=== PATIENT | male | born 1945 | race Caucasian/White ===

== ENCOUNTER 2024-03-12 04:16 | Inpatient (IN) | payer MEDICARE, OTHER ==
--- NOTE | 2024-03-12 04:33 | ED ---
General Adult HPI - General Chief complaint: Recheck/Abnormal Lab/Rx Stated complaint: abnormal labs Time Seen by Provider: 03/12/24 04:20 Source: family Mode of arrival: wheelchair - History of Present Illness Initial comments: 78-year-old male with past medical history of coronary artery disease who presents emergency department as a transfer from [facility] in [place]. Patient was taken in there by EMS for weakness and confusion. Patient reported upper respiratory infection 2 to 3 weeks ago for which he saw his doctor. Over the last week he started having gait disturbances. 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 He had mild expressive aphasia. Torr ey studies were conducted. Lactic was 2.4. Calcium was 15.3. Imaging was done to include a chest, abdomen pelvis CT. Demonstrated mediastinal and right hilar adenopathy concerning for neoplasm or lymphoma. Small right pleural effusion. Reticular opacity in the right lower lobe and left upper lobe. CT brain demonstrated no acute findings. There is concern for myeloma, metastatic cancer. Creatinine was 2.7. He was given fluids and 4 mg of zoledronic acid. Patient required oncology nephrology. I spoke with the patient's [place]. They did draw vitamin D, calcium and parathyroid levels. - Related Data Home Medications Medication Instructions Recorded Confirmed ARIPiprazole [Abilify] 5 mg PO HS 03/12/24 03/12/24 Atorvastatin [Lipitor] 40 mg PO DAILY 03/12/24 03/12/24 Benzonatate [Tessalon Perle] 200 mg PO HS PRN 03/12/24 03/12/24 Omeprazole [PriLOSEC] 20 mg PO DAILY 03/12/24 03/12/24 Venlafaxine HCl [Effexor XR] 150 mg PO HS 03/12/24 03/12/24 amLODIPine [Norvasc] 5 mg PO DAILY 03/12/24 03/12/24 guaiFENesin 200 mg PO Q6H PRN 03/12/24 03/12/24 Allergies Allergy/AdvReac Type Severity Reaction Status Date / Time No Known Allergies Allergy Verified 03/12/24 07:56 Review of Systems ROS Statement: Those systems with pertinent positive or pertinent negative responses have been documented in the HPI. ROS Other: All systems not noted in ROS Statement are negative. Past Medical History Past Medical History: GERD/Reflux, Myocardial Infarction ([place]) Additional Past Medical History / Comment(s): DJD History of Any Multi-Drug Resistant Organisms: None Reported Past Surgical History: Heart Catheterization With Stent Past Psychological History: No Psychological Hx Reported Smoking Status: Former smoker Past Alcohol Use History: None Reported Past Drug Use History: None Reported General Exam General appearance: alert, in no apparent distress Head exam: Present: atraumatic, normocephalic, normal inspection Eye exam: Present: normal appearance, PERRL, EOMI. Absent: scleral icterus, conjunctival injection, periorbital swelling ENT exam: Present: normal exam, mucous membranes moist Neck exam: Present: normal inspection. Absent: tenderness, meningismus, lymphadenopathy Respiratory exam: Present: normal lung sounds bilaterally. Absent: respiratory distress, wheezes, rales, rhonchi, stridor Cardiovascular Exam: Present: regular rate, normal rhythm, normal heart sounds. Absent: systolic murmur, diastolic murmur, rubs, gallop, clicks GI/Abdominal exam: Present: soft, normal bowel sounds. Absent: distended, tenderness, guarding, rebound, rigid Extremities exam: Present: normal inspection, full ROM, normal capillary refill. Absent: tenderness, pedal edema, joint swelling, calf tenderness Back exam: Present: normal inspection Neurological exam: Present: alert, oriented X3, CN II-XII intact Psychiatric exam: Present: normal affect, normal mood Skin exam: Present: warm, dry, intact, normal color. Absent: rash Course Vital Signs 03/12/24 03/12/24 03/12/24 04:18 05:21 06:44 Temperature 98.1 F Pulse Rate 99 88 90 Respiratory 18 18 18 Rate Blood Pressure 133/76 137/75 145/86 O2 Sat by Pulse 94 L 93 L 95 Oximetry 03/12/24 03/12/24 03/12/24 10:19 14:00 18:04 Temperature Pulse Rate 102 H 78 80 Respiratory 18 18 16 Rate Blood Pressure 135/83 144/98 143/81 O2 Sat by Pulse 97 96 95 Oximetry 03/12/24 19:04 Temperature 99.1 F Pulse Rate 87 Respiratory 18 Rate Blood Pressure 141/82 O2 Sat by Pulse 95 Oximetry Medical Decision Making - Medical Decision Making Was pt. sent in by a medical professional or institution (NIKOLAY Jefferson, ACTUARIAL INTERN, urgent care, hospital, or shelter...) When possible be specific @ -Allienyla Rizo Did you speak to anyone other than the patient for history (EMS, parent, family, police, friend...)? What history was obtained from this source @ -Spoke with transferring physician from [facility] Did you review nursing and triage notes (agree or disagree)? Why? @ -I reviewed and agree with nursing and triage notes Were old charts reviewed (outside hosp., previous admission, EMS record, old EKG, old radiological studies, urgent care reports/EKG's, shelter records)? Report findings @ -I reviewed the transfer packet from outside hospital Differential Diagnosis (chest pain, altered mental status, abdominal pain women, abdominal pain men, vaginal bleeding, weakness, fever, dyspnea, syncope, headache, dizziness, GI bleed, back pain, seizure, CVA, palpatations, mental hea lth, musculoskeletal)? @ -Differential Weakness: Hypoglycemia, shock, sepsis, hyponatremia, anemia, infection, PA, ETOH, adverse medicine reaction, overdose, stroke, this is not meant to be an all-inclusive list. EKG interpreted by me (3pts min.). @ -Yes and demonstrates sinus rhythm with a rate of 97. MA interval 164. QRS 100. QTc of 360. No acute ST segment elevations or depressions X-rays interpreted by me (1pt min.). @ -None done CT interpreted by me (1pt min.). @ -None done U/S interpreted by me (1pt. min.). @ -None done What testing was considered but not performed or refused? (CT, X-rays, U/S, labs)? Why? @ -None What meds were considered but not given or refused? Why? @ -None Did you discuss the management of the patient with other professionals (professionals i.e. NIKOLAY Jefferson, ACTUARIAL INTERN, lab, RT, psych nurse, social work coordinator, field service technician, teacher, corporation officer, therapeutic case manager)? Give summary @ -Spoke with Dr. Parra for admission Was smoking cessation discussed for >3mins.? @ -No Was critical care preformed (if so, how long)? @ -No Were there social determinants of health that impacted care today? How? (Homelessness, low income, unemployed, alcoholism, drug addiction, transpo rtation, low edu. Level, literacy, decrease access to med. care, senior living, rehab)? @ -Patient lives up in [place] Was there de-escalation of care discussed even if they declined (Discuss DNR or withdrawal of care, Hospice)? DNR status @ -No What co-morbidities impacted this encounter? (DM, HTN, Smoking, COPD, CAD, Cancer, CVA, ARF, Chemo, Hep., AIDS, mental health diagnosis, sleep apnea, morbid obesity)? @ -None Was patient admitted / discharged? Hospital course, mention meds given and route, prescriptions, significant lab abnormalities, going to OR and other pertinent info. @ -Upon arrival patient seen and evaluated in bed 1. Thorough history and physical exam was performed. IV access was established. Laboratory studies are conducted. I did review the transfer packet. Patient has MATT with hypercalcemia and concern for neoplastic process. Patient will be admitted. Spoke with Dr. Cheema and then Dr. Parra for admission. Undiagnosed new problem with uncertain prognosis? @ -Yes Drug Therapy requiring intensive monitoring for toxicity (Heparin, Nitro, Insulin, Cardizem)? @ -No Were any procedures done? @ -No Diagnosis/symptom? @ -Acute encephalopathy, acute kidney injury, acute hypercalcemia, diffusely lymphadenopathy Acute, or Chronic, or Acute on Chronic? @ -Acute Uncomplicated (without systemic symptoms) or Complicated (systemic symptoms)? @ -Complicated Side effects of treatment? @ -No Exacerbation, Progression, or Severe Exacerbation? @ -No Poses a threat to life or bodily function? How? (Chest pain, USA, PA, pneumonia, PE, COPD, DKA, ARF, appy, cholecystitis, CVA, Diverticulitis, Homicidal, Suicidal, threat to staff... and all critical care pts) @ -Yes as patient has kidney failure with possible neoplastic process - Lab Data Result diagrams: 03/12/24 04:35 03/13/24 04:46 Lab Results 03/12/24 03/12/24 Range/Units 04:35 04:35 WBC 4.7 (3.8-10.6) k/uL RBC 4.14 L (4.30-5.90) m/uL Hgb 12.5 L (13.0-17.5) gm/dL Hct 35.9 L (39.0-53.0) % MCV 86.8 (80.0-100.0) fL MCH 30.1 (25.0-35.0) pg MCHC 34.7 (31.0-37.0) g/dL RDW 14.8 (11.5-15.5) % Plt Count 113 L (150-450) k/uL MPV 11.2 Neutrophils % 58 % Lymphocytes % 10 % Monocytes % 9 % Eosinophils % 19 % Basophils % 1 % Neutrophils # 2.7 (1.3-7.7) k/uL Lymphocytes # 0.5 L (1.0-4.8) k/uL Monocytes # 0.4 (0-1.0) k/uL Eosinophils # 0.9 H (0-0.7) k/uL Basophils # 0.0 (0-0.2) k/uL Sodium 134 L (137-145) mmol/L Potassium 3.9 (3.5-5.1) mmol/L Chloride 102 (98-107) mmol/L Carbon Dioxide 30 (22-30) mmol/L Anion Gap 2 mmol/L BUN 39 H (9-20) mg/dL Creatinine 2.45 H (0.66-1.25) mg/dL Est GFR (CKD-EPI)AfAm 28 (>60 ml/min/1.73 sqM) Est GFR (CKD-EPI)NonAf 24 (>60 ml/min/1.73 sqM) Glucose 84 (74-99) mg/dL Calcium 14.7 H* (8.4-10.2) mg/dL Magnesium 1.5 L (1.6-2.3) mg/dL Total Bilirubin 1.2 (0.2-1.3) mg/dL AST 144 H (17-59) U/L ALT 76 H (4-49) U/L Alkaline Phosphatase 335 H (38-126) U/L Total Protein 6.7 (6.3-8.2) g/dL Albumin 3.2 L (3.5-5.0) g/dL Disposition Clinical Impression: Hypercalcemia, MATT (acute kidney injury), Encephalopathy acute, Lymphadenopathy Disposition: ADMITTED IP TO THIS HOSP Condition: Stable Is patient prescribed a controlled substance at d/c from ED?: No Time of Disposition: 05:59 Decision to Admit Reason: Admit from EC Decision Date: 03/12/24 Decision Time: 05:59
[2024-03-12] MEDS ORDERED: NALOXONE 0.4 MG/ML 1 ML VIAL IV PRN (06:14)
[2024-03-12] MEDS: SODIUM CHLORIDE 0.9% 1,000 ML IV SCH (06:43)
[2024-03-12 06:59] LABS: ALT 76 U/L (4-49); AST 144 U/L (17-59); African American GFR (CKD) 28 (>60 ml/min/1.73 sqM); Albumin 3.2 g/dL (3.5-5.0); Alkaline Phosphatase 335 U/L (38-126); Anion Gap 2 mmol/L; Blood Urea Nitrogen 39 mg/dL (9-20); Carbon Dioxide 30 mmol/L (22-30); Chloride 102 mmol/L (98-107); Glucose 84 mg/dL (74-99); Magnesium 1.5 mg/dL (1.6-2.3); Non-African American GFR(CKD) 24 (>60 ml/min/1.73 sqM); Potassium 3.9 mmol/L (3.5-5.1); Sodium 134 mmol/L (137-145); Total Bilirubin 1.2 mg/dL (0.2-1.3); Total Protein 6.7 g/dL (6.3-8.2)
[2024-03-12 07:16] LABS: Calcium 14.7 mg/dL (8.4-10.2)
[2024-03-12 07:20] LABS: Basophils % (A) 1 %; Eosinophils # (A) 0.9 k/uL (0-0.7); Eosinophils % (A) 19 %; HCT 35.9 % (39.0-53.0); HGB 12.5 gm/dL (13.0-17.5); Lymphocytes # (A) 0.5 k/uL (1.0-4.8); Lymphocytes % (A) 10 %; MCH 30.1 pg (25.0-35.0); MCHC 34.7 g/dL (31.0-37.0); MCV 86.8 fL (80.0-100.0); Mean Platelet Volume 11.2; Monocytes # (A) 0.4 k/uL (0-1.0); Monocytes % (A) 9 %; Neutrophils # (A) 2.7 k/uL (1.3-7.7); Neutrophils % (A) 58 %; Platelet Count 113 k/uL (150-450); RBC 4.14 m/uL (4.30-5.90); RDW 14.8 % (11.5-15.5); WBC 4.7 k/uL (3.8-10.6)
[2024-03-12] MEDS: CALCITONIN INJ 200 UNIT/ML (MDV) VIAL SQ ONE (08:04)
[2024-03-12] MEDS ORDERED: ZOLEDRONIC ACID 4 MG in SODIUM CHLORIDE 0.9% 100 ML IV NR (08:45)
--- NOTE | 2024-03-12 09:02 | US ---
EXAMINATION TYPE: US kidneys/renal and bladder DATE OF EXAM: 03/12/2024 COMPARISON: outside CT on 03/11/24 CLINICAL INDICATION: Male, 78 years old with history of juan jose; juan jose TECHNIQUE: Grayscale imaging of the bilateral kidneys and urinary bladder: FINDINGS: EXAM MEASUREMENTS: Right Kidney: 12.2 x 4.5 x 5.7 cm Left Kidney: 11.9 x 5.8 x 5.4 cm Right Kidney: cystic area seen mid pole measuring 3.2 x 2.4 x 2.0cm Left Kidney: cystic area seen inf pole measuring 2.5 x 3.0 x 2.4cm. Cystic area seen lateral border m easuring 8.4 x 6.2 x 2.0cm Bladder: echogenic area seen on right side of wall, of uncertain etiology Bilateral Jets seen: yes No hydronephrosis or nephrolithiasis. Renal cortical thickness and echogenicity maintained. IMPRESSION: 1. Renal calculi seen by outside CT scan not as well appreciated by ultrasound. No overt hydronephros is. 2. Bilateral renal lesions most likely in the basis of simple cysts. 3. Echogenic area reported by the technologist along the right lateral bladder wall limited due to in complete distention bladder. CT scan demonstrated no discrete abnormality. Short-term follow-up jaynea oleksandr ultrasound recommended with greater bladder distention within one month. [facility], , 03/12/2024 9:00 AM
--- NOTE | 2024-03-12 11:23 | P.NPCON ---
History of Present Illness - Reason for Consult acute renal failure - History of Present Illness Reason for consultation: Acute kidney injury and hypercalcemia History of present is: Patient is a 78-year-old male seen in renal consultation for acute kidney injury. Patient was seen and examined in the emergency room. Patient presented to the hospital due to confusion and weakness. Patient states he has been feeling progressively weak for about 1 week now and was having a hard time ambulating. He denies any personal history of kidney disease and does not follow with a small engine trainer outpatient. At the initial facility his creatinine was 2.7 and calcium level was 15.3. He received IV fluids and dose of zoledronic acid and was subsequently transferred here. Imaging was concerning for lymphoma due to significant lymphadenopathy. Patient does admit to taking a calcium and vitamin D supplement at home. He denies any personal history of cancer in the past. Denies regular use of nonsteroidals. Currently receiving IV fluids. Has been voiding. Denies gross hematuria or dysuria. No fever or chills. Hemodynamically stable. Creatinine 2.45 today. Vital signs are stable. General: No acute distress. HEENT: Head exam is unremarkable. LUNGS: No audible rhonchi or wheezes. HEART: Rate and Rhythm are regular. ABDOMEN: Nontender. EXTREMITITES: No edema. Past Medical History Past Medical History: GERD/Reflux, Myocardial Infarction ([place]) Additional Past Medical History / Comment(s): DJD History of Any Multi-Drug Resistant Organisms: None Reported Past Surgical History: Heart Catheterization With Stent Past Psychological History: No Psychological Hx Reported Smoking Status: Former smoker Past Alcohol Use History: None Reported Past Drug Use History: None Reported Medications and Allergies Home Medications Medication Instructions Recorded Confirmed Type ARIPiprazole [Abilify] 5 mg PO HS 03/12/24 03/12/24 History Atorvastatin [Lipitor] 40 mg PO DAILY 03/12/24 03/12/24 History Benzonatate [Tessalon Perle] 200 mg PO HS PRN 03/12/24 03/12/24 History Omeprazole [PriLOSEC] 20 mg PO DAILY 03/12/24 03/12/24 History Venlafaxine HCl [Effexor XR] 150 mg PO HS 03/12/24 03/12/24 History amLODIPine [Norvasc] 5 mg PO DAILY 03/12/24 03/12/24 History guaiFENesin 200 mg PO Q6H PRN 03/12/24 03/12/24 History Allergies Allergy/AdvReac Type Severity Reaction Status Date / Time No Known Allergies Allergy Verified 03/12/24 07:56 Physical Exam Vitals: Vital Signs Temp Pulse Resp BP Pulse Ox 03/12/24 10:19 102 H 18 135/83 97 03/12/24 06:44 90 18 145/86 95 03/12/24 05:21 88 18 137/75 93 L 03/12/24 04:18 98.1 F 99 18 133/76 94 L Intake and Output 03/11/24 03/12/24 03/12/24 22:59 06:59 14:59 Other: Weight 99.79 kg Results - Lab Results Most recent lab results Calcium 14.7 mg/dL (8.4-10.2) H* 03/12/24 04:35 Magnesium 1.5 mg/dL (1.6-2.3) L 03/12/24 04:35 03/12/24 04:35 03/12/24 04:35 Assessment and Plan Plan: Assessment: 1. Acute kidney injury secondary to hypercalcemia induced ATN. Initial creatinine 2.7 and is 2.45 today. Unknown baseline renal function. 2. Hypercalcemia. Concerning for underlying malignancy. Was taking calcium and vitamin D supplementation at home which is currently held. 3. Hypomagnesemia from poor intake. Plan: Increase rate of normal saline to 200 cc an hour. Status post zoledronic acid given March 11, 2024. Subcu calcitonin given this morning. Repeat labs at 1 PM. Check secondary workup for hypercalcemia. Oncology consulted. Check renal ultrasound. Thank you for the consultation. I will continue to follow the patient with you during his hospital stay.
[2024-03-12] MEDS: MAGNESIUM SULFATE-D5W PMX 1 GM in DEXTROSE/WATER 1 100ML.BAG IVPB SCH (11:27)
--- NOTE | 2024-03-12 12:12 | P.HPIM ---
History of Present Illness H&P Date: 03/12/24 Patient is a 78-year-old male with history of hypertension, dyslipidemia, anxiety/depression, GERD, CAD status post stent presenting with acute encephalopathy. Patient is a poor historian due to altered mentation. Per report, patient initially presented to [facility] with concerns for muscle cramps and acute encephalopathy. Initial blood work at that facility showed calcium of 15.3, creatinine of 2.73. Patient was given IV fluids as well as zoledronic acid. He also had CT chest abdomen pelvis which showed mediastinal, right hilar, paratracheal, subcarinal, right axillary and retroperitoneal left periaortic lymphadenopathy. He was later transferred to our facility for further workup with nephrology and oncology. In the ED, temperature was 98.1, pulse 99, respiratory rate 18, blood pressure 133/76, saturating at 94% on room air. WBC 4.7, hemoglobin 12.5, sodium 134, creatinine 2.45, potassium 3.9, calcium 14.7, magnesium 1.5, AST 144, ALT 76, ALP 335. Patient started on IV fluids, admitted for further hypercalcemia management. Oncology and nephrology consulted. Pertinent positives and negatives as discussed in HPI, a complete review of systems was performed and all other systems are negative. Patient seen and examined at bedside. Vital signs reviewed General: nontoxic, no distress, appears at stated age Derm: warm, dry Head: atraumatic, normocephalic, symmetric Eyes: EOMI, no lid lag, anicteric sclera, pupils equal round reactive to light ENT: Nose and ears atraumatic Neck: No thyromegaly, supple Mouth: no lip lesion, mucus membranes moist Cardiovascular: S1S2 reg, no murmur, no edema Lungs: clear to auscultation bilateral, no rhonchi, no rales, no wheeze, no accessory muscle use Abdominal: soft, nontender to palpation, no guarding, no appreciable organomegaly Ext: no gross muscle atrophy, muscle strength muscle strength 5 out of 5 in all 4 extremities, no contractures Neuro: CN II-XII grossly intact Psych: Alert, oriented x 2, appropriate affect Assessment/Plan: Active: Symptomatic hypercalcemia Acute metabolic encephalopathy Hypomagnesemia Lymphadenopathy -400 units subcu once calcitonin given this morning -Discussed management with nephrology, increase IV fluids to 200 cc an hour normal saline -Repeat CMP this afternoon -Hypercalcemia workup pending -Oncology consulted, pending recommendations -Patient receiving 2 g of IV magnesium sulfate, repeat magnesium tomorrow -TSH, B12, folic acid also ordered Chronic: GERD Hypertension Dyslipidemia Anxiety/depression The patient is admitted with an anticipated greater than 2 midnight stay as inpatient status for evaluation of hypercalcemia. Surrogate decision-maker: Son CODE STATUS: Full code DVT prophylaxis: Subcu Lovenox Anticipated discharge date: Pending clinical course Anticipated discharge place: Pending clinical course A total of 65 minutes was spent on the care of this complex patient more than 50% of the time was spent in counseling and care coordination. Past Medical History Past Medical History: GERD/Reflux, Myocardial Infarction ([place]) Additional Past Medical History / Comment(s): DJD History of Any Multi-Drug Resistant Organisms: None Reported Past Surgical History: Heart Catheterization With Stent Past Psychological History: No Psychological Hx Reported Smoking Status: Former smoker Past Alcohol Use History: None Reported Past Drug Use History: None Reported Medications and Allergies Home Medications Medication Instructions Recorded Confirmed Type ARIPiprazole [Abilify] 5 mg PO HS 03/12/24 03/12/24 History Atorvastatin [Lipitor] 40 mg PO DAILY 03/12/24 03/12/24 History Benzonatate [Tessalon Perle] 200 mg PO HS PRN 03/12/24 03/12/24 History Omeprazole [PriLOSEC] 20 mg PO DAILY 03/12/24 03/12/24 History Venlafaxine HCl [Effexor XR] 150 mg PO HS 03/12/24 03/12/24 History amLODIPine [Norvasc] 5 mg PO DAILY 03/12/24 03/12/24 History guaiFENesin 200 mg PO Q6H PRN 03/12/24 03/12/24 History Allergies Allergy/AdvReac Type Severity Reaction Status Date / Time No Known Allergies Allergy Verified 03/12/24 07:56 Physical Exam Vitals: Vital Signs Temp Pulse Resp BP Pulse Ox 03/12/24 10:19 102 H 18 135/83 97 03/12/24 06:44 90 18 145/86 95 03/12/24 05:21 88 18 137/75 93 L 03/12/24 04:18 98.1 F 99 18 133/76 94 L Intake and Output 11/09/2703/12/24 03/12/24 22:59 06:59 14:59 Other: Weight 99.79 kg Results CBC & Chem 7: 03/12/24 04:35 03/12/24 04:35 Labs: Abnormal Lab Results - Last 24 Hours (Table) 03/12/24 03/12/24 Range/Units 04:35 04:35 RBC 4.14 L (4.30-5.90) m/uL Hgb 12.5 L (13.0-17.5) gm/dL Hct 35.9 L (39.0-53.0) % Plt Count 113 L (150-450) k/uL Lymphocytes # 0.5 L (1.0-4.8) k/uL Eosinophils # 0.9 H (0-0.7) k/uL Sodium 134 L (137-145) mmol/L BUN 39 H (9-20) mg/dL Creatinine 2.45 H (0.66-1.25) mg/dL Calcium 14.7 H* (8.4-10.2) mg/dL Magnesium 1.5 L (1.6-2.3) mg/dL AST 144 H (17-59) U/L ALT 76 H (4-49) U/L Alkaline Phosphatase 335 H (38-126) U/L Albumin 3.2 L (3.5-5.0) g/dL
[2024-03-12 13:37] LABS: ALT 75 U/L (4-49); AST 140 U/L (17-59); African American GFR (CKD) 34 (>60 ml/min/1.73 sqM); Albumin 3.3 g/dL (3.5-5.0); Albumin/Globulin Ratio 0.9; Alkaline Phosphatase 308 U/L (38-126); Anion Gap 8 mmol/L; Blood Urea Nitrogen 38 mg/dL (9-20); Carbon Dioxide 26 mmol/L (22-30); Chloride 101 mmol/L (98-107); Globulin 3.5 g/dL; Glucose 116 mg/dL (74-99); Non-African American GFR(CKD) 30 (>60 ml/min/1.73 sqM); Potassium 4.1 mmol/L (3.5-5.1); Sodium 135 mmol/L (137-145); Total Bilirubin 1.1 mg/dL (0.2-1.3); Total Protein 6.8 g/dL (6.3-8.2)
[2024-03-12 13:46] LABS: Calcium 13.1 mg/dL (8.4-10.2)
[2024-03-12 14:56] LABS: Protein, Total 6.7 g/dL (6.2-8.2)
--- NOTE | 2024-03-12 15:16 | US ---
EXAMINATION TYPE: US axilla BILAT DATE OF EXAM: 03/12/2024 COMPARISON: 03/11/[address] CLINICAL INDICATION: Male, 78 years old with history of cervical,supraclavicular,axillary lymphadenop athy; TECHNIQUE: Grayscale and color Doppler imaging of the bilateral axilla. FINDINGS: Multiple lymph nodes seen in bilateral axilla. Largest right; deep and inferior = 1.9 x 2.0 x 4.1 cm Largest left; axillary tail = 3.3 x 1.4 x 2.1 cm; cortex = 0.7 cm IMPRESSION: Bilateral prominent/enlarged lymph nodes which are suspicious findings similar to CT ches t 03/11/2024 from outside institution.. Correlate with history of malignancy consider tissue sampling. [facility], , 03/12/2024 3:14 PM
--- NOTE | 2024-03-12 15:43 | US ---
EXAMINATION TYPE: US thyroid st tissue head/neck DATE OF EXAM: 03/12/2024 COMPARISON: 03/11/2024 CT CLINICAL INDICATION: Male, 78 years old with history of cervical,supraclavicular,axillary lymphadenop athy; Recently diagnosed with lymphopathy TECHNIQUE: Grayscale and color Doppler imaging of the left neck. FINDINGS: Multiple lymph nodes seen bilateral neck Largest right = 1.5 x 0.7 x 0.9 cm Largest left = 3.4 x 2.1 x 2.5 cm IMPRESSION: Grayscale imaging of the left neck demonstrates enlarged lymph nodes concerning for neopl astic process. Findings similar to 03/11/2024 CT. [facility], Workstation: [id number], 03/12/2024 3:41 PM
[2024-03-12] MEDS: ARIPiprazole 5 MG TAB PO SCH (21:09)
[2024-03-12] MEDS: VENLAFAXINE HCL ER 150 MG CAP PO SCH (21:09)
--- NOTE | 2024-03-12 21:17 | P.CONS ---
History of Present Illness - Reason for Consult Consult date: 03/12/24 abnormal lymphadenopathy Requesting physician: Isabela Cardoza - Chief Complaint hypercalcemia, confusion - History of Present Illness Patient is a 78-year-old male who was transferred from [facility] in [place] due to hypercalcemia and abnormal lymphadenopathy noted on CT scan. Patient reports has been having increasing confusion over the last 3 weeks as well as weight loss and decreased appetite that has progressed over the last 1 year. Denies night sweat. CT chest abdomen pelvis without contrast showed mediastinal and right hilar lymphadenopathy with markedly enlarged subcarinal lymph node. Single mildly enlarged lymph node in the right axilla and 1 in the left periaortic region in the abdomen. Small right pleural effusion with adjacent atelectasis. Minimal reticular nodular opacity most notable in the right lower lobe and less so in the left upper lobe, favoring inflammatory infectious process. Patient was also noted to be in acute renal failure with elevated calcium. Labs upon presentation to the ER showed creatinine 2.45, GFR 24. Calcium 14.7. Patient was given Zometa prior to arrival and calcitonin this morning. CBC showing WBC 4.7, hemoglobin 12.5, platelets 113,000. Transaminitis noted, bilirubin normal at 1.2. Review of Systems 10 point ROS is negative except as stated in the HPI Past Medical History Past Medical History: GERD/Reflux, Myocardial Infarction ([place]) Additional Past Medical History / Comment(s): DJD History of Any Multi-Drug Resistant Organisms: None Reported Past Surgical History: Heart Catheterization With Stent Past Psychological History: No Psychological Hx Reported Smoking Status: Former smoker Past Alcohol Use History: None Reported Past Drug Use History: None Reported Medications and Allergies Home Medications Medication Instructions Recorded Confirmed Type ARIPiprazole [Abilify] 5 mg PO HS 03/12/24 03/12/24 History Atorvastatin [Lipitor] 40 mg PO DAILY 03/12/24 03/12/24 History Benzonatate [Tessalon Perle] 200 mg PO HS PRN 03/12/24 03/12/24 History Omeprazole [PriLOSEC] 20 mg PO DAILY 03/12/24 03/12/24 History Venlafaxine HCl [Effexor XR] 150 mg PO HS 03/12/24 03/12/24 History amLODIPine [Norvasc] 5 mg PO DAILY 03/12/24 03/12/24 History guaiFENesin 200 mg PO Q6H PRN 03/12/24 03/12/24 History Allergies Allergy/AdvReac Type Severity Reaction Status Date / Time No Known Allergies Allergy Verified 03/12/24 07:56 Physical Exam Vitals: Vital Signs Temp Pulse Resp BP Pulse Ox 03/12/24 10:19 102 H 18 135/83 97 03/12/24 06:44 90 18 145/86 95 03/12/24 05:21 88 18 137/75 93 L 03/12/24 04:18 98.1 F 99 18 133/76 94 L Intake and Output 03/11/24 03/12/24 03/12/24 22:59 06:59 14:59 Other: Weight 99.79 kg - Constitutional General appearance: average body habitus, no acute distress - EENT Eyes: anicteric sclerae, EOMI ENT: hearing grossly normal - Neck cervical and bilateral axilla LAD noted Neck: lymphadenopathy - Respiratory Respiratory: bilateral: CTA - Cardiovascular Rhythm: regular - Gastrointestinal General gastrointestinal: soft, no tenderness - Integumentary Integumentary: no cyanotic, no jaundiced - Psychiatric Psychiatric: A&O x's 3 Results CBC & Chem 7: 03/12/24 04:35 03/12/24 13:02 Labs: Abnormal Lab Results - Last 24 Hours (Table) 03/12/24 03/12/24 Range/Units 04:35 04:35 RBC 4.14 L (4.30-5.90) m/uL Hgb 12.5 L (13.0-17.5) gm/dL Hct 35.9 L (39.0-53.0) % Plt Count 113 L (150-450) k/uL Lymphocytes # 0.5 L (1.0-4.8) k/uL Eosinophils # 0.9 H (0-0.7) k/uL Sodium 134 L (137-145) mmol/L BUN 39 H (9-20) mg/dL Creatinine 2.45 H (0.66-1.25) mg/dL Calcium 14.7 H* (8.4-10.2) mg/dL Magnesium 1.5 L (1.6-2.3) mg/dL AST 144 H (17-59) U/L ALT 76 H (4-49) U/L Alkaline Phosphatase 335 H (38-126) U/L Albumin 3.2 L (3.5-5.0) g/dL CT scan - abdomen: report reviewed CT scan - chest: report reviewed CT scan - pelvis: report reviewed Assessment and Plan (1) MATT (acute kidney injury) Current Visit: Yes Status: Acute Priority: High Code(s): N17.9 - ACUTE KIDNEY FAILURE, UNSPECIFIED SNOMED Code(s): 74133543 (2) Encephalopathy acute Current Visit: Yes Status: Acute Priority: High Code(s): G93.40 - ENCEPHALOPATHY, UNSPECIFIED SNOMED Code(s): 88642589 (3) Hypercalcemia Current Visit: Yes Status: Acute Priority: High Code(s): E83.52 - HYPERCALCEMIA SNOMED Code(s): 69908395 (4) Lymphadenopathy Current Visit: Yes Status: Acute Priority: High Code(s): R59.1 - GENERALIZED ENLARGED LYMPH NODES SNOMED Code(s): 62458086 Plan: Hypercalcemia, MATT, diffuse lymphadenopathy: Patient was transferred from [facility] in [place] due to hypercalcemia and abnormal lymphadenopathy noted on CT scan. Patient reports has been having increasing confusion over the last 3 weeks as well as weight loss and decreased appetite that has progressed over the last 1 year. -CT chest abdomen pelvis without contrast showed mediastinal and right hilar lymphadenopathy with markedly enlarged subcarinal lymph node. Single mildly enlarged lymph node in the right axilla and 1 in the left. Aortic region in the abdomen. Small right pleural effusion with adjacent atelectasis. Minimal reti cular nodular opacity most notable in the right lower lobe and less so in the left upper lobe, favoring inflammatory infectious process. -Patient was also noted to be in acute renal failure with elevated calcium. Creatinine 2.45, GFR 24. Calcium 14.7 -Patient was given Zometa prior to arrival and calcitonin this morning. Continue IV hydration. Repeat calcium in the morning -Nephrology following. Vitamin D and PTH ordered -Will obtain US of neck and bilateral axilla to evaluate site for biopsy. IR consult placed Discussed findings and concerns for malignancy with patient and family. They were agreeable with plan and to proceed with further workup Doctor attests: I performed a history and physical examination of this patient, developed impression and plan of care. Discussed with dictator. I agree with dictators note, documented as a scribe.
[2024-03-13] MEDS: PANTOPRAZOLE 40 MG TABLET PO SCH (09:00)
[2024-03-13] MEDS: amLODIPine 5 MG TAB PO SCH (09:00)
[2024-03-13] MEDS: ATORVASTATIN 40 MG TAB PO SCH (09:00)
[2024-03-13 09:26] LABS: Angiotensin-1 Converting Enz. 311 U/L (8-52)
[2024-03-13 09:39] LABS: BUN/Creat Ratio 17.11 Ratio (12.00-20.00); Blood Urea Nitrogen 32.5 mg/dL (9.0-27.0); Carbon Dioxide 21.5 mmol/L (21.6-31.8); Chloride 105 mmol/L (96-109); Glucose 84 mg/dL (70-110); Magnesium 1.6 mg/dL (1.5-2.4); Potassium 3.7 mmol/L (3.5-5.5); Sodium 139 mmol/L (135-145)
[2024-03-13 09:40] LABS: ALT 68 U/L (10-49); AST 113 U/L (14-35); Albumin 3.1 g/dL (3.8-4.9); Albumin/Globulin Ratio 1.03 Ratio (1.60-3.17); Alkaline Phosphatase 330 U/L (41-126); Calcium 11.1 mg/dL (8.7-10.3); Total Bilirubin 0.7 mg/dL (0.3-1.2); Total Protein 6.1 g/dL (6.2-8.2)
--- NOTE | 2024-03-13 10:13 | P.PN ---
Subjective Patient is seen in follow-up for acute kidney injury and hypercalcemia. Renal function improving. Calcium level trending down. Receiving IV fluids. Oral intake fair. Has been voiding. Vital signs are stable. General: No acute distress. HEENT: Head exam is unremarkable. LUNGS: No audible rhonchi or wheezes. HEART: Rate and Rhythm are regular. ABDOMEN: Nontender. EXTREMITITES: No edema. Objective - Vital Signs Vital signs: Vital Signs Temp 97.9 F 03/13/24 07:50 Pulse 92 03/13/24 07:50 Resp 16 03/13/24 07:50 BP 124/70 03/13/24 07:50 Pulse Ox 96 03/13/24 07:50 FiO2 Intake & Output 03/12/24 03/13/24 03/13/24 18:59 06:59 18:59 Intake Total 480 Balance 480 Weight 99.79 kg Intake: Oral 480 Other: Voiding Method Toilet Bedside Commode Incontinent # Voids 4 - Labs CBC & Chem 7: 03/12/24 04:35 03/13/24 04:46 Labs: Abnormal Lab Results - Last 24 Hours (Table) 03/12/24 03/12/24 03/12/24 Range/Units 11:31 11:31 13:02 Sodium 135 L (137-145) mmol/L Carbon Dioxide (21.6-31.8) mmol/L Anion Gap (4.00-12.00) mmol/L BUN 38 H (9-20) mg/dL Creatinine 2.08 H (0.66-1.25) mg/dL Est GFR (CKD-EPI) (>=60) Glucose 116 H (74-99) mg/dL Calcium 13.1 H* (8.4-10.2) mg/dL AST 140 H (17-59) U/L ALT 75 H (4-49) U/L Alkaline Phosphatase 308 H (38-126) U/L Total Protein (6.2-8.2) g/dL Albumin 3.3 L (3.5-5.0) g/dL Albumin/Globulin Ratio (1.60-3.17) Ratio Angiotensin Convert Enz 311 H (8-52) U/L Vitamin D 25-Hydroxy 21.2 L (30.0-100.0) ng/mL PTH Intact 11.3 L (14.0-72.0) pg/mL 03/13/24 Range/Units 04:46 Sodium (137-145) mmol/L Carbon Dioxide 21.5 L (21.6-31.8) mmol/L Anion Gap 12.50 H (4.00-12.00) mmol/L BUN 32.5 H (9-20) mg/dL Creatinine 1.9 H (0.66-1.25) mg/dL Est GFR (CKD-EPI) 36 L (>=60) Glucose (74-99) mg/dL Calcium 11.1 H (8.4-10.2) mg/dL AST 113 H (17-59) U/L ALT 68 H (4-49) U/L Alkaline Phosphatase 330 H (38-126) U/L Total Protein 6.1 L (6.2-8.2) g/dL Albumin 3.1 L (3.5-5.0) g/dL Albumin/Globulin Ratio 1.03 L (1.60-3.17) Ratio Angiotensin Convert Enz (8-52) U/L Vitamin D 25-Hydroxy (30.0-100.0) ng/mL PTH Intact (14.0-72.0) pg/mL Assessment and Plan Plan: Assessment: 1. Acute kidney injury secondary to hypercalcemia induced ATN. Initial creatinine 2.7 and is 1.9 today. Unknown baseline renal function. No hydronephrosis noted on kidney ultrasound. 2. Hypercalcemia. Concerning for underlying malignancy. Was taking calcium and vitamin D supplementation at home which is currently held. Calcium level trending down. PTH appropriately suppressed at 11.3. TSH normal. Vitamin D level 21.2. SARAHI level elevated at 311. Oncology following. Biopsy pending. Elevated SARAHI level also concerning for sarcoidosis. Consider pulmonology eval. Discussed with primary team. 3. Hypomagnesemia from poor intake. Replaced. Better. Plan: Decrease rate of normal saline to 100 cc an hour. Status post zoledronic acid given March 11, 2024. Subcu calcitonin given March 12, 2024. Follow-up secondary workup for hypercalcemia. Calcitriol level pending. Electrophoresis and immunofixation pending. Add oral magnesium oxide. Replace potassium.
--- NOTE | 2024-03-13 11:06 | P.PN ---
Subjective Progress Note Date: 03/13/24 Hospital Course: 78-year-old male with history of hypertension, dyslipidemia, anxiety/depression, GERD, CAD status post stent presenting with acute encephalopathy. In the ED, temperature was 98.1, pulse 99, respiratory rate 18, blood pressure 133/76, saturating at 94% on room air. WBC 4.7, hemoglobin 12.5, sodium 134, creatinine 2.45, potassium 3.9, calcium 14.7, magnesium 1.5, AST 144, ALT 76, ALP 335. Patient started on IV fluids, admitted for further hypercalcemia management. Oncology and nephrology consulted. He is status post zoledronic acid and calcitonin. Calcium is improving. Renal function improving with IV fluids. He also had CT chest abdomen pelvis which showed mediastinal, right hilar, paratracheal, subcarinal, right axillary and retroperitoneal left periaortic lymphadenopathy. Patient has significantly elevated SARAHI levels. Pulmonology also consulted for possible sarcoidosis. Patient pending biopsy by interventional radiology. Subjective: Patient seen and examined at bedside. No acute events overnight. Pertinent positives and negatives as discussed above, a complete review of systems was performed and all other systems are negative. Vitals Signs Reviewed. General: Nontoxic, no distress, appears at stated age Derm: Warm, dry Head: Atraumatic, normocephalic, symmetric Eyes: EOMI, no lid lag, anicteric sclera Mouth: No lip lesion, mucus membranes moist Cardiovascular: S1S2 reg, no murmur Lungs: CTA bilateral, no rhonchi, no rales, no accessory muscle use Abdominal: Soft, nontender to palpation, no guarding, no appreciable organomegaly Ext: No gross muscle atrophy, no edema, no contractures Neuro: CN II-XI grossly intact, no focal neuro deficits Psych: Alert, oriented, appropriate affect Data Reviewed Today: Pertinent Labs: Creatinine 1.9, potassium 3.7, magnesium 1.6, calcium 11.1, 25- hydroxy vitamin D 21.2, ESR 311, PTH intact 11.3, TSH 2.31 Imaging: No new imaging Assessment and Plan: Patient is severely ill, needs close monitoring. Prognosis guarded. Active: Symptomatic hypercalcemia Prerenal acute kidney injury Acute metabolic encephalopathy Hypomagnesemia Lymphadenopathy - status post calcitonin and zoledronic acid -Discussed management with nephrology, pulmonology consulted for possible sarcoidosis, normal saline decreased to 100 cc an hour -Oncology following, pending axillary biopsy -Patient also started on oral magnesium 400 mg daily by nephrology -Repeat CMP and magnesium tomorrow Chronic: GERD Hypertension Dyslipidemia Anxiety/depression DVT ppx: Hold anticoagulation for biopsy Code status: Full code Anticipated discharge place: Pending clinical course Anticipated discharge time: Pending clinical course Objective - Vital Signs Vital signs: Vital Signs Temp 97.9 F 03/13/24 07:50 Pulse 92 03/13/24 07:50 Resp 16 03/13/24 07:50 BP 124/70 03/13/24 07:50 Pulse Ox 96 03/13/24 07:50 FiO2 Intake & Output 03/12/24 03/13/24 03/13/24 18:59 06:59 18:59 Intake Total 480 Balance 480 Weight 99.79 kg Intake: Oral 480 Other: Voiding Method Toilet Bedside Commode Incontinent # Voids 4 - Labs CBC & Chem 7: 03/12/24 04:35 03/13/24 04:46 Labs: Abnormal Lab Results - Last 24 Hours (Table) 03/12/24 03/12/24 03/12/24 Range/Units 11:31 11:31 13:02 Sodium 135 L (137-145) mmol/L Carbon Dioxide (21.6-31.8) mmol/L Anion Gap (4.00-12.00) mmol/L BUN 38 H (9-20) mg/dL Creatinine 2.08 H (0.66-1.25) mg/dL Est GFR (CKD-EPI) (>=60) Glucose 116 H (74-99) mg/dL Calcium 13.1 H* (8.4-10.2) mg/dL AST 140 H (17-59) U/L ALT 75 H (4-49) U/L Alkaline Phosphatase 308 H (38-126) U/L Total Protein (6.2-8.2) g/dL Albumin 3.3 L (3.5-5.0) g/dL Albumin/Globulin Ratio (1.60-3.17) Ratio Angiotensin Convert Enz 311 H (8-52) U/L Vitamin D 25-Hydroxy 21.2 L (30.0-100.0) ng/mL PTH Intact 11.3 L (14.0-72.0) pg/mL 03/13/24 Range/Units 04:46 Sodium (137-145) mmol/L Carbon Dioxide 21.5 L (21.6-31.8) mmol/L Anion Gap 12.50 H (4.00-12.00) mmol/L BUN 32.5 H (9-20) mg/dL Creatinine 1.9 H (0.66-1.25) mg/dL Est GFR (CKD-EPI) 36 L (>=60) Glucose (74-99) mg/dL Calcium 11.1 H (8.4-10.2) mg/dL AST 113 H (17-59) U/L ALT 68 H (4-49) U/L Alkaline Phosphatase 330 H (38-126) U/L Total Protein 6.1 L (6.2-8.2) g/dL Albumin 3.1 L (3.5-5.0) g/dL Albumin/Globulin Ratio 1.03 L (1.60-3.17) Ratio Angiotensin Convert Enz (8-52) U/L Vitamin D 25-Hydroxy (30.0-100.0) ng/mL PTH Intact (14.0-72.0) pg/mL
[2024-03-13] MEDS: POTASSIUM CHLORIDE ER 20 MEQ TAB.ER PO STA (11:49)
[2024-03-13] MEDS: MAGNESIUM OXIDE 400 MG TAB PO SCH (11:49)
--- NOTE | 2024-03-13 14:36 | US ---
EXAMINATION TYPE: US biopsy lymph node DATE OF EXAM: 03/13/2024 2:17 PM COMPARISON: None. CLINICAL INDICATION: Male, 78 years old with history of right axillary lymphadenopathy; , TECHNIQUE/FINDINGS: The procedure was explained to the patient. The risks, complications, benefits and alternatives were discussed and any questions were answered. Informed consent was obtained. Patient was placed supin e on the ultrasound table and prepped and draped in the usual sterile fashion. Utilizing a 18-gauge core biopsy needle, 4 passes were made into the requested right axillary lymph node. Patient was stable throughout the procedure. Pathology is pending. All elements of maximal barrier technique were utilized. IMPRESSION: 1. Successful ultrasound guided core biopsy right axillary lymph node. [facility], , 03/13/2024 2:33 PM
--- NOTE | 2024-03-13 14:48 | P.PN ---
Subjective Progress Note Date: 03/13/24 No acute events, mentation improving. Calcium 11.1 today. Kidney function improving. Scheduled for biopsy today with IR Objective - Vital Signs Vital signs: Vital Signs Temp 97.9 F 03/13/24 07:50 Pulse 92 03/13/24 07:50 Resp 16 03/13/24 07:50 BP 124/70 03/13/24 07:50 Pulse Ox 96 03/13/24 07:50 FiO2 Intake & Output 03/12/24 03/13/24 03/13/24 18:59 06:59 18:59 Intake Total 480 Balance 480 Weight 99.79 kg Intake: Oral 480 Other: Voiding Method Toilet Bedside Commode Incontinent # Voids 4 - Constitutional General appearance: Present: average body habitus, no acute distress - EENT Eyes: Present: anicteric sclerae, EOMI ENT: Present: hearing grossly normal - Respiratory Details: breathing is even and unlabored - Cardiovascular Details: skin warm and dry - Integumentary Integumentary: Absent: cyanotic - Musculoskeletal Musculoskeletal: Present: generalized weakness - Labs CBC & Chem 7: 03/12/24 04:35 03/13/24 04:46 Labs: Abnormal Lab Results - Last 24 Hours (Table) 03/12/24 03/12/24 03/12/24 Range/Units 11:31 11:31 13:02 Sodium 135 L (137-145) mmol/L Carbon Dioxide (21.6-31.8) mmol/L Anion Gap (4.00-12.00) mmol/L BUN 38 H (9-20) mg/dL Creatinine 2.08 H (0.66-1.25) mg/dL Est GFR (CKD-EPI) (>=60) Glucose 116 H (74-99) mg/dL Calcium 13.1 H* (8.4-10.2) mg/dL AST 140 H (17-59) U/L ALT 75 H (4-49) U/L Alkaline Phosphatase 308 H (38-126) U/L Total Protein (6.2-8.2) g/dL Albumin 3.3 L (3.5-5.0) g/dL Albumin/Globulin Ratio (1.60-3.17) Ratio Angiotensin Convert Enz 311 H (8-52) U/L Vitamin D 25-Hydroxy 21.2 L (30.0-100.0) ng/mL PTH Intact 11.3 L (14.0-72.0) pg/mL 03/13/24 Range/Units 04:46 Sodium (137-145) mmol/L Carbon Dioxide 21.5 L (21.6-31.8) mmol/L Anion Gap 12.50 H (4.00-12.00) mmol/L BUN 32.5 H (9-20) mg/dL Creatinine 1.9 H (0.66-1.25) mg/dL Est GFR (CKD-EPI) 36 L (>=60) Glucose (74-99) mg/dL Calcium 11.1 H (8.4-10.2) mg/dL AST 113 H (17-59) U/L ALT 68 H (4-49) U/L Alkaline Phosphatase 330 H (38-126) U/L Total Protein 6.1 L (6.2-8.2) g/dL Albumin 3.1 L (3.5-5.0) g/dL Albumin/Globulin Ratio 1.03 L (1.60-3.17) Ratio Angiotensin Convert Enz (8-52) U/L Vitamin D 25-Hydroxy (30.0-100.0) ng/mL PTH Intact (14.0-72.0) pg/mL - Imaging and Cardiology axilla and neck US reviewed Assessment and Plan (1) MATT (acute kidney injury) Current Visit: Yes Status: Acute Priority: High Code(s): N17.9 - ACUTE KIDNEY FAILURE, UNSPECIFIED SNOMED Code(s): 59184742 (2) Encephalopathy acute Current Visit: Yes Status: Acute Priority: High Code(s): G93.40 - ENC EPHALOPATHY, UNSPECIFIED SNOMED Code(s): 82550348 (3) Hypercalcemia Current Visit: Yes Status: Acute Priority: High Code(s): E83.52 - HYPERCALCEMIA SNOMED Code(s): 14589816 (4) Lymphadenopathy Current Visit: Yes Status: Acute Priority: High Code(s): R59.1 - GENERALIZED ENLARGED LYMPH NODES SNOMED Code(s): 50815026 Plan: Hypercalcemia, MATT, diffuse lymphadenopathy: Patient was transferred from [facility] in [place] due to hypercalcemia and abnormal lymphadenopathy noted on CT scan. Patient reports has been having increasing confusion over the last 3 weeks as well as weight loss and decreased appetite that has progressed over the last 1 year. -CT chest abdomen pelvis without contrast showed mediastinal and right hilar lymphadenopathy with markedly enlarged subcarinal lymph node. Single mildly enlarged lymph node in the right axilla and 1 in the left. Aortic region in the abdomen. Small right pleural effusion with adjacent atelectasis. Minimal reticular nodular opacity most notable in the right lower lobe and less so in the left upper lobe, favoring inflammatory infectious process. -Patient was also noted to be in acute renal failure with elevated calcium. Creatinine 2.45, GFR 24. Calcium 14.7 -Patient was given Zometa prior to arrival and calcitonin this morning. Repeat calcium today, 11.1. Mentation improving. Continue to monitor calcium -Nephrology following. Vitamin D 21.2 and PTH suppressed at 11.3 -Will obtain US of neck and bilateral axilla to evaluate site for biopsy. Ultrasound neck showing multiple lymph nodes of the bilateral neck, Axilla ultrasound showing multiple lymph nodes seen in bilateral axilla. -IR consult placed, plan for biopsy today of right axilla lymph node -Will plan for outpt f/u to discuss pathology findings, goals of care and treatment options Doctor attests: I performed a history and physical examination of this patient, developed impression and plan of care. Discussed with dictator. I agree with dictators note, documented as a scribe.
--- NOTE | 2024-03-13 19:00 | P.CNPUL ---
History of Present Illness Consult date: 03/13/24 Reason for consult: abnormal CXR/CT History of present illness: This is a 78-year-old male patient, transferred to us from [facility] because of abnormal lymphadenopathy and hypercalcemia. The patient was having altered mentation, confusion, weight loss, and this has been going on for the past 1 year. CAT scan of the chest abdomen and pelvis was done and it showed a bulky mediastinal and right hilar lymphadenopathy largest in the subcarinal area. There was also lymphadenopathy involving the right axilla, para-aortic region of the abdomen and a small right-sided pleural effusion. The initial calcium level was 14.7. The patient received hydration. The patient was given Zometa. Calcium level is on the decline with hydration and treatment. Most recent calcium level is 11.1. The patient was referred to interventional radiol ogy and the patient underwent a successful ultrasound, core guided biopsy of the right axillary lymph node. Intact PTH is suppressed at 11. Vitamin D level is at 21. SARAHI level is 311. Initial creatinine was at 2.45 dropped down to 1.9. The white cell count of 4.7, hemoglobin 12.5 and a platelet count is 813. No history of chronic infection. No history of TB exposure. No history of sarcoidosis. Patient is currently on room air oxygen. No respiratory difficulties. Ultrasound of the kidneys showed simple cysts without any evidence of nephrolithiasis. The patient is a remote ex-smoker. No history of any malignancy. Is known to have coronary disease and previous coronary stenting. Also known to have hyperlipidemia. Review of Systems Constitutional: Reports fatigue, Reports weakness Eyes: denies as per HPI, denies blurred vision, denies bulging eye, denies decreased vision, denies diplopia, denies discharge, denies dry eye, denies irritation, denies itching, denies pain, denies photophobia, denies loss of peripheral vision, denies loss of vision, denies tunnel vision/blind spots Ears: deny: decreased hearing, ear discharge, earache, tinnitus Ears, nose, mouth and throat: Reports as per HPI Breasts: absent: as per HPI, gynecomastia Cardiovascular: Reports as per HPI Respiratory: Reports as per HPI Gastrointestinal: Reports as per HPI Genitourinary: Reports as per HPI Musculoskeletal: Reports as per HPI Musculoskeletal: absent: ankle pain, ankle stiffness, ankle swelling, as per HPI, elbow pain, elbow stiffness, elbow swelling, foot pain, foot stiffness, foot swelling, hand pain, hand stiffness, hand swelling, hip pain, hip stiffness, hip swelling, knee pain, knee stiffness, knee swelling, shoulder pain, shoulder stiffness, shoulder swelling, wrist pain, wrist stiffness, wrist swelling Integumentary: Reports as per HPI Neurological: Reports as per HPI Psychiatric: Reports as per HPI Endocrine: Reports as per HPI, Reports fatigue Hematologic/Lymphatic: Reports as per HPI Allergic/Immunologic: Reports as per HPI Past Medical History Past Medical History: Coronary Artery Disease (CAD), GERD/Reflux, Hyperlipidemia, Myocardial Infarction (AL) Additional Past Medical History / Comment(s): DJD Last Myocardial Infarction Date:: 2016 History of Any Multi-Drug Resistant Organisms: None Reported Past Surgical History: Heart Catheterization With Stent Date of Last Stent Placement:: 2022 Past Psychological History: No Psychological Hx Reported Smoking Status: Former smoker Past Alcohol Use History: None Reported Past Drug Use History: None Reported Medications and Allergies Home Medications Medication Instructions Recorded Confirmed Type ARIPiprazole [Abilify] 5 mg PO HS 03/12/24 03/12/24 History Atorvastatin [Lipitor] 40 mg PO DAILY 03/12/24 03/12/24 History Benzonatate [Tessalon Perle] 200 mg PO HS PRN 03/12/24 03/12/24 History Omeprazole [PriLOSEC] 20 mg PO DAILY 03/12/24 03/12/24 History Venlafaxine HCl [Effexor XR] 150 mg PO HS 03/12/24 03/12/24 History amLODIPine [Norvasc] 5 mg PO DAILY 03/12/24 03/12/24 History guaiFENesin 200 mg PO Q6H PRN 03/12/24 03/12/24 History Allergies Allergy/AdvReac Type Severity Reaction Status Date / Time No Known Allergies Allergy Verified 03/12/24 07:56 Physical Exam Vitals: Vital Signs Temp Pulse Pulse Resp BP BP BP 03/13/24 14:20 87 16 123/65 03/13/24 13:56 86 16 122/66 03/13/24 13:45 89 16 121/67 03/13/24 12:15 98.4 F 82 16 118/71 03/13/24 07:50 97.9 F 92 16 124/70 03/13/24 01:39 98.4 F 81 16 127/72 03/12/24 20:00 98.3 F 88 16 168/79 03/12/24 19:50 88 16 03/12/24 19:04 99.1 F 87 18 141/82 03/12/24 18:04 80 16 143/81 Pulse Ox 03/13/24 14:20 96 03/13/24 13:56 96 03/13/24 13:45 96 03/13/24 12:15 92 L 03/13/24 07:50 96 03/13/24 01:39 95 03/12/24 20:00 98 03/12/24 19:50 03/12/24 19:04 95 03/12/24 18:04 95 Intake and Output 03/13/24 03/13/24 03/13/24 06:59 14:59 22:59 Intake Total 480 Balance 480 Intake: Oral 480 Other: Voiding Method Toilet Bedside Commode Incontinent # Voids 4 General: nontoxic, no distress, appears at stated age Derm: warm, dry Head: atraumatic, normocephalic, symmetric Eyes: EOMI, no lid lag, anicteric sclera, pupils equal round reactive to light ENT: Nose and ears atraumatic Neck: No thyromegaly, supple Mouth: no lip lesion, mucus membranes moist Cardiovascular: S1S2 reg, no murmur, no edema Lungs: clear to auscultation bilateral, no rhonchi, no rales, no wheeze, no accessory muscle use Abdominal: soft, nontender to palpation, no guarding, no appreciable organomegaly Ext: no gross muscle atrophy, muscle strength muscle strength 5 out of 5 in all 4 extremities, no contractures. Right axillary lymphadenopathy was noted that was firm over the axillary/anterior chest area. Neurologically, the patient is awake and alert and the patient does not have any focal neurological deficit. Cranial nerves are essentially intact. Results - Laboratory Findings CBC and BMP: 03/12/24 04:35 03/13/24 04:46 Abnormal lab findings: Abnormal Labs 03/12/24 03/12/24 03/12/24 04:35 04:35 11:31 RBC 4.14 L Hgb 12.5 L Hct 35.9 L Plt Count 113 L Lymphocytes # 0.5 L Eosinophils # 0.9 H Sodium 134 L Carbon Dioxide Anion Gap BUN 39 H Creatinine 2.45 H Est GFR (CKD-EPI) Glucose Calcium 14.7 H* Magnesium 1.5 L AST 144 H ALT 76 H Alkaline Phosphatase 335 H Total Protein Albumin 3.2 L Albumin/Globulin Ratio Angiotensin Convert Enz 311 H Vitamin D 25-Hydroxy PTH Intact 03/12/24 03/12/24 03/13/24 11:31 13:02 04:46 RBC Hgb Hct Plt Count Lymphocytes # Eosinophils # Sodium 135 L Carbon Dioxide 21.5 L Anion Gap 12.50 H BUN 38 H 32.5 H Creatinine 2.08 H 1.9 H Est GFR (CKD-EPI) 36 L Glucose 116 H Calcium 13.1 H* 11.1 H Magnesium AST 140 H 113 H ALT 75 H 68 H Alkaline Phosphatase 308 H 330 H Total Protein 6.1 L Albumin 3.3 L 3.1 L Albumin/Globulin Ratio 1.03 L Angiotensin Convert Enz Vitamin D 25-Hydroxy 21.2 L PTH Intact 11.3 L - Diagnostic Findings Chest x-ray: image reviewed Assessment and Plan Plan: Acute hypercalcemia with secondary intravascular volume depletion, dehydration, acute kidney injury, encephalopathy Bulky mediastinal lymphadenopathy in addition to right axillary lymphadenopathy and abdominal lymphadenopathy, the patient is status post core biopsy of the right axial lymph node that was done on 03/13/2024. SARAHI level is elevated at 311. Rule out sarcoidosis. Rule out metastatic carcinoma. Intact PTH is suppressed.Possibilities include sarcoidosis, carcinoma including primary lung cancer, other malignancies including esophageal/breast/thyroid are felt to be less likely. Consider B-cell lymphoma, consider Castleman's disease. Infection such as tuberculosis and fungal infections are felt to be less likely. Acute kidney injury secondary to above, improving with fluid resuscitation Coronary artery disease with previous coronary stenting Hyperlipidemia Thrombocytopenia, under investigation Transaminitis Plan Patient is currently on IV fluids and normal saline will be continued at 100 cc an hour Patient was given Zometa Renal function continues to improve Core biopsy of the axillary lymph node was done Awaiting final pathology, if needed will go and a endobronchial ultrasound with biopsy of the mediastinal lymph nodes Will require steroids if no carcinoma and the pathology is consistent with sarcoidosis. Will hold off on treatment for now pending further workup Will continue to follow
[2024-03-13 19:48] LABS: Vitamin D, 1, 25-Dihydroxy >200 pg/mL (20 - 79)
[2024-03-14 09:41] LABS: ALT 70 U/L (10-49); AST 119 U/L (14-35); Albumin 2.9 g/dL (3.8-4.9); Alkaline Phosphatase 356 U/L (41-126); BUN/Creat Ratio 17.31 Ratio (12.00-20.00); Blood Urea Nitrogen 27.7 mg/dL (9.0-27.0); Calcium 9.9 mg/dL (8.7-10.3); Carbon Dioxide 22.2 mmol/L (21.6-31.8); Chloride 108 mmol/L (96-109); Globulin 2.9 g/dL (1.6-3.3); Glucose 79 mg/dL (70-110); Magnesium 1.3 mg/dL (1.5-2.4); Potassium 3.9 mmol/L (3.5-5.5); Sodium 139 mmol/L (135-145); Total Bilirubin 0.7 mg/dL (0.3-1.2); Total Protein 5.8 g/dL (6.2-8.2)
--- NOTE | 2024-03-14 10:32 | P.PN ---
Subjective Patient is seen in follow-up for acute kidney injury and hypercalcemia. Renal function improving. Calcium level trending down. Receiving IV fluids. Oral intake fair. Has been voiding. Vital signs are stable. General: No acute distress. HEENT: Head exam is unremarkable. LUNGS: No audible rhonchi or wheezes. HEART: Rate and Rhythm are regular. ABDOMEN: Nontender. EXTREMITITES: No edema. Objective - Vital Signs Vital signs: Vital Signs Temp 98.7 F 03/14/24 07:34 Pulse 92 03/14/24 07:34 Resp 18 03/14/24 07:34 BP 122/67 03/14/24 07:34 Pulse Ox 93 L 03/14/24 07:34 FiO2 Intake & Output 03/13/24 03/14/24 03/14/24 18:59 06:59 18:59 Intake Total 2220 1480 Balance 2220 1480 Intake: Intake, IV Titration 1200 1000 Amount Sodium Chloride 0.9% 1, 1200 1000 000 ml @ 100 mls/hr IV . Q10H [facility] Rx#:[id number] Oral 1020 480 Other: Voiding Method Toilet Toilet Toilet Bedside Commode Bedside Commode Bedside Commode Incontinent Incontinent Incontinent # Voids 1 4 - Labs CBC & Chem 7: 03/12/24 04:35 03/14/24 05:40 Labs: Abnormal Lab Results - Last 24 Hours (Table) 03/12/24 03/14/24 Range/Units 11:31 05:40 BUN 27.7 H (9.0-27.0) mg/dL Creatinine 1.6 H (0.6-1.5) mg/dL Est GFR (CKD-EPI) 44 L (>=60) Magnesium 1.3 L (1.5-2.4) mg/dL AST 119 H (14-35) U/L ALT 70 H (10-49) U/L Alkaline Phosphatase 356 H (41-126) U/L Total Protein 5.8 L (6.2-8.2) g/dL Albumin 2.9 L (3.8-4.9) g/dL Albumin/Globulin Ratio 1.00 L (1.60-3.17) Ratio Vit D 1,25-Dihydroxy >200 H (20 - 79) pg/mL Assessment and Plan Plan: Assessment: 1. Acute kidney injury secondary to hypercalcemia induced ATN. Initial creatinine 2.7 and is 1.6 today. Unknown baseline renal function. No hydronephrosis noted on kidney ultrasound. 2. Hypercalcemia. Concerning for underlying malignancy. Was taking calcium and vitamin D supplementation at home which is currently held. Calcium level trending down. PTH appropriately suppressed at 11.3. TSH normal. Vitamin D level 21.2. SARAHI level elevated at 311. Oncology following. Axillary node biopsy results pending. Elevated SARAHI and calcitriol level also concerning for sarcoidosis. Consider pulmonology eval. Discussed with primary team. 3. Hypomagnesemia from poor intake and diuresis. Being replaced. Plan: Maintain IV fluids. Status post zoledronic acid given March 11, 2024. Subcu calcitonin given March 12, 2024. Follow-up secondary workup for hypercalcemia - Electrophoresis and immunofixation pending.
[2024-03-14] MEDS: MAGNESIUM SULFATE-D5W PMX 1 GM in DEXTROSE/WATER 1 100ML.BAG IVPB SCH (10:48)
--- NOTE | 2024-03-14 12:55 | P.PN ---
Subjective Progress Note Date: 03/14/24 Hospital Course: 78-year-old male with history of hypertension, dyslipidemia, anxiety/depression, GERD, CAD status post stent presenting with acute encephalopathy. In the ED, temperature was 98.1, pulse 99, respiratory rate 18, blood pressure 133/76, saturating at 94% on room air. WBC 4.7, hemoglobin 12.5, sodium 134, creatinine 2.45, potassium 3.9, calcium 14.7, magnesium 1.5, AST 144, ALT 76, ALP 335. Patient started on IV fluids, admitted for further hypercalcemia management. Oncology and nephrology consulted. He is status post zoledronic acid and calcitonin. Calcium is improving. Renal function improving with IV fluids. He also had CT chest abdomen pelvis which showed mediastinal, right hilar, paratracheal, subcarinal, right axillary and retroperitoneal left periaortic lymphadenopathy. Patient has significantly elevated SARAHI levels. Pulmonology also consulted for possible sarcoidosis. Patient underwent right axillary lymph node biopsy. Calcium downtrending, renal function improved. Subjective: Patient seen and examined at bedside. No acute events overnight. Pertinent positives and negatives as discussed above, a complete review of systems was performed and all other systems are negative. Vitals Signs Reviewed. General: Nontoxic, no distress, appears at stated age Derm: Warm, dry Head: Atraumatic, normocephalic, symmetric Eyes: EOMI, no lid lag, anicteric sclera Mouth: No lip lesion, mucus membranes moist Cardiovascular: S1S2 reg, no murmur Lungs: CTA bilateral, no rhonchi, no rales, no accessory muscle use Abdominal: Soft, nontender to palpation, no guarding, no appreciable organomegaly Ext: No gross muscle atrophy, no edema, no contractures Neuro: CN II-XI grossly intact, no focal neuro deficits Psych: Alert, oriented, appropriate affect Data Reviewed Today: Pertinent Labs: Sodium 139, creatinine 1.6, magnesium 1.3, calcium 9.9, AST 119, ALT 70, ALP 356 Imaging: No new imaging Assessment and Plan: Active: Symptomatic hypercalcemia, resolving Prerenal acute kidney injury, resolving Acute metabolic encephalopathy, resolved Hypomagnesemia Lymphadenopathy - status post calcitonin and zoledronic acid -Nephrology note reviewed, continued on normal saline at 100 cc an hour, patient tolerating oral intake -Oncology and pulmonology following, patient is status post axillary lymph node biopsy, pending result -Patient also started on oral magnesium 400 mg daily by nephrology -2 g of IV magnesium sulfate also given today -Repeat CMP and magnesium tomorrow Chronic: GERD Hypertension Dyslipidemia Anxiety/depression DVT ppx: Subcu heparin Code status: Full code Anticipated discharge place: Pending clinical course Anticipated discharge time: Pending clinical course Objective - Vital Signs Vital signs: Vital Signs Temp 98.7 F 03/14/24 07:34 Pulse 92 03/14/24 07:34 Resp 18 03/14/24 07:34 BP 122/67 03/14/24 07:34 Pulse Ox 93 L 03/14/24 07:34 FiO2 Intake & Output 03/13/24 03/14/24 03/14/24 18:59 06:59 18:59 Intake Total 2220 1480 Balance 2220 1480 Intake: Intake, IV Titration 1200 1000 Amount Sodium Chloride 0.9% 1, 1200 1000 000 ml @ 100 mls/hr IV . Q10H [facility] Rx#:[id number] Oral 1020 480 Other: Voiding Method Toilet Toilet Toilet Bedside Commode Bedside Commode Bedside Commode Incontinent Incontinent Incontinent # Voids 1 4 1 - Labs CBC & Chem 7: 03/12/24 04:35 03/14/24 05:40 Labs: Abnormal Lab Results - Last 24 Hours (Table) 03/12/24 03/14/24 Range/Units 11:31 05:40 BUN 27.7 H (9.0-27.0) mg/dL Creatinine 1.6 H (0.6-1.5) mg/dL Est GFR (CKD-EPI) 44 L (>=60) Magnesium 1.3 L (1.5-2.4) mg/dL AST 119 H (14-35) U/L ALT 70 H (10-49) U/L Alkaline Phosphatase 356 H (41-126) U/L Total Protein 5.8 L (6.2-8.2) g/dL Albumin 2.9 L (3.8-4.9) g/dL Albumin/Globulin Ratio 1.00 L (1.60-3.17) Ratio Vit D 1,25-Dihydroxy >200 H (20 - 79) pg/mL
--- NOTE | 2024-03-14 16:02 | P.PN ---
Subjective Progress Note Date: 03/14/24 This is a 78-year-old male patient, transferred to us from [facility] use of abnormal lymphadenopathy and hypercalcemia. The patient was having altered mentation, confusion, weight loss, and this has been going on for the past 1 year. CAT scan of the chest abdomen and pelvis was done and it showed a bulky mediastinal and right hilar lymphadenopathy largest in the subcarinal area. There was also lymphadenopathy involving the right axilla, para-aortic region of the abdomen and a small right-sided pleural effusion. The initial calcium level was 14.7. The patient received hydration. The patient was given Zometa. Calcium level is on the decline with hydration and treatment. Most recent calcium level is 11.1. The patient was referred to interventional radi ology and the patient underwent a successful ultrasound, core guided biopsy of the right axillary lymph node. Intact PTH is suppressed at 11. Vitamin D level is at 21. SARAHI level is 311. Initial creatinine was at 2.45 dropped down to 1.9. The white cell count of 4.7, hemoglobin 12.5 and a platelet count is 813. No history of chronic infection. No history of TB exposure. No history of sarcoidosis. Patient is currently on room air oxygen. No respiratory difficulties. Ultrasound of the kidneys showed simple cysts without any evidence of nephrolithiasis. The patient is a remote ex-smoker. No history of any malignancy. Is known to have coronary disease and previous coronary stenting. Also known to have hyperlipidemia. On 03/14/2024, no new complaints. The patient's renal function continues to improve and the creatinine is down to 1.6. The calcium level has normalized. The patient remains on IV fluid normal saline at rate of 100 cc an hour. The patient is also on room air oxygen with a pulse ox of 93%. Awaiting final pathology from axillary lymph node biopsy. Objective - Vital Signs Vital signs: Vital Signs Temp 98.7 F 03/14/24 07:34 Pulse 92 03/14/24 07:34 Resp 18 03/14/24 07:34 BP 122/67 03/14/24 07:34 Pulse Ox 93 L 03/14/24 07:34 FiO2 Intake & Output 03/13/24 03/14/24 03/14/24 18:59 06:59 18:59 Intake Total 2220 1480 Balance 2220 1480 Intake: Intake, IV Titration 1200 1000 Amount Sodium Chloride 0.9% 1, 1200 1000 000 ml @ 100 mls/hr IV . Q10H [facility] Rx#:[id number] Oral 1020 480 Other: Voiding Method Toilet Toilet Toilet Bedside Commode Bedside Commode Bedside Commode Incontinent Incontinent Incontinent # Voids 1 4 1 - Exam General: nontoxic, no distress, appears at stated age Derm: warm, dry Head: atraumatic, normocephalic, symmetric Eyes: EOMI, no lid lag, anicteric sclera, pupils equal round reactive to light ENT: Nose and ears atraumatic Neck: No thyromegaly, supple Mouth: no lip lesion, mucus membranes moist Cardiovascular: S1S2 reg, no murmur, no edema Lungs: clear to auscultation bilateral, no rhonchi, no rales, no wheeze, no accessory muscle use Abdominal: soft, nontender to palpation, no guarding, no appreciable organomegaly Ext: no gross muscle atrophy, muscle strength muscle strength 5 out of 5 in all 4 extremities, no contractures. Right axillary lymphadenopathy was noted that was firm over the axillary/anterior chest area. Neurologically, the patient is awake and alert and the patient does not have any focal neurological deficit. Cranial nerves are essentially intact. - Labs CBC & Chem 7: 03/12/24 04:35 03/14/24 05:40 Labs: Abnormal Lab Results - Last 24 Hours (Table) 03/12/24 03/14/24 Range/Units 11:31 05:40 BUN 27.7 H (9.0-27.0) mg/dL Creatinine 1.6 H (0.6-1.5) mg/dL Est GFR (CKD-EPI) 44 L (>=60) Magnesium 1.3 L (1.5-2.4) mg/dL AST 119 H (14-35) U/L ALT 70 H (10-49) U/L Alkaline Phosphatase 356 H (41-126) U/L Total Protein 5.8 L (6.2-8.2) g/dL Albumin 2.9 L (3.8-4.9) g/dL Albumin/Globulin Ratio 1.00 L (1.60-3.17) Ratio Vit D 1,25-Dihydroxy >200 H (20 - 79) pg/mL Assessment and Plan Plan: Acute hypercalcemia with secondary intravascular volume depletion, dehydration, acute kidney injury, encephalopathy, improved and the calcium level is normalized Bulky mediastinal lymphadenopathy in addition to right axillary lymphadenopathy and abdominal lymphadenopathy, the patient is status post core biopsy of the rig ht axial lymph node that was done on 03/13/2024. SARAHI level is elevated at 311. Rule out sarcoidosis. Rule out metastatic carcinoma. Intact PTH is suppressed.Possibilities include sarcoidosis, carcinoma including primary lung cancer, other malignancies including esophageal/breast/thyroid are felt to be less likely. Consider B-cell lymphoma, consider Castleman's disease. Infection such as tuberculosis and fungal infections are felt to be less likely. Acute kidney injury secondary to above, improving with fluid resuscitation, improving Coronary artery disease with previous coronary stenting Hyperlipidemia Thrombocytopenia, under investigation Transaminitis Plan Patient is currently on IV fluids and normal saline will be continued at 100 cc an hour Patient was given Zometa Renal function continues to improve Calcium level has normalized Core biopsy of the axillary lymph node was done Awaiting final pathology, if needed will go and a endobronchial ultrasound with biopsy of the mediastinal lymph nodes Will require steroids if no carcinoma and the pathology is consistent with sa rcoidosis. Will hold off on treatment for now pending further workup Will continue to follow
[2024-03-14] MEDS: HEPARIN SODIUM,PORCINE 5,000 UNIT/ML 1 ML VIAL SQ SCH (17:57)
[2024-03-14] MEDS: BENZONATATE 100 MG CAP PO PRN (21:49)
[2024-03-15 08:30] LABS: ALT 75 U/L (4-49); AST 127 U/L (17-59); African American GFR (CKD) 50 (>60 ml/min/1.73 sqM); Albumin 2.7 g/dL (3.5-5.0); Albumin/Globulin Ratio 0.8; Alkaline Phosphatase 389 U/L (38-126); Anion Gap 5 mmol/L; Blood Urea Nitrogen 25 mg/dL (9-20); Calcium 9.4 mg/dL (8.4-10.2); Carbon Dioxide 21 mmol/L (22-30); Chloride 110 mmol/L (98-107); Globulin 3.3 g/dL; Glucose 77 mg/dL (74-99); Magnesium 1.4 mg/dL (1.6-2.3); Non-African American GFR(CKD) 43 (>60 ml/min/1.73 sqM); Potassium 3.8 mmol/L (3.5-5.1); Sodium 136 mmol/L (137-145); Total Bilirubin 1.1 mg/dL (0.2-1.3)
--- NOTE | 2024-03-15 09:17 | P.PN ---
Subjective Patient is seen in follow-up for acute kidney injury and hypercalcemia. Renal function improving. Calcium level trending down. Receiving IV fluids. Oral intake fair. Has been voiding. Vital signs are stable. General: No acute distress. HEENT: Head exam is unremarkable. LUNGS: No audible rhonchi or wheezes. HEART: Rate and Rhythm are regular. ABDOMEN: Nontender. EXTREMITITES: No edema. Objective - Vital Signs Vital signs: Vital Signs Temp 98.2 F 03/15/24 07:15 Pulse 95 03/15/24 07:15 Resp 18 03/15/24 07:15 BP 125/58 03/15/24 07:15 Pulse Ox 95 03/15/24 07:15 FiO2 Intake & Output 03/14/24 03/15/24 03/15/24 18:59 06:59 18:59 Intake Total 2198 Balance 2198 Intake: Intake, IV Titration 1200 Amount Magnesium Sulfate-D5w Pmx 200 1 gm In Dextrose/Water 1 100ml.bag @ 100 mls/hr IVPB Q1H [facility] Rx#: [id number] Sodium Chloride 0.9% 1, 1000 000 ml @ 100 mls/hr IV . Q10H [facility] Rx#:[id number] Oral 998 Other: Voiding Method Toilet Toilet Bedside Commode Bedside Commode Incontinent Incontinent # Voids 1 1 - Labs CBC & Chem 7: 03/12/24 04:35 03/15/24 07:10 Labs: Abnormal Lab Results - Last 24 Hours (Table) 03/14/24 03/15/24 Range/Units 05:40 07:10 Sodium 136 L (137-145) mmol/L Chloride 110 H (98-107) mmol/L Carbon Dioxide 21 L (22-30) mmol/L BUN 27.7 H 25 H (9.0-27.0) mg/dL Creatinine 1.6 H 1.53 H (0.6-1.5) mg/dL Est GFR (CKD-EPI) 44 L (>=60) Magnesium 1.3 L 1.4 L (1.5-2.4) mg/dL AST 119 H 127 H (14-35) U/L ALT 70 H 75 H (10-49) U/L Alkaline Phosphatase 356 H 389 H (41-126) U/L Total Protein 5.8 L 6.0 L (6.2-8.2) g/dL Albumin 2.9 L 2.7 L (3.8-4.9) g/dL Albumin/Globulin Ratio 1.00 L (1.60-3.17) Ratio Assessment and Plan Plan: Assessment: 1. Acute kidney injury secondary to hypercalcemia induced ATN. Initial creatinine 2.7 and is 1.53 today. Unknown baseline renal function. No hydronephrosis noted on kidney ultrasound. 2. Hypercalcemia. Concerning for underlying malignancy. Was taking calcium a nd vitamin D supplementation at home which is currently held. Calcium level trending down. PTH appropriately suppressed at 11.3. TSH normal. Vitamin D level 21.2. SARAHI level elevated at 311. Oncology following. Axillary node biopsy results pending. Elevated SARAHI and calcitriol level also concerning for sarcoidosis. Pulmonology following. 3. Hypomagnesemia from poor intake and diuresis. Being replaced. Plan: Maintain IV fluids. Status post zoledronic acid given March 11, 2024. Subcu calcitonin given March 12, 2024. Follow-up secondary workup for hypercalcemia - Electrophoresis and immunofixation pending. Replace magnesium.
[2024-03-15] MEDS: MAGNESIUM SULFATE-D5W PMX 1 GM in DEXTROSE/WATER 1 100ML.BAG IVPB SCH (10:33)
--- NOTE | 2024-03-15 11:35 | P.PN ---
Subjective Progress Note Date: 03/15/24 Hospital Course: 78-year-old male with history of hypertension, dyslipidemia, anxiety/depression, GERD, CAD status post stent presenting with acute encephalopathy. In the ED, temperature was 98.1, pulse 99, respiratory rate 18, blood pressure 133/76, saturating at 94% on room air. WBC 4.7, hemoglobin 12.5, sodium 134, creatinine 2.45, potassium 3.9, calcium 14.7, magnesium 1.5, AST 144, ALT 76, ALP 335. Patient started on IV fluids, admitted for further hypercalcemia management. Oncology and nephrology consulted. He is status post zoledronic acid and calcitonin. Calcium is improving. Renal function improving with IV fluids. He also had CT chest abdomen pelvis which showed mediastinal, right hilar, paratracheal, subcarinal, right axillary and retroperitoneal left periaortic lymphadenopathy. Patient has significantly elevated SARAHI levels. Pulmonology also consulted for possible sarcoidosis. Patient underwent right axillary lymph node biopsy. Calcium downtrending, renal function improved. Subjective: Patient seen and examined at bedside. No acute events overnight. Pertinent positives and negatives as discussed above, a complete review of systems was performed and all other systems are negative. Vitals Signs Reviewed. General: Nontoxic, no distress, appears at stated age Derm: Warm, dry Head: Atraumatic, normocephalic, symmetric Eyes: EOMI, no lid lag, anicteric sclera Mouth: No lip lesion, mucus membranes moist Cardiovascular: S1 through 2 Gap metabolic acidosis, no murmur Lungs: CTA bilateral, no rhonchi, no rales, no accessory muscle use Abdominal: Soft, nontender to palpation, no guarding, no appreciable organomegaly Ext: No gross muscle atrophy, no edema, no contractures Neuro: CN II-XI grossly intact, no focal neuro deficits Psych: Alert, oriented, appropriate affect Data Reviewed Today: Pertinent Labs: Sodium 136, bicarb 21, anion gap 5, creatinine 1.53, magnesium 1.4, AST 127, ALT 75, ALP 389 Imaging: No new imaging Assessment and Plan: Active: Symptomatic hypercalcemia, resolving Prerenal acute kidney injury, resolving Acute metabolic encephalopathy, resolved Non-anion gap metabolic acidosis Hypomagnesemia Lymphadenopathy - status post calcitonin and zoledronic acid -Nephrology note reviewed, continued on normal saline at 100 cc an hour, patient tolerating oral intake -Oncology and pulmonology following, patient is status post axillary lymph node biopsy, pending result -Patient also started on oral magnesium 400 mg daily by nephrology - another 1 g of IV magnesium sulfate given today by nephrology -Consider switching from normal saline to lactated ringer due to non-anion gap metabolic acidosis -Repeat CMP and magnesium tomorrow Chronic: GERD Hypertension Dyslipidemia Anxiety/depression DVT ppx: Subcu heparin Code status: Full code Anticipated discharge place: Pending clinical course Anticipated discharge time: Pending clinical course Objective - Vital Signs Vital signs: Vital Signs Temp 98.2 F 03/15/24 07:15 Pulse 95 03/15/24 07:15 Resp 18 03/15/24 07:15 BP 125/58 03/15/24 07:15 Pulse Ox 95 03/15/24 07:15 FiO2 Intake & Output 03/14/24 03/15/24 03/15/24 18:59 06:59 18:59 Intake Total 2198 Balance 2198 Intake: Intake, IV Titration 1200 Amount Magnesium Sulfate-D5w Pmx 200 1 gm In Dextrose/Water 1 100ml.bag @ 100 mls/hr IVPB Q1H NOE Rx#: [id number] Sodium Chloride 0.9% 1, 1000 000 ml @ 100 mls/hr IV . Q10H NOE Rx#:[id number] Oral 998 Other: Voiding Method Toilet Toilet Bedside Commode Bedside Commode Incontinent Incontinent # Voids 1 1 - Labs CBC & Chem 7: 03/12/24 04:35 03/15/24 07:10 Labs: Abnormal Lab Results - Last 24 Hours (Table) 03/15/24 Range/Units 07:10 Sodium 136 L (137-145) mmol/L Chloride 110 H (98-107) mmol/L Carbon Dioxide 21 L (22-30) mmol/L BUN 25 H (9-20) mg/dL Creatinine 1.53 H (0.66-1.25) mg/dL Magnesium 1.4 L (1.6-2.3) mg/dL AST 127 H (17-59) U/L ALT 75 H (4-49) U/L Alkaline Phosphatase 389 H (38-126) U/L Total Protein 6.0 L (6.3-8.2) g/dL Albumin 2.7 L (3.5-5.0) g/dL
--- NOTE | 2024-03-15 15:29 | P.PN ---
Subjective Progress Note Date: 03/15/24 This is a 78-year-old male patient, transferred to us from [facility] use of abnormal lymphadenopathy and hypercalcemia. The patient was having altered mentation, confusion, weight loss, and this has been going on for the past 1 year. CAT scan of the chest abdomen and pelvis was done and it showed a bulky mediastinal and right hilar lymphadenopathy largest in the subcarinal area. There was also lymphadenopathy involving the right axilla, para-aortic region of the abdomen and a small right-sided pleural effusion. The initial calcium level was 14.7. The patient received hydration. The patient was given Zometa. Calcium level is on the decline with hydration and treatment. Most recent calcium level is 11.1. The patient was referred to interventional radi ology and the patient underwent a successful ultrasound, core guided biopsy of the right axillary lymph node. Intact PTH is suppressed at 11. Vitamin D level is at 21. SARAHI level is 311. Initial creatinine was at 2.45 dropped down to 1.9. The white cell count of 4.7, hemoglobin 12.5 and a platelet count is 813. No history of chronic infection. No history of TB exposure. No history of sarcoidosis. Patient is currently on room air oxygen. No respiratory difficulties. Ultrasound of the kidneys showed simple cysts without any evidence of nephrolithiasis. The patient is a remote ex-smoker. No history of any malignancy. Is known to have coronary disease and previous coronary stenting. Also known to have hyperlipidemia. On 03/14/2024, no new complaints. The patient's renal function continues to improve and the creatinine is down to 1.6. The calcium level has normalized. The patient remains on IV fluid normal saline at rate of 100 cc an hour. The patient is also on room air oxygen with a pulse ox of 93%. Awaiting final pathology from axillary lymph node biopsy. 03/15/2024, the patient is being seen for a follow-up. Awaiting final pathology from the lymph node biopsy. Calcium level has normalized. Magnesium level is low at 1.4 it was replaced with 2 g. Renal function continues to improve and the creatinine is currently down to 1.5. Rest of the electrolytes are all within normal limits. Patient is currently on room air oxygen. No altered mentation. Feeling better. Objective - Vital Signs Vital signs: Vital Signs Temp 98.2 F 03/15/24 12:38 Pulse 102 H 03/15/24 12:38 Resp 18 03/15/24 12:38 BP 125/72 03/15/24 12:38 Pulse Ox 96 03/15/24 12:38 FiO2 Intake & Output 03/14/24 03/15/24 03/15/24 18:59 06:59 18:59 Intake Total 2198 Balance 2198 Intake: Intake, IV Titration 1200 Amount Magnesium Sulfate-D5w Pmx 200 1 gm In Dextrose/Water 1 100ml.bag @ 100 mls/hr IVPB Q1H NOE Rx#: [id number] Sodium Chloride 0.9% 1, 1000 000 ml @ 100 mls/hr IV . Q10H NOE Rx#:[id number] Oral 998 Other: Voiding Method Toilet Toilet Toilet Bedside Commode Bedside Commode Bedside Commode Incontinent Incontinent Incontinent # Voids 1 1 - Exam General: nontoxic, no distress, appears at stated age Derm: warm, dry Head: atraumatic, normocephalic, symmetric Eyes: EOMI, no lid lag, anicteric sclera, pupils equal round reactive to light ENT: Nose and ears atraumatic Neck: No thyromegaly, supple Mouth: no lip lesion, mucus membranes moist Cardiovascular: S1S2 reg, no murmur, no edema Lungs: clear to auscultation bilateral, no rhonchi, no rales, no wheeze, no accessory muscle use Abdominal: soft, nontender to palpation, no guarding, no appreciable organomegaly Ext: no gross muscle atrophy, muscle strength muscle strength 5 out of 5 in all 4 extremities, no contractures. Right axillary lymphadenopathy was noted that was firm over the axillary/anterior chest area. Neurologically, the patient is awake and alert and the patient does not have any focal neurological deficit. Cranial nerves are essentially intact. - Labs CBC & Chem 7: 03/12/24 04:35 03/15/24 07:10 Labs: Abnormal Lab Results - Last 24 Hours (Table) 03/15/24 Range/Units 07:10 Sodium 136 L (137-145) mmol/L Chloride 110 H (98-107) mmol/L Carbon Dioxide 21 L (22-30) mmol/L BUN 25 H (9-20) mg/dL Creatinine 1.53 H (0.66-1.25) mg/dL Magnesium 1.4 L (1.6-2.3) mg/dL AST 127 H (17-59) U/L ALT 75 H (4-49) U/L Alkaline Phosphatase 389 H (38-126) U/L Total Protein 6.0 L (6.3-8.2) g/dL Albumin 2.7 L (3.5-5.0) g/dL Assessment and Plan Plan: Acute hypercalcemia with secondary intravascular volume depletion, dehydration, acute kidney injury, encephalopathy, improved and the calcium level is normalized Bulky mediastinal lymphadenopathy in addition to right axillary lymphadenopathy and abdominal lymphadenopathy, the patient is status post core biopsy of the right axial lymph node that was done on 03/13/2024. SARAHI level is elevated at 311. Rule out sarcoidosis. Rule out metastatic carcinoma. Intact PTH is suppressed.Possibilities include sarcoidosis, carcinoma including primary lung cancer, other malignancies including esophageal/breast/thyroid are felt to be less likely. Consider B-cell lymphoma, consider Castleman's disease. Infection such as tuberculosis and fungal infections are felt to be less likely. Acute kidney injury secondary to above, improving with fluid resuscitation, improving Coronary artery disease with previous coronary stenting Hyperlipidemia Thrombocytopenia, under investigation Transaminitis Plan Patient is currently on IV fluids, creatinine is improving. Calcium level has normalized. Magnesium level was replaced. Patient was given Zometa Renal function continues to improve Calcium level has normalized Core biopsy of the axillary lymph node was done Awaiting final pathology, if needed will go and a endobronchial ultrasound with biopsy of the mediastinal lymph nodes Will require steroids if no carcinoma and the pathology is consistent with sarcoidosis. Will hold off on treatment for now pending further workup Will continue to follow, possible discharge within next 24 hours to be followed up on outpatient basis as the patient's condition has improved significantly.
[2024-03-15] MEDS: MAGNESIUM OXIDE 400 MG TAB PO SCH (22:48)
--- NOTE | 2024-03-16 09:41 | P.PN ---
Subjective Patient is seen in follow-up for acute kidney injury and hypercalcemia. Renal function improving. Calcium level trending down. Receiving IV fluids. Oral intake fair. Has been voiding. No active complaints. Vital signs are stable. General: No acute distress. HEENT: Head exam is unremarkable. LUNGS: No audible rhonchi or wheezes. HEART: Rate and Rhythm are regular. ABDOMEN: Nontender. EXTREMITITES: No edema. Objective - Vital Signs Vital signs: Vital Signs Temp 97.6 F 03/16/24 08:00 Pulse 96 03/16/24 08:00 Resp 17 03/16/24 08:00 BP 127/78 03/16/24 08:00 Pulse Ox 94 L 03/16/24 08:00 FiO2 Intake & Output 03/15/24 03/16/24 03/16/24 18:59 06:59 18:59 Other: Voiding Method Toilet Toilet Bedside Commode Bedside Commode Incontinent Incontinent # Voids 1 1 - Labs CBC & Chem 7: 03/12/24 04:35 03/15/24 07:10 Assessment and Plan Plan: Assessment: 1. Acute kidney injury secondary to hypercalcemia induced ATN. Initial cr eatinine 2.7 and improved to 1.53 yesterday. Unknown baseline renal function. No hydronephrosis noted on kidney ultrasound. 2. Hypercalcemia. Concerning for underlying malignancy. Was taking calcium and vitamin D supplementation at home which is currently held. Calcium level trending down. PTH appropriately suppressed at 11.3. TSH normal. Vitamin D level 21.2. SARAHI level elevated at 311. Oncology following. Axillary node biopsy results pending. Elevated SARAHI and calcitriol level also concerning for sarcoidosis. Pulmonology following. 3. Hypomagnesemia from poor intake and diuresis. Replaced. Plan: Maintain IV fluids. Decrease rate to 75 cc an hour. Status post zoledronic acid given March 11, 2024. Subcu calcitonin given March 12, 2024. Follow-up secondary workup for hypercalcemia - Electrophoresis and immunofixation pending. Morning labs pending.
[2024-03-16 10:20] LABS: BUN/Creat Ratio 14.33 Ratio (12.00-20.00); Blood Urea Nitrogen 21.5 mg/dL (9.0-27.0); Chloride 107 mmol/L (96-109); Glucose 81 mg/dL (70-110); Magnesium 1.3 mg/dL (1.5-2.4); Potassium 3.7 mmol/L (3.5-5.5); Sodium 136 mmol/L (135-145)
[2024-03-16 10:21] LABS: Calcium 8.8 mg/dL (8.7-10.3)
--- NOTE | 2024-03-16 11:04 | P.PN ---
Subjective Progress Note Date: 03/16/24 This is a 78-year-old male patient, transferred to us from [facility][1] use of abnormal lymphadenopathy and hypercalcemia. The patient was having altered mentation, confusion, weight loss, and this has been going on for the past 1 year. CAT scan of the chest abdomen and pelvis was done and it showed a bulky mediastinal and right hilar lymphadenopathy largest in the subcarinal area. There was also lymphadenopathy involving the right axilla, para-aortic region of the abdomen and a small right-sided pleural effusion. The initial calcium level was 14.7. The patient received hydration. The patient was given Zometa. Calcium level is on the decline with hydration and treatment. Most recent calcium level is 11.1. The patient was referred to interventional radi ology and the patient underwent a successful ultrasound, core guided biopsy of the right axillary lymph node. Intact PTH is suppressed at 11. Vitamin D level is at 21. SARAHI level is 311. Initial creatinine was at 2.45 dropped down to 1.9. The white cell count of 4.7, hemoglobin 12.5 and a platelet count is 813. No history of chronic infection. No history of TB exposure. No history of sarcoidosis. Patient is currently on room air oxygen. No respiratory difficulties. Ultrasound of the kidneys showed simple cysts without any evidence of nephrolithiasis. The patient is a remote ex-smoker. No history of any malignancy. Is known to have coronary disease and previous coronary stenting. Also known to have hyperlipidemia. On 03/14/2024, no new complaints. The patient's renal function continues to improve and the creatinine is down to 1.6. The calcium level has normalized. The patient remains on IV fluid normal saline at rate of 100 cc an hour. The patient is also on room air oxygen with a pulse ox of 93%. Awaiting final pathology from axillary lymph node biopsy. 03/15/2024, the patient is being seen for a follow-up. Awaiting final pathology from the lymph node biopsy. Calcium level has normalized. Magnesium level is low at 1.4 it was replaced with 2 g. Renal function continues to improve and the creatinine is currently down to 1.5. Rest of the electrolytes are all within normal limits. Patient is currently on room air oxygen. No altered mentation. Feeling better. 03/16/2024, the patient has no specific complaints. Remains on IV fluids normal saline at rate of 75 cc an hour. Creatinine is down to 1.3. Rest of the electrolytes are all stable and the serum bicarb is at 19. LFTs are elevated. Awaiting final results from the axilla lymph node biopsy. Calcium level is downtrending is normal for now. The patient is taking oral intake fairly well. No nausea vomiting. No altered mentation. Objective - Vital Signs Vital signs: Vital Signs Temp 97.6 F 03/16/24 08:00 Pulse 96 03/16/24 08:00 Resp 17 03/16/24 08:00 BP 127/78 03/16/24 08:00 Pulse Ox 94 L 03/16/24 08:00 FiO2 Intake & Output 03/15/24 03/16/24 03/16/24 18:59 06:59 18:59 Intake Total 120 Balance 120 Intake: Oral 120 Other: Voiding Method Toilet Toilet Toilet Bedside Commode Bedside Commode Incontinent Incontinent # Voids 1 1 - Exam General: nontoxic, no distress, appears at stated age Derm: warm, dry Head: atraumatic, normocephalic, symmetric Eyes: EOMI, no lid lag, anicteric sclera, pupils equal round reactive to light ENT: Nose and ears atraumatic Neck: No thyromegaly, supple Mouth: no lip lesion, mucus membranes moist Cardiovascular: S1S2 reg, no murmur, no edema Lungs: clear to auscultation bilateral, no rhonchi, no rales, no wheeze, no accessory muscle use Abdominal: soft, nontender to palpation, no guarding, no appreciable organomegaly Ext: no gross muscle atrophy, muscle strength muscle strength 5 out of 5 in all 4 extremities, no contractures. Right axillary lymphadenopathy was noted that was firm over the axillary/anterior chest area. Neurologically, the patient is awake and alert and the patient does not have any focal neurological deficit. Cranial nerves are essentially intact. - Labs CBC & Chem 7: 03/12/24 04:35 03/16/24 06:07 Labs: Abnormal Lab Results - Last 24 Hours (Table) 03/16/24 Range/Units 06:07 Carbon Dioxide 19.0 L (21.6-31.8) mmol/L Est GFR (CKD-EPI) 48 L (>=60) Magnesium 1.3 L (1.5-2.4) mg/dL Assessment and Plan Plan: Acute hypercalcemia with secondary intravascular volume depletion, dehydration, acute kidney injury, encephalopathy, improved and the calcium level is normalized Bulky mediastinal lymphadenopathy in addition to right axillary lymphadenopathy and abdominal lymphadenopathy, the patient is status post core biopsy of the right axial lymph node that was done on 03/13/2024. SARAHI level is elevated at 311. Rule out sarcoidosis. Rule out metastatic carcinoma. Intact PTH is suppressed.Possibilities include sarcoidosis, carcinoma including primary lung cancer, other malignancies including esophageal/breast/thyroid are felt to be less likely. Consider B-cell lymphoma, consider Castleman's disease. Infection such as tuberculosis and fungal infections are felt to be less likely. Acute kidney injury secondary to above, improving with fluid resuscitation, improving Coronary artery disease with previous coronary stenting Hyperlipidemia Thrombocytopenia, under investigation Transaminitis Plan Patient is currently on IV fluids, creatinine is improving. Calcium level has normalized. Magnesium level was replaced. Patient was given Zometa Renal function continues to improve, creatinine is down to 1.3 Calcium level has normalized Core biopsy of the axillary lymph node was done Awaiting final pathology, if needed will go and a endobronchial ultrasound with biopsy of the mediastinal lymph nodes Will require steroids if no carcinoma and the pathology is consistent with sarcoidosis. Will hold off on treatment for now pending further workup Will continue to follow, possible discharge within next 24 hours to be followed up on outpatient basis as the patient's condition has improved significantly.
[2024-03-16] MEDS: MAGNESIUM SULFATE-D5W PMX 1 GM in DEXTROSE/WATER 1 100ML.BAG IVPB SCH (11:24)
--- NOTE | 2024-03-16 15:12 | P.PN ---
Subjective Progress Note Date: 03/16/24 Hospital Course: 78-year-old male with history of hypertension, dyslipidemia, anxiety/depression, GERD, CAD status post stent presenting with acute encephalopathy. In the ED, temperature was 98.1, pulse 99, respiratory rate 18, blood pressure 133/76, saturating at 94% on room air. WBC 4.7, hemoglobin 12.5, sodium 134, creatinine 2.45, potassium 3.9, calcium 14.7, magnesium 1.5, AST 144, ALT 76, ALP 335. Patient started on IV fluids, admitted for further hypercalcemia management. Oncology and nephrology consulted. He is status post zoledronic acid and calcitonin. Calcium is improving. Renal function improving with IV fluids. He also had CT chest abdomen pelvis which showed mediastinal, right hilar, paratracheal, subcarinal, right axillary and retroperitoneal left periaortic lymphadenopathy. Patient has significantly elevated SARAHI levels. Pulmonology also consulted for possible sarcoidosis. Patient underwent right axillary lymph node biopsy. Calcium downtrending, renal function improved. Subjective: Patient seen and examined at bedside. No acute events overnight. Pertinent positives and negatives as discussed above, a complete review of systems was performed and all other systems are negative. Vitals Signs Reviewed. General: Nontoxic, no distress, appears at stated age Derm: Warm, dry Head: Atraumatic, normocephalic, symmetric Eyes: EOMI, no lid lag, anicteric sclera Mouth: No lip lesion, mucus membranes moist Cardiovascular: S1 through 2 Gap metabolic acidosis, no murmur Lungs: CTA bilateral, no rhonchi, no rales, no accessory muscle use Abdominal: Soft, nontender to palpation, no guarding, no appreciable organomegaly Ext: No gross muscle atrophy, no edema, no contractures Neuro: CN II-XI grossly intact, no focal neuro deficits Psych: Alert, oriented, appropriate affect Data Reviewed Today: Pertinent Labs: Sodium 136, bicarb 19, creatinine 1.5, magnesium 1.3 Imaging: No new imaging Assessment and Plan: Active: Symptomatic hypercalcemia, resolving Prerenal acute kidney injury, resolving Acute metabolic encephalopathy, resolved Non-anion gap metabolic acidosis Hypomagnesemia Lymphadenopathy - status post calcitonin and zoledronic acid -Discussed with nephrology, normal saline decreased 75 cc an hour -Oncology and pulmonology following, patient is status post axillary lymph node biopsy, pending result -Patient also started on oral magnesium 400 mg daily by nephrology - another 2 g of IV magnesium sulfate given today per nephrology -Consider switching from normal saline to lactated ringer due to non-anion gap metabolic acidosis -Repeat CMP and magnesium tomorrow Chronic: GERD Hypertension Dyslipidemia Anxiety/depression DVT ppx: Subcu heparin Code status: Full code Anticipated discharge place: Pending clinical course Anticipated discharge time: Pending clinical course Objective - Vital Signs Vital signs: Vital Signs Temp 98.3 F 03/16/24 13:29 Pulse 91 03/16/24 13:29 Resp 17 03/16/24 13:29 BP 124/69 03/16/24 13:29 Pulse Ox 94 L 03/16/24 13:29 FiO2 Intake & Output 03/15/24 03/16/24 03/16/24 18:59 06:59 18:59 Intake Total 120 Balance 120 Intake: Oral 120 Other: Voiding Method Toilet Toilet Toilet Bedside Commode Bedside Commode Incontinent Incontinent # Voids 1 1 - Labs CBC & Chem 7: 03/12/24 04:35 03/16/24 06:07 Labs: Abnormal Lab Results - Last 24 Hours (Table) 03/16/24 Range/Units 06:07 Carbon Dioxide 19.0 L (21.6-31.8) mmol/L Est GFR (CKD-EPI) 48 L (>=60) Magnesium 1.3 L (1.5-2.4) mg/dL
[2024-03-17 08:04] VITALS: RESP 19
[2024-03-17 08:31] LABS: Magnesium 1.7 mg/dL (1.5-2.4)
[2024-03-17 08:41] LABS: ALT 95 U/L (10-49); AST 158 U/L (14-35); Albumin 3.1 g/dL (3.8-4.9); Alkaline Phosphatase 570 U/L (41-126); BUN/Creat Ratio 13.38 Ratio (12.00-20.00); Blood Urea Nitrogen 21.4 mg/dL (9.0-27.0); Calcium 8.8 mg/dL (8.7-10.3); Carbon Dioxide 18.9 mmol/L (21.6-31.8); Chloride 106 mmol/L (96-109); Globulin 3.1 g/dL (1.6-3.3); Glucose 81 mg/dL (70-110); Potassium 3.7 mmol/L (3.5-5.5); Sodium 136 mmol/L (135-145); Total Protein 6.2 g/dL (6.2-8.2)
--- NOTE | 2024-03-17 11:50 | P.DS ---
Providers Date of admission: 03/12/24 06:14 Expected date of discharge: 03/17/24 Attending physician: Sotero Cheema MD Consults: 03/12/24 06:14 Consult Physician Urgent Consulting Provider: Felipe Lundberg Consult Reason/Comments: juan jose, acute hypercalcemia Do you want consulting provider notified?: Yes Consult Physician Urgent Consulting Provider: Ganesh Knight Consult Reason/Comments: diffuse lymphadenopathy Do you want consulting provider notified?: Yes 03/13/24 10:24 Consult Physician Routine Consulting Provider: Kurt Chiang Consult Reason/Comments: possible sarcoidosis Do you want consulting provider notified?: Yes Primary care physician: Stated None Hospital Course: Discharge Diagnosis: Symptomatic hypercalcemia Prerenal acute kidney injury Acute metabolic encephalopathy Non-anion gap metabolic acidosis Hypomagnesemia Lymphadenopathy GERD Hypertension Dyslipidemia Anxiety/depression Hospital Course: 78-year-old male with history of hypertension, dyslipidemia, anxiety/depression, GERD, CAD status post stent presenting with acute encephalopathy. In the ED, temperature was 98.1, pulse 99, respiratory rate 18, blood pressure 133/76, saturating at 94% on room air. WBC 4.7, hemoglobin 12.5, sodium 134, creatinine 2.45, potassium 3.9, calcium 14.7, magnesium 1.5, AST 144, ALT 76, ALP 335. Patient started on IV fluids, admitted for further hypercalcemia management. Oncology and nephrology consulted. He is status post zoledronic acid and calcitonin. Calcium is improving. Renal function improving with IV fluids. He also had CT chest abdomen pelvis which showed mediastinal, right hilar, paratracheal, subcarinal, right axillary and retroperitoneal left periaortic lymphadenopathy. Patient has significantly elevated SARAHI levels. Pulmonology also consulted for possible sarcoidosis. Patient underwent right axillary lymph node biopsy. Calcium downtrending, renal function improved. Biopsy results still pending. Patient to be discharged and close follow-up with oncology and nephrology. Patient seen and examined at bedside. Vital signs reviewed and stable. General: Nontoxic, no distress, appears at stated age Derm: Warm, dry Head: Atraumatic, normocephalic, symmetric Eyes: EOMI, no lid lag, anicteric sclera Mouth: No lip lesion, mucus membranes moist Cardiovascular: S1S2 reg, no murmur Lungs: CTA bilateral, no rhonchi, no rales, no accessory muscle use Abdominal: Soft, nontender to palpation, no guarding, no appreciable organomegaly Ext: No gross muscle atrophy, no edema, no contractures Neuro: CN II-XI grossly intact, no focal neuro deficits Psych: Alert, oriented, appropriate affect A total of 37 minutes of time were spent preparing this complex discharge summary. Patient was discharged on 03/17/2024 at 1113. Patient Condition at Discharge: Stable Plan - Discharge Summary Discharge Rx Participant: Yes New Discharge Prescriptions: New Magnesium Oxide [Mag-Ox] 400 mg PO BID #60 tab Continue Omeprazole [PriLOSEC] 20 mg PO DAILY ARIPiprazole [Abilify] 5 mg PO HS amLODIPine [Norvasc] 5 mg PO DAILY Venlafaxine HCl [Effexor XR] 150 mg PO HS Atorvastatin [Lipitor] 40 mg PO DAILY Discontinued guaiFENesin 200 mg PO Q6H PRN PRN Reason: Cough Benzonatate [Tessalon Perle] 200 mg PO HS PRN PRN Reason: Cough Discharge Medication List ARIPiprazole [Abilify] 5 mg PO HS 03/12/24 [History] Atorvastatin [Lipitor] 40 mg PO DAILY 03/12/24 [History] Omeprazole [PriLOSEC] 20 mg PO DAILY 03/12/24 [History] Venlafaxine HCl [Effexor XR] 150 mg PO HS 03/12/24 [History] amLODIPine [Norvasc] 5 mg PO DAILY 03/12/24 [History] Magnesium Oxide [Mag-Ox] 400 mg PO BID #60 tab 03/17/24 [Rx] Follow up Appointment(s)/Referral(s): Ganesh Knight [STAFF PHYSICIAN] - 1 Week None,Stated [Primary Care Provider] - 1-2 days [facility] [NON-STAFF] - 1 Week Felipe Lundberg DO [STAFF PHYSICIAN] - 03/19/24 11:00 am (please arrive at 10, to complete new patient paperwork. bring insurance card and picture ID to appointment.) Patient Instructions/Handouts: Acute Kidney Injury (DC), Lymphadenopathy (GEN), Hypercalcemia (DC) Activity/Diet/Wound Care/Special Instructions: PT son to set up a follow up appt with dr Jauregui when he knows that he will be going back to his home. according to the office they are currently booking appts about 2 months out. Please see oncology and nephrology and follow up on biopsy results. Discharge Disposition: HOME WITH HOME HEALTH SERVICES
[2024-03-17 13:31] VITALS: BP 143/67; PULSE 83; TEMP 99.2
[2024-03-18 07:31] LABS: Albumin 2.98 g/dL (3.80-4.90); Gamma Globulin 1.76 g/dL (0.70-1.50)
[2024-03-18 10:58] LABS: Immunofixation, Serum Interp IgG Kappa
--- NOTE | 2024-03-19 12:48 | P.PN ---
Progress Note - Text Progress Note Date: 03/19/24 Prelim path report showed hodgkin's lymphoma. Communicated with patient, and will be seeing oncology on 03/28. Communicated with oncology as well.
--- NOTE | 2024-03-20 13:04 | P.PN ---
Subjective Patient is seen for follow-up for acute kidney injury. Renal function is stable with creatinine at 1.6 with grams per deciliter. Maintained on IV fluids at 75 mL an hour. No significant complaints today. Objective - Vital Signs Vital signs: Vital Signs Temp 99.2 F 03/17/24 13:31 Pulse 83 03/17/24 13:31 Resp 19 03/17/24 13:31 BP 143/67 03/17/24 13:31 Pulse Ox 93 L 03/17/24 13:31 FiO2 - Exam Patient is awake, comfortable, no acute distress Examination of the heart S1 and S2 Examination the lungs bilateral breath sounds are heard Abdomen is soft nontender Examination of lower extremity shows no significant edema - Labs CBC & Chem 7: 03/12/24 04:35 03/17/24 04:20 Assessment and Plan Assessment: 1. Acute kidney injury secondary to hypercalcemia induced ATN. Initial creatinine 2.7 and improved to 1.6 today. Unknown baseline renal function. No hydronephrosis noted on kidney ultrasound. 2. Hypercalcemia. Concerning for underlying malignancy. Was taking calcium and vitamin D supplementation at home which is currently held. Calcium level trending down. PTH appropriately suppressed at 11.3. TSH normal. Vitamin D le marcelino 21.2. SARAHI level elevated at 311. Oncology following. Axillary node biopsy results pending. Elevated SARAHI and calcitriol level also concerning for sarcoidosis. Pulmonology following. 3. Hypomagnesemia from poor intake and diuresis. Replaced. Plan: Patient can be discharged from nephrology standpoint. Follow-up as outpatient.
== END 2024-03-17 17:18 | disposition home health service (06) | DRG 628 ==
LOC: EC 04:16 → 5NMEDONC 06:14
PROVIDERS: ADMIT Internal Medicine; ATTEND Internal Medicine
PROC: 07B53ZX Excision of Right Axillary Lymphatic, Percutaneous Approach, Diagnostic (ICD-10-PCS; principal; 2024-03-13)
DX: E83.52 Hypercalcemia (principal); G93.41 Metabolic encephalopathy; N17.0 Acute kidney failure with tubular necrosis; E87.20 Acidosis, unspecified; J98.11 Atelectasis; R47.01 Aphasia; J90 Pleural effusion, not elsewhere classified; E86.9 Volume depletion, unspecified; E83.42 Hypomagnesemia; K21.9 Gastro-esophageal reflux disease without esophagitis; E78.5 Hyperlipidemia, unspecified; F32.A Depression, unspecified; F41.9 Anxiety disorder, unspecified; R59.0 Localized enlarged lymph nodes; I10 Essential (primary) hypertension; I25.10 Atherosclerotic heart disease of native coronary artery without angina pectoris; R74.01 Elevation of levels of liver transaminase levels; D69.6 Thrombocytopenia, unspecified; I25.2 Old myocardial infarction; Z79.899 Other long term (current) drug therapy; Z87.891 Personal history of nicotine dependence; Z95.5 Presence of coronary angioplasty implant and graft
CPT/HCPCS: 38505; 76536; 76770; 76882; 76942; 80048; 80053; 82164; 82306; 82607; 82652; 82746; 83735; 83970; 84165; 84443; 85025; 86334; 86335; 88305; 88341; 88342; 96365; 96366; 96372; 99285

== ENCOUNTER 2024-03-25 13:42 | Inpatient (IN) | payer MEDICARE, OTHER ==
--- NOTE | 2024-03-25 14:03 | ED ---
Dizziness HPI - General Chief Complaint: Dizziness Stated Complaint: low b/p, confusion Time Seen by Provider: 03/25/24 13:59 Source: patient, family, RN notes reviewed, old records reviewed Mode of arrival: wheelchair Limitations: altered mental status - History of Present Illness Initial Comments: This is a 78-year-old male for increasing weakness debility and decreased activities of daily living coming in by EMS, patient recently new to town living with family secondary to inability to take care of himself at his own home, patient is having worsening symptoms here in the ER worsening symptoms at home noted by the family MD Complaint: dizziness, lightheadedness, difficulty walking -: week(s) Timing: sudden onset Description: lightheadedness, difficulty walking Severity: severe Improves With: nothing Associated Symptoms: confusion, loss of appetite, malaise, weakness - Related Data Home Medications Medication Instructions Recorded Confirmed ARIPiprazole [Abilify] 5 mg PO HS 03/12/24 03/31/24 Venlafaxine HCl [Effexor XR] 150 mg PO HS 03/12/24 03/31/24 Albuterol Inhaler [Ventolin Hfa 1 - 2 puff INHALATION RT-Q4H PRN 03/25/24 03/31/24 Inhaler] Tamsulosin [Flomax] 0.8 mg PO DAILY 03/25/24 03/31/24 guaiFENesin SYRUP 100MG/5ML 200 mg PO BID 03/31/24 03/31/24 [Robitussin] Previous Rx's Medication Instructions Recorded Magnesium Oxide [Mag-Ox] 400 mg PO BID #60 tab 03/17/24 Pantoprazole [Protonix] 40 mg PO BID #100 tab 03/29/24 Allergies Allergy/AdvReac Type Severity Reaction Status Date / Time No Known Allergies Allergy Verified 03/31/24 18:47 Review of Systems ROS Statement: Those systems with pertinent positive or pertinent negative responses have been documented in the HPI. ROS Other: All systems not noted in ROS Statement are negative. Past Medical History Past Medical History: Coronary Artery Disease (CAD), Cancer, GERD/Reflux, Hyperlipidemia, Myocardial Infarction (NV) Additional Past Medical History / Comment(s): DJD, Hodgkins Lymphoma 2023 Last Myocardial Infarction Date:: 2016 History of Any Multi-Drug Resistant Organisms: None Reported Past Surgical History: Heart Catheterization With Stent Date of Last Stent Placement:: 2022 Past Psychological History: No Psychological Hx Reported Smoking Status: Former smoker Past Alcohol Use History: None Reported Past Drug Use History: None Reported General Exam Limitations: altered mental status General appearance: alert, in no apparent distress, lethargic Head exam: Present: atraumatic, normocephalic, normal inspection Eye exam: Present: normal appearance, PERRL, EOMI. Absent: scleral icterus, conjunctival injection, periorbital swelling ENT exam: Present: normal exam, mucous membranes moist Neck exam: Present: normal inspection. Absent: tenderness, meningismus, lymphadenopathy Respiratory exam: Present: normal lung sounds bilaterally. Absent: respiratory distress, wheezes, rales, rhonchi, stridor Cardiovascular Exam: Present: regular rate, normal rhythm, normal heart sounds. Absent: systolic murmur, diastolic murmur, rubs, gallop, clicks GI/Abdominal exam: Present: soft, normal bowel sounds. Absent: distended, tenderness, guarding, rebound, rigid Extremities exam: Present: normal inspection, full ROM, normal capillary refill. Absent: tenderness, pedal edema, joint swelling, calf tenderness Back exam: Present: normal inspection Neurological exam: Present: alert, oriented X3, CN II-XII intact Psychiatric exam: Present: normal affect, normal mood Skin exam: Present: warm, dry, intact, normal color. Absent: rash Course Vital Signs 03/25/24 03/25/24 03/25/24 13:49 14:29 15:00 Temperature 98.5 F Pulse Rate 101 H 96 100 Respiratory 18 20 18 Rate Blood Pressure 93/61 91/56 97/63 O2 Sat by Pulse 97 93 L 93 L Oximetry 03/25/24 03/25/24 03/25/24 15:30 16:00 16:30 Temperature Pulse Rate 99 101 H 98 Respiratory 16 16 17 Rate Blood Pressure 98/58 105/64 104/60 O2 Sat by Pulse 95 95 94 L Oximetry 03/25/24 03/25/24 03/25/24 17:00 17:30 18:00 Temperature Pulse Rate 98 94 98 Respiratory 19 15 17 Rate Blood Pressure 120/69 113/69 119/73 O2 Sat by Pulse 96 95 94 L Oximetry 03/25/24 03/26/24 03/26/24 21:19 00:38 01:54 Temperature Pulse Rate 101 H 97 97 Respiratory 20 20 16 Rate Blood Pressure 116/65 109/56 116/62 O2 Sat by Pulse 96 93 L 94 L Oximetry 03/26/24 03/26/24 03/26/24 03:14 04:22 06:52 Temperature Pulse Rate 108 H 98 91 Respiratory 15 17 18 Rate Blood Pressure 120/67 113/64 108/61 O2 Sat by Pulse 95 94 L 95 Oximetry 03/26/24 03/26/24 03/26/24 08:03 11:38 13:46 Temperature 98 F 97.9 F Pulse Rate 96 97 100 Respiratory 20 20 18 Rate Blood Pressure 104/57 112/63 114/54 O2 Sat by Pulse 97 95 98 Oximetry - Reevaluation(s) Reevaluation #1: 03/25/24 14:02 Medical records reviewed Reevaluation #2: 03/25/24 16:15 Patient symptoms unchanged here in the ER Reevaluation #3: 03/25/24 16:15 Patient informed of results questions answered Reevaluation #4: Was pt. sent in by a medical professional or institution (, PA, LINE HAUL DRIVER, urgent care, hospital, or senior care...) When possible be specific @ -no Did you speak to anyone other than the patient for history (EMS, parent, family, police, friend...)? What history was obtained from this source @ -no Did you review nursing and triage notes (agree or disagree)? Why? @ -agree Are old charts reviewed (outside hosp., previous admission, EMS record, old EKG, old radiological studies, urgent care reports/EKG's, senior care records)? Report findings @ -yes Differential Diagnosis (chest pain, altered mental status, abdominal pain women, abdominal pain men, vaginal bleeding, weakness, fever, dyspnea, syncope, headache, dizziness, GI bleed, back pain, seizure, CVA, palpatations, mental health, musculoskeletal)? @ -prior EKG interpreted by me (3pts min.). @ -yes X-rays interpreted by me (1pt min.). @ -yes negative for acute disease CT interpreted by me (1pt min.). @ -no U/S interpreted by me (1pt. min.). @ -no What testing was considered but not performed or refused? (CT, X-rays, U/S, labs)? Why? @ -none What meds were considered but not given or refused? Why? @ -none Did you discuss the management of the patient with other professionals (professionals i.e. , PA, [employer] DRIVER, lab, RT, psych nurse, geriatric social worker, fruit rancher, teacher, chief revenue officer, case filler)? Give summary @ -no Was smoking cessation discussed for >3mins.? @ -no Was critical care preformed (if so, how long)? @ -no Were there social determinants of health that impacted care today? How? (Homelessness, low income, unemployed, alcoholism, drug addiction, tr ansportation, low edu. Level, literacy, decrease access to med. care, senior living, rehab)? @ -none Was there de-escalation of care discussed even if they declined (Discuss DNR or withdrawal of care, Hospice)? DNR status @ -no What co-morbidities impacted this encounter? (DM, HTN, Smoking, COPD, CAD, Canc er, CVA, ARF, Chemo, Hep., AIDS, mental health diagnosis, sleep apnea, morbid obesity)? @ -none Was patient admitted / discharged? Hospital course, mention meds given and route, prescriptions, significant lab abnormalities, going to OR and other pertinent info. @ - 78 male with admit to sound physicians regarding increasing weakness needing for PT OT possible placement Admitted Undiagnosed new problem with uncertain prognosis? @ -no Drug Therapy requiring intensive monitoring for toxicity (Heparin, Nitro, Insulin, Cardizem)? @ -no Were any procedures done? @ -no Diagnosis/symptom? @ -Debility weakness Acute, or Chronic, or Acute on Chronic? @ -Acute Uncomplicated (without systemic symptoms) or Complicated (systemic symptoms)? @ -Complicated Side effects of treatment? @ -no Exacerbation, Progression, or Severe Exacerbation? @ -exacerbation Poses a threat to life or bodily function? How? (Chest pain, USA, NV, pneumonia, PE, COPD, DKA, ARF, appy, cholecystitis, CVA, Diverticulitis, Homicidal, Suicidal, threat to staff... and all critical care pts) @ -yes extremes of age Reevaluation #5: Differential Weakness: Hypoglycemia, shock, sepsis, hyponatremia, anemia, infection, NV, ETOH, adverse medicine reaction, overdose, stroke, this is not meant to be an all-inclusive list. - Consultations Consultation #1: Spoke with [facility] who agrees to admit this patient EKG Findings - EKG Comments: EKG Findings:: EKG is A-fib with RVR 103 QRS 73 QTc 404 - EKG Results: EKG: interpreted by [facility] Medical Decision Making - Medical Decision Making 78 male with admit to [facility] regarding increasing weakness needing for PT OT possible placement - Lab Data Result diagrams: 03/29/24 08:37 03/29/24 08:37 Lab Results 03/25/24 03/25/24 03/25/24 Range/Units 14:01 14:01 14:01 WBC 2.7 L (3.8-10.6) k/uL RBC 3.15 L (4.30-5.90) m/uL Hgb 9.0 L D (13.0-17.5) gm/dL Hct 26.6 L (39.0-53.0) % MCV 84.5 (80.0-100.0) fL MCH 28.8 (25.0-35.0) pg MCHC 34.0 (31.0-37.0) g/dL RDW 15.9 H (11.5-15.5) % Plt Count 117 L (150-450) k/uL MPV 11.1 Neutrophils % (Manual) 82 % Lymphocytes % (Manual) 5 % Monocytes % (Manual) 7 % Eosinophils % (Manual) 5 % Basophils % (Manual) 1 % Neutrophils # (Manual) 2.21 (1.3-7.7) k/uL Lymphocytes # (Manual) 0.14 L (1.0-4.8) k/uL Monocytes # (Manual) 0.19 (0-1.0) k/uL Eosinophils # (Manual) 0.14 (0-0.7) k/uL Basophils # (Manual) 0.03 (0-0.2) k/uL Nucleated RBCs 0 (0-0) /100 WBC Manual Slide Review Performed Anisocytosis (manual) Present PT 13.5 H (10.0-12.5) sec INR 1.3 H (<1.2) APTT 28.2 (22.0-30.0) sec Sodium 129 L (137-145) mmol/L Potassium 4.3 (3.5-5.1) mmol/L Chloride 100 (98-107) mmol/L Carbon Dioxide 22 (22-30) mmol/L Anion Gap 7 mmol/L BUN 46 H (9-20) mg/dL Creatinine 1.41 H (0.66-1.25) mg/dL Est GFR (CKD-EPI)AfAm 55 (>60 ml/min/1.73 sqM) Est GFR (CKD-EPI)NonAf 48 (>60 ml/min/1.73 sqM) Glucose 104 H (74-99) mg/dL Lactic Ac Sepsis Rflx Plasma Lactic Acid Flo (0.7-2.0) mmol/L Calcium 8.9 (8.4-10.2) mg/dL Phosphorus 2.7 (2.5-4.5) mg/dL Magnesium 2.1 (1.6-2.3) mg/dL Total Bilirubin 1.4 H (0.2-1.3) mg/dL AST 270 H (17-59) U/L ALT 123 H (4-49) U/L Alkaline Phosphatase 857 H (38-126) U/L Troponin I (0.000-0.034) ng/mL NT-Pro-B Natriuret Pep 1860 pg/mL Total Protein 5.9 L (6.3-8.2) g/dL Albumin 2.6 L (3.5-5.0) g/dL Serum Alcohol <10 mg/dL 03/25/24 03/25/24 03/25/24 Range/Units 14:01 14:01 15:29 WBC (3.8-10.6) k/uL RBC (4.30-5.90) m/uL Hgb (13.0-17.5) gm/dL Hct (39.0-53.0) % MCV (80.0-100.0) fL MCH (25.0-35.0) pg MCHC (31.0-37.0) g/dL RDW (11.5-15.5) % Plt Count (150-450) k/uL MPV Neutrophils % (Manual) % Lymphocytes % (Manual) % Monocytes % (Manual) % Eosinophils % (Manual) % Basophils % (Manual) % Neutrophils # (Manual) (1.3-7.7) k/uL Lymphocytes # (Manual) (1.0-4.8) k/uL Monocytes # (Manual) (0-1.0) k/uL Eosinophils # (Manual) (0-0.7) k/uL Basophils # (Manual) (0-0.2) k/uL Nucleated RBCs (0-0) /100 WBC Manual Slide Review Anisocytosis (manual) PT (10.0-12.5) sec INR (<1.2) APTT (22.0-30.0) sec Sodium (137-145) mmol/L Potassium (3.5-5.1) mmol/L Chloride (98-107) mmol/L Carbon Dioxide (22-30) mmol/L Anion Gap mmol/L BUN (9-20) mg/dL Creatinine (0.66-1.25) mg/dL Est GFR (CKD-EPI)AfAm (>60 ml/min/1.73 sqM) Est GFR (CKD-EPI)NonAf (>60 ml/min/1.73 sqM) Glucose (74-99) mg/dL Lactic Ac Sepsis Rflx Y Plasma Lactic Acid Flo 3.4 H* (0.7-2.0) mmol/L Calcium (8.4-10.2) mg/dL Phosphorus (2.5-4.5) mg/dL Magnesium (1.6-2.3) mg/dL Total Bilirubin (0.2-1.3) mg/dL AST (17-59) U/L ALT (4-49) U/L Alkaline Phosphatase (38-126) U/L Troponin I <0.012 (0.000-0.034) ng/mL NT-Pro-B Natriuret Pep pg/mL Total Protein (6.3-8.2) g/dL Albumin (3.5-5.0) g/dL Serum Alcohol mg/dL - EKG Data -: EKG Interpreted by Me - Radiology Data Radiology results: report reviewed (Chest x-ray is negative for acute disease), image reviewed Disposition Clinical Impression: MATT (acute kidney injury), Encephalopathy acute, Dehydration, Orthostatic hypotension, Weakness, Debility Disposition: ADMITTED IP TO THIS [facility] Condition: Fair Is patient prescribed a controlled substance at d/c from ED?: No Time of Disposition: 16:00
[2024-03-25] MEDS: SODIUM CHLORIDE 0.9% 1,000 ML IV STA (14:22)
[2024-03-25] MEDS: SODIUM CHLORIDE 0.9% 500 ML 500 ML IV STA (14:23)
[2024-03-25 14:39] LABS: HCT 26.6 % (39.0-53.0); MCH 28.8 pg (25.0-35.0); MCV 84.5 fL (80.0-100.0); Mean Platelet Volume 11.1; Platelet Count 117 k/uL (150-450); RBC 3.15 m/uL (4.30-5.90); RDW 15.9 % (11.5-15.5); WBC 2.7 k/uL (3.8-10.6)
[2024-03-25 14:42] LABS: ALT 123 U/L (4-49); AST 270 U/L (17-59); African American GFR (CKD) 55 (>60 ml/min/1.73 sqM); Albumin 2.6 g/dL (3.5-5.0); Alcohol <10 mg/dL; Alkaline Phosphatase 857 U/L (38-126); Anion Gap 7 mmol/L; Blood Urea Nitrogen 46 mg/dL (9-20); Calcium 8.9 mg/dL (8.4-10.2); Carbon Dioxide 22 mmol/L (22-30); Chloride 100 mmol/L (98-107); Glucose 104 mg/dL (74-99); Magnesium 2.1 mg/dL (1.6-2.3); Non-African American GFR(CKD) 48 (>60 ml/min/1.73 sqM); Phosphorus 2.7 mg/dL (2.5-4.5); Potassium 4.3 mmol/L (3.5-5.1); Sodium 129 mmol/L (137-145); Total Bilirubin 1.4 mg/dL (0.2-1.3); Total Protein 5.9 g/dL (6.3-8.2)
[2024-03-25 14:44] LABS: INR 1.3 (<1.2); Partial Thromboplastin Time 28.2 sec (22.0-30.0); Prothrombin Time 13.5 sec (10.0-12.5)
[2024-03-25 14:49] LABS: NT-Pro-B-Type Natriuretic Pept 1860 pg/mL
--- NOTE | 2024-03-25 15:21 | XR ---
EXAMINATION TYPE: XR chest 2V DATE OF EXAM: 03/25/2024 3:15 PM COMPARISON: CT chest abdomen and pelvis 03/11/2024, chest radiograph 03/11/2024 TECHNIQUE: XR chest 2V Frontal and lateral views of the chest. CLINICAL INDICATION:Male, 78 years old with history of weak; FINDINGS: Lungs/Pleura: No evidence of focal consolidation or pneumothorax. Blunting of the costophrenic angles is present. Pulmonary vascularity: Pulmonary vascular congestion. Heart/mediastinum: Cardiomediastinal silhouette is enlarged. Prominence of the bilateral carroll. Musculoskeletal: No acute osseous pathology. IMPRESSION: 1. Cardiomegaly, pulmonary vascular congestion and bilateral small pleural effusions. Correlate with BNP for congestive heart failure. 2. Known mediastinal and hilar adenopathy is better appreciated on prior CT. [facility], , 03/25/2024 3:18 PM
[2024-03-25 15:29] LABS: Basophils # (M) 0.03 k/uL (0-0.2); Eosinophils # (M) 0.14 k/uL (0-0.7); Lymphocytes # (M) 0.14 k/uL (1.0-4.8); Monocytes # (M) 0.19 k/uL (0-1.0); Neutrophils # (M) 2.21 k/uL (1.3-7.7); Neutrophils % (M) 82 %; Nucleated Red Blood Cells 0 /100 WBC (0-0); Total Cells Counted 100
[2024-03-25 15:30] LABS: Anisocytosis (M) Present
[2024-03-25] MEDS ORDERED: MORPHINE SULFATE 4 MG/ML SYRINGE IV PRN (16:12)
[2024-03-25] MEDS ORDERED: NALOXONE 0.4 MG/ML 1 ML VIAL IV PRN (16:12)
[2024-03-25] MEDS: ONDANSETRON 4 MG/2 ML VIAL IVP PRN (17:29)
[2024-03-25] MEDS: SODIUM CHLORIDE 0.9% 1,000 ML IV SCH (17:29)
--- NOTE | 2024-03-25 21:49 | P.HPIM ---
History of Present Illness H&P Date: 03/25/24 Chief Complaint: Dizziness and weakness History of present illness; 78-year-old male with history of hypertension, dyslipidemia, anxiety/depression, GERD, CAD status post stent, and recently diagnosed Hodgkin's lymphoma, presenting for dizziness and weakness. States he has been having increased weakness and decreased activities of daily living sin ce being discharged from the hospital 03/18/2024 so decided to call 911 in order to be seen in the emergency department. Of note during his last hospital stay he received a biopsy which preliminary results showed Hodgkin's lymphoma. States he had an appointment with Dr. De Guzman this Sunday as well as a scheduled PET scan. Reports since his discharge on 03/18 he has been feeling weak, and reports this is in the setting of him having poor oral intake since being discharged. He reports the dizziness started earlier today which concerned him and his son so they decided to come to the emergency department. Reports the dizziness occurred as he was getting up from the couch, but denies the dizziness happening at any other time. Also states the dizziness resolved upon arrival to the ED once he laid down. Reports he is new to town and living with family now as he is unable to take care of himself at home. Does report a minimal non- productie cough over the past 2-3 days but denied urinary complaints, fever, chills, chest pain, SOB, nausea, vomiting, abdominal pain, or diarrhea. Reports at time of interview his symptoms of dizziness have resolved and his weakness has improved significantly. Labs: WBCs 2.7, hemoglobin 9.0, MCV 84.5, platelet count 117, PT 13.5, INR 1.3, sodium 129, BUN 46, creatinine 1.41, glucose 104, plasma lactic 2.6, T. bili 1.4, AST 270, ALT 123, alkaline phosphatase 87, troponin less than 0.012, BNP 160, albumin 2.6, serum alcohol less than 10. Imaging: -EKG done in the ER showed heart rate of 100, no ST segment elevation or depression seen, no T-wave inversions seen. Atrial fibrillation with RVR, QTc 404 ms. -ER CXR: Cardiomegaly, pulmonary vascular congestion and bilateral small pleural effusions. No mediastinal and hilar adenopathy. REVIEW OF SYSTEMS: As stated above in HPI. The rest of the 14-point review of systems is negative. PHYSICAL EXAMINATION: GENERAL: The patient is alert and oriented x3, not in any acute distress. Well developed, well nourished. HEENT: Pupils are round and equally reacting to light. EOMI. No scleral icterus. No conjunctival pallor. Normocephalic, atraumatic. CARDIOVASCULAR: S1 and S2 present. No murmurs, rubs, or gallops. PULMONARY: Chest is clear to auscultation b/l, no wheezing or crackles. ABDOMEN: Soft, nontender, nondistended, normoactive bowel sounds. No palpable organomegaly. MUSCULOSKELETAL: No joint swelling or deformity. EXTREMITIES: No cyanosis, clubbing, or pedal edema. NEUROLOGICAL: Gross neurological examination did not reveal any focal deficits. SKIN: No rashes. Assessment and Plan 78-year-old male with history of hypertension, dyslipidemia, anxiety/depression, GERD, CAD status post stent, and Hodgkin's lymphoma presenting dizziness and weakness. Internal medicine will accept the patient with an expected stay of greater than 2 midnights. #Generalized weakness #Dizziness #Hodgkin's lymphoma #Pancytopenia likely secondary to malignancy #Hyponatremia #SIRS criteria heart rate 101, WBC 2.7, -Ordered repeat EKG -Ordered orthostatics -Oncology consulted -Patient was scheduled for PET scan this Sunday -Blood cultures ordered -Fall precautions -Cardiac monitoring #Atrial fibrillation with RVR, newly diagnosed -Cardiology consulted -Echo ordered -Check TSH #Transaminitis: Potentially secondary to new diagnosis of Hodgkin's lymphoma -GI consulted #MATT, pre-renal: Potentially secondary to decreased oral intake -C/w IVFs NS 75 mL/hr -Continue to monitor Chronic Conditions: #CAD status post stents -Continue home medication reconciled #Hyperlipidemia: -Hold home atorvastatin in the setting of transaminitis #GERD/reflux: -Protonix 40 mg IV daily F: NS 75 ml/hr E: None N: Regular diet DVT ppx: Heparin 5000 units SQ every 8 HR GI ppx: Protonix 40 mg IV daily CODE STATUS: Full code Dispo: Pending clinical course Carla Gay MD PGY-1 FM Dictation was produced using [employer] dictation software. please excuse any g rammatical, word or spelling errors. Past Medical History Past Medical History: Coronary Artery Disease (CAD), Cancer, GERD/Reflux, Hyperlipidemia, Myocardial Infarction ([place]) Additional Past Medical History / Comment(s): DJD, Hodgkins Lymphoma 2023 Last Myocardial Infarction Date:: 2016 History of Any Multi-Drug Resistant Organisms: None Reported Past Surgical History: Heart Catheterization With Stent Date of Last Stent Placement:: 2022 Past Psychological History: No Psychological Hx Reported Smoking Status: Former smoker Past Alcohol Use History: None Reported Past Drug Use History: None Reported Medications and Allergies Home Medications Medication Instructions Recorded Confirmed Type ARIPiprazole [Abilify] 5 mg PO HS 03/12/24 03/25/24 History Atorvastatin [Lipitor] 40 mg PO DAILY 03/12/24 03/25/24 History Omeprazole [PriLOSEC] 20 mg PO DAILY PRN 03/12/24 03/25/24 History Venlafaxine HCl [Effexor XR] 150 mg PO HS 03/12/24 03/25/24 History Magnesium Oxide [Mag-Ox] 400 mg PO BID #60 tab 03/17/24 03/25/24 Rx Albuterol Inhaler [Ventolin Hfa 1 - 2 puff INHALATION RT-Q4H PRN 03/25/24 03/25/24 History Inhaler] Tamsulosin [Flomax] 0.8 mg PO DAILY 03/25/24 03/25/24 History Allergies Allergy/AdvReac Type Severity Reaction Status Date / Time No Known Allergies Allergy Verified 03/25/24 15:36 Physical Exam Vitals: Vital Signs Temp Pulse Resp BP Pulse Ox 03/25/24 18:00 98 17 119/73 94 L 03/25/24 17:30 94 15 113/69 95 03/25/24 17:00 98 19 120/69 96 03/25/24 16:30 98 17 104/60 94 L 03/25/24 16:00 101 H 16 105/64 95 03/25/24 15:30 99 16 98/58 95 03/25/24 15:00 100 18 97/63 93 L 03/25/24 14:29 96 20 91/56 93 L 03/25/24 13:49 98.5 F 101 H 18 93/61 97 Intake and Output 03/25/24 03/25/24 03/25/24 06:59 14:59 22:59 Other: Weight 93.44 kg Results CBC & Chem 7: 03/25/24 14:01 03/25/24 14:01 Labs: Abnormal Lab Results - Last 24 Hours (Table) 03/25/24 03/25/24 03/25/24 Range/Units 14:01 14:01 14:01 WBC 2.7 L (3.8-10.6) k/uL RBC 3.15 L (4.30-5.90) m/uL Hgb 9.0 L D (13.0-17.5) gm/dL Hct 26.6 L (39.0-53.0) % RDW 15.9 H (11.5-15.5) % Plt Count 117 L (150-450) k/uL Lymphocytes # (Manual) 0.14 L (1.0-4.8) k/uL PT 13.5 H (10.0-12.5) sec INR 1.3 H (<1.2) Sodium 129 L (137-145) mmol/L BUN 46 H (9-20) mg/dL Creatinine 1.41 H (0.66-1.25) mg/dL Glucose 104 H (74-99) mg/dL Plasma Lactic Acid Flo (0.7-2.0) mmol/L Total Bilirubin 1.4 H (0.2-1.3) mg/dL AST 270 H (17-59) U/L ALT 123 H (4-49) U/L Alkaline Phosphatase 857 H (38-126) U/L Total Protein 5.9 L (6.3-8.2) g/dL Albumin 2.6 L (3.5-5.0) g/dL 03/25/24 03/25/24 Range/Units 14:01 17:47 WBC (3.8-10.6) k/uL RBC (4.30-5.90) m/uL Hgb (13.0-17.5) gm/dL Hct (39.0-53.0) % RDW (11.5-15.5) % Plt Count (150-450) k/uL Lymphocytes # (Manual) (1.0-4.8) k/uL PT (10.0-12.5) sec INR (<1.2) Sodium (137-145) mmol/L BUN (9-20) mg/dL Creatinine (0.66-1.25) mg/dL Glucose (74-99) mg/dL Plasma Lactic Acid Flo 3.4 H* 2.6 H* (0.7-2.0) mmol/L Total Bilirubin (0.2-1.3) mg/dL AST (17-59) U/L ALT (4-49) U/L Alkaline Phosphatase (38-126) U/L Total Protein (6.3-8.2) g/dL Albumin (3.5-5.0) g/dL
[2024-03-25 22:45] LABS: Appearance,Urine Clear (Clear); Bacteria,Urine Rare /hpf; Bilirubin,Urine Negative (Negative); Blood,Urine Small (Negative); Color,Urine Yellow; Glucose,Urine (UA) Trace (Negative); Granular Casts,Urine 4 /lpf (0); Ketones,Urine Negative (Negative); Leukocyte Esterase,Urine Negative (Negative); Mucus,Urine Rare /hpf; Nitrite,Urine Negative (Negative); PH, Urine 5.5 (5.0-8.0); Protein,Urine 1+ (Negative); RBC,Urine 5 /hpf (0-5); Specific Gravity,Urine 1.019 (1.001-1.035); Squamous Epithelial Cell,Urine <1 /hpf (0-4); WBC,Urine 3 /hpf (0-5)
[2024-03-26 06:34] LABS: ALT 121 U/L (4-49); AST 274 U/L (17-59); African American GFR (CKD) 56 (>60 ml/min/1.73 sqM); Albumin 2.3 g/dL (3.5-5.0); Anion Gap 6 mmol/L; Blood Urea Nitrogen 40 mg/dL (9-20); Calcium 8.4 mg/dL (8.4-10.2); Carbon Dioxide 20 mmol/L (22-30); Chloride 103 mmol/L (98-107); Glucose 90 mg/dL (74-99); Non-African American GFR(CKD) 48 (>60 ml/min/1.73 sqM); Phosphorus 2.8 mg/dL (2.5-4.5); Potassium 4.2 mmol/L (3.5-5.1); Sodium 129 mmol/L (137-145); Total Bilirubin 1.3 mg/dL (0.2-1.3); Total Protein 5.3 g/dL (6.3-8.2)
[2024-03-26 06:38] LABS: HCT 22.6 % (39.0-53.0); HGB 7.6 gm/dL (13.0-17.5); MCH 28.8 pg (25.0-35.0); MCHC 33.8 g/dL (31.0-37.0); MCV 85.4 fL (80.0-100.0); Mean Platelet Volume 10.9; Platelet Count 104 k/uL (150-450); RBC 2.64 m/uL (4.30-5.90); WBC 2.8 k/uL (3.8-10.6)
[2024-03-26 06:58] LABS: Band Neutrophils % 12 %; Eosinophils # (M) 0.22 k/uL (0-0.7); Lymphocytes # (M) 0.34 k/uL (1.0-4.8); Monocytes # (M) 0.22 k/uL (0-1.0); Neutrophils % (M) 60 %; Nucleated Red Blood Cells 0 /100 WBC (0-0); Total Cells Counted 100
[2024-03-26 06:59] LABS: Anisocytosis (M) Present
[2024-03-26 07:11] LABS: Alkaline Phosphatase 848 U/L (38-126)
[2024-03-26] MEDS: PANTOPRAZOLE 40 MG/10 ML VIAL IV SCH (08:05)
[2024-03-26] MEDS: MAGNESIUM OXIDE 400 MG TAB PO SCH (08:08)
[2024-03-26] MEDS: HEPARIN SODIUM,PORCINE 5,000 UNIT/ML 1 ML VIAL SQ SCH (08:08)
[2024-03-26] MEDS: TAMSULOSIN 0.4 MG CAP.ER.24H PO SCH (08:08)
--- NOTE | 2024-03-26 09:47 | P.CRDCN ---
History of Present Illness Consult date: 03/26/24 Reason for Consult (text): A-fib with RVR History of present illness: This is a 78-year-old male, follows with hotel maintenance worker yearly in [place] with past medical history of coronary artery disease with 1 stent in 2013, hyperlipidemia, GERD, depression. We have been asked to evaluate the patient for A-fib with RVR. Patient states that he noticed his blood pressure has been on the low side and he has not been stable on his feet for the past week. He was recently hospitalized 03/12 - 03/17 for what he calls the same symptoms and lymph node biopsy was done at that time that was positive for Hodgkin's lymphoma. Patient states that he has a PET scan scheduled for Sunday. Patient denies having any chest pain or pressure. No fever or chills. He has had some recent weight loss. He thinks he is eating and drinking okay. He did have black stools for the first time this morning. He has never had scopes done in the past. He is not on any blood thinners. No history of TIA or CVA. He states he is a little better now but feels a little bit dizzy and a little disoriented. Blood pressure 108/61, heart rate 91, pulse ox 95% on room air. Patient is seen today in the emergency center waiting for a bed on the cardiac stepdown unit. Patient has been started on Protonix and consult in place with oncology as well as GI. Telemetry and EKG reviewed, no evidence of atrial fibrillation. -EKG: Sinus rhythm with occasional PVCs 94 bpm, no acute ST changes -Chest x-ray: Cardiomegaly, pulmonary vascular congestion and bilateral small pleural effusions. Correlate for heart failure. Known mediastinal and hilar adenopathy. -Laboratory studies: WBC 2.8, hemoglobin 7.6, platelet count 104. Lactic acid 3.4 now 2.1. BUN 40 and creatinine 1.4. AST 274, ALT 121, alkaline phosphatase 848. Troponin negative x 1. proBNP 1860. TSH 2.2. Stool for occult blood positive. Serum alcohol less than 10 -Home cardiac medications: Atorvastatin 40 mg daily, magnesium oxide 400 mg twice daily. Review Of Systems: At the time of my exam: CONSTITUTIONAL: Denies fever or chills. Reports generalized weakness HEENT: Denies blurred vision, vision changes, or eye pain. Denies hemoptysis CARDIOVASCULAR: Denies chest pain. Denies orthopnea. Denies PND. Denies palpitations RESPIRATORY: Denies shortness of breath. GASTROINTESTINAL: Denies abdominal pain. Denies nausea or vomiting. HEMATOLOGIC: Reports black stools. GENITOURINARY: Denies any blood in urine. SKIN: Denies puritis. Denies rash. Physical examination: Gen: This is a 78-year-old male in no acute distress. VS: reviewed HEENT: Head is atraumatic, normocephalic. Pupils equal, round. Sclerae is anicteric. NECK: Supple. No JVD. LUNGS: Clear to auscultation. No wheezes or rhonchi. No intercostal retractions. HEART: Regular rate and rhythm. ABDOMEN: Soft No tenderness. EXTREMITIES: No pedal edema. No calf tenderness. NEUROLOGICAL: Patient is awake, alert and oriented x3. Assessment: Atrial fibrillation ruled out Tachycardia most likely due to anemia Anemia Thrombocytopenia Lactic acidosis Hodgkin's lymphoma on recent biopsy Transaminitis Chronic kidney disease History of coronary artery disease with 1 stent in 2013 according to patient Hyperlipidemia Plan: Resume patient's home cardiac medications Obtain 2-D echocardiogram and Doppler study to assess cardiac structure and function Further recommendations to follow based upon clinical course Thank you kindly for this consultation. Nurse practitioner note has been reviewed, I agree with documented findings and plan of care. Patient was seen and examined. Past Medical History Past Medical History: Coronary Artery Disease (CAD), Cancer, GERD/Reflux, Hyperlipidemia, Myocardial Infarction ([place]) Additional Past Medical History / Comment(s): DJD, Hodgkins Lymphoma 2023 Last Myocardial Infarction Date:: 2016 History of Any Multi-Drug Resistant Organisms: None Reported Past Surgical History: Heart Catheterization With Stent Date of Last Stent Placement:: 2022 Past Psychological History: No Psychological Hx Reported Smoking Status: Former smoker Past Alcohol Use History: None Reported Past Drug Use History: None Reported Medications and Allergies Home Medications Medication Instructions Recorded Confirmed Type ARIPiprazole [Abilify] 5 mg PO HS 03/12/24 03/25/24 History Atorvastatin [Lipitor] 40 mg PO DAILY 03/12/24 03/25/24 History Omeprazole [PriLOSEC] 20 mg PO DAILY PRN 03/12/24 03/25/24 History Venlafaxine HCl [Effexor XR] 150 mg PO HS 03/12/24 03/25/24 History Magnesium Oxide [Mag-Ox] 400 mg PO BID #60 tab 03/17/24 03/25/24 Rx Albuterol Inhaler [Ventolin Hfa 1 - 2 puff INHALATION RT-Q4H PRN 03/25/24 03/25/24 History Inhaler] Tamsulosin [Flomax] 0.8 mg PO DAILY 03/25/24 03/25/24 History Allergies Allergy/AdvReac Type Severity Reaction Status Date / Time No Known Allergies Allergy Verified 03/25/24 15:36 Physical Exam Vitals: Vital Signs Temp Pulse Resp BP Pulse Ox 03/26/24 06:52 91 18 108/61 95 03/26/24 04:22 98 17 113/64 94 L 03/26/24 03:14 108 H 15 120/67 95 03/26/24 01:54 97 16 116/62 94 L 03/26/24 00:38 97 20 109/56 93 L 03/25/24 21:19 101 H 20 116/65 96 03/25/24 18:00 98 17 119/73 94 L 03/25/24 17:30 94 15 113/69 95 03/25/24 17:00 98 19 120/69 96 03/25/24 16:30 98 17 104/60 94 L 03/25/24 16:00 101 H 16 105/64 95 03/25/24 15:30 99 16 98/58 95 03/25/24 15:00 100 18 97/63 93 L 03/25/24 14:29 96 20 91/56 93 L 03/25/24 13:49 98.5 F 101 H 18 93/61 97 Results 03/26/24 06:19 03/26/24 06:19 Cardiac Enzymes 03/25/24 03/25/24 03/26/24 Range/Units 14:01 14:01 06:19 AST 270 H 274 H (17-59) U/L Troponin I <0.012 (0.000-0.034) ng/mL Coagulation 03/25/24 Range/Units 14:01 PT 13.5 H (10.0-12.5) sec APTT 28.2 (22.0-30.0) sec CBC 03/25/24 03/26/24 Range/Units 14:01 06:19 WBC 2.7 L 2.8 L (3.8-10.6) k/uL RBC 3.15 L 2.64 L (4.30-5.90) m/uL Hgb 9.0 L D 7.6 L (13.0-17.5) gm/dL Hct 26.6 L 22.6 L (39.0-53.0) % Plt Count 117 L 104 L (150-450) k/uL Comprehensive Metabolic Panel 03/25/24 03/26/24 Range/Units 14: 06:19 Sodium 129 L 129 L (137-145) mmol/L Potassium 4.3 4.2 (3.5-5.1) mmol/L Chloride 100 103 (98-107) mmol/L Carbon Dioxide 22 20 L (22-30) mmol/L BUN 46 H 40 H (9-20) mg/dL Creatinine 1.41 H 1.40 H (0.66-1.25) mg/dL Glucose 104 H 90 (74-99) mg/dL Calcium 8.9 8.4 (8.4-10.2) mg/dL AST 270 H 274 H (17-59) U/L ALT 123 H 121 H (4-49) U/L Alkaline Phosphatase 857 H 848 H (38-126) U/L Total Protein 5.9 L 5.3 L (6.3-8.2) g/dL Albumin 2.6 L 2.3 L (3.5-5.0) g/dL Current Medications Generic Name Dose Route Start Last Admin Trade Name Freq PRN Reason Stop Dose Admin Aripiprazole 5 mg 03/26/24 21:00 Aripiprazole 5 Mg Tab PO HS NOE Heparin Sodium (Porcine) 5,000 unit 03/26/24 08:00 Heparin Sodium,Porcine 5,000 Unit/Ml 1 Ml Vial SQ Q8HR NOE Sodium Chloride 1,000 mls @ 75 mls/hr 03/25/24 16:15 03/25/24 17:29 Saline 0.9% IV 75 mls/hr .[id number] NOE Administration Magnesium Oxide 400 mg 03/26/24 09:00 Magnesium Oxide 400 Mg Tab PO BID NOE Morphine Sulfate 4 mg 03/25/24 16:12 Morphine Sulfate 4 Mg/Ml Syringe IV Q4HR PRN Severe Pain (Scale 7 to 10) Naloxone HCl 0.2 mg 03/25/24 16:12 Naloxone 0.4 Mg/Ml 1 Ml Vial IV Q2M PRN Opioid Reversal Ondansetron HCl 4 mg 03/25/24 16:12 03/25/24 17:29 Ondansetron 4 Mg/2 Ml Vial IVP 4 mg Q8HR PRN Administration Nausea And Vomiting Pantoprazole Sodium 40 mg 03/26/24 09:00 Pantoprazole 40 Mg/10 Ml Vial IV DAILY NOE Tamsulosin HCl 0.8 mg 03/26/24 09:00 Tamsulosin 0.4 Mg Cap.Er.24h PO DAILY [facility] Venlafaxine HCl 150 mg 03/26/24 21:00 Venlafaxine Hcl Er 150 Mg Cap PO HS NOE 03/26/24 06:19 03/26/24 06:19
--- NOTE | 2024-03-26 13:42 | P.CONS ---
History of Present Illness - Reason for Consult Consult date: 03/26/24 Hepatitis Requesting physician: Nicolás Castro - Chief Complaint Weakness - History of Present Illness This a pleasant 78-year-old male with recent diagnosis of Hodgkin's lymphoma, coronary artery disease with stent, hyperlipidemia, GERD, and depression who had presented to the emergency department with weakness, and inability to care for himself at home. He was recently diagnosed with Hodgkin's lymphoma in 03/14/2024 and is supposed to see Dr. Tai Galvan. He states he has a PET scan this coming Sunday. On admission he was noted to have elevated liver enzymes and gastroenterology was consulted for hepatitis. He denies any history of liver disease, no history of alcoholism. He was noted to have elevated LFTs during his last admission at the beginning of this month. No other labs are available for trending. Unclear if he was started on any new medications. Awaiting to be seen by oncology. He also noted to have new onset atrial fibrillation, anemia and lactic acidosis. He denies any blood in his stool or black stool. He denies any abdominal pain, nausea or vomiting. Review of Systems REVIEW OF SYSTEMS: CARDIOPULMONARY: No chest pain or shortness of breath. Gastrointestinal: No abdominal pain. No nausea or vomiting. No hematemesis, coffee-ground emesis. No rectal bleeding, or melena. GENITOURINARY: No dysuria or hematuria. MUSCULOSKELETAL: Reports normal range of motion., Joint pain. SKIN: No rashes. No jaundice. ENDOCRINE: No chills, fevers. No excessive weight gain or loss. No polydipsia or polyuria. PSYCHIATRIC: Unremarkable. NEUROLOGY: No change in mental status. Denies dizziness, headache. ENT: Vision unremarkable. CONSTITUTIONAL: No recent weight loss. No fever, chills, night sweats. Increased weakness, inability to perform ADLs. Past Medical History Past Medical History: Coronary Artery Disease (CAD), Cancer, GERD/Reflux, Hyperlipidemia, Myocardial Infarction ([place]) Additional Past Medical History / Comment(s): DJD, Hodgkins Lymphoma 2023 Last Myocardial Infarction Date:: 2016 History of Any Multi-Drug Resistant Organisms: None Reported Past Surgical History: Heart Catheterization With Stent Date of Last Stent Placement:: 2022 Past Psychological History: No Psychological Hx Reported Smoking Status: Former smoker Past Alcohol Use History: None Reported Past Drug Use History: None Reported Medications and Allergies Home Medications Medication Instructions Recorded Confirmed Type ARIPiprazole [Abilify] 5 mg PO HS 03/12/24 03/25/24 History Atorvastatin [Lipitor] 40 mg PO DAILY 03/12/24 03/25/24 History Omeprazole [PriLOSEC] 20 mg PO DAILY PRN 03/12/24 03/25/24 History Venlafaxine HCl [Effexor XR] 150 mg PO HS 03/12/24 03/25/24 History Magnesium Oxide [Mag-Ox] 400 mg PO BID #60 tab 03/17/24 03/25/24 Rx Albuterol Inhaler [Ventolin Hfa 1 - 2 puff INHALATION RT-Q4H PRN 03/25/24 03/25/24 History Inhaler] Tamsulosin [Flomax] 0.8 mg PO DAILY 03/25/24 03/25/24 History Allergies Allergy/AdvReac Type Severity Reaction Status Date / Time No Known Allergies Allergy Verified 03/25/24 15:36 Physical Exam Vitals: Vital Signs Temp Pulse Resp BP Pulse Ox 03/26/24 08:03 98 F 96 20 104/57 97 03/26/24 06:52 91 18 108/61 95 03/26/24 04:22 98 17 113/64 94 L 03/26/24 03:14 108 H 15 120/67 95 03/26/24 01:54 97 16 116/62 94 L 03/26/24 00:38 97 20 109/56 93 L 03/25/24 21:19 101 H 20 116/65 96 03/25/24 18:00 98 17 119/73 94 L 03/25/24 17:30 94 15 113/69 95 03/25/24 17:00 98 19 120/69 96 03/25/24 16:30 98 17 104/60 94 L 03/25/24 16:00 101 H 16 105/64 95 03/25/24 15:30 99 16 98/58 95 03/25/24 15:00 100 18 97/63 93 L 03/25/24 14:29 96 20 91/56 93 L 03/25/24 13:49 98.5 F 101 H 18 93/61 97 General appearance: The patient is alert, oriented, appears in no acute distress. HET: Head is normocephalic and atraumatic. Conjunctiva pink. Sclera anicteric. Neck: Supple without lymphadenopathy. Trachea midline. Heart: Regular. Lungs: Equal expansion, normal respiratory effort. Abdomen: Soft, nontender, nondistended. Skin: No rashes. No jaundice. Extremities: Normal skin color and turgor. No pedal edema. Neurological: No focal deficits. Alert and oriented x3. Results CBC & Chem 7: 03/26/24 06:19 03/26/24 06:19 Labs: Abnormal Lab Results - Last 24 Hours (Table) 03/25/24 03/25/24 03/25/24 Range/Units 14:01 14:01 14:01 WBC 2.7 L (3.8-10.6) k/uL RBC 3.15 L (4.30-5.90) m/uL Hgb 9.0 L D (13.0-17.5) gm/dL Hct 26.6 L (39.0-53.0) % RDW 15.9 H (11.5-15.5) % Plt Count 117 L (150-450) k/uL Lymphocytes # (Manual) 0.14 L (1.0-4.8) k/uL PT 13.5 H (10.0-12.5) sec INR 1.3 H (<1.2) Sodium 129 L (137-145) mmol/L Carbon Dioxide (22-30) mmol/L BUN 46 H (9-20) mg/dL Creatinine 1.41 H (0.66-1.25) mg/dL Glucose 104 H (74-99) mg/dL Plasma Lactic Acid Flo (0.7-2.0) mmol/L Total Bilirubin 1.4 H (0.2-1.3) mg/dL AST 270 H (17-59) U/L ALT 123 H (4-49) U/L Alkaline Phosphatase 857 H (38-126) U/L Total Protein 5.9 L (6.3-8.2) g/dL Albumin 2.6 L (3.5-5.0) g/dL Urine Protein (Negative) Urine Glucose (UA) (Negative) Urine Blood (Negative) Urine Bacteria (None) /hpf Urine Mucus (None) /hpf 03/25/24 03/25/24 03/25/24 Range/Units 14:01 17:47 20:40 WBC (3.8-10.6) k/uL RBC (4.30-5.90) m/uL Hgb (13.0-17.5) gm/dL Hct (39.0-53.0) % RDW (11.5-15.5) % Plt Count (150-450) k/uL Lymphocytes # (Manual) (1.0-4.8) k/uL PT (10.0-12.5) sec INR (<1.2) Sodium (137-145) mmol/L Carbon Dioxide (22-30) mmol/L BUN (9-20) mg/dL Creatinine (0.66-1.25) mg/dL Glucose (74-99) mg/dL Plasma Lactic Acid Flo 3.4 H* 2.6 H* 2.5 H* (0.7-2.0) mmol/L Total Bilirubin (0.2-1.3) mg/dL AST (17-59) U/L ALT (4-49) U/L Alkaline Phosphatase (38-126) U/L Total Protein (6.3-8.2) g/dL Albumin (3.5-5.0) g/dL Urine Protein (Negative) Urine Glucose (UA) (Negative) Urine Blood (Negative) Urine Bacteria (None) /hpf Urine Mucus (None) /hpf 03/25/24 03/25/24 03/26/24 Range/Units 22:33 23:19 02:01 WBC (3.8-10.6) k/uL RBC (4.30-5.90) m/uL Hgb (13.0-17.5) gm/dL Hct (39.0-53.0) % RDW (11.5-15.5) % Plt Count (150-450) k/uL Lymphocytes # (Manual) (1.0-4.8) k/uL PT (10.0-12.5) sec INR (<1.2) Sodium (137-145) mmol/L Carbon Dioxide (22-30) mmol/L BUN (9-20) mg/dL Creatinine (0.66-1.25) mg/dL Glucose (74-99) mg/dL Plasma Lactic Acid Flo 2.5 H* 2.3 H* (0.7-2.0) mmol/L Total Bilirubin (0.2-1.3) mg/dL AST (17-59) U/L ALT (4-49) U/L Alkaline Phosphatase (38-126) U/L Total Protein (6.3-8.2) g/dL Albumin (3.5-5.0) g/dL Urine Protein 1+ H (Negative) Urine Glucose (UA) Trace H (Negative) Urine Blood Small H (Negative) Urine Bacteria Rare H (None) /hpf Urine Mucus Rare H (None) /hpf 03/26/24 03/26/24 03/26/24 Range/Units 06:19 06:19 06:19 WBC 2.8 L (3.8-10.6) k/uL RBC 2.64 L (4.30-5.90) m/uL Hgb 7.6 L (13.0-17.5) gm/dL Hct 22.6 L (39.0-53.0) % RDW 16.0 H (11.5-15.5) % Plt Count 104 L (150-450) k/uL Lymphocytes # (Manual) 0.34 L (1.0-4.8) k/uL PT (10.0-12.5) sec INR (<1.2) Sodium 129 L (137-145) mmol/L Carbon Dioxide 20 L (22-30) mmol/L BUN 40 H (9-20) mg/dL Creatinine 1.40 H (0.66-1.25) mg/dL Glucose (74-99) mg/dL Plasma Lactic Acid Flo 2.1 H* (0.7-2.0) mmol/L Total Bilirubin (0.2-1.3) mg/dL AST 274 H (17-59) U/L ALT 121 H (4-49) U/L Alkaline Phosphatase 848 H (38-126) U/L Total Protein 5.3 L (6.3-8.2) g/dL Albumin 2.3 L (3.5-5.0) g/dL Urine Protein (Negative) Urine Glucose (UA) (Negative) Urine Blood (Negative) Urine Bacteria (None) /hpf Urine Mucus (None) /hpf Assessment and Plan (1) Acute hepatitis Narrative/Plan: 78-year-old male presenting for weakness and debility was found to have elevated LFTs without known history of underlying liver disease. No previous alcoholism and was noted to have elevated LFTs had a recent admission earlier this month. Unclear etiology of acute hepatitis possibly secondary to medication or secondary to recent diagnosis of Hodgkin's lymphoma. Patient was hypotensive on admission which can also cause acute ischemic hepatitis however again patient did have prior elevation of LFTs during his last admission. Will get liver ultrasound and hepatitis panel. Await further recommendations from oncology. Current Visit: Yes Status: Acute Code(s): B17.9 - ACUTE VIRAL HEPATITIS, UNSPECIFIED SNOMED Code(s): 64565105 (2) Anemia Current Visit: Yes Status: Acute Code(s): D64.9 - ANEMIA, UNSPECIFIED SNOMED Code(s): 605728288 (3) Hodgkins lymphoma Current Visit: Yes Status: Acute Code(s): C81.90 - HODGKIN LYMPHOMA, UNSPECIFIED, UNSPECIFIED SITE SNOMED Code(s): 129622695 (4) Hypotension Narrative/Plan: Improved Current Visit: Yes Status: Acute Code(s): I95.9 - HYPOTENSION, UNSPECIFIED SNOMED Code(s): 44393907 (5) Hyponatremia Current Visit: Yes Status: Acute Code(s): E87.1 - HYPO-OSMOLALITY AND HYPONATREMIA SNOMED Code(s): 62604442 (6) Weakness Current Visit: Yes Status: Acute Code(s): R53.1 - WEAKNESS SNOMED Code(s): 27816142 Plan: 1. Continue symptomatic and supportive care 2. Acute hepatitis panel ordered 3. Liver ultrasound ordered 4. Avoid hepatotoxic medications 5. Await evaluation by oncology 6. Further recommendations forthcoming based on clinical course Thank you for this consultation, we will continue to follow. Dr. Michelle Beckett I agree with the dictator's note, documented as a scribe by Susan Charles.
--- NOTE | 2024-03-26 15:06 | P.PN ---
Subjective Progress Note Date: 03/26/24 78-year-old male with history of hypertension, dyslipidemia, anxiety/depression, GERD, CAD status post stent, and Hodgkin's lymphoma presenting dizziness and weakness. 03/26 reports he feels weak and labwork still consistent with neutropenia Objective - Vital Signs Vital signs: Vital Signs Temp 97.9 F 03/26/24 13:46 Pulse 100 03/26/24 13:46 Resp 18 03/26/24 13:46 BP 114/54 03/26/24 13:46 Pulse Ox 98 03/26/24 13:46 FiO2 Intake & Output 03/25/24 03/26/24 03/26/24 18:59 06:59 18:59 Intake Total 150 Balance 150 Weight 93.44 kg Intake: Oral 150 - Exam GENERAL: The patient is alert and oriented x3, not in any acute distress. Well developed, well nourished. male, pleasant HEENT: Pupils are round and equally reacting to light. EOMI. No scleral icterus. No conjunctival pallor. Normocephalic, atraumatic. CARDIOVASCULAR: S1 and S2 present. No murmurs, rubs, or gallops. PULMONARY: Chest is clear to auscultation b/l, no wheezing or crackles. ABDOMEN: Soft, nontender, nondistended, normoactive bowel sounds. No palpable organomegaly. MUSCULOSKELETAL: No joint swelling or deformity. EXTREMITIES: No cyanosis, clubbing, or pedal edema. NEUROLOGICAL: moving all extremeties spontanously SKIN: No rashes. - Labs CBC & Chem 7: 03/26/24 06:19 03/26/24 06:19 Labs: Abnormal Lab Results - Last 24 Hours (Table) 03/25/24 03/25/24 03/25/24 Range/Units 14:01 14:01 17:47 WBC (3.8-10.6) k/uL RBC (4.30-5.90) m/uL Hgb (13.0-17.5) gm/dL Hct (39.0-53.0) % RDW (11.5-15.5) % Plt Count (150-450) k/uL Lymphocytes # (Manual) 0.14 L (1.0-4.8) k/uL Sodium (137-145) mmol/L Carbon Dioxide (22-30) mmol/L BUN (9-20) mg/dL Creatinine (0.66-1.25) mg/dL Plasma Lactic Acid Flo 3.4 H* 2.6 H* (0.7-2.0) mmol/L AST (17-59) U/L ALT (4-49) U/L Alkaline Phosphatase (38-126) U/L Total Protein (6.3-8.2) g/dL Albumin (3.5-5.0) g/dL Urine Protein (Negative) Urine Glucose (UA) (Negative) Urine Blood (Negative) Urine Bacteria (None) /hpf Urine Mucus (None) /hpf 03/25/24 03/25/24 03/25/24 Range/Units 20:40 22:33 23:19 WBC (3.8-10.6) k/uL RBC (4.30-5.90) m/uL Hgb (13.0-17.5) gm/dL Hct (39.0-53.0) % RDW (11.5-15.5) % Plt Count (150-450) k/uL Lymphocytes # (Manual) (1.0-4.8) k/uL Sodium (137-145) mmol/L Carbon Dioxide (22-30) mmol/L BUN (9-20) mg/dL Creatinine (0.66-1.25) mg/dL Plasma Lactic Acid Flo 2.5 H* 2.5 H* (0.7-2.0) mmol/L AST (17-59) U/L ALT (4-49) U/L Alkaline Phosphatase (38-126) U/L Total Protein (6.3-8.2) g/dL Albumin (3.5-5.0) g/dL Urine Protein 1+ H (Negative) Urine Glucose (UA) Trace H (Negative) Urine Blood Small H (Negative) Urine Bacteria Rare H (None) /hpf Urine Mucus Rare H (None) /hpf 03/26/24 03/26/24 03/26/24 Range/Units 02:01 06:19 06:19 WBC 2.8 L (3.8-10.6) k/uL RBC 2.64 L (4.30-5.90) m/uL Hgb 7.6 L (13.0-17.5) gm/dL Hct 22.6 L (39.0-53.0) % RDW 16.0 H (11.5-15.5) % Plt Count 104 L (150-450) k/uL Lymphocytes # (Manual) 0.34 L (1.0-4.8) k/uL Sodium 129 L (137-145) mmol/L Carbon Dioxide 20 L (22-30) mmol/L BUN 40 H (9-20) mg/dL Creatinine 1.40 H (0.66-1.25) mg/dL Plasma Lactic Acid Flo 2.3 H* (0.7-2.0) mmol/L AST 274 H (17-59) U/L ALT 121 H (4-49) U/L Alkaline Phosphatase 848 H (38-126) U/L Total Protein 5.3 L (6.3-8.2) g/dL Albumin 2.3 L (3.5-5.0) g/dL Urine Protein (Negative) Urine Glucose (UA) (Negative) Urine Blood (Negative) Urine Bacteria (None) /hpf Urine Mucus (None) /hpf 03/26/24 03/26/24 03/26/24 Range/Units 06:19 08:57 12:24 WBC (3.8-10.6) k/uL RBC (4.30-5.90) m/uL Hgb (13.0-17.5) gm/dL Hct (39.0-53.0) % RDW (11.5-15.5) % Plt Count (150-450) k/uL Lymphocytes # (Manual) (1.0-4.8) k/uL Sodium (137-145) mmol/L Carbon Dioxide (22-30) mmol/L BUN (9-20) mg/dL Creatinine (0.66-1.25) mg/dL Plasma Lactic Acid Flo 2.1 H* 2.5 H* 2.6 H* (0.7-2.0) mmol/L AST (17-59) U/L ALT (4-49) U/L Alkaline Phosphatase (38-126) U/L Total Protein (6.3-8.2) g/dL Albumin (3.5-5.0) g/dL Urine Protein (Negative) Urine Glucose (UA) (Negative) Urine Blood (Negative) Urine Bacteria (None) /hpf Urine Mucus (None) /hpf Assessment and Plan (1) Anemia Narrative/Plan: #) Generalized weakness, possibly from hodkin's lymphoma. - recently diagnosed. scheduled for outpatient CT scan this Sunday #) Pancytopenia, likely from above, monitor cell lines #) Transaminitis possibly in relation to hodkin's lymphoma, check ct abd pelvis for further evaluation of his liver #)Probable CKD with baseline cr near 1.4 -ct scan pending #) Lactic acidosis, probably type B from hodkin's. check bcx DVT ppx: subq heparin Current Visit: Yes Status: Acute Code(s): D64.9 - ANEMIA, UNSPECIFIED SNOMED Code(s): 741695194 Time with Patient: Greater than 30
[2024-03-26 15:39] LABS: Hepatitis A Antibody IgM Nonreactive (Nonreactive); Hepatitis B Core IgM Nonreactive (Nonreactive); Hepatitis B Surface Antigen Nonreactive (Nonreactive); Hepatitis C IgG Antibody Nonreactive (Nonreactive)
[2024-03-26 16:31] LABS: Uric Acid 3.9 mg/dL (3.5-8.5)
[2024-03-26 16:33] LABS: Reticulocyte % 1.6 % (0.5-2.0)
--- NOTE | 2024-03-26 16:41 | CA ---
Transthoracic Echo Report Name: Julius Spicer Age: 78 Gender: M : 1945 Exam Date: 03/26/2024 10:22 Exam Location: [facility] Ht (in): 71 Wt (lb): 206 Ordering Physician: Erin Gomez Attending/Referring Phys: [id number], Jason Corrugated Fastener Driver Ragini Lopez RDCS Procedure CPT: Indications: LVF Cardiac Hx: stent in 2013 Technical Quality: Technically difficult study Contrast 1: Total Dose (mL): Contrast 2: Total Dose (mL): MEASUREMENTS (Male / Female) Normal Values 2D ECHO LV Diastolic Diameter PLAX 4.7 cm 4.2 - 5.9 / 3.9 - 5.3 cm LV Systolic Diameter PLAX 3.2 cm IVS Diastolic Thickness 1.2 cm 0.6 - 1.0 / 0.6 - 0.9 cm LVPW Diastolic Thickness 1.4 cm 0.6 - 1.0 / 0.6 - 0.9 cm LV Relative Wall Thickness 0.5 RV Internal Dim ED PLAX 3.4 cm LA Systolic Diameter LX 3.8 cm 3.0 - 4.0 / 2.7 - 3.8 cm LV Diastolic Volume MOD 4C 76.1 cm??? LV Systolic Volume MOD 4C 45.1 cm??? LV Ejection Fraction MOD 4C 40.7 % LV Cardiac Index MOD 4C 1235.6 cm???/min???m??? LV Diastolic Length 4C 8.7 cm LV Systolic Length 4C 7.6 cm LV Diastolic Volume MOD 2C 137.1 cm??? LV Systolic Volume MOD 2C 69.6 cm??? LV Ejection Fraction MOD 2C 49.2 % LV Cardiac Index MOD 2C 2689.8 cm???/min???m??? LV Diastolic Length 2C 8.1 cm LV Systolic Length 2C 6.7 cm M-MODE Aortic Root Diameter MM 3.4 cm LA Systolic Diameter MM 2.4 cm LA Ao Ratio MM 0.7 DOPPLER AV Peak Velocity 161.4 cm/s AV Peak Gradient 10.4 mmHg MV Area PHT 4.2 cm??? TR Peak Velocity 292.4 cm/s TR Peak Gradient 34.2 mmHg Right Ventricular Systolic Press 44.2 mmHg FINDINGS Left Ventricle Left ventricular ejection fraction is estimated at 50 %. Left ventricle not well visualized. Mildly increased septal wall thickness. Right Ventricle Mild right ventricular dilatation. Mild pulmonary hypertension. Right Atrium Normal right atrial size. No right atrial thrombus or mass seen. Left Atrium Normal left atrial size. No left atrial thrombus or mass present. Mitral Valve Structurally normal mitral valve. No mitral stenosis, regurgitation or prolapse. Aortic Valve Thickened aortic valve without stenosis. Trileaflet aortic valve. Tricuspid Valve Structurally normal tricuspid valve. Mild tricuspid regurgitation. Pulmonic Valve Structurally normal pulmonic valve. No pulmonic regurgitation. Pericardium No pericardial or pleural effusion. Aorta Normal size aortic root and proximal ascending aorta. CONCLUSIONS Technically difficult study. Poor acoustic windows. LVEF 50%. Mild LVH No obvious regional wall motion abnormality Mild RV dilatation with normal systolic function with RVSP estimated at 44 mmHg, mild pulmonary hypertension No significant valvular dysfunction Previewed by: Dr Caesar Madison (Electronically Signed) Final Date: 26 March 2024 12:00
--- NOTE | 2024-03-26 17:43 | CT ---
EXAMINATION TYPE: CT abdomen pelvis w con DATE OF EXAM: 03/26/2024 5:36 PM COMPARISON: CT abdomen pelvis most recent from 03/11/2024 CLINICAL INDICATION: Male, 78 years old with history of abdominal pain; Abdominal pain TECHNIQUE: Axial CT abdomen pelvis w con;Sagittal and coronal reformats were created on a separate w orkstation. Contrast used:80 mL of Isovue 370 with IV Contrast, (none if empty) Oral contrast used: without Oral Contrast (none if empty) CT DLP: 1054.7 mGycm, Automated exposure control for dose reduction was used. FINDINGS: LOWER CHEST: Trace bilateral pleural effusions. Similar lower mediastinal mass. ABDOMEN LIVER: Unremarkable GALLBLADDER AND BILE DUCTS: The gallbladder surgically absent. PANCREAS: Unremarkable. SPLEEN: Unremarkable. ADRENAL GLANDS: Unremarkable. KIDNEYS AND URETERS: No evidence of hydronephrosis. Nonobstructing left 4 mm calculus. Exophytic left renal cyst The ureters are unremarkable. Bilateral renal cysts. PELVIS BLADDER: No evidence for wall thickening or mass given limitations of exam. REPRODUCTIVE: Prostate is enlarged in size measuring 4.6 cm in transverse dimension. ABDOMEN & PELVIS STOMACH AND BOWEL: No evidence of bowel obstruction. The appendix is normal. The duodenum demonstrate s mild circumferential wall thickening series 201 image 35.e PERITONEUM/RETROPERITONEUM: No evidence of pneumoperitoneum or free fluid. VASCULATURE: No evidence of aortic aneurysm. Atherosclerosis of the arterial vasculature. MUSCULOSKELETAL: No acute osseous abnormalities LYMPH NODES: Prominent right common iliac lymph node measuring up to 10 mm in short axis. Prominent l eft common iliac and retroperitoneal lymph node measuring up to 13 mm in short axis. SOFT TISSUE/ABDOMINAL WALL: Fatty changes in the inguinal canals left greater than right. IMPRESSION: 1. Mild inflammation along the right colon possibly related to circumferential wall thickening of th e duodenum correlate for duodenitis. Otherwise no evidence for acute process. 2. Retroperitoneal and pelvic lymph nodes. Additionally there is a lower mediastinal mass also prese nt. Correlate for history of malignancy. 3. Simple appearing renal cysts. 4. Nonobstructing left renal calculus. 5. Prostatomegaly correlate with serum PSA. [facility], , 03/26/2024 5:41 PM
[2024-03-26] MEDS: ARIPiprazole 5 MG TAB PO SCH (20:17)
[2024-03-26] MEDS: VENLAFAXINE HCL ER 150 MG CAP PO SCH (20:17)
--- NOTE | 2024-03-26 20:21 | P.CONS ---
History of Present Illness - Reason for Consult Consult date: 03/26/24 Newly diagnosed HD Requesting physician: Nicolás Castro - Chief Complaint dizziness, poor oral intake - History of Present Illness From consult dated 03/10 Mr. Spicer is a 78-year-old male who was transferred from [facility] in [place] due to hypercalcemia and abnormal lymphadenopathy noted on CT scan. Patient reports has been having increasing confusion over the last 3 weeks as well as weight loss and decreased appetite that has progressed over the last 1 year. Denies night sweat. CT chest abdomen pelvis without contrast showed mediastinal and right hilar lymphadenopathy with markedly enlarged subcarinal lymph node. Single mildly enlarged lymph node in the right axilla and 1 in the left periaortic region in the abdomen. Small right pleural effusion with adjacent atelectasis. Minimal reticular nodular opacity most notable in the right lower lobe and less so in the left upper lobe, favoring inflammatory infectious process. Patient was also noted to be in acute renal failure with elevated calcium. Labs upon presentation to the ER showed creatinine 2.45, GFR 24. Calcium 14.7. Patient was given Zometa prior to arrival and calcitonin this morning. CBC showing WBC 4.7, hemoglobin 12.5, platelets 113,000. Transaminitis noted, bilirubin normal at 1.2. CT chest abdomen pelvis without contrast showed mediastinal and right hilar lymphadenopathy with markedly enlarged subcarinal lymph node. Single mildly enlarged lymph node in the right axilla and 1 in the left. Aortic region in the abdomen. Small right pleural effusion with adjacent atelectasis. Minimal reticular nodular opacity most notable in the right lower lobe and less so in the left upper lobe, favoring inflammatory infectious process. Pt was given zometa and calcitonin. IR did a rt axilla core biopsy. The results were back a few days ago: Classic Hodgkins with mixed cellularity type. Pt has appt in 2 days in ofc to discuss diagnosis, prognosis, treatment options. Currently admitted for increased weakness and was dizzy when trying to get up from chair. He was discharged from the hospital 03/18/2024. He reports that no one fed him recently. He reported not longer feeling dizzy and he ate when seen in the ER. He denied fever, chills, chest pain, cough, SOB, nausea, vomiting, abdominal pain, diarrhea or dysuria. He has pancytopenia, progressive but not needing transfusion at this time. Calcium level is normal, cr only slightly elevated. LFTs are significantly elevated. He did report a black bowel movement this morning. Occult was positive Review of Systems 10 point review of systems is negative except as stated in HPI Past Medical History Past Medical History: Coronary Artery Disease (CAD), Cancer, GERD/Reflux, Hyperlipidemia, Myocardial Infarction ([place]) Additional Past Medical History / Comment(s): DJD, Hodgkins Lymphoma 2023 Last Myocardial Infarction Date:: 2016 History of Any Multi-Drug Resistant Organisms: None Reported Past Surgical History: Heart Catheterization With Stent Date of Last Stent Placement:: 2022 Past Psychological History: No Psychological Hx Reported Smoking Status: Former smoker Past Alcohol Use History: None Reported Past Drug Use History: None Reported Medications and Allergies Home Medications Medication Instructions Recorded Confirmed Type ARIPiprazole [Abilify] 5 mg PO HS 03/12/24 03/25/24 History Atorvastatin [Lipitor] 40 mg PO DAILY 03/12/24 03/25/24 History Omeprazole [PriLOSEC] 20 mg PO DAILY PRN 03/12/24 03/25/24 History Venlafaxine HCl [Effexor XR] 150 mg PO HS 03/12/24 03/25/24 History Magnesium Oxide [Mag-Ox] 400 mg PO BID #60 tab 03/17/24 03/25/24 Rx Albuterol Inhaler [Ventolin Hfa 1 - 2 puff INHALATION RT-Q4H PRN 03/25/24 03/25/24 History Inhaler] Tamsulosin [Flomax] 0.8 mg PO DAILY 03/25/24 03/25/24 History Allergies Allergy/AdvReac Type Severity Reaction Status Date / Time No Known Allergies Allergy Verified 03/25/24 15:36 Physical Exam Vitals: Vital Signs Temp Pulse Resp BP Pulse Ox 03/26/24 08:03 98 F 96 20 104/57 97 03/26/24 06:52 91 18 108/61 95 03/26/24 04:22 98 17 113/64 94 L 03/26/24 03:14 108 H 15 120/67 95 03/26/24 01:54 97 16 116/62 94 L 03/26/24 00:38 97 20 109/56 93 L 03/25/24 21:19 101 H 20 116/65 96 03/25/24 18:00 98 17 119/73 94 L 03/25/24 17:30 94 15 113/69 95 03/25/24 17:00 98 19 120/69 96 03/25/24 16:30 98 17 104/60 94 L 03/25/24 16:00 101 H 16 105/64 95 03/25/24 15:30 99 16 98/58 95 03/25/24 15:00 100 18 97/63 93 L 03/25/24 14:29 96 20 91/56 93 L 03/25/24 13:49 98.5 F 101 H 18 93/61 97 - Constitutional General appearance: average body habitus, cooperative, no acute distress - EENT Eyes: anicteric sclerae, EOMI ENT: hearing grossly normal, thrush - Neck Neck: lymphadenopathy - Respiratory Respiratory: bilateral: CTA - Cardiovascular Rhythm: irregularly irregular Heart sounds: normal: S1, S2 Abnormal Heart Sounds: no systolic murmur, no diastolic murmur, no rub, no S3 Gallop, no S4 Gallop, no click, no other leg Peripheral Edema: bilateral: None - Gastrointestinal General gastrointestinal: no absent bowel sounds, no decreased bowel sounds, no distended, no hepatomegaly, no hyperactive bowel sounds, normal bowel sounds, no organomegaly, no rigid, no scaphoid, soft, no splenomegaly, no tenderness, no umbilical hernia, no ventral hernia - Integumentary Integumentary: pale - Neurologic Neurologic: CNII-XII intact - Musculoskeletal Musculoskeletal: generalized weakness, strength equal bilaterally - Psychiatric Psychiatric: A&O x's 3, appropriate affect Results CBC & Chem 7: 03/26/24 06:19 03/26/24 06:19 Labs: Abnormal Lab Results - Last 24 Hours (Table) 03/25/24 03/25/24 03/25/24 Range/Units 14:01 14:01 14:01 WBC 2.7 L (3.8-10.6) k/uL RBC 3.15 L (4.30-5.90) m/uL Hgb 9.0 L D (13.0-17.5) gm/dL Hct 26.6 L (39.0-53.0) % RDW 15.9 H (11.5-15.5) % Plt Count 117 L (150-450) k/uL Lymphocytes # (Manual) 0.14 L (1.0-4.8) k/uL PT 13.5 H (10.0-12.5) sec INR 1.3 H (<1.2) Sodium 129 L (137-145) mmol/L Carbon Dioxide (22-30) mmol/L BUN 46 H (9-20) mg/dL Creatinine 1.41 H (0.66-1.25) mg/dL Glucose 104 H (74-99) mg/dL Plasma Lactic Acid Flo (0.7-2.0) mmol/L Total Bilirubin 1.4 H (0.2-1.3) mg/dL AST 270 H (17-59) U/L ALT 123 H (4-49) U/L Alkaline Phosphatase 857 H (38-126) U/L Total Protein 5.9 L (6.3-8.2) g/dL Albumin 2.6 L (3.5-5.0) g/dL Urine Protein (Negative) Urine Glucose (UA) (Negative) Urine Blood (Negative) Urine Bacteria (None) /hpf Urine Mucus (None) /hpf 03/25/24 03/25/24 03/25/24 Range/Units 14:01 17:47 20:40 WBC (3.8-10.6) k/uL RBC (4.30-5.90) m/uL Hgb (13.0-17.5) gm/dL Hct (39.0-53.0) % RDW (11.5-15.5) % Plt Count (150-450) k/uL Lymphocytes # (Manual) (1.0-4.8) k/uL PT (10.0-12.5) sec INR (<1.2) Sodium (137-145) mmol/L Carbon Dioxide (22-30) mmol/L BUN (9-20) mg/dL Creatinine (0.66-1.25) mg/dL Glucose (74-99) mg/dL Plasma Lactic Acid Flo 3.4 H* 2.6 H* 2.5 H* (0.7-2.0) mmol/L Total Bilirubin (0.2-1.3) mg/dL AST (17-59) U/L ALT (4-49) U/L Alkaline Phosphatase (38-126) U/L Total Protein (6.3-8.2) g/dL Albumin (3.5-5.0) g/dL Urine Protein (Negative) Urine Glucose (UA) (Negative) Urine Blood (Negative) Urine Bacteria (None) /hpf Urine Mucus (None) /hpf 03/25/24 03/25/24 03/26/24 Range/Units 22:33 23:19 02:01 WBC (3.8-10.6) k/uL RBC (4.30-5.90) m/uL Hgb (13.0-17.5) gm/dL Hct (39.0-53.0) % RDW (11.5-15.5) % Plt Count (150-450) k/uL Lymphocytes # (Manual) (1.0-4.8) k/uL PT (10.0-12.5) sec INR (<1.2) Sodium (137-145) mmol/L Carbon Dioxide (22-30) mmol/L BUN (9-20) mg/dL Creatinine (0.66-1.25) mg/dL Glucose (74-99) mg/dL Plasma Lactic Acid Flo 2.5 H* 2.3 H* (0.7-2.0) mmol/L Total Bilirubin (0.2-1.3) mg/dL AST (17-59) U/L ALT (4-49) U/L Alkaline Phosphatase (38-126) U/L Total Protein (6.3-8.2) g/dL Albumin (3.5-5.0) g/dL Urine Protein 1+ H (Negative) Urine Glucose (UA) Trace H (Negative) Urine Blood Small H (Negative) Urine Bacteria Rare H (None) /hpf Urine Mucus Rare H (None) /hpf 03/26/24 03/26/24 03/26/24 Range/Units 06:19 06:19 06:19 WBC 2.8 L (3.8-10.6) k/uL RBC 2.64 L (4.30-5.90) m/uL Hgb 7.6 L (13.0-17.5) gm/dL Hct 22.6 L (39.0-53.0) % RDW 16.0 H (11.5-15.5) % Plt Count 104 L (150-450) k/uL Lymphocytes # (Manual) 0.34 L (1.0-4.8) k/uL PT (10.0-12.5) sec INR (<1.2) Sodium 129 L (137-145) mmol/L Carbon Dioxide 20 L (22-30) mmol/L BUN 40 H (9-20) mg/dL Creatinine 1.40 H (0.66-1.25) mg/dL Glucose (74-99) mg/dL Plasma Lactic Acid Flo 2.1 H* (0.7-2.0) mmol/L Total Bilirubin (0.2-1.3) mg/dL AST 274 H (17-59) U/L ALT 121 H (4-49) U/L Alkaline Phosphatase 848 H (38-126) U/L Total Protein 5.3 L (6.3-8.2) g/dL Albumin 2.3 L (3.5-5.0) g/dL Urine Protein (Negative) Urine Glucose (UA) (Negative) Urine Blood (Negative) Urine Bacteria (None) /hpf Urine Mucus (None) /hpf Assessment and Plan (1) Hodgkins lymphoma Current Visit: Yes Status: Acute Priority: High Code(s): C81.90 - HODGKIN LYMPHOMA, UNSPECIFIED, UNSPECIFIED SITE SNOMED Code(s): 095910786 (2) Pancytopenia Current Visit: Yes Status: Acute Priority: High Code(s): D61.818 - OTHER PANCYTOPENIA SNOMED Code(s): 305006736 (3) Elevated LFTs Current Visit: Yes Status: Acute Priority: High Code(s): R79.89 - OTHER SPECIFIED ABNORMAL FINDINGS OF BLOOD CHEMISTRY SNOMED Code(s): 987269302 Plan: Hodgkin's disease -New diagnosis from biopsy done 03/14. Patient was due to me in the office with the Medical Oncologist in 2 days to discuss these results, prognosis, treatment options. -Will discuss the plan with the primary Medical Oncologist to see how he would like to proceed. Currently though, with the acute drop in hemoglobin and reported black bowel movement suspicions for GI bleeding. GI has been consulted. CT of the abdomen and pelvis has been ordered. Pancytopenia -Progressive decrease in labs since his visit just over a week ago -Significant drop in the hemoglobin 12.5 to 7.6. Reports of black bowel movements, concerns for GI bleed. -Transfuse for hemoglobin less than 7 or if patient is symptomatic. The large drop in hemoglobin from just over a week ago (12-7.9) may be a cause for some of the dizziness pt reported on admit. Significantly elevated LFTs -Question if a degree of shock liver from hypotension. Hodgkin's disease process? -Coags ordered -GI is seeing the patient. Acute hepatitis panel ordered. Ultrasound of the liver has been ordered as well. Pending results Will follow-up with patient in the morning and discussed the case with Attending and GI as to next steps.
[2024-03-27] MEDS: SODIUM CHLORIDE 0.9% 1,000 ML IV ONE (05:28)
[2024-03-27 07:46] LABS: INR 1.3 (<1.2); Prothrombin Time 13.5 sec (10.0-12.5)
[2024-03-27 07:53] LABS: ALT 139 U/L (4-49); AST 300 U/L (17-59); African American GFR (CKD) 53 (>60 ml/min/1.73 sqM); Albumin 2.5 g/dL (3.5-5.0); Alkaline Phosphatase 937 U/L (38-126); Anion Gap 5 mmol/L; Blood Urea Nitrogen 31 mg/dL (9-20); Calcium 8.3 mg/dL (8.4-10.2); Carbon Dioxide 21 mmol/L (22-30); Chloride 107 mmol/L (98-107); Glucose 82 mg/dL (74-99); Non-African American GFR(CKD) 46 (>60 ml/min/1.73 sqM); Potassium 4.3 mmol/L (3.5-5.1); Sodium 133 mmol/L (137-145); Total Bilirubin 1.2 mg/dL (0.2-1.3); Total Protein 5.7 g/dL (6.3-8.2)
[2024-03-27 07:58] LABS: HCT 23.7 % (39.0-53.0); HGB 7.8 gm/dL (13.0-17.5); MCH 29.1 pg (25.0-35.0); MCHC 32.9 g/dL (31.0-37.0); MCV 88.3 fL (80.0-100.0); Mean Platelet Volume 10.3; Platelet Count 126 k/uL (150-450); RBC 2.69 m/uL (4.30-5.90); WBC 2.7 k/uL (3.8-10.6)
--- NOTE | 2024-03-27 08:10 | US ---
EXAMINATION TYPE: US liver DATE OF EXAM: 03/27/2024 COMPARISON: CT 03/26/2024, Renal US 03/12/2024 CLINICAL INDICATION: Male, 78 years old with history of Elevated LFTs; Elevated LFTs. Hx cholecystect golden, hx kidney stone TECHNIQUE: Grayscale and color Doppler imaging of the right upper quadrant. FINDINGS: EXAM MEASUREMENTS: Liver Length: 15.9 cm Gallbladder Wall: Surgically absent CBD: Obscured color Doppler imaging was utilized to isolate the common bile duct for measurement. Right Kidney: 11.6 x 6.0 x 5.1 cm FILE MACHINE OPERATOR NOTES: Exam is limited due to gas. Pancreas: Tail was obscured. Duct measures 2.2 mm at body. Liver: Limited due to gas. *Appears coarse in echotexture/heterogeneous. *Complex area seen right lobe = 0.9 x 1.1 x 0.8 cm. *Hypoechoic area seen left lobe = 1.1 x 0.9 x 0.7 cm. Gallbladder: Surgically absent, area of gallbladder fossa was gassed out. Evidence for sonographic Lopez's sign: No CBD: Obscured Right Kidney: *Anechoic area seen medially at mid= 2.6 x 2.6 x 2.4 cm. Question possible small right pleural effusion- Hypoechoic area incidentally seen superior to liver in RUQ imaging. IMPRESSION: 1. Hepatic steatosis. 2. Probable small hepatic cystic lesions. 3. Cyst right kidney. [facility], , 03/27/2024 8:08 AM
[2024-03-27 09:23] LABS: Band Neutrophils % 1 %; Basophils # (M) 0.03 k/uL (0-0.2); Eosinophils # (M) 0.35 k/uL (0-0.7); Lymphocytes # (M) 0.19 k/uL (1.0-4.8); Metamyelocytes # (M) 0.03 k/uL (0); Metamyelocytes % 1 %; Monocytes # (M) 0.22 k/uL (0-1.0); Neutrophils % (M) 71 %; Nucleated Red Blood Cells 0 /100 WBC (0-0); Total Cells Counted 200
[2024-03-27 09:24] LABS: Anisocytosis (M) Present; Target Cells Present
--- NOTE | 2024-03-27 13:07 | P.PN ---
Subjective Progress Note Date: 03/27/24 Reason for Consult (text): A-fib with RVR History of present illness: This is a 78-year-old male, follows with sales incentive analyst yearly in [place] with past medical history of coronary artery disease with 1 stent in 2013, hyperlipidemia, GERD, depression. We have been asked to evaluate the patient for A-fib with RVR. Patient states that he noticed his blood pressure has been on the low side and he has not been stable on his feet for the past week. He was recently hospitalized 03/12 - 03/17 for what he calls the same symptoms and lymph node biopsy was done at that time that was positive for Hodgkin's lymphoma. Patient states that he has a PET scan scheduled for Sunday. Patient denies having any chest pain or pressure. No fever or chills. He has had some recent weight loss. He thinks he is eating and drinking okay. He did have black stools for the first time this morning. He has never had scopes done in the past. He is not on any blood thinners. No history of TIA or CVA. He states he is a little better now but feels a little bit dizzy and a little disoriented. Blood pressure 108/61, heart rate 91, pulse ox 95% on room air. Sarah erazo is seen today in the emergency center waiting for a bed on the cardiac stepdown unit. Patient has been started on Protonix and consult in place with oncology as well as GI. Telemetry and EKG reviewed, no evidence of atrial fibrillation. -EKG: Sinus rhythm with occasional PVCs 94 bpm, no acute ST changes -Chest x-ray: Cardiomegaly, pulmonary vascular congestion and bilateral small pleural effusions. Correlate for heart failure. Known mediastinal and hilar adenopathy. -Laboratory studies: WBC 2.8, hemoglobin 7.6, platelet count 104. Lactic acid 3.4 now 2.1. BUN 40 and creatinine 1.4. AST 274, ALT 121, alkaline phosphatase 848. Troponin negative x 1. proBNP 1860. TSH 2.2. Stool for occult blood positive. Serum alcohol less than 10 -Home cardiac medications: Atorvastatin 40 mg daily, magnesium oxide 400 mg twice daily. 03/27/2024 Patient seen and examined. He states he is feeling better today and he denies having any chest pain or chest pressure and no shortness of breath. He has not had a bowel movement today. Repeat blood work reveals hemoglobin 7.8, INR 1.3, sodium 133, potassium 4.3, BUN 31 creatinine 1.46. Liver function test remain elevated. Blood pressure 107/65, heart rate 96, pulse ox 95% on room air. Echocardiogram reveals EF 50%, mild LVH. RVSP 44 mmHg, mild pulmonary hypertension. Physical examination: Gen: This is a 78-year-old male in no acute distress. VS: reviewed HEENT: Head is atraumatic, normocephalic. Pupils equal, round. Sclerae is anicteric. NECK: Supple. No JVD. LUNGS: Clear to auscultation. No wheezes or rhonchi. No intercostal retractions. HEART: Regular rate and rhythm. ABDOMEN: Soft No tenderness. EXTREMITIES: No pedal edema. No calf tenderness. NEUROLOGICAL: Patient is awake, alert and oriented x3. Assessment: Atrial fibrillation ruled out Tachycardia most likely due to anemia Anemia Thrombocytopenia Lactic acidosis Hodgkin's lymphoma on recent biopsy Transaminitis Chronic kidney disease History of coronary artery disease with 1 stent in 2013 according to patient Hyperlipidemia Plan: Continue patient's home cardiac medications Cardiology will sign off this case and follow on an as-needed basis. Please reconsult for any new concerns. Patient may follow-up in the office in one to 2 weeks with his primary sales incentive analyst. Nurse practitioner note has been reviewed, I agree with documented findings and plan of care. Patient was seen and examined. Objective - Vital Signs Vital signs: Vital Signs Temp 98.7 F 03/27/24 07:45 Pulse 96 03/27/24 07:45 Resp 16 03/27/24 07:45 BP 107/65 03/27/24 07:45 Pulse Ox 96 03/27/24 08:22 FiO2 Intake & Output 03/26/24 03/27/24 03/27/24 18:59 06:59 18:59 Intake Total 300 Output Total 300 Balance 300 -300 Intake: Oral 300 Output: Urine 300 Other: # Voids 1 1 - Labs CBC & Chem 7: 03/27/24 06:56 03/27/24 06:56 Labs: Abnormal Lab Results - Last 24 Hours (Table) 03/26/24 03/26/24 03/26/24 Range/Units 12:24 15:48 15:48 WBC (3.8-10.6) k/uL RBC (4.30-5.90) m/uL Hgb (13.0-17.5) gm/dL Hct (39.0-53.0) % RDW (11.5-15.5) % Plt Count (150-450) k/uL Lymphocytes # (Manual) (1.0-4.8) k/uL Metamyelocytes # (Man) (0) k/uL PT (10.0-12.5) sec INR (<1.2) APTT (22.0-30.0) sec Sodium (137-145) mmol/L Carbon Dioxide (22-30) mmol/L BUN (9-20) mg/dL Creatinine (0.66-1.25) mg/dL Plasma Lactic Acid Flo 2.6 H* 2.2 H* (0.7-2.0) mmol/L Calcium (8.4-10.2) mg/dL Ferritin 5349.0 H (22.0-322.0) ng/mL AST (17-59) U/L ALT (4-49) U/L Alkaline Phosphatase (38-126) U/L Lactate Dehydrogenase (120-246) U/L Total Protein (6.3-8.2) g/dL Albumin (3.5-5.0) g/dL 03/26/24 03/27/24 03/27/24 Range/Units 19:43 06:56 06:56 WBC (3.8-10.6) k/uL RBC (4.30-5.90) m/uL Hgb (13.0-17.5) gm/dL Hct (39.0-53.0) % RDW (11.5-15.5) % Plt Count (150-450) k/uL Lymphocytes # (Manual) (1.0-4.8) k/uL Metamyelocytes # (Man) (0) k/uL PT 13.5 H (10.0-12.5) sec INR 1.3 H (<1.2) APTT 33.0 H (22.0-30.0) sec Sodium (137-145) mmol/L Carbon Dioxide (22-30) mmol/L BUN (9-20) mg/dL Creatinine (0.66-1.25) mg/dL Plasma Lactic Acid Flo 4.6 H* (0.7-2.0) mmol/L Calcium (8.4-10.2) mg/dL Ferritin (22.0-322.0) ng/mL AST (17-59) U/L ALT (4-49) U/L Alkaline Phosphatase (38-126) U/L Lactate Dehydrogenase 874 H (120-246) U/L Total Protein (6.3-8.2) g/dL Albumin (3.5-5.0) g/dL 03/27/24 03/27/24 03/27/24 Range/Units 06:56 06:56 06:56 WBC 2.7 L (3.8-10.6) k/uL RBC 2.69 L (4.30-5.90) m/uL Hgb 7.8 L (13.0-17.5) gm/dL Hct 23.7 L (39.0-53.0) % RDW 16.0 H (11.5-15.5) % Plt Count 126 L (150-450) k/uL Lymphocytes # (Manual) 0.19 L (1.0-4.8) k/uL Metamyelocytes # (Man) 0.03 H (0) k/uL PT (10.0-12.5) sec INR (<1.2) APTT (22.0-30.0) sec Sodium 133 L (137-145) mmol/L Carbon Dioxide 21 L (22-30) mmol/L BUN 31 H (9-20) mg/dL Creatinine 1.46 H (0.66-1.25) mg/dL Plasma Lactic Acid Flo 2.2 H* (0.7-2.0) mmol/L Calcium 8.3 L (8.4-10.2) mg/dL Ferritin (22.0-322.0) ng/mL AST 300 H (17-59) U/L ALT 139 H (4-49) U/L Alkaline Phosphatase 937 H (38-126) U/L Lactate Dehydrogenase (120-246) U/L Total Protein 5.7 L (6.3-8.2) g/dL Albumin 2.5 L (3.5-5.0) g/dL 03/27/24 Range/Units 10:22 WBC (3.8-10.6) k/uL RBC (4.30-5.90) m/uL Hgb (13.0-17.5) gm/dL Hct (39.0-53.0) % RDW (11.5-15.5) % Plt Count (150-450) k/uL Lymphocytes # (Manual) (1.0-4.8) k/uL Metamyelocytes # (Man) (0) k/uL PT (10.0-12.5) sec INR (<1.2) APTT (22.0-30.0) sec Sodium (137-145) mmol/L Carbon Dioxide (22-30) mmol/L BUN (9-20) mg/dL Creatinine (0.66-1.25) mg/dL Plasma Lactic Acid Flo 2.1 H* (0.7-2.0) mmol/L Calcium (8.4-10.2) mg/dL Ferritin (22.0-322.0) ng/mL AST (17-59) U/L ALT (4-49) U/L Alkaline Phosphatase (38-126) U/L Lactate Dehydrogenase (120-246) U/L Total Protein (6.3-8.2) g/dL Albumin (3.5-5.0) g/dL
--- NOTE | 2024-03-27 14:23 | P.PN ---
Subjective Progress Note Date: 03/27/24 Principal diagnosis: Elevated LFTs This a pleasant 78-year-old male with recent diagnosis of Hodgkin's lymphoma, coronary artery disease with stent, hyperlipidemia, GERD, and depression who had presented to the emergency department with weakness, and inability to care for himself at home. He was recently diagnosed with Hodgkin's lymphoma in 03/14/2024 and is supposed to see Dr. Tai Galvan. He states he has a PET scan this coming Sunday. On admission he was noted to have elevated liver enzymes and gastroenterology was consulted for hepatitis. He denies any history of liver disease, no history of alcoholism. He was noted to have elevated LFTs during his last admission at the beginning of this month. No other labs are available for trending. Unclear if he was started on any new medications. Awaiting to be seen by oncology. He also noted to have new onset atrial fibrillation, anemia and lactic acidosis. He denies any blood in his stool or black stool. He denies any abdominal pain, nausea or vomiting. 03/27/2024 Patient seen and examined today as a follow-up. He denies any abdominal pain no right upper quadrant tenderness. Continues to deny any history of liver disease or prior elevated LFTs to his knowledge. He lives in [place]. States only new medication is Prilosec. He has been on his Lipitor for years. Objective - Vital Signs Vital signs: Vital Signs Temp 98.9 F 03/27/24 12:00 Pulse 99 03/27/24 12:00 Resp 16 03/27/24 12:00 BP 107/56 03/27/24 12:00 Pulse Ox 96 03/27/24 12:00 FiO2 Intake & Output 03/26/24 03/27/24 03/27/24 18:59 06:59 18:59 Intake Total 300 Output Total 300 Balance 300 -300 Intake: Oral 300 Output: Urine 300 Other: # Voids 1 1 - Exam General appearance: The patient is alert, oriented, appears in no acute distress. HET: Head is normocephalic and atraumatic. Conjunctiva pink. Sclera anicteric. Neck: Supple without lymphadenopathy. Abdomen: Soft, nontender, no hepatomegaly, nondistended. Extremities: Normal skin color and turgor. No pedal edema Skin: No rashes, no jaundice Neurological: No focal deficits. Alert and oriented. - Labs CBC & Chem 7: 03/27/24 06:56 03/27/24 06:56 Labs: Abnormal Lab Results - Last 24 Hours (Table) 03/26/24 03/26/24 03/26/24 Range/Units 15:48 15:48 19:43 WBC (3.8-10.6) k/uL RBC (4.30-5.90) m/uL Hgb (13.0-17.5) gm/dL Hct (39.0-53.0) % RDW (11.5-15.5) % Plt Count (150-450) k/uL Lymphocytes # (Manual) (1.0-4.8) k/uL Metamyelocytes # (Man) (0) k/uL PT (10.0-12.5) sec INR (<1.2) APTT (22.0-30.0) sec Sodium (137-145) mmol/L Carbon Dioxide (22-30) mmol/L BUN (9-20) mg/dL Creatinine (0.66-1.25) mg/dL Plasma Lactic Acid Flo 2.2 H* 4.6 H* (0.7-2.0) mmol/L Calcium (8.4-10.2) mg/dL Ferritin 5349.0 H (22.0-322.0) ng/mL AST (17-59) U/L ALT (4-49) U/L Alkaline Phosphatase (38-126) U/L Lactate Dehydrogenase (120-246) U/L Total Protein (6.3-8.2) g/dL Albumin (3.5-5.0) g/dL 03/27/24 03/27/24 03/27/24 Range/Units 06:56 06:56 06:56 WBC 2.7 L (3.8-10.6) k/uL RBC 2.69 L (4.30-5.90) m/uL Hgb 7.8 L (13.0-17.5) gm/dL Hct 23.7 L (39.0-53.0) % RDW 16.0 H (11.5-15.5) % Plt Count 126 L (150-450) k/uL Lymphocytes # (Manual) 0.19 L (1.0-4.8) k/uL Metamyelocytes # (Man) 0.03 H (0) k/uL PT 13.5 H (10.0-12.5) sec INR 1.3 H (<1.2) APTT 33.0 H (22.0-30.0) sec Sodium (137-145) mmol/L Carbon Dioxide (22-30) mmol/L BUN (9-20) mg/dL Creatinine (0.66-1.25) mg/dL Plasma Lactic Acid Flo (0.7-2.0) mmol/L Calcium (8.4-10.2) mg/dL Ferritin (22.0-322.0) ng/mL AST (17-59) U/L ALT (4-49) U/L Alkaline Phosphatase (38-126) U/L Lactate Dehydrogenase 874 H (120-246) U/L Total Protein (6.3-8.2) g/dL Albumin (3.5-5.0) g/dL 03/27/24 03/27/24 03/27/24 Range/Units 06:56 06:56 10:22 WBC (3.8-10.6) k/uL RBC (4.30-5.90) m/uL Hgb (13.0-17.5) gm/dL Hct (39.0-53.0) % RDW (11.5-15.5) % Plt Count (150-450) k/uL Lymphocytes # (Manual) (1.0-4.8) k/uL Metamyelocytes # (Man) (0) k/uL PT (10.0-12.5) sec INR (<1.2) APTT (22.0-30.0) sec Sodium 133 L (137-145) mmol/L Carbon Dioxide 21 L (22-30) mmol/L BUN 31 H (9-20) mg/dL Creatinine 1.46 H (0.66-1.25) mg/dL Plasma Lactic Acid Flo 2.2 H* 2.1 H* (0.7-2.0) mmol/L Calcium 8.3 L (8.4-10.2) mg/dL Ferritin (22.0-322.0) ng/mL AST 300 H (17-59) U/L ALT 139 H (4-49) U/L Alkaline Phosphatase 937 H (38-126) U/L Lactate Dehydrogenase (120-246) U/L Total Protein 5.7 L (6.3-8.2) g/dL Albumin 2.5 L (3.5-5.0) g/dL Microbiology - Last 24 Hours (Table) 03/26/24 01:31 Blood Culture - Preliminary Blood Assessment and Plan (1) Acute hepatitis Narrative/Plan: 78-year-old male presenting for weakness and debility was found to have elevated LFTs without known history of underlying liver disease. No previous alcoholism and was noted to have elevated LFTs had a recent admission earlier this month. Unclear etiology of acute hepatitis possibly secondary to medication or secondary to recent diagnosis of Hodgkin's lymphoma. Patient was hypotensive on admission which can also cause acute ischemic hepatitis however again patient did have prior elevation of LFTs during his last admission. Liver ultrasound that showed hepatic steatosis however again we generally will not see elevation is that high for underlying fatty liver as well as is significantly elevated alkaline phosphatase. Generally would see with either obstructive pathology or infiltrative to liver secondary from lymphoma. Await further recommendations from oncology. Current Visit: Yes Status: Acute Code(s): B17.9 - ACUTE VIRAL HEPATITIS, UNSPECIFIED SNOMED Code(s): 38883432 (2) Anemia Current Visit: Yes Status: Acute Code(s): D64.9 - ANEMIA, UNSPECIFIED SNOMED Code(s): 630317412 (3) Pancytopenia Narrative/Plan: Likely secondary to Hodgkin's lymphoma Current Visit: Yes Status: Acute Priority: High Code(s): D61.818 - OTHER PANCYTOPENIA SNOMED Code(s): 333186622 (4) Hodgkins lymphoma Current Visit: Yes Status: Acute Priority: High Code(s): C81.90 - HODGKIN LYMPHOMA, UNSPECIFIED, UNSPECIFIED SITE SNOMED Code(s): 220991970 (5) Hypotension Narrative/Plan: Improved Current Visit: Yes Status: Acute Code(s): I95.9 - HYPOTENSION, UNSPECIFIED SNOMED Code(s): 74697673 (6) Hyponatremia Current Visit: Yes Status: Acute Code(s): E87.1 - HYPO-OSMOLALITY AND HYPONATREMIA SNOMED Code(s): 67052035 (7) Weakness Current Visit: Yes Status: Acute Code(s): R53.1 - WEAKNESS SNOMED Code(s): 95133854 Plan: 1. Continue symptomatic and supportive care 2. Daily CBC, transfuse for hemoglobin less than 7 3. Will order liver serologies 4. CT abdomen pelvis and liver ultrasound reviewed. No obstructive pathology. 5. Diet as tolerated 6. Will await further recommendations from oncology 7. Avoid hepatotoxic medications Thank you for this consultation, we will continue to follow. Dr. Michelle Beckett I agree with the dictator's note, documented as a scribe by Susan Charles.
--- NOTE | 2024-03-27 15:19 | P.PN ---
Subjective Progress Note Date: 03/27/24 Hospital Course: 78-year-old male with history of hypertension, dyslipidemia, anxiety/depression, GERD, CAD status post stent, and recently diagnosed Hodgkin's lymphoma, presenting for dizziness and weakness. WBCs 2.7, hemoglobin 9.0, MCV 84.5, platelet count 117, PT 13.5, INR 1.3, sodium 129, BUN 46, creatinine 1.41, glucose 104, plasma lactic 2.6, T. bili 1.4, AST 270, ALT 123, alkaline ph osphatase 87, troponin less than 0.012, BNP 160, albumin 2.6, serum alcohol less than 10. EKG showed sinus tachycardia. Questionable atrial fibrillation. ER CXR: Cardiomegaly, pulmonary vascular congestion and bilateral small pleural effusions. No mediastinal and hilar adenopathy. Cardiology consulted. Echocardiogram showed LVEF 50%, mild pulmonary hypertension with RVSP 44. No concern for atrial fibrillation. Oncology consulted, pancytopenia likely in the setting of Hodgkin's lymphoma. GI also consulted for anemia and transaminitis. Liver ultrasound showed hepatic steatosis. Abdomen pelvis CT showed possible duodenitis, retroperitoneal and pelvic lymph nodes, prostatic megaly. Subjective: Patient seen and examined at bedside. No acute events overnight. Denies any new complaints. Pertinent positives and negatives as discussed above, a complete review of systems was performed and all other systems are negative. Vitals Signs Reviewed. General: Nontoxic, no distress, appears at stated age, chronically ill-appearing Derm: Warm, dry Head: Atraumatic, normocephalic, symmetric Eyes: EOMI, no lid lag, anicteric sclera Mouth: No lip lesion, mucus membranes moist Cardiovascular: S1S2 reg, no murmur Lungs: CTA bilateral, no rhonchi, no rales, no accessory muscle use Abdominal: Soft, nontender to palpation, no guarding, no appreciable organomegaly Ext: No gross muscle atrophy, no edema, no contractures Neuro: CN II-XI grossly intact, no focal neuro deficits Psych: Alert, oriented, appropriate affect Data Reviewed Today: Pertinent Labs: WBC 2.7, hemoglobin 7.8, platelet 126, INR 1.3, sodium 133, bicarb 21, creatinine 1.46, lactate 2.1, total bili 1.2, AST 300, ALT 139, ALP 937, LDH 874 Imaging: Liver ultrasound showed hepatic steatosis Assessment and Plan: Active: Pancytopenia Recently diagnosed Hodgkin's lymphoma Generalized weakness Transaminitis Type B lactic acidosis Coagulopathy secondary to above -Heme-onc following, pending recommendations -GI note reviewed, no interventions planned -Patient still complaining of melena, IV pantoprazole increased to 40 twice daily -Hemoglobin currently stable -Iron studies pending -Cardiology note reviewed, unlikely to be atrial fibrillation, likely sinus tachycardia in the setting of anemia, signed off -Continue to monitor CBC Chronic: Anxiety/depression BPH DVT ppx: Subcu heparin Code status: Full code Anticipated discharge place: Pending clinical course Anticipated discharge time: Pending clinical course Objective - Vital Signs Vital signs: Vital Signs Temp 98.9 F 03/27/24 12:00 Pulse 99 03/27/24 12:00 Resp 16 03/27/24 12:00 BP 107/56 03/27/24 12:00 Pulse Ox 96 03/27/24 12:00 FiO2 Intake & Output 03/26/24 03/27/24 03/27/24 18:59 06:59 18:59 Intake Total 300 Output Total 300 Balance 300 -300 Intake: Oral 300 Output: Urine 300 Other: # Voids 1 1 - Labs CBC & Chem 7: 03/27/24 06:56 03/27/24 06:56 Labs: Abnormal Lab Results - Last 24 Hours (Table) 03/26/24 03/26/24 03/26/24 Range/Units 15:48 15:48 19:43 WBC (3.8-10.6) k/uL RBC (4.30-5.90) m/uL Hgb (13.0-17.5) gm/dL Hct (39.0-53.0) % RDW (11.5-15.5) % Plt Count (150-450) k/uL Lymphocytes # (Manual) (1.0-4.8) k/uL Metamyelocytes # (Man) (0) k/uL PT (10.0-12.5) sec INR (<1.2) APTT (22.0-30.0) sec Sodium (137-145) mmol/L Carbon Dioxide (22-30) mmol/L BUN (9-20) mg/dL Creatinine (0.66-1.25) mg/dL Plasma Lactic Acid Flo 2.2 H* 4.6 H* (0.7-2.0) mmol/L Calcium (8.4-10.2) mg/dL Ferritin 5349.0 H (22.0-322.0) ng/mL AST (17-59) U/L ALT (4-49) U/L Alkaline Phosphatase (38-126) U/L Lactate Dehydrogenase (120-246) U/L Total Protein (6.3-8.2) g/dL Albumin (3.5-5.0) g/dL 03/27/24 03/27/24 03/27/24 Range/Units 06:56 06:56 06:56 WBC 2.7 L (3.8-10.6) k/uL RBC 2.69 L (4.30-5.90) m/uL Hgb 7.8 L (13.0-17.5) gm/dL Hct 23.7 L (39.0-53.0) % RDW 16.0 H (11.5-15.5) % Plt Count 126 L (150-450) k/uL Lymphocytes # (Manual) 0.19 L (1.0-4.8) k/uL Metamyelocytes # (Man) 0.03 H (0) k/uL PT 13.5 H (10.0-12.5) sec INR 1.3 H (<1.2) APTT 33.0 H (22.0-30.0) sec Sodium (137-145) mmol/L Carbon Dioxide (22-30) mmol/L BUN (9-20) mg/dL Creatinine (0.66-1.25) mg/dL Plasma Lactic Acid Flo (0.7-2.0) mmol/L Calcium (8.4-10.2) mg/dL Ferritin (22.0-322.0) ng/mL AST (17-59) U/L ALT (4-49) U/L Alkaline Phosphatase (38-126) U/L Lactate Dehydrogenase 874 H (120-246) U/L Total Protein (6.3-8.2) g/dL Albumin (3.5-5.0) g/dL 03/27/24 03/27/24 03/27/24 Range/Units 06:56 06:56 10:22 WBC (3.8-10.6) k/uL RBC (4.30-5.90) m/uL Hgb (13.0-17.5) gm/dL Hct (39.0-53.0) % RDW (11.5-15.5) % Plt Count (150-450) k/uL Lymphocytes # (Manual) (1.0-4.8) k/uL Metamyelocytes # (Man) (0) k/uL PT (10.0-12.5) sec INR (<1.2) APTT (22.0-30.0) sec Sodium 133 L (137-145) mmol/L Carbon Dioxide 21 L (22-30) mmol/L BUN 31 H (9-20) mg/dL Creatinine 1.46 H (0.66-1.25) mg/dL Plasma Lactic Acid Flo 2.2 H* 2.1 H* (0.7-2.0) mmol/L Calcium 8.3 L (8.4-10.2) mg/dL Ferritin (22.0-322.0) ng/mL AST 300 H (17-59) U/L ALT 139 H (4-49) U/L Alkaline Phosphatase 937 H (38-126) U/L Lactate Dehydrogenase (120-246) U/L Total Protein 5.7 L (6.3-8.2) g/dL Albumin 2.5 L (3.5-5.0) g/dL Microbiology - Last 24 Hours (Table) 03/26/24 01:31 Blood Culture - Preliminary Blood
[2024-03-27 16:01] LABS: % Iron Saturation 44.08 (15.00-50.00); Iron 93 UG/DL (65-175); Total Iron Binding Capacity 211 UG/DL (228-460)
[2024-03-27] MEDS: PANTOPRAZOLE 40 MG/10 ML VIAL IV SCH (19:58)
[2024-03-28 08:31] LABS: ALT 128 U/L (4-49); AST 283 U/L (17-59); African American GFR (CKD) 56 (>60 ml/min/1.73 sqM); Albumin 2.3 g/dL (3.5-5.0); Alkaline Phosphatase 821 U/L (38-126); Anion Gap 5 mmol/L; Blood Urea Nitrogen 24 mg/dL (9-20); Calcium 8.2 mg/dL (8.4-10.2); Carbon Dioxide 22 mmol/L (22-30); Chloride 107 mmol/L (98-107); Glucose 80 mg/dL (74-99); Magnesium 1.9 mg/dL (1.6-2.3); Non-African American GFR(CKD) 48 (>60 ml/min/1.73 sqM); Potassium 4.3 mmol/L (3.5-5.1); Sodium 134 mmol/L (137-145); Total Bilirubin 1.2 mg/dL (0.2-1.3); Total Protein 5.3 g/dL (6.3-8.2)
[2024-03-28 08:35] LABS: Anisocytosis Slight; HCT 21.1 % (39.0-53.0); HGB 7.1 gm/dL (13.0-17.5); MCH 29.4 pg (25.0-35.0); MCHC 33.5 g/dL (31.0-37.0); MCV 87.6 fL (80.0-100.0); Platelet Count 114 k/uL (150-450); RBC 2.41 m/uL (4.30-5.90)
[2024-03-28 09:52] LABS: Band Neutrophils % 4 %; Lymphocytes # (M) 0.22 k/uL (1.0-4.8); Metamyelocytes # (M) 0.06 k/uL (0); Metamyelocytes % 3 %; Myelocytes # (M) 0.02 k/uL (0); Myelocytes % 1 %; Neutrophils % (M) 63 %; Nucleated Red Blood Cells 0 /100 WBC (0-0); Total Cells Counted 200
--- NOTE | 2024-03-28 12:07 | P.PN ---
Subjective Progress Note Date: 03/28/24 Principal diagnosis: Elevated LFTs This a pleasant 78-year-old male with recent diagnosis of Hodgkin's lymphoma, coronary artery disease with stent, hyperlipidemia, GERD, and depression who had presented to the emergency department with weakness, and inability to care for himself at home. He was recently diagnosed with Hodgkin's lymphoma in 03/14/2024 and is supposed to see Dr. Tai Galvan. He states he has a PET scan this coming Sunday. On admission he was noted to have elevated liver enzymes and gastroenterology was consulted for hepatitis. He denies any history of liver disease, no history of alcoholism. He was noted to have elevated LFTs during his last admission at the beginning of this month. No other labs are available for trending. Unclear if he was started on any new medications. Awaiting to be seen by oncology. He also noted to have new onset atrial fibrillation, anemia and lactic acidosis. He denies any blood in his stool or black stool. He denies any abdominal pain, nausea or vomiting. 03/27/2024 Patient seen and examined today as a follow-up. He denies any abdominal pain no right upper quadrant tenderness. Continues to deny any history of liver disease or prior elevated LFTs to his knowledge. He lives in [place]. States only new medication is Prilosec. He has been on his Lipitor for years. 03/28/2024 Patient is seen and examined today as a follow-up. Patient was discussed with oncologist Dr. Root. Questionable whether LFTs are secondary to Hodgkin's lymphoma. Patient also has been anemic. He had admitted to 1 episode of black stool with normal stools following. He denies any abdominal pain, nausea or vomiting. He continues to be pancytopenic with a normochromic normocytic anemia. Hemoglobin 7.1, platelet count 114,000 total bilirubin 1.2 AST 283 ALT 128 alkaline phosphatase 821 Objective - Vital Signs Vital signs: Vital Signs Temp 98.3 F 03/28/24 04:00 Pulse 89 03/28/24 04:00 Resp 16 03/28/24 04:00 BP 110/64 03/28/24 04:00 Pulse Ox 97 03/28/24 04:00 FiO2 Intake & Output 03/27/24 03/27/24 03/28/24 06:59 18:59 06:59 Intake Total 118 Output Total 300 200 Balance -300 118 -200 Intake: Oral 118 Output: Urine 300 200 Other: Voiding Method Toilet # Voids 1 1 - Exam General appearance: The patient is alert, oriented, appears in no acute distress. HET: Head is normocephalic and atraumatic. Conjunctiva pink. Sclera anicteric. Neck: Supple without lymphadenopathy. Abdomen: Soft, nontender, no hepatomegaly, nondistended. Extremities: Normal skin color and turgor. No pedal edema Skin: No rashes, no jaundice Neurological: No focal deficits. Alert and oriented. - Labs CBC & Chem 7: 03/28/24 07:36 03/28/24 07:36 Labs: Abnormal Lab Results - Last 24 Hours (Table) 03/27/24 03/27/24 03/27/24 Range/Units 06:56 06:56 06:56 WBC 2.7 L (3.8-10.6) k/uL RBC 2.69 L (4.30-5.90) m/uL Hgb 7.8 L (13.0-17.5) gm/dL Hct 23.7 L (39.0-53.0) % RDW 16.0 H (11.5-15.5) % Plt Count 126 L (150-450) k/uL Lymphocytes # (Manual) 0.19 L (1.0-4.8) k/uL Metamyelocytes # (Man) 0.03 H (0) k/uL PT 13.5 H (10.0-12.5) sec INR 1.3 H (<1.2) APTT 33.0 H (22.0-30.0) sec Sodium (137-145) mmol/L Carbon Dioxide (22-30) mmol/L BUN (9-20) mg/dL Creatinine (0.66-1.25) mg/dL Plasma Lactic Acid Flo (0.7-2.0) mmol/L Calcium (8.4-10.2) mg/dL TIBC (228-460) UG/DL Transferrin (204.0-354.0) mg/dL AST (17-59) U/L ALT (4-49) U/L Alkaline Phosphatase (38-126) U/L Lactate Dehydrogenase 874 H (120-246) U/L Total Protein (6.3-8.2) g/dL Albumin (3.5-5.0) g/dL 03/27/24 03/27/24 03/27/24 Range/Units 06:56 06:56 10:22 WBC (3.8-10.6) k/uL RBC (4.30-5.90) m/uL Hgb (13.0-17.5) gm/dL Hct (39.0-53.0) % RDW (11.5-15.5) % Plt Count (150-450) k/uL Lymphocytes # (Manual) (1.0-4.8) k/uL Metamyelocytes # (Man) (0) k/uL PT (10.0-12.5) sec INR (<1.2) APTT (22.0-30.0) sec Sodium 133 L (137-145) mmol/L Carbon Dioxide 21 L (22-30) mmol/L BUN 31 H (9-20) mg/dL Creatinine 1.46 H (0.66-1.25) mg/dL Plasma Lactic Acid Flo 2.2 H* 2.1 H* (0.7-2.0) mmol/L Calcium 8.3 L (8.4-10.2) mg/dL TIBC 211 L (228-460) UG/DL Transferrin 151.0 L (204.0-354.0) mg/dL AST 300 H (17-59) U/L ALT 139 H (4-49) U/L Alkaline Phosphatase 937 H (38-126) U/L Lactate Dehydrogenase (120-246) U/L Total Protein 5.7 L (6.3-8.2) g/dL Albumin 2.5 L (3.5-5.0) g/dL 03/27/24 03/27/24 03/27/24 Range/Units 13:59 18:02 21:13 WBC (3.8-10.6) k/uL RBC (4.30-5.90) m/uL Hgb (13.0-17.5) gm/dL Hct (39.0-53.0) % RDW (11.5-15.5) % Plt Count (150-450) k/uL Lymphocytes # (Manual) (1.0-4.8) k/uL Metamyelocytes # (Man) (0) k/uL PT (10.0-12.5) sec INR (<1.2) APTT (22.0-30.0) sec Sodium (137-145) mmol/L Carbon Dioxide (22-30) mmol/L BUN (9-20) mg/dL Creatinine (0.66-1.25) mg/dL Plasma Lactic Acid Flo 3.5 H* 3.1 H* 2.5 H* (0.7-2.0) mmol/L Calcium (8.4-10.2) mg/dL TIBC (228-460) UG/DL Transferrin (204.0-354.0) mg/dL AST (17-59) U/L ALT (4-49) U/L Alkaline Phosphatase (38-126) U/L Lactate Dehydrogenase (120-246) U/L Total Protein (6.3-8.2) g/dL Albumin (3.5-5.0) g/dL Microbiology - Last 24 Hours (Table) 03/26/24 14:25 Blood Culture - Preliminary Blood 03/26/24 14:20 Blood Culture - Preliminary Blood 03/26/24 01:31 Blood Culture - Preliminary Blood Assessment and Plan (1) Acute hepatitis Narrative/Plan: 78-year-old male presenting for weakness and debility was found to have elevated LFTs without known history of underlying liver disease. No previous alcoholism and was noted to have elevated LFTs had a recent admission earlier this month. Unclear etiology of acute hepatitis possibly secondary to medication or secondary to recent diagnosis of Hodgkin's lymphoma. Patient was hypotensive on admission which can also cause acute ischemic hepatitis however again patient did have prior elevation of LFTs during his last admission. Liver ultrasound that showed hepatic steatosis however again we generally will not see elevation is that high for underlying fatty liver as well as is significantly elevated alkaline phosphatase. Generally would see with either obstructive pathology or infiltrative to liver secondary from lymphoma. Await further recommendations from oncology. Current Visit: Yes Status: Acute Code(s): B17.9 - ACUTE VIRAL HEPATITIS, UNSPECIFIED SNOMED Code(s): 49450492 (2) Anemia Narrative/Plan: Patient with pancytopenia with normocytic normochromic anemia. Reported 1 episode of black stool a week ago or more with normal bowel movements following. Patient's case was discussed with oncology who were concerned with patient's anemia and unable to start chemotherapy secondary to anemia. They are asking for patient to have EGD and colonoscopy. This is presented to the patient who initially agreed however has since stated that he does not want to have any procedures done. Current Visit: Yes Status: Acute Code(s): D64.9 - ANEMIA, UNSPECIFIED SNOMED Code(s): 847892088 (3) Pancytopenia Narrative/Plan: Likely secondary to Hodgkin's lymphoma Current Visit: Yes Status: Acute Priority: High Code(s): D61.818 - OTHER PANCYTOPENIA SNOMED Code(s): 158971352 (4) Hodgkins lymphoma Current Visit: Yes Status: Acute Priority: High Code(s): C81.90 - HODGKIN LYMPHOMA, UNSPECIFIED, UNSPECIFIED SITE SNOMED Code(s): 504636436 (5) Hypotension Narrative/Plan: Improved Current Visit: Yes Status: Acute Code(s): I95.9 - HYPOTENSION, UNSPECIFIED SNOMED Code(s): 68293911 (6) Hyponatremia Current Visit: Yes Status: Acute Code(s): E87.1 - HYPO-OSMOLALITY AND HYPONATREMIA SNOMED Code(s): 92850782 (7) Weakness Current Visit: Yes Status: Acute Code(s): R53.1 - WEAKNESS SNOMED Code(s): 40620516 Plan: 1. Continue symptomatic and supportive care 2. Daily CBC, transfuse for hemoglobin less than 7 3. Liver serologies ordered and pending 4. CT abdomen pelvis and liver ultrasound reviewed. No obstructive pathology. 5. Clear liquid diet, n.p.o. after midnight 6. Recommend EGD and colonoscopy. Patient is refusing. 7. Avoid hepatotoxic medications 8. Continue with recommendations from oncology Thank you for this consultation, we will continue to follow. Dr. Michelle Beckett I agree with the dictator's note, documented as a scribe by Susan Charles.
--- NOTE | 2024-03-28 14:16 | P.PN ---
Subjective Progress Note Date: 03/28/24 Hospital Course: 78-year-old male with history of hypertension, dyslipidemia, anxiety/depression, GERD, CAD status post stent, and recently diagnosed Hodgkin's lymphoma, presenting for dizziness and weakness. WBCs 2.7, hemoglobin 9.0, MCV 84.5, platelet count 117, PT 13.5, INR 1.3, sodium 129, BUN 46, creatinine 1.41, glucose 104, plasma lactic 2.6, T. bili 1.4, AST 270, ALT 123, alkaline ph osphatase 87, troponin less than 0.012, BNP 160, albumin 2.6, serum alcohol less than 10. EKG showed sinus tachycardia. Questionable atrial fibrillation. ER CXR: Cardiomegaly, pulmonary vascular congestion and bilateral small pleural effusions. No mediastinal and hilar adenopathy. Cardiology consulted. Echocardiogram showed LVEF 50%, mild pulmonary hypertension with RVSP 44. No concern for atrial fibrillation. Oncology consulted, pancytopenia likely in the setting of Hodgkin's lymphoma. GI also consulted for anemia and transaminitis. Liver ultrasound showed hepatic steatosis. Abdomen pelvis CT showed possible duodenitis, retroperitoneal and pelvic lymph nodes, prostatic megaly. GI recommending EGD and colonoscopy, patient refusing. Subjective: Patient seen and examined at bedside. No acute events overnight. Denies any new complaints. Pertinent positives and negatives as discussed above, a complete review of systems was performed and all other systems are negative. Vitals Signs Reviewed. General: Nontoxic, no distress, appears at stated age, chronically ill-appearing Derm: Warm, dry Head: Atraumatic, normocephalic, symmetric Eyes: EOMI, no lid lag, anicteric sclera Mouth: No lip lesion, mucus membranes moist Cardiovascular: S1S2 reg, no murmur Lungs: CTA bilateral, no rhonchi, no rales, no accessory muscle use Abdominal: Soft, nontender to palpation, no guarding, no appreciable organomegaly Ext: No gross muscle atrophy, no edema, no contractures Neuro: CN II-XI grossly intact, no focal neuro deficits Psych: Alert, oriented, appropriate affect Data Reviewed Today: Pertinent Labs: WBC 2.0, hemoglobin 7.1, platelet 114, sodium 134, creatinine 1.4, total bili 1.2, AST 283, ALT 128, ALP 21 Imaging: No new imaging Assessment and Plan: Active: Pancytopenia Acute GI bleed Recently diagnosed Hodgkin's lymphoma Generalized weakness Transaminitis Type B lactic acidosis Coagulopathy secondary to above -Heme-onc following, pending recommendations -Discussed management with GI, recommending EGD and colonoscopy which patient is refusing -Continue IV pantoprazole 40 twice daily -Hemoglobin slowly downtrending, if it stabilizes or uptrend, will discharge p atient -Cardiology following, unlikely to be atrial fibrillation, likely sinus tachycardia in the setting of anemia, signed off -Continue to monitor CBC Chronic: Anxiety/depression BPH DVT ppx: SCDs Code status: Full code Anticipated discharge place: Pending clinical course Anticipated discharge time: Pending clinical course Objective - Vital Signs Vital signs: Vital Signs Temp 98.3 F 03/28/24 10:50 Pulse 81 03/28/24 10:50 Resp 18 03/28/24 10:50 BP 117/63 03/28/24 10:50 Pulse Ox 96 03/28/24 10:50 FiO2 Intake & Output 03/27/24 03/28/24 03/28/24 18:59 06:59 18:59 Intake Total 118 538 Output Total 200 Balance 118 -200 538 Weight 86.4 kg Intake: Oral 118 538 Output: Urine 200 Other: Voiding Method Toilet Toilet # Voids 1 2 # Bowel Movements 0 - Labs CBC & Chem 7: 03/28/24 07:36 03/28/24 07:36 Labs: Abnormal Lab Results - Last 24 Hours (Table) 03/27/24 03/27/24 03/27/24 Range/Units 06:56 13:59 18:02 WBC (3.8-10.6) k/uL RBC (4.30-5.90) m/uL Hgb (13.0-17.5) gm/dL Hct (39.0-53.0) % RDW (11.5-15.5) % Plt Count (150-450) k/uL Lymphocytes # (Manual) (1.0-4.8) k/uL Metamyelocytes # (Man) (0) k/uL Myelocytes # (Manual) (0) k/uL Sodium (137-145) mmol/L BUN (9-20) mg/dL Creatinine (0.66-1.25) mg/dL Plasma Lactic Acid Flo 3.5 H* 3.1 H* (0.7-2.0) mmol/L Calcium (8.4-10.2) mg/dL TIBC 211 L (228-460) UG/DL Transferrin 151.0 L (204.0-354.0) mg/dL AST (17-59) U/L ALT (4-49) U/L Alkaline Phosphatase (38-126) U/L Total Protein (6.3-8.2) g/dL Albumin (3.5-5.0) g/dL 03/27/24 03/28/24 03/28/24 Range/Units 21:13 07:36 07:36 WBC 2.0 L (3.8-10.6) k/uL RBC 2.41 L (4.30-5.90) m/uL Hgb 7.1 L (13.0-17.5) gm/dL Hct 21.1 L (39.0-53.0) % RDW 16.0 H (11.5-15.5) % Plt Count 114 L (150-450) k/uL Lymphocytes # (Manual) 0.22 L (1.0-4.8) k/uL Metamyelocytes # (Man) 0.06 H (0) k/uL Myelocytes # (Manual) 0.02 H (0) k/uL Sodium 134 L (137-145) mmol/L BUN 24 H (9-20) mg/dL Creatinine 1.40 H (0.66-1.25) mg/dL Plasma Lactic Acid Flo 2.5 H* (0.7-2.0) mmol/L Calcium 8.2 L (8.4-10.2) mg/dL TIBC (228-460) UG/DL Transferrin (204.0-354.0) mg/dL AST 283 H (17-59) U/L ALT 128 H (4-49) U/L Alkaline Phosphatase 821 H (38-126) U/L Total Protein 5.3 L (6.3-8.2) g/dL Albumin 2.3 L (3.5-5.0) g/dL Microbiology - Last 24 Hours (Table) 03/26/24 01:31 Blood Culture - Preliminary Blood 03/26/24 14:25 Blood Culture - Preliminary Blood 03/26/24 14:20 Blood Culture - Preliminary Blood
[2024-03-28] MEDS: guaiFENesin-DM 100-10MG/5ML 10 ML CUP PO PRN (15:51)
[2024-03-28] MEDS ORDERED: PEG 3350 (236 GM/BTL) + LYTES 4,000 ML BOTTLE PO ONE (17:00)
[2024-03-28] MEDS: ACETAMINOPHEN TAB 325 MG TAB PO PRN (17:19)
--- NOTE | 2024-03-28 19:46 | P.PN ---
Subjective Progress Note Date: 03/28/24 No acute events. Reports improvement in symptoms Denies blood in stool and melena. Pt was evaluated by GI, but declined endoscopic evaluation. Hgb 7.1 Objective - Vital Signs Vital signs: Vital Signs Temp 100.0 F H 03/28/24 17:20 Pulse 99 03/28/24 15:32 Resp 18 03/28/24 15:32 BP 107/50 03/28/24 15:32 Pulse Ox 97 03/28/24 15:32 FiO2 Intake & Output 03/27/24 03/28/24 03/28/24 18:59 06:59 18:59 Intake Total 118 538 Output Total 200 Balance 118 -200 538 Weight 86.4 kg Intake: Oral 118 538 Output: Urine 200 Other: Voiding Method Toilet Toilet # Voids 1 2 # Bowel Movements 0 - Constitutional General appearance: Present: average body habitus, no acute distress - EENT Eyes: Present: anicteric sclerae, EOMI ENT: Present: hearing grossly normal - Respiratory Details: breathing is even and unlabored - Cardiovascular Details: skin warm and dry - Integumentary Integumentary: Present: pale - Psychiatric Psychiatric: Present: A&O x's 3 - Labs CBC & Chem 7: 03/28/24 07:36 03/28/24 07:36 Labs: Abnormal Lab Results - Last 24 Hours (Table) 03/27/24 03/27/24 03/28/24 Range/Units 18:02 21:13 07:36 WBC (3.8-10.6) k/uL RBC (4.30-5.90) m/uL Hgb (13.0-17.5) gm/dL Hct (39.0-53.0) % RDW (11.5-15.5) % Plt Count (150-450) k/uL Lymphocytes # (Manual) (1.0-4.8) k/uL Metamyelocytes # (Man) (0) k/uL Myelocytes # (Manual) (0) k/uL Sodium 134 L (137-145) mmol/L BUN 24 H (9-20) mg/dL Creatinine 1.40 H (0.66-1.25) mg/dL Plasma Lactic Acid Flo 3.1 H* 2.5 H* (0.7-2.0) mmol/L Calcium 8.2 L (8.4-10.2) mg/dL AST 283 H (17-59) U/L ALT 128 H (4-49) U/L Alkaline Phosphatase 821 H (38-126) U/L Total Protein 5.3 L (6.3-8.2) g/dL Albumin 2.3 L (3.5-5.0) g/dL 03/28/24 Range/Units 07:36 WBC 2.0 L (3.8-10.6) k/uL RBC 2.41 L (4.30-5.90) m/uL Hgb 7.1 L (13.0-17.5) gm/dL Hct 21.1 L (39.0-53.0) % RDW 16.0 H (11.5-15.5) % Plt Count 114 L (150-450) k/uL Lymphocytes # (Manual) 0.22 L (1.0-4.8) k/uL Metamyelocytes # (Man) 0.06 H (0) k/uL Myelocytes # (Manual) 0.02 H (0) k/uL Sodium (137-145) mmol/L BUN (9-20) mg/dL Creatinine (0.66-1.25) mg/dL Plasma Lactic Acid Flo (0.7-2.0) mmol/L Calcium (8.4-10.2) mg/dL AST (17-59) U/L ALT (4-49) U/L Alkaline Phosphatase (38-126) U/L Total Protein (6.3-8.2) g/dL Albumin (3.5-5.0) g/dL Microbiology - Last 24 Hours (Table) 03/26/24 01:31 Blood Culture - Preliminary Blood 03/26/24 14:25 Blood Culture - Preliminary Blood 03/26/24 14:20 Blood Culture - Preliminary Blood Assessment and Plan (1) MATT (acute kidney injury) Current Visit: Yes Status: Acute Priority: High Code(s): N17.9 - ACUTE KIDNEY FAILURE, UNSPECIFIED SNOMED Code(s): 42546592 (2) Acute hepatitis Current Visit: Yes Status: Acute Code(s): B17.9 - ACUTE VIRAL HEPATITIS, UNSPECIFIED SNOMED Code(s): 35596471 (3) Pancytopenia Current Visit: Yes Status: Acute Priority: High Code(s): D61.818 - OTHER PANCYTOPENIA SNOMED Code(s): 658947363 Plan: Hodgkin's disease -New diagnosis from biopsy done 03/14. Patient was due to meet in the office with the Medical Oncologist on 03/28 to discuss these results, prognosis, treatment options. -Will reschedule PET CT and office f/u Pancytopenia -Progressive decrease in labs since his visit just over a week ago -Significant drop in the hemoglobin 12.5 to 7.6. Reports of black bowel movements, concerns for GI bleed. -GI consulted, however, pt declined scopes. After further discussion today pt was amendable but would like to do outpt. Spoke with Dr. Beckett will schedule in outpt setting in the next 1-2 weeks -Continue to monitor CBC. Transfuse for hemoglobin less than 7 or if patient is symptomatic. Transaminitis -Question if a degree of shock liver from hypotension. Hodgkin's disease process? -Coags mildly increased. INR 1.3 -GI is seeing the patient. Acute hepatitis panel nonreactive -Liver US showing Hepatic steatosis. Probable small hepatic cystic lesions. CT abdomen pelvis reports unremarkable liver. -LFTs remain elevated but stable Doctor attests: I performed a history and physical examination of this patient, developed impression and plan of care. Discussed with dictator. I agree with dictators note, documented as a scribe.
[2024-03-28 21:37] LABS: Ceruloplasmin 25.5 mg/dL (20.0-60.0)
[2024-03-28 21:45] LABS: Alpha Fetoprotein, Tumor Mkr <3.00 ng/mL (0.00-7.90)
[2024-03-29 03:41] VITALS: PULSE 104
[2024-03-29 09:38] LABS: Anisocytosis Slight; HCT 22.2 % (39.0-53.0); HGB 7.3 gm/dL (13.0-17.5); MCH 28.8 pg (25.0-35.0); Mean Platelet Volume 11.1; Platelet Count 108 k/uL (150-450); RBC 2.55 m/uL (4.30-5.90); RDW 16.7 % (11.5-15.5); WBC 1.6 k/uL (3.8-10.6)
[2024-03-29 09:48] LABS: ALT 133 U/L (4-49); AST 324 U/L (17-59); African American GFR (CKD) 57 (>60 ml/min/1.73 sqM); Albumin 2.5 g/dL (3.5-5.0); Alkaline Phosphatase 821 U/L (38-126); Anion Gap 6 mmol/L; Blood Urea Nitrogen 21 mg/dL (9-20); Calcium 8.4 mg/dL (8.4-10.2); Carbon Dioxide 20 mmol/L (22-30); Chloride 104 mmol/L (98-107); Glucose 138 mg/dL (74-99); Non-African American GFR(CKD) 49 (>60 ml/min/1.73 sqM); Potassium 4.3 mmol/L (3.5-5.1); Sodium 130 mmol/L (137-145); Total Bilirubin 1.3 mg/dL (0.2-1.3); Total Protein 5.6 g/dL (6.3-8.2)
[2024-03-29 10:21] LABS: Band Neutrophils % 2 %; Eosinophils # (M) 0.14 k/uL (0-0.7); Lymphocytes # (M) 0.21 k/uL (1.0-4.8); Neutrophils % (M) 70 %; Nucleated Red Blood Cells 0 /100 WBC (0-0); Total Cells Counted 100
[2024-03-29 10:42] VITALS: BP 91/52; RESP 16; TEMP 98.1
--- NOTE | 2024-03-29 13:10 | P.DS ---
Providers Date of admission: 03/25/24 16:12 Expected date of discharge: 03/29/24 Attending physician: Rohan Dickinson MD Consults: 03/25/24 16:12 Consult Physician Routine Consulting Provider: Melodie De Guzman Consult Reason/Comments: known Do you want consulting provider notified?: Yes Consult Physician Routine Consulting Provider: Tiana Beckett Consult Reason/Comments: hepatitis Do you want consulting provider notified?: Yes 03/25/24 16:28 Consult Physician Routine Consulting Provider: Gil Rosado Consult Reason/Comments: [id number] Do you want consulting provider notified?: Yes 03/28/24 10:37 Consult Physician Routine Consulting Provider: Mark Mcmahon Consult Reason/Comments: reconsult for 10 beat run v-tach Do you want consulting provider notified?: Already Contacted Primary care physician: Corona Novoa MD Hospital Course: Discharge Diagnosis: Pancytopenia Acute GI bleed Recently diagnosed Hodgkin's lymphoma Generalized weakness Transaminitis Type B lactic acidosis Coagulopathy secondary to above BPH Anxiety/depression CKD stage III Hyponatremia Hospital Course: 78-year-old male with history of hypertension, dyslipidemia, anxiety/depression, GERD, CAD status post stent, and recently diagnosed Hodgkin's lymphoma, presenting for dizziness and weakness. WBCs 2.7, hemoglobin 9.0, MCV 84.5, platelet count 117, PT 13.5, INR 1.3, sodium 129, BUN 46, creatinine 1.41, glucose 104, plasma lactic 2.6, T. bili 1.4, AST 270, ALT 123, alkaline phosphatase 87, troponin less than 0.012, BNP 160, albumin 2.6, serum alcohol less than 10. EKG showed sinus tachycardia. Questionable atrial fibrillation. ER CXR: Cardiomegaly, pulmonary vascular congestion and bilateral small pleural effusions. No mediastinal and hilar adenopathy. Cardiology consulted. Echocardiogram showed LVEF 50%, mild pulmonary hypertension with RVSP 44. No concern for atrial fibrillation. Oncology consulted, pancytopenia likely in the setting of Hodgkin's lymphoma. GI also consulted for anemia and transaminitis. Liver ultrasound showed hepatic steatosis. Abdomen pelvis CT showed possible duodenitis, retroperitoneal and pelvic lymph nodes, prostatic megaly. GI recommending EGD and colonoscopy, patient refusing. Patient will consider endoscopy outpatient. Blood count currently stable. Will be discharged with close follow-up with oncology, PCP and GI. Patient seen and examined at bedside. Vital signs reviewed and stable. General: Nontoxic, no distress, appears at stated age Derm: Warm, dry Head: Atraumatic, normocephalic, symmetric Eyes: EOMI, no lid lag, anicteric sclera Mouth: No lip lesion, mucus membranes moist Cardiovascular: S1S2 reg, no murmur Lungs: CTA bilateral, no rhonchi, no rales, no accessory muscle use Abdominal: Soft, nontender to palpation, no guarding, no appreciable organomegaly Ext: No gross muscle atrophy, no edema, no contractures Neuro: CN II-XI grossly intact, no focal neuro deficits Psych: Alert, oriented, appropriate affect A total of 36 minutes of time were spent preparing this complex discharge summary. Patient was discharged on 03/29/2024 at 1144. Patient Condition at Discharge: Fair Plan - Discharge Summary Discharge Rx Participant: No New Discharge Prescriptions: New Pantoprazole [Protonix] 40 mg PO BID #100 tab Continue ARIPiprazole [Abilify] 5 mg PO HS Magnesium Oxide [Mag-Ox] 400 mg PO BID #60 tab Tamsulosin [Flomax] 0.8 mg PO DAILY Albuterol Inhaler [Ventolin Hfa Inhaler] 1 - 2 puff INHALATION RT-Q4H PRN PRN Reason: Shortness Of Breath Venlafaxine HCl [Effexor XR] 150 mg PO HS Discontinued Omeprazole [PriLOSEC] 20 mg PO DAILY PRN PRN Reason: Gi Upset Atorvastatin [Lipitor] 40 mg PO DAILY Discharge Medication List ARIPiprazole [Abilify] 5 mg PO HS 03/12/24 [History] Venlafaxine HCl [Effexor XR] 150 mg PO HS 03/12/24 [History] Magnesium Oxide [Mag-Ox] 400 mg PO BID #60 tab 03/17/24 [Rx] Albuterol Inhaler [Ventolin Hfa Inhaler] 1 - 2 puff INHALATION RT-Q4H PRN 03/25/24 [History] Tamsulosin [Flomax] 0.8 mg PO DAILY 03/25/24 [History] Pantoprazole [Protonix] 40 mg PO BID #100 tab 03/29/24 [Rx] Follow up Appointment(s)/Referral(s): Corona Noova MD [Primary Care Provider] - 1-2 days (Ensure office is aware this appointment is following a hospital stay.) Melodie De Guzman MD [STAFF PHYSICIAN] - 1 Week (Follow up appointment as previously scheduled.) Tiana Beckett MD [STAFF PHYSICIAN] - 1 Week (Gastroenterology to follow-up for elevated liver enzymes as well as anemia.) [facility] [NON-STAFF] - Patient Instructions/Handouts: Anemia (DC) Activity/Diet/Wound Care/Special Instructions: Please see PCP, oncology and GI. Discharge Disposition: HOME WITH HOME HEALTH SERVICES
--- NOTE | 2024-03-29 13:44 | P.PN ---
Subjective Progress Note Date: 03/29/24 Principal diagnosis: Hodgkin's Lymphoma -Noted to have Tmax of 100.4 F overnight with no acute events -Notes feeling well today without any dizziness/lightheadedness -He has been eating without any nausea or vomiting and no evidence of melena or bright red blood per rectum Objective - Vital Signs Vital signs: Vital Signs Temp 98.1 F 03/29/24 08:50 Pulse 104 H 03/29/24 08:50 Resp 16 03/29/24 08:50 BP 91/52 03/29/24 08:50 Pulse Ox 95 03/29/24 08:53 FiO2 Intake & Output 03/28/24 03/29/24 03/29/24 18:59 06:59 18:59 Intake Total 538 120 Balance 538 120 Weight 87.3 kg Intake: Oral 538 120 Other: Voiding Method Toilet Toilet Toilet # Voids 2 1 1 # Bowel Movements 0 - Constitutional General appearance: Present: cooperative, no acute distress - EENT Eyes: Present: EOMI - Respiratory Details: Nonlabored breathing - Cardiovascular Details: Warm and well-perfused - Gastrointestinal General gastrointestinal: Present: soft. Absent: distended, tenderness - Integumentary Integumentary: Present: pale - Neurologic Neurologic: Present: CNII-XII intact. Absent: focal deficits - Psychiatric Psychiatric: Present: A&O x's 3, appropriate affect - Labs CBC & Chem 7: 03/29/24 08:37 03/29/24 08:37 Labs: Abnormal Lab Results - Last 24 Hours (Table) 03/29/24 03/29/24 Range/Units 08:37 08:37 WBC 1.6 L (3.8-10.6) k/uL RBC 2.55 L (4.30-5.90) m/uL Hgb 7.3 L (13.0-17.5) gm/dL Hct 22.2 L (39.0-53.0) % RDW 16.7 H (11.5-15.5) % Plt Count 108 L (150-450) k/uL Neutrophils # (Manual) 1.10 L (1.3-7.7) k/uL Lymphocytes # (Manual) 0.21 L (1.0-4.8) k/uL Sodium 130 L (137-145) mmol/L Carbon Dioxide 20 L (22-30) mmol/L BUN 21 H (9-20) mg/dL Creatinine 1.37 H (0.66-1.25) mg/dL Glucose 138 H (74-99) mg/dL AST 324 H (17-59) U/L ALT 133 H (4-49) U/L Alkaline Phosphatase 821 H (38-126) U/L Total Protein 5.6 L (6.3-8.2) g/dL Albumin 2.5 L (3.5-5.0) g/dL Microbiology - Last 24 Hours (Table) 03/26/24 01:31 Blood Culture - Preliminary Blood 03/26/24 14:25 Blood Culture - Preliminary Blood 03/26/24 14:20 Blood Culture - Preliminary Blood Assessment and Plan (1) Elevated LFTs Current Visit: Yes Status: Acute Priority: High Code(s): R79.89 - OTHER SPECIFIED ABNORMAL FINDINGS OF BLOOD CHEMISTRY SNOMED Code(s): 075684681 (2) Hodgkins lymphoma Current Visit: Yes Status: Acute Priority: High Code(s): C81.90 - HODGKIN LYMPHOMA, UNSPECIFIED, UNSPECIFIED SITE SNOMED Code(s): 167070667 (3) Pancytopenia Current Visit: Yes Status: Acute Priority: High Code(s): D61.818 - OTHER PANCYTOPENIA SNOMED Code(s): 105207023 Plan: Hodgkin's disease -New diagnosis from biopsy done 03/14. Patient was due to meet in the office with the Medical Oncologist on 03/28 to discuss these results, prognosis, treatment options -We did discuss findings of Hodgkin's lymphoma, classical type with mixed cellularity -We will discuss treatment in further detail on clinic follow-up on 04/07/2024 -Given the imaging findings to date, he has at least stage III disease and possibly stage IV depending on findings on PET/CT, which has been rescheduled to 04/17/2024 -He would be a candidate for AVD plus nivolumab -He is stable for discharge from hematology perspective Pancytopenia -Progressive decrease in labs since his visit just over a week ago -Significant drop in the hemoglobin 12.5 to 7.6. Reports of black bowel moveme nts, concerns for GI bleed -Following discussion, he was amenable to do these outpatient and will be scheduled with GI -An alternative etiology to the pancytopenia could be bone marrow involvement secondary to Hodgkin's lymphoma Transaminitis -Question if a degree of shock liver from hypotension. Hodgkin's disease process? -Coags mildly increased. INR 1.3 -GI is seeing the patient. Acute hepatitis panel nonreactive -Liver US showing Hepatic steatosis. Probable small hepatic cystic lesions. CT abdomen pelvis reports unremarkable liver. -LFTs remain elevated but stable Melodie De Guzman MD
--- NOTE | 2024-04-01 16:16 | CDI ---
Documentation Clarification Form Date: 04/01/2024 03:37:35 PM From: Pamela Cordero RN, CCDS Email: [email or web address] Admit Date: 03/25/2024 04:12:00 PM Patient Name: Julius Spicer Visit Number: [id number] Discharge Date: 03/29/2024 02:01:00 PM ATTENTION: The Clinical Documentation Specialists (CDI) and [facility] Coding Staff appreciate your assistance in clarifying documentation. Please respond to the clarification below the line at the bottom and electronically sign. The CDI & [facility] Coding staff will review the response and follow-up if needed. Please note: Queries are made part of the Legal Health Record. If you have any questions, please contact the author of this message via ITS. Doctor Rohan Dickinson Encephalopathy is documented in the ED note. Additional clarification regarding the type of encephalopathy is requested. History/Risk Factors: CAD, HTN, BPH and Hodgkin's lymphoma. Presents with weakness, confusion, loss of appetite and malaise. Clinical Indicators: 03/25 ED: "altered mental status. MATT, encephalopathy acute, dehydration, orthostatic hypotension, weakness, debility." 03/25 H&P: "He was also found to have lactic acidosis with acute kidney injury, suspected to be dehydration, hyponatremia." 03/25 Labs: WBC 2.7, Na 129, Cr 1.41, lactic acid 3.4, AST 270, ALT 123, ALP 857 03/26 Oncology consult: "Patient reports has been having increasing confusion over the last 3 weeks as well as weight loss and decreased appetite that has progressed over the last 1 year." 03/26 Cardiology consult: "He states he is a little better now but feels a little bit dizzy and a little disoriented." 03/26 GI consult: "found to have elevated LFTs without known history of underlying liver disease." 03/27 Liver US: Hepatic steatosis 03/27 GI: "Unclear etiology of acute hepatitis possibly secondary to medication or secondary to recent diagnosis of Hodgkin's lymphoma." Treatment: 1L 0.9 NS IV bolus x1 on 03/25 and 03/27 then 75mL/hr; avoid hepatotoxic medications Please clarify the type of encephalopathy, if known: [ x ] Metabolic Encephalopathy [ ] Toxic Encephalopathy [ ] Hepatic Encephalopathy [ ] Other, please specify [ ] Unable to determine MTDD
== END 2024-03-29 14:01 | disposition home health service (06) | DRG 682 ==
LOC: SUPCPDRO 13:42 → EC 13:42 → 3SCARD 16:12
PROVIDERS: ADMIT Internal Medicine; ATTEND Internal Medicine
DX: N17.9 Acute kidney failure, unspecified (principal); G93.41 Metabolic encephalopathy; R78.81 Bacteremia; B17.9 Acute viral hepatitis, unspecified; C81.90 Hodgkin lymphoma, unspecified, unspecified site; D61.818 Other pancytopenia; E87.1 Hypo-osmolality and hyponatremia; E87.20 Acidosis, unspecified; D68.9 Coagulation defect, unspecified; I47.20 Ventricular tachycardia, unspecified; K92.2 Gastrointestinal hemorrhage, unspecified; E86.0 Dehydration; I25.10 Atherosclerotic heart disease of native coronary artery without angina pectoris; I12.9 Hypertensive chronic kidney disease with stage 1 through stage 4 chronic kidney disease, or unspecified chronic kidney disease; I95.1 Orthostatic hypotension; K21.9 Gastro-esophageal reflux disease without esophagitis; N40.0 Benign prostatic hyperplasia without lower urinary tract symptoms; E78.5 Hyperlipidemia, unspecified; F32.A Depression, unspecified; F41.9 Anxiety disorder, unspecified; I25.2 Old myocardial infarction; I27.20 Pulmonary hypertension, unspecified; K29.80 Duodenitis without bleeding; I49.3 Ventricular premature depolarization; K76.0 Fatty (change of) liver, not elsewhere classified; N18.30 Chronic kidney disease, stage 3 unspecified; Z79.899 Other long term (current) drug therapy; Z87.891 Personal history of nicotine dependence; Z95.5 Presence of coronary angioplasty implant and graft; I07.1 Rheumatic tricuspid insufficiency
CPT/HCPCS: 36415; 71046; 74177; 76705; 80053; 80074; 80320; 81001; 82103; 82105; 82272; 82390; 82728; 83010; 83516; 83540; 83550; 83605; 83615; 83735; 83880; 84100; 84443; 84484; 84550; 85025; 85045; 85610; 85730; 86038; 87040; 93005; 93306; 94760; 96361; 96372; 96374; 96375; 99285

== ENCOUNTER 2024-03-31 15:33 | Inpatient (IN) | payer MEDICARE, OTHER ==
--- NOTE | 2024-03-31 16:38 | ED ---
General Adult HPI - General Chief complaint: Weakness Stated complaint: Generalized weakness Source: patient, EMS Mode of arrival: EMS Limitations: no limitations - History of Present Illness Initial comments: Dictation was produced using [employer] dictation software. please excuse any grammatical, word or spelling errors. Chief Complaint: 78-year-old male presents to the emergency department for low blood pressure History of Present Illness: Patient is a 78-year-old male who was just discharged from the hospital recently. He was discharged from the hospital 2 days ago. He was admitted for anemia, generalized weakness. He was at home today. Prior to his previous discharge home health care nurse was set up. Home health care nurse checked his blood pressure and was found to be with systolics in the 70s. Patient states that he feels weak. He however denies any changes in any of his symptoms since being discharged. Scheduled to have outpatient GI follow-up and oncology follow-up. He has a new diagnosis of non-Hodgkin's lymphoma from 2 and half weeks ago. He denies any pain complaints. No fever chills or night sweats. The ROS documented in this emergency department record has been reviewed and confirmed by me. Those systems with pertinent positive or negative responses have been documented in the HPI. All other systems are other negative and/or noncontributory. - Related Data Home Medications Medication Instructions Recorded Confirmed ARIPiprazole [Abilify] 5 mg PO HS 03/12/24 03/31/24 Venlafaxine HCl [Effexor XR] 150 mg PO HS 03/12/24 03/31/24 Albuterol Inhaler [Ventolin Hfa 1 - 2 puff INHALATION RT-Q4H PRN 03/25/24 03/31/24 Inhaler] Tamsulosin [Flomax] 0.8 mg PO DAILY 03/25/24 03/31/24 guaiFENesin SYRUP 100MG/5ML 200 mg PO BID 03/31/24 03/31/24 [Robitussin] Previous Rx's Medication Instructions Recorded Magnesium Oxide [Mag-Ox] 400 mg PO BID #60 tab 03/17/24 Pantoprazole [Protonix] 40 mg PO BID #100 tab 03/29/24 Allergies Allergy/AdvReac Type Severity Reaction Status Date / Time No Known Allergies Allergy Verified 03/31/24 18:47 Review of Systems ROS Statement: Those systems with pertinent positive or pertinent negative responses have been documented in the HPI. ROS Other: All systems not noted in ROS Statement are negative. Past Medical History Past Medical History: Coronary Artery Disease (CAD), Cancer, GERD/Reflux, Hyperlipidemia, Myocardial Infarction ([place]) Additional Past Medical History / Comment(s): DJD, Hodgkins Lymphoma 2023 Last Myocardial Infarction Date:: 2016 History of Any Multi-Drug Resistant Organisms: None Reported Past Surgical History: Heart Catheterization With Stent Date of Last Stent Placement:: 2022 Past Psychological History: No Psychological Hx Reported Smoking Status: Former smoker Past Alcohol Use History: None Reported Past Drug Use History: None Reported General Exam - General Exam Comments Initial Comments: PHYSICAL EXAM: General Impression: Alert and oriented x3, not in acute distress HEENT: Normocephalic atraumatic, extra-ocular movements intact, pupils equal and reactive to light bilaterally, mucous membranes moist. Cardiovascular: Heart regular rate and rhythm Chest: Able to complete full sentences, no retractions, no tachypnea Abdomen: abdomen soft, non-tender, non-distended, no organomegaly Musculoskeletal: Pulses present and equal in all extremities, no peripheral edema Motor: no focal deficits noted Neurological: CN II-XII grossly intact, no focal motor or sensory deficits noted Skin: Intact with no visualized rashes Psych: Normal affect and mood Limitations: no limitations Course Vital Signs 03/31/24 03/31/24 03/31/24 15:39 16:00 17:00 Temperature 99.6 F Pulse Rate 103 H 110 H 103 H Pulse Rate [ Pathology Technologist ] Respiratory 16 30 H 22 Rate Blood Pressure 94/54 96/58 89/49 Blood Pressure [Right Arm Sitting] Blood Pressure [Right Arm Standing] Blood Pressure [Right Arm Supine] O2 Sat by Pulse 93 L 95 99 Oximetry 03/31/24 03/31/24 03/31/24 17:30 18:00 18:30 Temperature Pulse Rate 102 H 102 H 104 H Pulse Rate [ Pathology Technologist ] Respiratory 16 24 16 Rate Blood Pressure 105/51 96/50 80/58 Blood Pressure [Right Arm Sitting] Blood Pressure [Right Arm Standing] Blood Pressure [Right Arm Supine] O2 Sat by Pulse 97 97 96 Oximetry 03/31/24 18:42 Temperature 100.9 F H Pulse Rate Pulse Rate [ 105 H Pathology Technologist ] Respiratory 20 Rate Blood Pressure Blood Pressure 104/62 [Right Arm Sitting] Blood Pressure 99/48 [Right Arm Standing] Blood Pressure 108/66 [Right Arm Supine] O2 Sat by Pulse 98 Oximetry EKG Findings - EKG Comments: EKG Findings:: My EKG interpretation: Ventricular rate 89, sinus rhythm,. 149, QRS 86, QTc 323. No CA prolongation, no QTC prolongation, no ST or T-wave changes noted. EKG compared to March 26, 2024 showing no changes. Overall, this EKG is unremarkable Medical Decision Making - Medical Decision Making Was pt. sent in by a medical professional or institution (, PA, DIGITAL MARKETING LEAD, urgent care, hospital, or longterm...) When possible be specific @ -No Did you speak to anyone other than the patient for history (EMS, parent, family, police, friend...)? What history was obtained from this source @ -Son at bedside as described above Did you review nursing and triage notes (agree or disagree)? Why? @ -I reviewed and agree with nursing and triage notes Were old charts reviewed (outside hosp., previous admission, EMS record, old EKG, old radiological studies, urgent care reports/EKG's, longterm records)? Report findings @ -Previous admission documentation reviewed Differential Diagnosis (chest pain, altered mental status, abdominal pain women, abdominal pain men, vaginal bleeding, musculoskeletal, weakness, fever, dyspnea, syncope, headache, dizziness, GI bleed, back pain, seizure, CVA, palpatations, mental health)? @ -Differential Weakness: Hypoglycemia, shock, sepsis, hyponatremia, anemia, infection, DC, ETOH, adverse medicine reaction, overdose, stroke, this is not meant to be an all-inclusive list. EKG interpreted by me (3pts min.). @ -See above X-rays interpreted by me (1pt min.). @ -Chest x-ray shows cardiomegaly pulmonary edema CT interpreted by me (1pt min.). @ -None done U/S interpreted by me (1pt. min.). @ -None done What testing was considered but not performed or refused? (CT, X-rays, U/S, labs)? Why? @ -None What meds were considered but not given or refused? Why? @ -None Was smoking cessation discussed for >3mins.? @ -No Were there social determinants of health that impacted care today? How? (Homelessness, low income, unemployed, alcoholism, drug addiction, transportation, low edu. Level, literacy, decrease access to med. care, half-way, rehab)? @ -No Was there de-escalation of care discussed even if they declined (Discuss DNR or withdrawal of care, Hospice)? DNR status @ -No What co-morbidities impacted this encounter? (DM, HTN, Smoking, COPD, CAD, Cancer, CVA, ARF, Chemo, Hep., AIDS, mental health diagnosis, sleep apnea, morbid obesity)? @ -Non-Hodgkin's lymphoma Was patient admitted / discharged? Hospital course, mention meds given and route, prescriptions, significant lab abnormalities, going to OR and other pertinent info. @ -78-year-old male was told to come to the emergency department by home visiting nurse for hypertension. Patient has been having symptoms of lightheadedness. Vital signs upon arrival shows soft blood pressure with systolics measuring between 80 and 90. Tachycardic in the 100s. Patient denies any shortness of breath. States that his cough is chronic. Laboratory evaluation obtained. Leukopenia 1.5, hemoglobin 7.4 this is around his previous labs. Bicarb of 17 with no gap. Lactic acidosis 5.6 unclear etiology. BNP is 2530. Patient reevaluated bedside 7:35 PM failure is okay. Will be admitted for metabolic derangement possible dehydration. Case discussed with hospitalist who is agreeable with admission Did you discuss the management of the patient with other professionals (professionals i.e. , PA, DIGITAL MARKETING LEAD, lab, RT, psych nurse, social services technician, office manager receptionist, teacher, evp chief exploration officer, mental health case manager)? Give summary @ -Case discussed with hospitalist for admission Was critical care preformed (if so, how long)? @ -No Undiagnosed new problem with uncertain prognosis? @ -No Drug Therapy requiring intensive monitoring for toxicity (Heparin, Nitro, Insulin, Cardizem)? @ -No Were any procedures done? @ -No Diagnosis/symptom? Acute, or Chronic, or Acute on Chronic? Uncomplicated (without systemic symptoms) or Complicated (systemic symptoms)? @ -Lactic acidosis Side effects of treatment? @ -No Exacerbation, Progression, or Severe Exacerbation? @ -No Poses a threat to life or bodily function? How? (Chest pain, USA, DC, pneumonia, PE, COPD, DKA, ARF, appy, cholecystitis, CVA, Diverticulitis, Homicidal, Suicidal, threat to staff... and all critical care pts) @ -Yes - Lab Data Result diagrams: 03/31/24 16:37 03/31/24 16:37 Lab Results 03/31/24 03/31/24 03/31/24 Range/Units 16:37 16:37 16:37 WBC 1.5 L (3.8-10.6) k/uL RBC 2.52 L (4.30-5.90) m/uL Hgb 7.4 L (13.0-17.5) gm/dL Hct 22.0 L (39.0-53.0) % MCV 87.3 (80.0-100.0) fL MCH 29.3 (25.0-35.0) pg MCHC 33.5 (31.0-37.0) g/dL RDW 16.7 H (11.5-15.5) % Plt Count 117 L (150-450) k/uL MPV 10.9 Neutrophils % (Manual) 64 % Band Neuts % (Manual) 1 % Lymphocytes % (Manual) 13 % Monocytes % (Manual) 6 % Eosinophils % (Manual) 12 % Basophils % (Manual) 2 % Metamyelocytes % 2 % Neutrophils # (Manual) 0.90 L (1.3-7.7) k/uL Lymphocytes # (Manual) 0.20 L (1.0-4.8) k/uL Monocytes # (Manual) 0.09 (0-1.0) k/uL Eosinophils # (Manual) 0.18 (0-0.7) k/uL Basophils # (Manual) 0.03 (0-0.2) k/uL Metamyelocytes # (Man) 0.03 H (0) k/uL Nucleated RBCs 0 (0-0) /100 WBC Anisocytosis Slight Anisocytosis (manual) Present PT 13.4 H (10.0-12.5) sec INR 1.3 H (<1.2) APTT 28.0 (22.0-30.0) sec Sodium 131 L (137-145) mmol/L Potassium 4.4 (3.5-5.1) mmol/L Chloride 105 (98-107) mmol/L Carbon Dioxide 17 L (22-30) mmol/L Anion Gap 9 mmol/L BUN 25 H (9-20) mg/dL Creatinine 1.51 H (0.66-1.25) mg/dL Est GFR (CKD-EPI)AfAm 51 (>60 ml/min/1.73 sqM) Est GFR (CKD-EPI)NonAf 44 (>60 ml/min/1.73 sqM) Glucose 106 H (74-99) mg/dL Lactic Ac Sepsis Rflx Plasma Lactic Acid Flo (0.7-2.0) mmol/L Calcium 8.5 (8.4-10.2) mg/dL Magnesium 2.0 (1.6-2.3) mg/dL Total Bilirubin 1.4 H (0.2-1.3) mg/dL AST 329 H (17-59) U/L ALT 132 H (4-49) U/L Alkaline Phosphatase 840 H (38-126) U/L Troponin I (0.000-0.034) ng/mL NT-Pro-B Natriuret Pep pg/mL Total Protein 5.6 L (6.3-8.2) g/dL Albumin 2.4 L (3.5-5.0) g/dL 03/31/24 03/31/24 03/31/24 Range/Units 16:37 16:37 17:15 WBC (3.8-10.6) k/uL RBC (4.30-5.90) m/uL Hgb (13.0-17.5) gm/dL Hct (39.0-53.0) % MCV (80.0-100.0) fL MCH (25.0-35.0) pg MCHC (31.0-37.0) g/dL RDW (11.5-15.5) % Plt Count (150-450) k/uL MPV Neutrophils % (Manual) % Band Neuts % (Manual) % Lymphocytes % (Manual) % Monocytes % (Manual) % Eosinophils % (Manual) % Basophils % (Manual) % Metamyelocytes % % Neutrophils # (Manual) (1.3-7.7) k/uL Lymphocytes # (Manual) (1.0-4.8) k/uL Monocytes # (Manual) (0-1.0) k/uL Eosinophils # (Manual) (0-0.7) k/uL Basophils # (Manual) (0-0.2) k/uL Metamyelocytes # (Man) (0) k/uL Nucleated RBCs (0-0) /100 WBC Anisocytosis Anisocytosis (manual) PT (10.0-12.5) sec INR (<1.2) APTT (22.0-30.0) sec Sodium (137-145) mmol/L Potassium (3.5-5.1) mmol/L Chloride (98-107) mmol/L Carbon Dioxide (22-30) mmol/L Anion Gap mmol/L BUN (9-20) mg/dL Creatinine (0.66-1.25) mg/dL Est GFR (CKD-EPI)AfAm (>60 ml/min/1.73 sqM) Est GFR (CKD-EPI)NonAf (>60 ml/min/1.73 sqM) Glucose (74-99) mg/dL Lactic Ac Sepsis Rflx Y Plasma Lactic Acid Flo 5.6 H* (0.7-2.0) mmol/L Calcium (8.4-10.2) mg/dL Magnesium (1.6-2.3) mg/dL Total Bilirubin (0.2-1.3) mg/dL AST (17-59) U/L ALT (4-49) U/L Alkaline Phosphatase (38-126) U/L Troponin I <0.012 (0.000-0.034) ng/mL NT-Pro-B Natriuret Pep pg/mL Total Protein (6.3-8.2) g/dL Albumin (3.5-5.0) g/dL 03/31/24 Range/Units 18:31 WBC (3.8-10.6) k/uL RBC (4.30-5.90) m/uL Hgb (13.0-17.5) gm/dL Hct (39.0-53.0) % MCV (80.0-100.0) fL MCH (25.0-35.0) pg MCHC (31.0-37.0) g/dL RDW (11.5-15.5) % Plt Count (150-450) k/uL MPV Neutrophils % (Manual) % Band Neuts % (Manual) % Lymphocytes % (Manual) % Monocytes % (Manual) % Eosinophils % (Manual) % Basophils % (Manual) % Metamyelocytes % % Neutrophils # (Manual) (1.3-7.7) k/uL Lymphocytes # (Manual) (1.0-4.8) k/uL Monocytes # (Manual) (0-1.0) k/uL Eosinophils # (Manual) (0-0.7) k/uL Basophils # (Manual) (0-0.2) k/uL Metamyelocytes # (Man) (0) k/uL Nucleated RBCs (0-0) /100 WBC Anisocytosis Anisocytosis (manual) PT (10.0-12.5) sec INR (<1.2) APTT (22.0-30.0) sec Sodium (137-145) mmol/L Potassium (3.5-5.1) mmol/L Chloride (98-107) mmol/L Carbon Dioxide (22-30) mmol/L Anion Gap mmol/L BUN (9-20) mg/dL Creatinine (0.66-1.25) mg/dL Est GFR (CKD-EPI)AfAm (>60 ml/min/1.73 sqM) Est GFR (CKD-EPI)NonAf (>60 ml/min/1.73 sqM) Glucose (74-99) mg/dL Lactic Ac Sepsis Rflx Plasma Lactic Acid Flo (0.7-2.0) mmol/L Calcium (8.4-10.2) mg/dL Magnesium (1.6-2.3) mg/dL Total Bilirubin (0.2-1.3) mg/dL AST (17-59) U/L ALT (4-49) U/L Alkaline Phosphatase (38-126) U/L Troponin I (0.000-0.034) ng/mL NT-Pro-B Natriuret Pep 2530 pg/mL Total Protein (6.3-8.2) g/dL Albumin (3.5-5.0) g/dL Disposition Clinical Impression: Dehydration Disposition: ADMITTED IP TO THIS [facility] Condition: Fair Referrals: Corona Novoa MD [Primary Care Provider] - 1-2 days Decision Time: 19:36
[2024-03-31 16:51] LABS: Anisocytosis Slight; HGB 7.4 gm/dL (13.0-17.5); MCH 29.3 pg (25.0-35.0); MCHC 33.5 g/dL (31.0-37.0); MCV 87.3 fL (80.0-100.0); Mean Platelet Volume 10.9; Platelet Count 117 k/uL (150-450); RBC 2.52 m/uL (4.30-5.90); RDW 16.7 % (11.5-15.5); WBC 1.5 k/uL (3.8-10.6)
[2024-03-31 17:02] LABS: ALT 132 U/L (4-49); AST 329 U/L (17-59); African American GFR (CKD) 51 (>60 ml/min/1.73 sqM); Albumin 2.4 g/dL (3.5-5.0); Anion Gap 9 mmol/L; Blood Urea Nitrogen 25 mg/dL (9-20); Calcium 8.5 mg/dL (8.4-10.2); Carbon Dioxide 17 mmol/L (22-30); Chloride 105 mmol/L (98-107); Glucose 106 mg/dL (74-99); INR 1.3 (<1.2); Non-African American GFR(CKD) 44 (>60 ml/min/1.73 sqM); Potassium 4.4 mmol/L (3.5-5.1); Prothrombin Time 13.4 sec (10.0-12.5); Sodium 131 mmol/L (137-145); Total Bilirubin 1.4 mg/dL (0.2-1.3); Total Protein 5.6 g/dL (6.3-8.2)
[2024-03-31 17:12] LABS: Alkaline Phosphatase 840 U/L (38-126)
[2024-03-31 17:35] LABS: Band Neutrophils % 1 %; Basophils # (M) 0.03 k/uL (0-0.2); Eosinophils # (M) 0.18 k/uL (0-0.7); Metamyelocytes # (M) 0.03 k/uL (0); Metamyelocytes % 2 %; Monocytes # (M) 0.09 k/uL (0-1.0); Neutrophils % (M) 64 %; Nucleated Red Blood Cells 0 /100 WBC (0-0); Total Cells Counted 100
[2024-03-31 17:37] LABS: Anisocytosis (M) Present
[2024-03-31] MEDS: SODIUM CHLORIDE 0.9% 1,000 ML IV STA (17:38)
--- NOTE | 2024-03-31 18:20 | XR ---
EXAMINATION TYPE: XR chest 2V DATE OF EXAM: 03/31/2024 6:02 PM COMPARISON: Previous chest radiograph 03/25/2024. CLINICAL INDICATION: Male, 78 years old with history of cough; [facility] TECHNIQUE: XR chest 2V Frontal and lateral views of the chest. FINDINGS: Cardiomegaly and mild vascular congestive changes with small left and likely trace right pleural effu sions. Prominent/fullness of the hilar regions. No pneumothorax. No acute osseous abnormality. IMPRESSION: Cardiomegaly, pulmonary vascular congestion and bilateral pleural effusions suggesting pulmonary ha a. [facility], , 03/31/2024 6:18 PM
[2024-03-31] MEDS ORDERED: NALOXONE 0.4 MG/ML 1 ML VIAL IV PRN (19:29)
[2024-03-31] MEDS: VENLAFAXINE HCL ER 150 MG CAP PO SCH (21:47)
[2024-03-31] MEDS: ARIPiprazole 5 MG TAB PO SCH (21:47)
[2024-03-31] MEDS: SODIUM CHLORIDE 0.9% 1,000 ML IV SCH (21:48)
[2024-03-31] MEDS: guaiFENesin-DM 100-10MG/5ML 10 ML CUP PO PRN (22:00)
--- NOTE | 2024-03-31 22:28 | P.HPIM ---
History of Present Illness H&P Date: 03/31/24 Chief Complaint: Generalized weakness History of present illness; 78-year-old male with history of hypertension, dyslipidemia, anxiety/depression, GERD, CAD status post stent, and recently diagnosed Hodgkin's lymphoma (at least stage III, follows with Dr. De Guzman, diagnosed earlier this month, has not started treatment as of yet), presenting for generalized weakness. Of note patient was recently discharged on 03/29/2024 where at that time he was admitted for similar symptoms. Prior to previous discharge, home health care nurse was set up. [facility] home health care nurse checked his BP today and was found to be with systolic in the 70s. Patient admits to feeling increased weakness since being discharged 2 days ago, and also admits to a cough productive with clear sputum since being discharged. Of note patient also reports to urinary urgency requiring him to wear briefs, but states this has been going on before he was admitted during his last hospital stay. Reports he was scheduled to have outpatient GI and oncology follow-up. Denies fever, chills, shortness of breath, any pain complaints whatsoever. Labs: WBC 1.5, hemoglobin 7.4, RDW 16.7, platelet count 117, sodium 131, bicarb 17, creatinine 1.51, glucose 106, lactate 5.8, T. bili 1.4, AST 329, ALT 132, alkaline phosphatase 840, troponin less than 0.012, and BNP 2530. Imaging: - EKG done in the ER showed heart rate of 99 bpm, sinus rhythm with occasional supraventricular premature complexes, nonspecific T wave abnormality, and QTc 383. - ER CXR: Cardiomegaly, pulmonary vascular congestion and bilateral pleural eff usions suggesting pulmonary edema. REVIEW OF SYSTEMS: As stated above in HPI. The rest of the 14-point review of systems is negative. PHYSICAL EXAMINATION: GENERAL: The patient is alert and oriented x3, not in any acute distress. HEENT: Pupils are round and equally reacting to light. EOMI. No scleral icterus. No conjunctival pallor. Normocephalic, atraumatic. CARDIOVASCULAR: S1 and S2 present. No murmurs, rubs, or gallops. PULMONARY: Mild rales and rhonchi auscultated bilaterally, R >L ABDOMEN: Soft, nontender, nondistended, normoactive bowel sounds. No palpable organomegaly. MUSCULOSKELETAL: No joint swelling or deformity. EXTREMITIES: No cyanosis, clubbing, or pedal edema. NEUROLOGICAL: Gross neurological examination did not reveal any focal deficits, strength 5/5 in all extremities SKIN: No rashes Assessment and Plan 78-year-old male with history of hypertension, dyslipidemia, anxiety/depression, GERD, CAD status post stent, and recently diagnosed Hodgkin's lymphoma (at least stage III), presenting for weakness. Patient is generalized weakness possibly secondary to malignancy versus poor oral intake versus infection. #Generalized weakness #Hodgkin's lymphoma (at least stage III) #Pancytopenia likely secondary to malignancy #Hyponatremia #SIRS criteria: No clear source of infection, potentially secondary to malignancy -In the setting of being immunocompromised 2/2 to Hodgkin's lymphoma and recent hospital stay, patient will need pseudomonas coverage for suspected HAP, we will start the patient on Zosyn 4.5 g IV Q6 HR and Zithromax 500 mg p.o. daily -UA, urine culture, blood culture, sputum culture, EBV, CMV, PRIYA, ANCA, legionella antigen -CXR shows cardiomegaly, pulmonary vascular congestion and bilateral pleural effusions suggesting pulmonary edema vs atypical pneumonia -HR 104, WBC 1.5, temperature 100.9 -Fall precautions -Cardiac monitoring -Sodium 131, continue NS 75 cc/h -Was seen by oncology during last admission, state Hodgkin's lymphoma is at least stage III and could potentially be stage IV but cannot determine until receiving PET scan which is not scheduled for 04/17/2024 -Consult Oncology -Robitussin DM 10 mL p.o. every 6 hours as needed for cough -PT consult #Transaminitis: -Potentially secondary to new diagnosis of Hodgkin's lymphoma -Seen by GI and oncology for same issue during last admission, no definitive conclusion was made about the etiology between shock liver secondary to hypotension versus Hodgkin's disease process versus medication side effect -Acute hepatitis panel nonreactive from last admission -Liver ultrasound from previous admission showed hepatic steatosis, GI at that time commented that fatty liver would not cause a transaminitis of this level. CT abdomen/pelvis during the last admission also failed to show obvious etiology of transaminitis -EBV, CMV, PRIYA, ANCA testing #Elevated lactate: -Potentially secondary to Hodgkin's lymphoma versus less likely type B lactic acidosis -Continue NS 75 cc/h -Continue to monitor #MATT in the setting of CKD: -Baseline creatinine between 1.37 and 1.6, currently 1.51 -Continue NS 75 cc/h -Continue to monitor Chronic Conditions: #CAD status post stents -Continue home medication reconciled -Seen by cardio during last admission, EF 50%, mild LVH #Hyperlipidemia: -Hold home atorvastatin in the setting of transaminitis #GERD/reflux: -Protonix 40 mg p.o. twice daily F: NS 75 cc/h E: None N: Heart healthy diet DVT ppx: Heparin 5000 units SQ every 8 hours GI ppx: Protonix 40 mg p.o. daily CODE STATUS: Full code Dispo: Pending clinical course Carla Gay MD PGY-1 FM Dictation was produced using [employer] dictation software. please excuse any gram matical, word or spelling errors. Past Medical History Past Medical History: Coronary Artery Disease (CAD), Cancer, GERD/Reflux, Hyperlipidemia, Myocardial Infarction ([place]) Additional Past Medical History / Comment(s): DJD, Hodgkins Lymphoma 2023 Last Myocardial Infarction Date:: 2016 History of Any Multi-Drug Resistant Organisms: None Reported Past Surgical History: Heart Catheterization With Stent Date of Last Stent Placement:: 2022 Past Psychological History: No Psychological Hx Reported Smoking Status: Former smoker Past Alcohol Use History: None Reported Past Drug Use History: None Reported Medications and Allergies Home Medications Medication Instructions Recorded Confirmed Type ARIPiprazole [Abilify] 5 mg PO HS 03/12/24 03/31/24 History Venlafaxine HCl [Effexor XR] 150 mg PO HS 03/12/24 03/31/24 History Magnesium Oxide [Mag-Ox] 400 mg PO BID #60 tab 03/17/24 03/31/24 Rx Albuterol Inhaler [Ventolin Hfa 1 - 2 puff INHALATION RT-Q4H PRN 03/25/24 03/31/24 History Inhaler] Tamsulosin [Flomax] 0.8 mg PO DAILY 03/25/24 03/31/24 History Pantoprazole [Protonix] 40 mg PO BID #100 tab 03/29/24 03/31/24 Rx guaiFENesin SYRUP 100MG/5ML 200 mg PO BID 03/31/24 03/31/24 History [Robitussin] Allergies Allergy/AdvReac Type Severity Reaction Status Date / Time No Known Allergies Allergy Verified 03/31/24 18:47 Physical Exam Vitals: Vital Signs Temp Pulse Pulse Resp BP BP BP 03/31/24 18:42 100.9 F H 105 H 20 104/62 99/48 03/31/24 18:30 104 H 16 80/58 03/31/24 18:00 102 H 24 96/50 03/31/24 17:30 102 H 16 105/51 03/31/24 17:00 103 H 22 89/49 03/31/24 16:00 110 H 30 H 96/58 03/31/24 15:39 99.6 F 103 H 16 94/54 BP Pulse Ox 03/31/24 18:42 108/66 98 03/31/24 18:30 96 03/31/24 18:00 97 03/31/24 17:30 97 03/31/24 17:00 99 03/31/24 16:00 95 03/31/24 15:39 93 L Intake and Output 03/31/24 03/31/24 03/31/24 06:59 14:59 22:59 Other: Weight 82.1 kg Results CBC & Chem 7: 03/31/24 16:37 03/31/24 16:37 Labs: Abnormal Lab Results - Last 24 Hours (Table) 03/31/24 03/31/24 03/31/24 Range/Units 16:37 16:37 16:37 WBC 1.5 L (3.8-10.6) k/uL RBC 2.52 L (4.30-5.90) m/uL Hgb 7.4 L (13.0-17.5) gm/dL Hct 22.0 L (39.0-53.0) % RDW 16.7 H (11.5-15.5) % Plt Count 117 L (150-450) k/uL Neutrophils # (Manual) 0.90 L (1.3-7.7) k/uL Lymphocytes # (Manual) 0.20 L (1.0-4.8) k/uL Metamyelocytes # (Man) 0.03 H (0) k/uL PT 13.4 H (10.0-12.5) sec INR 1.3 H (<1.2) Sodium 131 L (137-145) mmol/L Carbon Dioxide 17 L (22-30) mmol/L BUN 25 H (9-20) mg/dL Creatinine 1.51 H (0.66-1.25) mg/dL Glucose 106 H (74-99) mg/dL Plasma Lactic Acid Flo (0.7-2.0) mmol/L Total Bilirubin 1.4 H (0.2-1.3) mg/dL AST 329 H (17-59) U/L ALT 132 H (4-49) U/L Alkaline Phosphatase 840 H (38-126) U/L Total Protein 5.6 L (6.3-8.2) g/dL Albumin 2.4 L (3.5-5.0) g/dL 03/31/24 03/31/24 Range/Units 16:37 19:48 WBC (3.8-10.6) k/uL RBC (4.30-5.90) m/uL Hgb (13.0-17.5) gm/dL Hct (39.0-53.0) % RDW (11.5-15.5) % Plt Count (150-450) k/uL Neutrophils # (Manual) (1.3-7.7) k/uL Lymphocytes # (Manual) (1.0-4.8) k/uL Metamyelocytes # (Man) (0) k/uL PT (10.0-12.5) sec INR (<1.2) Sodium (137-145) mmol/L Carbon Dioxide (22-30) mmol/L BUN (9-20) mg/dL Creatinine (0.66-1.25) mg/dL Glucose (74-99) mg/dL Plasma Lactic Acid Flo 5.6 H* 5.2 H* (0.7-2.0) mmol/L Total Bilirubin (0.2-1.3) mg/dL AST (17-59) U/L ALT (4-49) U/L Alkaline Phosphatase (38-126) U/L Total Protein (6.3-8.2) g/dL Albumin (3.5-5.0) g/dL
[2024-03-31] MEDS: ACETAMINOPHEN TAB 325 MG TAB PO STA (22:48)
[2024-04-01] MEDS: HEPARIN SODIUM,PORCINE 5,000 UNIT/ML 1 ML VIAL SQ SCH (01:32)
[2024-04-01] MEDS: PANTOPRAZOLE 40 MG TABLET PO SCH (07:48)
[2024-04-01] MEDS: TAMSULOSIN 0.4 MG CAP.ER.24H PO SCH (08:15)
[2024-04-01] MEDS: CEFEPIME 2 GM in SODIUM CHLORIDE 0.9% 100 ML IVPB SCH (08:25)
[2024-04-01 09:31] LABS: ALT 143 U/L (4-49); AST 307 U/L (17-59); African American GFR (CKD) 56 (>60 ml/min/1.73 sqM); Albumin 2.5 g/dL (3.5-5.0); Albumin/Globulin Ratio 0.8; Alkaline Phosphatase 890 U/L (38-126); Anion Gap 8 mmol/L; Blood Urea Nitrogen 23 mg/dL (9-20); Calcium 8.5 mg/dL (8.4-10.2); Carbon Dioxide 18 mmol/L (22-30); Chloride 105 mmol/L (98-107); Globulin 3.2 g/dL; Glucose 89 mg/dL (74-99); Non-African American GFR(CKD) 48 (>60 ml/min/1.73 sqM); Potassium 4.6 mmol/L (3.5-5.1); Sodium 131 mmol/L (137-145); Total Bilirubin 1.4 mg/dL (0.2-1.3); Total Protein 5.7 g/dL (6.3-8.2)
[2024-04-01] MEDS: methylPREDNISolone SOD SUCCI 125 MG/2 ML VIAL IV STA (11:09)
[2024-04-01] MEDS: AZITHROMYCIN 500 MG in SODIUM CHLORIDE 0.9% 250 ML IVPB SCH (11:17)
[2024-04-01] MEDS: ACETAMINOPHEN TAB 325 MG TAB PO PRN (11:21)
[2024-04-01 14:58] LABS: EBV-EA (IgG) 0.4 AI; EBV-EBNA(IgG) >8.0; EBV-VCA (IgG) >8.0 AI; EBV-VCA (IgM) <0.2 AI
--- NOTE | 2024-04-01 15:05 | P.PN ---
Subjective Progress Note Date: 04/01/24 Hospital Course: 78-year-old male with history of hypertension, dyslipidemia, anxiety/depression, GERD, CAD status post stent, and recently diagnosed Hodgkin's lymphoma (at least stage III, follows with Dr. De Guzman, diagnosed earlier this month, has not started treatment as of yet), presenting for generalized weakness. Labs: WBC 1.5, hemoglobin 7.4, RDW 16.7, platelet count 117, sodium 131, bicarb 17, creatinine 1.51, glucose 106, lactate 5.8, T. bili 1.4, AST 329, ALT 132, alkaline phosphatase 840, troponin less than 0.012, and BNP 2530. Imaging: - EKG done in the ER showed heart rate of 99 bpm, sinus rhythm with occasional supraventricular premature complexes, nonspecific T wave abnormality, and QTc 383. - ER CXR: Cardiomegaly, pulmonary vascular congestion and bilateral pleural ef fusions suggesting pulmonary edema. Patient started on IV antibiotics. Subjective: Patient seen and examined at bedside. No acute events overnight. Continues to have cough, fever. Pertinent positives and negatives as discussed above, a complete review of systems was performed and all other systems are negative. Vitals Signs Reviewed. General: Nontoxic, no distress, appears at stated age, ill-appearing Derm: Warm, dry Head: Atraumatic, normocephalic, symmetric Eyes: EOMI, no lid lag, anicteric sclera Mouth: No lip lesion, mucus membranes moist Cardiovascular: S1S2 reg, no murmur Lungs: Bibasilar rales, no accessory muscle use Abdominal: Soft, nontender to palpation, no guarding, no appreciable organomegaly Ext: No gross muscle atrophy, no edema, no contractures Neuro: CN II-XI grossly intact, no focal neuro deficits Psych: Alert, oriented, appropriate affect Data Reviewed Today: Pertinent Labs: Sodium 131, bicarb 18, creatinine 1.4, lactate 3.2, total bili 1.4, AST 307, ALT 143, ALP 890 Imaging: No new imaging Assessment and Plan: Active: Sepsis secondary to suspected pneumonia Febrile neutropenia Recent diagnosis of Hodgkin's lymphoma Pancytopenia Hyponatremia Lactic acidosis Non-anion gap metabolic acidosis -Cultures pending -Started on cefepime IV 2 g every 12 hours, azithromycin 500 IV daily -On Solu-Medrol 60 IV every 6 hours -Oncology consulted -Tylenol as needed for fever, Robitussin as needed for cough -Change fluids to lactated Ringer's 75 cc an hour Chronic: Psychotic disorder/Anxiety disorder GERD BPH DVT ppx: Subcu heparin Code status: Full code Anticipated discharge place: pending Clinical course Anticipated discharge time: pending Clinical course Objective - Vital Signs Vital signs: Vital Signs Temp 97.8 F 04/01/24 12:00 Pulse 104 H 04/01/24 11:24 Resp 18 04/01/24 11:24 BP 114/70 04/01/24 11:24 Pulse Ox 95 04/01/24 11:24 FiO2 Intake & Output 03/31/24 04/01/24 04/01/24 18:59 06:59 18:59 Weight 82.1 kg - Labs CBC & Chem 7: 03/31/24 16:37 04/01/24 07:09 Labs: Abnormal Lab Results - Last 24 Hours (Table) 03/31/24 03/31/24 03/31/24 Range/Units 16:37 16:37 16:37 WBC 1.5 L (3.8-10.6) k/uL RBC 2.52 L (4.30-5.90) m/uL Hgb 7.4 L (13.0-17.5) gm/dL Hct 22.0 L (39.0-53.0) % RDW 16.7 H (11.5-15.5) % Plt Count 117 L (150-450) k/uL Neutrophils # (Manual) 0.90 L (1.3-7.7) k/uL Lymphocytes # (Manual) 0.20 L (1.0-4.8) k/uL Metamyelocytes # (Man) 0.03 H (0) k/uL PT 13.4 H (10.0-12.5) sec INR 1.3 H (<1.2) Sodium 131 L (137-145) mmol/L Carbon Dioxide 17 L (22-30) mmol/L BUN 25 H (9-20) mg/dL Creatinine 1.51 H (0.66-1.25) mg/dL Glucose 106 H (74-99) mg/dL Plasma Lactic Acid Flo (0.7-2.0) mmol/L Total Bilirubin 1.4 H (0.2-1.3) mg/dL AST 329 H (17-59) U/L ALT 132 H (4-49) U/L Alkaline Phosphatase 840 H (38-126) U/L Total Protein 5.6 L (6.3-8.2) g/dL Albumin 2.4 L (3.5-5.0) g/dL CMV IgG Ab (Nonreactive) EBV Capsid Ag IgG Intrp (Negative) EBV Nuc Ag IgG Interp (Negative) 03/31/24 03/31/24 03/31/24 Range/Units 16:37 19:48 22:00 WBC (3.8-10.6) k/uL RBC (4.30-5.90) m/uL Hgb (13.0-17.5) gm/dL Hct (39.0-53.0) % RDW (11.5-15.5) % Plt Count (150-450) k/uL Neutrophils # (Manual) (1.3-7.7) k/uL Lymphocytes # (Manual) (1.0-4.8) k/uL Metamyelocytes # (Man) (0) k/uL PT (10.0-12.5) sec INR (<1.2) Sodium (137-145) mmol/L Carbon Dioxide (22-30) mmol/L BUN (9-20) mg/dL Creatinine (0.66-1.25) mg/dL Glucose (74-99) mg/dL Plasma Lactic Acid Flo 5.6 H* 5.2 H* 5.1 H* (0.7-2.0) mmol/L Total Bilirubin (0.2-1.3) mg/dL AST (17-59) U/L ALT (4-49) U/L Alkaline Phosphatase (38-126) U/L Total Protein (6.3-8.2) g/dL Albumin (3.5-5.0) g/dL CMV IgG Ab (Nonreactive) EBV Capsid Ag IgG Intrp (Negative) EBV Nuc Ag IgG Interp (Negative) 03/31/24 03/31/24 04/01/24 Range/Units 23:36 23:36 00:57 WBC (3.8-10.6) k/uL RBC (4.30-5.90) m/uL Hgb (13.0-17.5) gm/dL Hct (39.0-53.0) % RDW (11.5-15.5) % Plt Count (150-450) k/uL Neutrophils # (Manual) (1.3-7.7) k/uL Lymphocytes # (Manual) (1.0-4.8) k/uL Metamyelocytes # (Man) (0) k/uL PT (10.0-12.5) sec INR (<1.2) Sodium (137-145) mmol/L Carbon Dioxide (22-30) mmol/L BUN (9-20) mg/dL Creatinine (0.66-1.25) mg/dL Glucose (74-99) mg/dL Plasma Lactic Acid Flo 4.3 H* (0.7-2.0) mmol/L Total Bilirubin (0.2-1.3) mg/dL AST (17-59) U/L ALT (4-49) U/L Alkaline Phosphatase (38-126) U/L Total Protein (6.3-8.2) g/dL Albumin (3.5-5.0) g/dL CMV IgG Ab Reactive A (Nonreactive) EBV Capsid Ag IgG Intrp Positive A (Negative) EBV Nuc Ag IgG Interp Positive A (Negative) 04/01/24 04/01/24 04/01/24 Range/Units 04:34 07:09 07:09 WBC (3.8-10.6) k/uL RBC (4.30-5.90) m/uL Hgb (13.0-17.5) gm/dL Hct (39.0-53.0) % RDW (11.5-15.5) % Plt Count (150-450) k/uL Neutrophils # (Manual) (1.3-7.7) k/uL Lymphocytes # (Manual) (1.0-4.8) k/uL Metamyelocytes # (Man) (0) k/uL PT (10.0-12.5) sec INR (<1.2) Sodium 131 L (137-145) mmol/L Carbon Dioxide 18 L (22-30) mmol/L BUN 23 H (9-20) mg/dL Creatinine 1.40 H (0.66-1.25) mg/dL Glucose (74-99) mg/dL Plasma Lactic Acid Flo 3.2 H* 4.5 H* (0.7-2.0) mmol/L Total Bilirubin 1.4 H (0.2-1.3) mg/dL AST 307 H (17-59) U/L ALT 143 H (4-49) U/L Alkaline Phosphatase 890 H (38-126) U/L Total Protein 5.7 L (6.3-8.2) g/dL Albumin 2.5 L (3.5-5.0) g/dL CMV IgG Ab (Nonreactive) EBV Capsid Ag IgG Intrp (Negative) EBV Nuc Ag IgG Interp (Negative) 04/01/24 Range/Units 10:53 WBC (3.8-10.6) k/uL RBC (4.30-5.90) m/uL Hgb (13.0-17.5) gm/dL Hct (39.0-53.0) % RDW (11.5-15.5) % Plt Count (150-450) k/uL Neutrophils # (Manual) (1.3-7.7) k/uL Lymphocytes # (Manual) (1.0-4.8) k/uL Metamyelocytes # (Man) (0) k/uL PT (10.0-12.5) sec INR (<1.2) Sodium (137-145) mmol/L Carbon Dioxide (22-30) mmol/L BUN (9-20) mg/dL Creatinine (0.66-1.25) mg/dL Glucose (74-99) mg/dL Plasma Lactic Acid Flo 3.2 H* (0.7-2.0) mmol/L Total Bilirubin (0.2-1.3) mg/dL AST (17-59) U/L ALT (4-49) U/L Alkaline Phosphatase (38-126) U/L Total Protein (6.3-8.2) g/dL Albumin (3.5-5.0) g/dL CMV IgG Ab (Nonreactive) EBV Capsid Ag IgG Intrp (Negative) EBV Nuc Ag IgG Interp (Negative)
[2024-04-01] MEDS: LACTATED RINGERS 1,000 ML IV SCH ×2 (15:39→18:36)
[2024-04-01] MEDS: methylPREDNISolone SOD SUCCI 125 MG/2 ML VIAL IV SCH (17:26)
[2024-04-01 22:06] LABS: Anisocytosis Slight; HCT 21.1 % (39.0-53.0); HGB 7.1 gm/dL (13.0-17.5); Hypochromasia Slight; MCHC 33.7 g/dL (31.0-37.0); MCV 89.2 fL (80.0-100.0); Mean Platelet Volume 10.8; RBC 2.36 m/uL (4.30-5.90); RDW 17.2 % (11.5-15.5)
[2024-04-01 22:30] LABS: Platelet Count 96 k/uL (150-450)
[2024-04-02 08:58] LABS: ALT 121 U/L (10-49); AST 209 U/L (14-35); Albumin 2.4 g/dL (3.8-4.9); Albumin/Globulin Ratio 0.86 Ratio (1.60-3.17); Alkaline Phosphatase 718 U/L (41-126); Calcium 8.4 mg/dL (8.7-10.3); Carbon Dioxide 20.5 mmol/L (21.6-31.8); Chloride 105 mmol/L (96-109); Globulin 2.8 g/dL (1.6-3.3); Glucose 134 mg/dL (70-110); Sodium 133 mmol/L (135-145); Total Protein 5.2 g/dL (6.2-8.2)
[2024-04-02 09:09] LABS: MCH 29.2 pg (27.0-32.0); MCHC 34.1 g/dL (32.0-37.0); MCV 85.6 FL (80.0-97.0); Mean Platelet Volume 12.7 FL (9.5-12.2); NRBC Per 100 WBC 0.02 X 10*3/uL (0.00-0.01); Platelet Count 89 X 10*3/uL (140-440); RBC 2.16 X 10*6/uL (4.40-5.60); RDW 18.2 % (11.5-14.5)
[2024-04-02 10:58] LABS: Band Neutrophils % 13 %; Basophils # (M) 0 X 10*3/uL (0.00-0.10); Eosinophils # (M) 0 X 10*3/uL (0.04-0.35); HCT 18.5 % (39.6-50.0); HGB 6.3 g/dL (13.0-17.0); Lymphocytes # (M) 0.12 X 10*3/uL (0.90-5.00); Metamyelocytes % 1 % (0-0); Monocytes # (M) 0.04 X 10*3/uL (0.20-1.00); Myelocytes % 2 % (0-0); Neutrophils # (M) 0.98 X 10*3/uL (1.80-7.70); Neutrophils % (M) 71 %; WBC 1.17 X 10*3/uL (4.50-10.00)
--- NOTE | 2024-04-02 12:28 | P.PN ---
Subjective Progress Note Date: 04/02/24 Hospital Course: 78-year-old male with history of hypertension, dyslipidemia, anxiety/depression, GERD, CAD status post stent, and recently diagnosed Hodgkin's lymphoma (at least stage III, follows with Dr. De Guzman, diagnosed earlier this month, has not started treatment as of yet), presenting for generalized weakness. Labs: WBC 1.5, hemoglobin 7.4, RDW 16.7, platelet count 117, sodium 131, bicarb 17, creatinine 1.51, glucose 106, lactate 5.8, T. bili 1.4, AST 329, ALT 132, alkaline phosphatase 840, troponin less than 0.012, and BNP 2530. Imaging: - EKG done in the ER showed heart rate of 99 bpm, sinus rhythm with occasional supraventricular premature complexes, nonspecific T wave abnormality, and QTc 383. - ER CXR: Cardiomegaly, pulmonary vascular congestion and bilateral pleural ef fusions suggesting pulmonary edema. Patient started on IV antibiotics. Ecology consulted, also started on IV steroids. Subjective: Patient seen and examined at bedside. No acute events overnight. Continues to have cough, fever. Pertinent positives and negatives as discussed above, a complete review of systems was performed and all other systems are negative. Vitals Signs Reviewed. General: Nontoxic, no distress, appears at stated age, ill-appearing Derm: Warm, dry Head: Atraumatic, normocephalic, symmetric Eyes: EOMI, no lid lag, anicteric sclera Mouth: No lip lesion, mucus membranes moist Cardiovascular: S1S2 reg, no murmur Lungs: Bibasilar rales, no accessory muscle use Abdominal: Soft, nontender to palpation, no guarding, no appreciable organomegaly Ext: No gross muscle atrophy, no edema, no contractures Neuro: CN II-XI grossly intact, no focal neuro deficits Psych: Alert, oriented, appropriate affect Data Reviewed Today: Pertinent Labs: WBC 1.17, hemoglobin 6.3, platelet 89, left shift, sodium 133, creatinine 1.2, bicarb 20.5 AST 209, ALT 121, ALP 719, total bili 1 Imaging: No new imaging Assessment and Plan: Active: Sepsis secondary to suspected pneumonia Febrile neutropenia Recent diagnosis of Hodgkin's lymphoma Pancytopenia Hyponatremia Lactic acidosis Non-anion gap metabolic acidosis -Cultures pending -Continue on cefepime IV 2 g every 12 hours, azithromycin 500 IV daily -On Solu-Medrol 60 IV every 6 hours -Oncology consulted -Tylenol as needed for fever, Robitussin as needed for cough -Change fluids to lactated Ringer's 130 cc an hour -1 unit of PRBCs to be given today Chronic: Psychotic disorder/Anxiety disorder GERD BPH DVT ppx: Subcu heparin Code status: Full code Anticipated discharge place: pending Clinical course Anticipated discharge time: pending Clinical course Objective - Vital Signs Vital signs: Vital Signs Temp 97.8 F 04/02/24 12:00 Pulse 89 04/02/24 12:00 Resp 18 04/02/24 12:00 BP 91/50 04/02/24 12:00 Pulse Ox 96 04/02/24 12:00 FiO2 Intake & Output 04/01/24 04/02/24 04/02/24 18:59 06:59 18:59 Intake Total 480 0 Output Total 600 150 Balance -120 -150 Weight 82.1 kg Intake: Oral 480 Blood Product 0 Unit 0 Output: Urine 600 150 Other: Voiding Method External Catheter Urinal - Labs CBC & Chem 7: 04/02/24 05:10 04/02/24 05:10 Labs: Abnormal Lab Results - Last 24 Hours (Table) 03/31/24 04/01/24 04/01/24 Range/Units 23:36 14:11 17:48 WBC (3.8-10.6) k/uL RBC (4.30-5.90) m/uL Hgb (13.0-17.5) gm/dL Hct (39.0-53.0) % RDW (11.5-15.5) % Plt Count (150-450) k/uL MPV (9.5-12.2) FL Neutrophils # (Manual) (1.80-7.70) X 10*3/uL Lymphocytes # (Manual) (0.90-5.00) X 10*3/uL Monocytes # (Manual) (0.20-1.00) X 10*3/uL Eosinophils # (Manual) (0.04-0.35) X 10*3/uL NRBC/100 WBC Diff (0.00-0.01) X 10*3/uL Sodium (135-145) mmol/L Carbon Dioxide (21.6-31.8) mmol/L Glucose (70-110) mg/dL Plasma Lactic Acid Flo 2.7 H* 3.6 H* (0.7-2.0) mmol/L Calcium (8.7-10.3) mg/dL AST (14-35) U/L ALT (10-49) U/L Alkaline Phosphatase (41-126) U/L Total Protein (6.2-8.2) g/dL Albumin (3.8-4.9) g/dL Albumin/Globulin Ratio (1.60-3.17) Ratio EBV Capsid Ag IgG Intrp Positive A (Negative) EBV Nuc Ag IgG Interp Positive A (Negative) Crossmatch 04/01/24 04/01/24 04/02/24 Range/Units 20:38 21:45 05:10 WBC 1.0 L* 1.17 A* (3.8-10.6) k/uL RBC 2.36 L 2.16 L (4.30-5.90) m/uL Hgb 7.1 L 6.3 A* (13.0-17.5) gm/dL Hct 21.1 L 18.5 A* (39.0-53.0) % RDW 17.2 H 18.2 H (11.5-15.5) % Plt Count 96 L 89 L (150-450) k/uL MPV 12.7 H (9.5-12.2) FL Neutrophils # (Manual) 0.98 L (1.80-7.70) X 10*3/uL Lymphocytes # (Manual) 0.12 L (0.90-5.00) X 10*3/uL Monocytes # (Manual) 0.04 L (0.20-1.00) X 10*3/uL Eosinophils # (Manual) 0 L (0.04-0.35) X 10*3/uL NRBC/100 WBC Diff 0.02 H (0.00-0.01) X 10*3/uL Sodium (135-145) mmol/L Carbon Dioxide (21.6-31.8) mmol/L Glucose (70-110) mg/dL Plasma Lactic Acid Flo 3.5 H* (0.7-2.0) mmol/L Calcium (8.7-10.3) mg/dL AST (14-35) U/L ALT (10-49) U/L Alkaline Phosphatase (41-126) U/L Total Protein (6.2-8.2) g/dL Albumin (3.8-4.9) g/dL Albumin/Globulin Ratio (1.60-3.17) Ratio EBV Capsid Ag IgG Intrp (Negative) EBV Nuc Ag IgG Interp (Negative) Crossmatch 04/02/24 04/02/24 Range/Units 05:10 09:23 WBC (3.8-10.6) k/uL RBC (4.30-5.90) m/uL Hgb (13.0-17.5) gm/dL Hct (39.0-53.0) % RDW (11.5-15.5) % Plt Count (150-450) k/uL MPV (9.5-12.2) FL Neutrophils # (Manual) (1.80-7.70) X 10*3/uL Lymphocytes # (Manual) (0.90-5.00) X 10*3/uL Monocytes # (Manual) (0.20-1.00) X 10*3/uL Eosinophils # (Manual) (0.04-0.35) X 10*3/uL NRBC/100 WBC Diff (0.00-0.01) X 10*3/uL Sodium 133 L (135-145) mmol/L Carbon Dioxide 20.5 L (21.6-31.8) mmol/L Glucose 134 H (70-110) mg/dL Plasma Lactic Acid Flo (0.7-2.0) mmol/L Calcium 8.4 L (8.7-10.3) mg/dL AST 209 H (14-35) U/L ALT 121 H (10-49) U/L Alkaline Phosphatase 718 H (41-126) U/L Total Protein 5.2 L (6.2-8.2) g/dL Albumin 2.4 L (3.8-4.9) g/dL Albumin/Globulin Ratio 0.86 L (1.60-3.17) Ratio EBV Capsid Ag IgG Intrp (Negative) EBV Nuc Ag IgG Interp (Negative) Crossmatch See Detail Microbiology - Last 24 Hours (Table) 03/31/24 23:36 Blood Culture - Preliminary Blood 04/01/24 03:15 Gram Stain - Final Sputum Sputum Culture - Final
--- NOTE | 2024-04-02 13:04 | P.CONS ---
History of Present Illness - Reason for Consult Consult date: 04/01/24 HD Requesting physician: Carla Gay - Chief Complaint weakness - History of Present Illness From consult dated 03/26 Mr. Spicer is a 78-year-old male who was transferred from [facility] in [place] due to hypercalcemia and abnormal lymphadenopathy noted on CT scan. Patient reports has been having increasing confusion over the last 3 weeks as well as weight loss and decreased appetite that has progressed over the last [address] CAP without contrast showed mediastinal and right hilar lymphadenopathy with markedly enlarged subcarinal lymph node. Single mildly enlarged lymph node in the right axilla and 1 in the left periaortic region in the abdomen. Small right pleural effusion with adjacent atelectasis. Minimal reticular nodular opacity most notable in the right lower lobe and less so in the left upper lobe, favoring inflammatory infectious process. Patient was also noted to be in acute renal failure with elevated calcium. Labs upon presentation to the ER showed creatinine 2.45, GFR 24. Calcium 14.7. Patient was given Zometa prior to arrival and calcitonin on admit. Pt was given zometa and calcitonin. IR did a rt axilla core biopsy. The results were back last week, pt has classic Hodgkins with mixed cellularity type. Pt has not been able to make it to an ofc visit to fully discuss diagnosis, prognosis, treatment options. Currently admitted again for increased weakness, can't walk, reports random dizziness-not always with changing positions and SOB, cough. He has documented fevers. He was discharged from the hospital 03/29/2024. He denied chest pain, nausea, vomiting, abdominal pain, diarrhea or dysuria. He has pancytopenia, slightly progressive but not needing transfusion at this time. Calcium level is normal, cr only slightly elevated. LFTs remain elevated. Review of Systems 10 point ROS is neg except as stated in HPI Past Medical History Past Medical History: Coronary Artery Disease (CAD), Cancer, GERD/Reflux, Hyperlipidemia, Myocardial Infarction ([place]) Additional Past Medical History / Comment(s): DJD, Hodgkins Lymphoma 2023 Last Myocardial Infarction Date:: 2016 History of Any Multi-Drug Resistant Organisms: None Reported Past Surgical History: Heart Catheterization With Stent Date of Last Stent Placement:: 2022 Past Psychological History: No Psychological Hx Reported Smoking Status: Former smoker Past Alcohol Use History: None Reported Past Drug Use History: None Reported Medications and Allergies Home Medications Medication Instructions Recorded Confirmed Type ARIPiprazole [Abilify] 5 mg PO HS 03/12/24 03/31/24 History Venlafaxine HCl [Effexor XR] 150 mg PO HS 03/12/24 03/31/24 History Magnesium Oxide [Mag-Ox] 400 mg PO BID #60 tab 03/17/24 03/31/24 Rx Albuterol Inhaler [Ventolin Hfa 1 - 2 puff INHALATION RT-Q4H PRN 03/25/24 03/31/24 History Inhaler] Tamsulosin [Flomax] 0.8 mg PO DAILY 03/25/24 03/31/24 History Pantoprazole [Protonix] 40 mg PO BID #100 tab 03/29/24 03/31/24 Rx guaiFENesin SYRUP 100MG/5ML 200 mg PO BID 03/31/24 03/31/24 History [Robitussin] Allergies Allergy/AdvReac Type Severity Reaction Status Date / Time No Known Allergies Allergy Verified 03/31/24 18:47 Physical Exam Vitals: Vital Signs Temp Pulse Pulse Resp BP BP BP 04/01/24 09:20 18 04/01/24 07:42 100.1 F H 108 H 20 107/60 04/01/24 06:00 99.8 F H 103 H 16 121/61 04/01/24 05:51 103 H 18 121/61 04/01/24 01:36 100 18 114/62 03/31/24 22:07 100.6 F H 102 H 20 104/60 03/31/24 18:42 100.9 F H 105 H 20 104/62 99/48 03/31/24 18:30 104 H 16 80/58 03/31/24 18:00 102 H 24 96/50 03/31/24 17:30 102 H 16 105/51 03/31/24 17:00 103 H 22 89/49 03/31/24 16:00 110 H 30 H 96/58 03/31/24 15:39 99.6 F 103 H 16 94/54 BP Pulse Ox 04/01/24 09:20 04/01/24 07:42 97 04/01/24 06:00 04/01/24 05:51 96 04/01/24 01:36 96 03/31/24 22:07 96 11/25/24 18:42 108/66 98 03/31/24 18:30 96 03/31/24 18:00 97 03/31/24 17:30 97 03/31/24 17:00 99 03/31/24 16:00 95 03/31/24 15:39 93 L Intake and Output 03/31/24 04/01/24 04/01/24 22:59 06:59 14:59 Other: Weight 82.1 kg - Constitutional pt is clammy, diaphoretic General appearance: average body habitus, cooperative, no acute distress - EENT Eyes: anicteric sclerae, EOMI ENT: hearing grossly normal, normal oropharynx - Neck Neck: no lymphadenopathy - Respiratory Respiratory: bilateral: wheezing (tightness ) - Cardiovascular Rhythm: regular Heart sounds: normal: S1, S2 Abnormal Heart Sounds: no systolic murmur, no diastolic murmur, no rub, no S3 Gallop, no S4 Gallop, no click, no other leg Peripheral Edema: bilateral: Trace - Gastrointestinal General gastrointestinal: no absent bowel sounds, no decreased bowel sounds, no distended, no hepatomegaly, no hyperactive bowel sounds, normal bowel sounds, no organomegaly, no rigid, no scaphoid, soft, no splenomegaly, no tenderness, no umbilical hernia, no ventral hernia - Integumentary Integumentary: pale - Neurologic Neurologic: CNII-XII intact - Musculoskeletal Musculoskeletal: generalized weakness, strength equal bilaterally - Psychiatric Psychiatric: A&O x's 3, appropriate affect, intact judgment & insight Results CBC & Chem 7: 04/02/24 05:10 04/02/24 05:10 Labs: Abnormal Lab Results - Last 24 Hours (Table) 03/31/24 03/31/24 03/31/24 Range/Units 16:37 16:37 16:37 WBC 1.5 L (3.8-10.6) k/uL RBC 2.52 L (4.30-5.90) m/uL Hgb 7.4 L (13.0-17.5) gm/dL Hct 22.0 L (39.0-53.0) % RDW 16.7 H (11.5-15.5) % Plt Count 117 L (150-450) k/uL Neutrophils # (Manual) 0.90 L (1.3-7.7) k/uL Lymphocytes # (Manual) 0.20 L (1.0-4.8) k/uL Metamyelocytes # (Man) 0.03 H (0) k/uL PT 13.4 H (10.0-12.5) sec INR 1.3 H (<1.2) Sodium 131 L (137-145) mmol/L Carbon Dioxide 17 L (22-30) mmol/L BUN 25 H (9-20) mg/dL Creatinine 1.51 H (0.66-1.25) mg/dL Glucose 106 H (74-99) mg/dL Plasma Lactic Acid Flo (0.7-2.0) mmol/L Total Bilirubin 1.4 H (0.2-1.3) mg/dL AST 329 H (17-59) U/L ALT 132 H (4-49) U/L Alkaline Phosphatase 840 H (38-126) U/L Total Protein 5.6 L (6.3-8.2) g/dL Albumin 2.4 L (3.5-5.0) g/dL CMV IgG Ab (Nonreactive) 03/31/24 03/31/24 03/31/24 Range/Units 16:37 19:48 22:00 WBC (3.8-10.6) k/uL RBC (4.30-5.90) m/uL Hgb (13.0-17.5) gm/dL Hct (39.0-53.0) % RDW (11.5-15.5) % Plt Count (150-450) k/uL Neutrophils # (Manual) (1.3-7.7) k/uL Lymphocytes # (Manual) (1.0-4.8) k/uL Metamyelocytes # (Man) (0) k/uL PT (10.0-12.5) sec INR (<1.2) Sodium (137-145) mmol/L Carbon Dioxide (22-30) mmol/L BUN (9-20) mg/dL Creatinine (0.66-1.25) mg/dL Glucose (74-99) mg/dL Plasma Lactic Acid Flo 5.6 H* 5.2 H* 5.1 H* (0.7-2.0) mmol/L Total Bilirubin (0.2-1.3) mg/dL AST (17-59) U/L ALT (4-49) U/L Alkaline Phosphatase (38-126) U/L Total Protein (6.3-8.2) g/dL Albumin (3.5-5.0) g/dL CMV IgG Ab (Nonreactive) 03/31/24 04/01/24 04/01/24 Range/Units 23:36 00:57 04:34 WBC (3.8-10.6) k/uL RBC (4.30-5.90) m/uL Hgb (13.0-17.5) gm/dL Hct (39.0-53.0) % RDW (11.5-15.5) % Plt Count (150-450) k/uL Neutrophils # (Manual) (1.3-7.7) k/uL Lymphocytes # (Manual) (1.0-4.8) k/uL Metamyelocytes # (Man) (0) k/uL PT (10.0-12.5) sec INR (<1.2) Sodium (137-145) mmol/L Carbon Dioxide (22-30) mmol/L BUN (9-20) mg/dL Creatinine (0.66-1.25) mg/dL Glucose (74-99) mg/dL Plasma Lactic Acid Flo 4.3 H* 3.2 H* (0.7-2.0) mmol/L Total Bilirubin (0.2-1.3) mg/dL AST (17-59) U/L ALT (4-49) U/L Alkaline Phosphatase (38-126) U/L Total Protein (6.3-8.2) g/dL Albumin (3.5-5.0) g/dL CMV IgG Ab Reactive A (Nonreactive) 04/01/24 Range/Units 07:09 WBC (3.8-10.6) k/uL RBC (4.30-5.90) m/uL Hgb (13.0-17.5) gm/dL Hct (39.0-53.0) % RDW (11.5-15.5) % Plt Count (150-450) k/uL Neutrophils # (Manual) (1.3-7.7) k/uL Lymphocytes # (Manual) (1.0-4.8) k/uL Metamyelocytes # (Man) (0) k/uL PT (10.0-12.5) sec INR (<1.2) Sodium (137-145) mmol/L Carbon Dioxide (22-30) mmol/L BUN (9-20) mg/dL Creatinine (0.66-1.25) mg/dL Glucose (74-99) mg/dL Plasma Lactic Acid Flo 4.5 H* (0.7-2.0) mmol/L Total Bilirubin (0.2-1.3) mg/dL AST (17-59) U/L ALT (4-49) U/L Alkaline Phosphatase (38-126) U/L Total Protein (6.3-8.2) g/dL Albumin (3.5-5.0) g/dL CMV IgG Ab (Nonreactive) Chest x-ray: report reviewed Assessment and Plan (1) Fever Current Visit: Yes Status: Acute Priority: High Code(s): R50.9 - FEVER, UNSPECIFIED SNOMED Code(s): 017973477 (2) Hodgkins lymphoma Current Visit: Yes Status: Acute Priority: High Code(s): C81.90 - HODGKIN LYMPHOMA, UNSPECIFIED, UNSPECIFIED SITE SNOMED Code(s): 429488091 (3) Pancytopenia Current Visit: Yes Status: Acute Priority: High Code(s): D61.818 - OTHER PANCYTOPENIA SNOMED Code(s): 499420637 (4) Weakness Current Visit: Yes Status: Acute Priority: High Code(s): R53.1 - WEAKNESS SNOMED Code(s): 94038436 Plan: Fever -Increased lactic acid levels. Questioning if this is a type B lactic acidosis secondary to malignancy versus infection. Pancultures ordered, empiric antibiotics initiated -Viral panel ordered -Patient does have respiratory symptoms. Steroids have been ordered for wheezing -WBC 1.5, ANC adequate at 900. No G-CSF at this time. Pancytopenia -Suspicions of lymphoma possibly infiltrating the bone marrow vs inflammation/infection. -Plan for now to transfuse as needed-Hgb <7, plt <10, 000 or if symptomatic Hodgkin's lymphoma -New diagnosis -Patient has not been out of the hospital long enough to have staging PET scan or to have a follow-up with medical oncology for diagnosis, plan of care, prognosis. -Will try to meet up with patient's family tomorrow. Doctor attests: I performed a history and physical examination of this patient, developed impression and plan of care. Discussed with dictator. I agree with dictators note, documented as a scribe.
[2024-04-02 13:44] LABS: C-ANCA <1:20 Titer (<1:20)
[2024-04-02 15:14] VITALS: BMI 25.2
--- NOTE | 2024-04-02 16:11 | P.PN ---
Subjective Progress Note Date: 04/02/24 Principal diagnosis: Fever, recent diagnosis of HD In f/u today pt is up in chair, looks better, he reports breathing is easier but cough is nagging, dry, needs cough syrup to sleep. No fevers since yesterday morning. He is tolerating oral intake. Objective - Vital Signs Vital signs: Vital Signs Temp 98.3 F 04/02/24 12:43 Pulse 91 04/02/24 12:43 Resp 18 04/02/24 12:43 BP 95/55 04/02/24 12:43 Pulse Ox 92 L 04/02/24 12:43 FiO2 Intake & Output 04/01/24 04/02/24 04/02/24 18:59 06:59 18:59 Intake Total 480 0 Output Total 600 150 Balance -120 -150 Weight 82.1 kg Intake: Oral 480 Blood Product 0 Unit 0 Output: Urine 600 150 Other: Voiding Method External Catheter Urinal - Constitutional General appearance: Present: average body habitus, cooperative, no acute distre ss - EENT Eyes: Present: anicteric sclerae, EOMI ENT: Present: hearing grossly normal - Respiratory Respiratory: bilateral: wheezing (few scattered, much better then yesterday) - Cardiovascular Rhythm: regular Heart sounds: normal: S1, S2 Abnormal Heart Sounds: Absent: systolic murmur, diastolic murmur, rub, S3 Gallop, S4 Gallop, click, other - Peripheral edema leg Peripheral Edema: bilateral: None - Gastrointestinal General gastrointestinal: Present: normal bowel sounds, soft - Integumentary Integumentary: Present: pale - Neurologic Neurologic: Present: CNII-XII intact - Musculoskeletal Musculoskeletal: Present: generalized weakness, strength equal bilaterally - Psychiatric Psychiatric: Present: A&O x's 3, appropriate affect - Labs CBC & Chem 7: 04/02/24 05:10 04/02/24 05:10 Labs: Abnormal Lab Results - Last 24 Hours (Table) 03/31/24 04/01/24 04/01/24 Range/Units 23:36 14:11 17:48 WBC (3.8-10.6) k/uL RBC (4.30-5.90) m/uL Hgb (13.0-17.5) gm/dL Hct (39.0-53.0) % RDW (11.5-15.5) % Plt Count (150-450) k/uL MPV (9.5-12.2) FL Neutrophils # (Manual) (1.80-7.70) X 10*3/uL Lymphocytes # (Manual) (0.90-5.00) X 10*3/uL Monocytes # (Manual) (0.20-1.00) X 10*3/uL Eosinophils # (Manual) (0.04-0.35) X 10*3/uL NRBC/100 WBC Diff (0.00-0.01) X 10*3/uL Sodium (135-145) mmol/L Carbon Dioxide (21.6-31.8) mmol/L Glucose (70-110) mg/dL Plasma Lactic Acid Flo 2.7 H* 3.6 H* (0.7-2.0) mmol/L Calcium (8.7-10.3) mg/dL AST (14-35) U/L ALT (10-49) U/L Alkaline Phosphatase (41-126) U/L Total Protein (6.2-8.2) g/dL Albumin (3.8-4.9) g/dL Albumin/Globulin Ratio (1.60-3.17) Ratio EBV Capsid Ag IgG Intrp Positive A (Negative) EBV Nuc Ag IgG Interp Positive A (Negative) Crossmatch 04/01/24 04/01/24 04/02/24 Range/Units 20:38 21:45 05:10 WBC 1.0 L* 1.17 A* (3.8-10.6) k/uL RBC 2.36 L 2.16 L (4.30-5.90) m/uL Hgb 7.1 L 6.3 A* (13.0-17.5) gm/dL Hct 21.1 L 18.5 A* (39.0-53.0) % RDW 17.2 H 18.2 H (11.5-15.5) % Plt Count 96 L 89 L (150-450) k/uL MPV 12.7 H (9.5-12.2) FL Neutrophils # (Manual) 0.98 L (1.80-7.70) X 10*3/uL Lymphocytes # (Manual) 0.12 L (0.90-5.00) X 10*3/uL Monocytes # (Manual) 0.04 L (0.20-1.00) X 10*3/uL Eosinophils # (Manual) 0 L (0.04-0.35) X 10*3/uL NRBC/100 WBC Diff 0.02 H (0.00-0.01) X 10*3/uL Sodium (135-145) mmol/L Carbon Dioxide (21.6-31.8) mmol/L Glucose (70-110) mg/dL Plasma Lactic Acid Flo 3.5 H* (0.7-2.0) mmol/L Calcium (8.7-10.3) mg/dL AST (14-35) U/L ALT (10-49) U/L Alkaline Phosphatase (41-126) U/L Total Protein (6.2-8.2) g/dL Albumin (3.8-4.9) g/dL Albumin/Globulin Ratio (1.60-3.17) Ratio EBV Capsid Ag IgG Intrp (Negative) EBV Nuc Ag IgG Interp (Negative) Crossmatch 04/02/24 04/02/24 Range/Units 05:10 09:23 WBC (3.8-10.6) k/uL RBC (4.30-5.90) m/uL Hgb (13.0-17.5) gm/dL Hct (39.0-53.0) % RDW (11.5-15.5) % Plt Count (150-450) k/uL MPV (9.5-12.2) FL Neutrophils # (Manual) (1.80-7.70) X 10*3/uL Lymphocytes # (Manual) (0.90-5.00) X 10*3/uL Monocytes # (Manual) (0.20-1.00) X 10*3/uL Eosinophils # (Manual) (0.04-0.35) X 10*3/uL NRBC/100 WBC Diff (0.00-0.01) X 10*3/uL Sodium 133 L (135-145) mmol/L Carbon Dioxide 20.5 L (21.6-31.8) mmol/L Glucose 134 H (70-110) mg/dL Plasma Lactic Acid Flo (0.7-2.0) mmol/L Calcium 8.4 L (8.7-10.3) mg/dL AST 209 H (14-35) U/L ALT 121 H (10-49) U/L Alkaline Phosphatase 718 H (41-126) U/L Total Protein 5.2 L (6.2-8.2) g/dL Albumin 2.4 L (3.8-4.9) g/dL Albumin/Globulin Ratio 0.86 L (1.60-3.17) Ratio EBV Capsid Ag IgG Intrp (Negative) EBV Nuc Ag IgG Interp (Negative) Crossmatch See Detail Microbiology - Last 24 Hours (Table) 03/31/24 23:36 Blood Culture - Preliminary Blood 04/01/24 03:15 Gram Stain - Final Sputum Sputum Culture - Final Assessment and Plan (1) Fever Current Visit: Yes Status: Acute Priority: High Code(s): R50.9 - FEVER, UNSPECIFIED SNOMED Code(s): 224764231 (2) Hodgkins lymphoma Current Visit: Yes Status: Acute Priority: High Code(s): C81.90 - HODGKIN LYMPHOMA, UNSPECIFIED, UNSPECIFIED SITE SNOMED Code(s): 826862039 (3) Pancytopenia Current Visit: Yes Status: Acute Priority: High Code(s): D61.818 - OTHER PANCYTOPENIA SNOMED Code(s): 318846111 (4) Weakness Current Visit: Yes Status: Acute Priority: High Code(s): R53.1 - WEAKNESS SNOMED Code(s): 29743473 Plan: Fever -Increased lactic acid levels. Questioning if this is a type B lactic acidosis secondary to malignancy versus infection. Pancultures ordered, empiric antibiotics initiated. -Viral panel ordered-all neg -Respiratory symptoms improved today with abx, resp treatments and steroids -WBC 1.17, ANC ok at 980. No G-CSF at this time. -Let pt know he will need to be afebrile for at least 24 hours and cultures will have to be neg at 48 hours before he can go home Pancytopenia -Suspicions of lymphoma possibly infiltrating the bone marrow vs inflammation/infection. -Plan for now to transfuse as needed-Hgb <7, plt <10, 000 or if symptomatic Hodgkin's lymphoma -New diagnosis -Patient has not been out of the hospital long enough to have staging PET scan or to have a follow-up with medical oncology for diagnosis, plan of care, prognosis. -Discussed diagnosis, pending studies, potential plans for treatment with patient's family today. It was also discussed the concern that pt may have liver and bone marrow involvement-could explain LFT elevation and significant drop in CBC. PET scan will give a better picture of extent of disease. Son has rescheduled PET for 04/17. -Starting pulse dose dex for "treatment" until actual treatment can begin. Hopes to keep pt stable at home. Rx for 2 rounds of pulse dose dex sent to [facility]. PPI BID -TLS labs daily -Low dose of allopurinol started empirically Discussed case with Attending. Doctor attests: I performed a history and physical examination of this patient, developed impression and plan of care. Discussed with dictator. I agree with dictators note, documented as a scribe.
[2024-04-03] MEDS: IPRATROPIUM-ALBUTEROL 3 ML NEB INHALATION PRN (02:08)
[2024-04-03 05:23] LABS: Phosphorus 3.6 mg/dL (2.4-5.1); Uric Acid 4.1 mg/dL (3.7-8.7)
[2024-04-03 07:01] LABS: Anisocytosis Slight; HCT 22.5 % (39.0-53.0); HGB 7.4 gm/dL (13.0-17.5); Hypochromasia Moderate; MCHC 32.7 g/dL (31.0-37.0); MCV 88.6 fL (80.0-100.0); Mean Platelet Volume 10.8; Platelet Count 100 k/uL (150-450); Poikilocytosis Slight; RBC 2.54 m/uL (4.30-5.90); RDW 17.6 % (11.5-15.5)
[2024-04-03 07:15] LABS: WBC 1.4 k/uL (3.8-10.6)
[2024-04-03 08:40] LABS: Lymphocytes # (M) 0.14 k/uL (1.0-4.8); Metamyelocytes # (M) 0.03 k/uL (0); Metamyelocytes % 2 %; Monocytes # (M) 0.13 k/uL (0-1.0); Myelocytes # (M) 0.01 k/uL (0); Myelocytes % 1 %; Neutrophils # (M) 1.09 k/uL (1.3-7.7); Neutrophils % (M) 78 %; Nucleated Red Blood Cells 0 /100 WBC (0-0); Total Cells Counted 200
[2024-04-03 08:41] LABS: Poikilocytosis (M) Present
[2024-04-03 08:42] LABS: Crenated RBC Present
[2024-04-03] MEDS: dexAMETHasone 4 MG TAB PO SCH (09:20)
[2024-04-03] MEDS: allopurinoL 100 MG TAB PO SCH (09:21)
[2024-04-03 10:31] LABS: ALT 105 U/L (10-49); AST 146 U/L (14-35); Albumin 2.4 g/dL (3.8-4.9); Albumin/Globulin Ratio 0.96 Ratio (1.60-3.17); Alkaline Phosphatase 672 U/L (41-126); BUN/Creat Ratio 21.83 Ratio (12.00-20.00); Blood Urea Nitrogen 26.2 mg/dL (9.0-27.0); Calcium 9.1 mg/dL (8.7-10.3); Carbon Dioxide 18.6 mmol/L (21.6-31.8); Chloride 104 mmol/L (96-109); Globulin 2.5 g/dL (1.6-3.3); Glucose 113 mg/dL (70-110); Magnesium 1.9 mg/dL (1.5-2.4); Phosphorus 3.3 mg/dL (2.4-5.1); Sodium 133 mmol/L (135-145); Total Bilirubin 0.8 mg/dL (0.3-1.2); Total Protein 4.9 g/dL (6.2-8.2); Uric Acid 3.7 mg/dL (3.7-8.7)
--- NOTE | 2024-04-03 12:12 | P.PN ---
Subjective Progress Note Date: 04/03/24 The patient states that he feels much better compared to yesterday, in terms of overall wellbeing and energy level. He does report having a dark bowel movement, this is not sure if this is black or dark brown. He has not had any fever or chills today. No nausea or vomiting, or abdominal pain. Objective - Vital Signs Vital signs: Vital Signs Temp 97.7 F 04/03/24 06:09 Pulse 92 04/03/24 06:09 Resp 18 04/03/24 06:09 BP 116/64 04/03/24 06:09 Pulse Ox 96 04/03/24 06:09 FiO2 Intake & Output 04/02/24 04/03/24 04/03/24 18:59 06:59 18:59 Intake Total 1063 240 Output Total 450 Balance 613 240 Weight 82.1 kg Intake: Oral 780 240 Blood Product 283 Rc Pheresis 2 As3 Unit 283 [id number] Output: Urine 450 Other: Voiding Method Urinal Toilet Urinal Diaper Incontinent # Voids 1 - Constitutional General appearance: Present: no acute distress - EENT Eyes: Present: EOMI ENT: Present: hearing grossly normal, normal oropharynx - Respiratory Respiratory: bilateral: CTA - Cardiovascular Rhythm: regular Heart sounds: normal: S1, S2 - Gastrointestinal General gastrointestinal: Present: normal bowel sounds, soft - Musculoskeletal Musculoskeletal: Present: generalized weakness - Psychiatric Psychiatric: Present: A&O x's 3, appropriate affect - Labs CBC & Chem 7: 04/03/24 05:28 04/03/24 05:28 Labs: Abnormal Lab Results - Last 24 Hours (Table) 04/02/24 04/03/24 04/03/24 Range/Units 09:23 05:28 05:28 WBC 1.4 L* (3.8-10.6) k/uL RBC 2.54 L (4.30-5.90) m/uL Hgb 7.4 L (13.0-17.5) gm/dL Hct 22.5 L (39.0-53.0) % RDW 17.6 H (11.5-15.5) % Plt Count 100 L (150-450) k/uL Neutrophils # (Manual) 1.09 L (1.3-7.7) k/uL Lymphocytes # (Manual) 0.14 L (1.0-4.8) k/uL Metamyelocytes # (Man) 0.03 H (0) k/uL Myelocytes # (Manual) 0.01 H (0) k/uL Sodium 133 L (135-145) mmol/L Carbon Dioxide 18.6 L (21.6-31.8) mmol/L BUN/Creatinine Ratio 21.83 H (12.00-20.00) Ratio Glucose 113 H (70-110) mg/dL AST 146 H (14-35) U/L ALT 105 H (10-49) U/L Alkaline Phosphatase 672 H (41-126) U/L Total Protein 4.9 L (6.2-8.2) g/dL Albumin 2.4 L (3.8-4.9) g/dL Albumin/Globulin Ratio 0.96 L (1.60-3.17) Ratio Crossmatch See Detail Microbiology - Last 24 Hours (Table) 03/31/24 23:36 Blood Culture - Preliminary Blood Assessment and Plan (1) Fever Narrative/Plan: Afebrile last 24 hours. Patient subjectively feels better. Cultures are negative so far. At this time there is concern that his symptoms could represent tumor effect. Patient has been started on bolus steroids yesterday. The improvement on steroids would appear to support the clinical impression of tumor fever/tumor related inflammation. Current Visit: Yes Status: Acute Priority: High Code(s): R50.9 - FEVER, UNSPECIFIED SNOMED Code(s): 736968246 (2) Pancytopenia Narrative/Plan: Blood counts are stable today, with hemoglobin greater than 7. ANC is actually greater than 1000. Platelets are 100. Continue to monitor and transfuse to keep hemoglobin greater than 7. Current Visit: Yes Status: Acute Priority: High Code(s): D61.818 - OTHER PANCYTOPENIA SNOMED Code(s): 175663075 (3) Elevated LFTs Narrative/Plan: Etiology is not definite at this time. Tumor infiltration is in the differential, but is uncommon with his type of cancer. Liver enzymes are overall stable in the same range. A PET scan as an outpatient may be helpful in determining whether there is tumor involvement or not in the liver, although it may not be accurate in case of diffuse involvement. Liver biopsy may need to be considered, especially if liver enzymes increase, and imaging is unrevealing Current Visit: No Status: Acute Priority: High Code(s): R79.89 - OTHER SPECIFIED ABNORMAL FINDINGS OF BLOOD CHEMISTRY SNOMED Code(s): 298535866
--- NOTE | 2024-04-03 13:00 | P.PN ---
Subjective Progress Note Date: 04/03/24 Hospital Course: 78-year-old male with history of hypertension, dyslipidemia, anxiety/depression, GERD, CAD status post stent, and recently diagnosed Hodgkin's lymphoma (at least stage III, follows with Dr. De Guzman, diagnosed earlier this month, has not started treatment as of yet), presenting for generalized weakness. Labs: WBC 1.5, hemoglobin 7.4, RDW 16.7, platelet count 117, sodium 131, bicarb 17, creatinine 1.51, glucose 106, lactate 5.8, T. bili 1.4, AST 329, ALT 132, alkaline phosphatase 840, troponin less than 0.012, and BNP 2530. Imaging: - EKG done in the ER showed heart rate of 99 bpm, sinus rhythm with occasional supraventricular premature complexes, nonspecific T wave abnormality, and QTc 383. - ER CXR: Cardiomegaly, pulmonary vascular congestion and bilateral pleural ef fusions suggesting pulmonary edema. Patient started on IV antibiotics. Oncology consulted, also started on oral dexamethasone. Subjective: Patient seen and examined at bedside. No acute events overnight. Continues to have cough and shortness of breath Pertinent positives and negatives as discussed above, a complete review of systems was performed and all other systems are negative. Vitals Signs Reviewed. General: Nontoxic, no distress, appears at stated age, ill-appearing Derm: Warm, dry Head: Atraumatic, normocephalic, symmetric Eyes: EOMI, no lid lag, anicteric sclera Mouth: No lip lesion, mucus membranes moist Cardiovascular: S1S2 reg, no murmur Lungs: Bibasilar rales, no accessory muscle use Abdominal: Soft, nontender to palpation, no guarding, no appreciable organomegaly Ext: No gross muscle atrophy, no edema, no contractures Neuro: CN II-XI grossly intact, no focal neuro deficits Psych: Alert, oriented, appropriate affect Data Reviewed Today: Pertinent Labs: WBC WBC 1.4, hemoglobin 7.4, platelet 300, sodium 133, creatinine 1.2, magnesium 1.9 Imaging: No new imaging Assessment and Plan: Active: SIRS, suspected bacterial pneumonia versus secondary to lymphoma Febrile neutropenia Recent diagnosis of Hodgkin's lymphoma Pancytopenia, status post 1 unit PRBCs Hyponatremia Lactic acidosis Non-anion gap metabolic acidosis -Cultures pending -Continue on cefepime IV 2 g every 12 hours, status post azithromycin 500 IV daily, consider de-escalating -On oral dexamethasone 40 mg daily -Oncology following, note reviewed -Tylenol as needed for fever, Robitussin as needed for cough -Discontinue lactated Ringer -Repeat CBC and CMP tomorrow Chronic: Psychotic disorder/Anxiety disorder GERD BPH DVT ppx: Subcu heparin Code status: Full code Anticipated discharge place: pending Clinical course Anticipated discharge time: pending Clinical course Objective - Vital Signs Vital signs: Vital Signs Temp 97.5 F L 04/03/24 12:10 Pulse 94 04/03/24 12:10 Resp 16 04/03/24 12:10 BP 127/67 04/03/24 12:10 Pulse Ox 98 04/03/24 12:10 FiO2 Intake & Output 04/02/24 04/03/24 04/03/24 18:59 06:59 18:59 Intake Total 1063 476 Output Total 450 Balance 613 476 Weight 82.1 kg Intake: Oral 780 476 Blood Product 283 Rc Pheresis 2 As3 Unit 283 [id number] Output: Urine 450 Other: Voiding Method Urinal Toilet Urinal Diaper Incontinent # Voids 1 - Labs CBC & Chem 7: 04/03/24 05:28 04/03/24 05:28 Labs: Abnormal Lab Results - Last 24 Hours (Table) 04/02/24 04/03/24 04/03/24 Range/Units 09:23 05:28 05:28 WBC 1.4 L* (3.8-10.6) k/uL RBC 2.54 L (4.30-5.90) m/uL Hgb 7.4 L (13.0-17.5) gm/dL Hct 22.5 L (39.0-53.0) % RDW 17.6 H (11.5-15.5) % Plt Count 100 L (150-450) k/uL Neutrophils # (Manual) 1.09 L (1.3-7.7) k/uL Lymphocytes # (Manual) 0.14 L (1.0-4.8) k/uL Metamyelocytes # (Man) 0.03 H (0) k/uL Myelocytes # (Manual) 0.01 H (0) k/uL Sodium 133 L (135-145) mmol/L Carbon Dioxide 18.6 L (21.6-31.8) mmol/L BUN/Creatinine Ratio 21.83 H (12.00-20.00) Ratio Glucose 113 H (70-110) mg/dL AST 146 H (14-35) U/L ALT 105 H (10-49) U/L Alkaline Phosphatase 672 H (41-126) U/L Total Protein 4.9 L (6.2-8.2) g/dL Albumin 2.4 L (3.8-4.9) g/dL Albumin/Globulin Ratio 0.96 L (1.60-3.17) Ratio Crossmatch See Detail Microbiology - Last 24 Hours (Table) 03/31/24 23:36 Blood Culture - Preliminary Blood
[2024-04-04 10:51] LABS: ALT 96 U/L (10-49); AST 110 U/L (14-35); Albumin 2.5 g/dL (3.8-4.9); Alkaline Phosphatase 654 U/L (41-126); BUN/Creat Ratio 22.75 Ratio (12.00-20.00); Blood Urea Nitrogen 27.3 mg/dL (9.0-27.0); Calcium 9.9 mg/dL (8.7-10.3); Carbon Dioxide 21.7 mmol/L (21.6-31.8); Chloride 104 mmol/L (96-109); Globulin 2.5 g/dL (1.6-3.3); Glucose 99 mg/dL (70-110); Phosphorus 3.1 mg/dL (2.4-5.1); Potassium 4.8 mmol/L (3.5-5.5); Sodium 134 mmol/L (135-145); Total Bilirubin 0.8 mg/dL (0.3-1.2); Uric Acid 3.1 mg/dL (3.7-8.7)
[2024-04-04 11:01] LABS: HCT 21.7 % (39.6-50.0); HGB 7.2 g/dL (13.0-17.0); MCHC 33.2 g/dL (32.0-37.0); MCV 84.4 FL (80.0-97.0); Mean Platelet Volume 12.5 FL (9.5-12.2); NRBC Per 100 WBC 0.02 X 10*3/uL (0.00-0.01); Platelet Count 96 X 10*3/uL (140-440); RBC 2.57 X 10*6/uL (4.40-5.60); RDW 18.4 % (11.5-14.5)
[2024-04-04 12:42] LABS: Basophils # (M) 0 X 10*3/uL (0.00-0.10); Eosinophils # (M) 0 X 10*3/uL (0.04-0.35); Hypochromasia (M) 2+; Lymphocytes # (M) 0.17 X 10*3/uL (0.90-5.00); Metamyelocytes % 2 % (0-0); Microcytosis (M) 2+; Monocytes # (M) 0.11 X 10*3/uL (0.20-1.00); Neutrophils # (M) 1.09 X 10*3/uL (1.80-7.70); Neutrophils % (M) 78 %
--- NOTE | 2024-04-04 13:08 | P.PN ---
Subjective Progress Note Date: 04/04/24 The patient states that he feels well. He was sitting up in bed having lunch. He reports a good appetite. He has not had any obvious bleeding, nausea or vomiting. He denied any abdominal pain. Objective - Vital Signs Vital signs: Vital Signs Temp 97.7 F 04/04/24 12:39 Pulse 87 04/04/24 12:39 Resp 16 04/04/24 12:39 BP 138/71 04/04/24 12:39 Pulse Ox 92 L 04/04/24 12:39 FiO2 Intake & Output 04/03/24 04/04/24 04/04/24 18:59 06:59 18:59 Intake Total 2031 473 598 Balance 2031 473 598 Intake: Oral 2031 473 598 Other: Voiding Method Toilet Urinal # Voids 1 2 # Bowel Movements 1 - Constitutional General appearance: Present: no acute distress - EENT ENT: Present: hearing grossly normal, normal oropharynx - Respiratory Respiratory: bilateral: CTA - Cardiovascular Rhythm: regular Heart sounds: normal: S1, S2 - Gastrointestinal General gastrointestinal: Present: normal bowel sounds, soft - Integumentary Integumentary: Present: normal - Musculoskeletal Musculoskeletal: Present: strength equal bilaterally - Psychiatric Psychiatric: Present: A&O x's 3, appropriate affect - Labs CBC & Chem 7: 04/04/24 07:30 04/04/24 07:30 Labs: Abnormal Lab Results - Last 24 Hours (Table) 04/04/24 04/04/24 Range/Units 07:30 07:30 WBC 1.40 A* (4.50-10.00) X 10*3/uL RBC 2.57 L (4.40-5.60) X 10*6/uL Hgb 7.2 L (13.0-17.0) g/dL Hct 21.7 L (39.6-50.0) % RDW 18.4 H (11.5-14.5) % Plt Count 96 L (140-440) X 10*3/uL MPV 12.5 H (9.5-12.2) FL Neutrophils # (Manual) 1.09 L (1.80-7.70) X 10*3/uL Lymphocytes # (Manual) 0.17 L (0.90-5.00) X 10*3/uL Monocytes # (Manual) 0.11 L (0.20-1.00) X 10*3/uL Eosinophils # (Manual) 0 L (0.04-0.35) X 10*3/uL NRBC/100 WBC Diff 0.02 H (0.00-0.01) X 10*3/uL Hypochromasia (manual) 2+ A Microcytosis (manual) 2+ A Sodium 134 L (135-145) mmol/L BUN 27.3 H (9.0-27.0) mg/dL BUN/Creatinine Ratio 22.75 H (12.00-20.00) Ratio Uric Acid 3.1 L (3.7-8.7) mg/dL AST 110 H (14-35) U/L ALT 96 H (10-49) U/L Alkaline Phosphatase 654 H (41-126) U/L Total Protein 5.0 L (6.2-8.2) g/dL Albumin 2.5 L (3.8-4.9) g/dL Albumin/Globulin Ratio 1.00 L (1.60-3.17) Ratio Microbiology - Last 24 Hours (Table) 03/31/24 23:36 Blood Culture - Preliminary Blood Assessment and Plan (1) Fever Narrative/Plan: The patient remains afebrile, with no recurrence of fever since his last assessment yesterday. Therefore at this time, tumor fever appears more likely since he has improved since being started on bolus steroids. Infection workup negative so far Current Visit: Yes Status: Acute Priority: High Code(s): R50.9 - FEVER, UNSPECIFIED SNOMED Code(s): 869054438 (2) Pancytopenia Narrative/Plan: Counts remain overall stable, with WBC in the same range. Hemoglobin is above 7. Transfuse if it drops below 7. Current Visit: Yes Status: Acute Priority: High Code(s): D61.818 - OTHER PANCYTOPENIA SNOMED Code(s): 520409819 (3) Elevated LFTs Narrative/Plan: Liver enzymes show a mild downward trend. As this seems to be related to the initiation of steroids, tumor involvement of the liver parenchyma becomes more likely, although this would be an unusual presentation for classical Hodgkin's lymphoma. Continue to monitor Current Visit: No Status: Acute Priority: High Code(s): R79.89 - OTHER SPECIFIED ABNORMAL FINDINGS OF BLOOD CHEMISTRY SNOMED Code(s): 051098327
--- NOTE | 2024-04-04 15:05 | P.PN ---
Subjective Progress Note Date: 04/04/24 Hospital Course: 78-year-old male with history of hypertension, dyslipidemia, anxiety/depression, GERD, CAD status post stent, and recently diagnosed Hodgkin's lymphoma (at least stage III, follows with Dr. De Guzman, diagnosed earlier this month, has not started treatment as of yet), presenting for generalized weakness. Labs: WBC 1.5, hemoglobin 7.4, RDW 16.7, platelet count 117, sodium 131, bicarb 17, creatinine 1.51, glucose 106, lactate 5.8, T. bili 1.4, AST 329, ALT 132, alkaline phosphatase 840, troponin less than 0.012, and BNP 2530. Imaging: - EKG done in the ER showed heart rate of 99 bpm, sinus rhythm with occasional supraventricular premature complexes, nonspecific T wave abnormality, and QTc 383. - ER CXR: Cardiomegaly, pulmonary vascular congestion and bilateral pleural effusions suggesting pulmonary edema. Patient started on IV antibiotics. Oncology consulted, also started on oral dexamethasone. Subjective: Patient seen and examined at bedside. No acute events overnight. Feels much better, pending clearance from heme/onc for discharge. Vitals Signs Reviewed. Gen: In NAD, non-toxic HEENT: normocephalic, atraumatic, hearing acuity is intant, mucous membranes moist CVS: perfusing all extremities well, no pitting edema, Respiratory: symmetric chest expansion, no accessory muscle use, GI: soft, NTTP, ND, : no suprapubic tenderness, no CVA tenderness MSK/Derm: no rashes, cyanosis Neuro: CN II-XII intact, no motor weakness, Psych: cooperative, euthymic mood, judgment and insight is intact Data Reviewed Today: Pertinent Labs: WBC WBC 1.4, hemoglobin 7.4, platelet 300, sodium 133, creatinine 1.2, magnesium 1.9 Imaging: No new imaging Assessment and Plan: Active: SIRS, suspected bacterial pneumonia versus secondary to lymphoma Febrile neutropenia Recent diagnosis of Hodgkin's lymphoma Pancytopenia, status post 1 unit PRBCs Hyponatremia Lactic acidosis Non-anion gap metabolic acidosis -Cultures pending -Discontinuing cefepime today, will monitor patient for an additional 24 hours to ensure no recurrence of fevers off of antibiotics -On oral dexamethasone 40 mg daily -Oncology following, note reviewed -Tylenol as needed for fever, Robitussin as needed for cough -Discontinue lactated Ringer -Repeat CBC and CMP tomorrow Chronic: Psychotic disorder/Anxiety disorder GERD BPH DVT ppx: Subcu heparin Code status: Full code Anticipated discharge place: pending Clinical course Anticipated discharge time: pending Clinical course Objective - Vital Signs Vital signs: Vital Signs Temp 97.7 F 04/04/24 12:39 Pulse 87 04/04/24 12:39 Resp 16 04/04/24 12:39 BP 138/71 04/04/24 12:39 Pulse Ox 92 L 04/04/24 12:39 FiO2 Intake & Output 04/03/24 04/04/24 04/04/24 18:59 06:59 18:59 Intake Total 2031 473 834 Balance 2031 473 834 Intake: Oral 2031 473 834 Other: Voiding Method Toilet Urinal # Voids 1 2 # Bowel Movements 1 - Labs CBC & Chem 7: 04/04/24 07:30 04/04/24 07:30 Labs: Abnormal Lab Results - Last 24 Hours (Table) 04/04/24 04/04/24 Range/Units 07:30 07:30 WBC 1.40 A* (4.50-10.00) X 10*3/uL RBC 2.57 L (4.40-5.60) X 10*6/uL Hgb 7.2 L (13.0-17.0) g/dL Hct 21.7 L (39.6-50.0) % RDW 18.4 H (11.5-14.5) % Plt Count 96 L (140-440) X 10*3/uL MPV 12.5 H (9.5-12.2) FL Neutrophils # (Manual) 1.09 L (1.80-7.70) X 10*3/uL Lymphocytes # (Manual) 0.17 L (0.90-5.00) X 10*3/uL Monocytes # (Manual) 0.11 L (0.20-1.00) X 10*3/uL Eosinophils # (Manual) 0 L (0.04-0.35) X 10*3/uL NRBC/100 WBC Diff 0.02 H (0.00-0.01) X 10*3/uL Hypochromasia (manual) 2+ A Microcytosis (manual) 2+ A Sodium 134 L (135-145) mmol/L BUN 27.3 H (9.0-27.0) mg/dL BUN/Creatinine Ratio 22.75 H (12.00-20.00) Ratio Uric Acid 3.1 L (3.7-8.7) mg/dL AST 110 H (14-35) U/L ALT 96 H (10-49) U/L Alkaline Phosphatase 654 H (41-126) U/L Total Protein 5.0 L (6.2-8.2) g/dL Albumin 2.5 L (3.8-4.9) g/dL Albumin/Globulin Ratio 1.00 L (1.60-3.17) Ratio Microbiology - Last 24 Hours (Table) 03/31/24 23:36 Blood Culture - Preliminary Blood
[2024-04-05 09:41] LABS: ALT 94 U/L (10-49); AST 93 U/L (14-35); Albumin 2.5 g/dL (3.8-4.9); Albumin/Globulin Ratio 1.04 Ratio (1.60-3.17); Alkaline Phosphatase 597 U/L (41-126); BUN/Creat Ratio 27.36 Ratio (12.00-20.00); Blood Urea Nitrogen 30.1 mg/dL (9.0-27.0); Carbon Dioxide 21.6 mmol/L (21.6-31.8); Chloride 102 mmol/L (96-109); Globulin 2.4 g/dL (1.6-3.3); Glucose 82 mg/dL (70-110); Phosphorus 3.5 mg/dL (2.4-5.1); Potassium 4.8 mmol/L (3.5-5.5); Sodium 131 mmol/L (135-145); Total Bilirubin 0.7 mg/dL (0.3-1.2); Total Protein 4.9 g/dL (6.2-8.2); Uric Acid 3.2 mg/dL (3.7-8.7)
[2024-04-05 12:08] LABS: Basophils # (M) 0 X 10*3/uL (0.00-0.10); Eosinophils # (M) 0.01 X 10*3/uL (0.04-0.35); HCT 21.2 % (39.6-50.0); HGB 7.1 g/dL (13.0-17.0); Lymphocytes # (M) 0.34 X 10*3/uL (0.90-5.00); MCH 28.2 pg (27.0-32.0); MCHC 33.5 g/dL (32.0-37.0); MCV 84.1 FL (80.0-97.0); Mean Platelet Volume 12.3 FL (9.5-12.2); Metamyelocytes % 1 % (0-0); Monocytes # (M) 0.15 X 10*3/uL (0.20-1.00); Myelocytes % 4 % (0-0); NRBC Per 100 WBC 0.02 X 10*3/uL (0.00-0.01); Neutrophils # (M) 0.89 X 10*3/uL (1.80-7.70); Neutrophils % (M) 61 %; Platelet Count 88 X 10*3/uL (140-440); RBC 2.52 X 10*6/uL (4.40-5.60); RBC Morphology Normal (Normal); RDW 18.5 % (11.5-14.5); WBC 1.46 X 10*3/uL (4.50-10.00)
--- NOTE | 2024-04-05 15:29 | P.PN ---
Subjective Progress Note Date: 04/05/24 Hospital Course: 78-year-old male with history of hypertension, dyslipidemia, anxiety/depression, GERD, CAD status post stent, and recently diagnosed Hodgkin's lymphoma (at least stage III, follows with Dr. De Guzman, diagnosed earlier this month, has not started treatment as of yet), presenting for generalized weakness. Labs: WBC 1.5, hemoglobin 7.4, RDW 16.7, platelet count 117, sodium 131, bicarb 17, creatinine 1.51, glucose 106, lactate 5.8, T. bili 1.4, AST 329, ALT 132, alkaline phosphatase 840, troponin less than 0.012, and BNP 2530. Imaging: - EKG done in the ER showed heart rate of 99 bpm, sinus rhythm with occasional supraventricular premature complexes, nonspecific T wave abnormality, and QTc 383. - ER CXR: Cardiomegaly, pulmonary vascular congestion and bilateral pleural effusions suggesting pulmonary edema. Patient started on IV antibiotics. Oncology consulted, also started on oral dexamethasone. Subjective: Patient seen and examined at bedside. No acute events overnight. Feels much better, pending clearance from heme/onc for discharge. Vitals Signs Reviewed. Gen: In NAD, non-toxic HEENT: normocephalic, atraumatic, hearing acuity is intant, mucous membranes moist CVS: perfusing all extremities well, no pitting edema, Respiratory: symmetric chest expansion, no accessory muscle use, GI: soft, NTTP, ND, : no suprapubic tenderness, no CVA tenderness MSK/Derm: no rashes, cyanosis Neuro: CN II-XII intact, no motor weakness, Psych: cooperative, euthymic mood, judgment and insight is intact Data Reviewed Today: Pertinent Labs: WBC WBC 1.4, hemoglobin 7.4, platelet 300, sodium 133, creatinine 1.2, magnesium 1.9 Imaging: No new imaging Assessment and Plan: Active: SIRS, suspected bacterial pneumonia versus secondary to lymphoma Febrile neutropenia Recent diagnosis of Hodgkin's lymphoma Pancytopenia, status post 1 unit PRBCs Hyponatremia Lactic acidosis Non-anion gap metabolic acidosis -Cultures pending -Discontinuing cefepime today, will monitor patient for an additional 24 hours to ensure no recurrence of fevers off of antibiotics -On oral dexamethasone 40 mg daily -Oncology following, note reviewed -Tylenol as needed for fever, Robitussin as needed for cough -Discontinue lactated Ringer -Repeat CBC and CMP tomorrow Chronic: Psychotic disorder/Anxiety disorder GERD BPH DVT ppx: Subcu heparin Code status: Full code Anticipated discharge place: pending Clinical course Anticipated discharge time: pending Clinical course Objective - Vital Signs Vital signs: Vital Signs Temp 98.0 F 04/05/24 14:00 Pulse 84 04/05/24 14:00 Resp 16 04/05/24 14:00 BP 116/61 04/05/24 14:00 Pulse Ox 94 L 04/05/24 14:00 FiO2 Intake & Output 04/04/24 04/05/24 04/05/24 18:59 06:59 18:59 Intake Total 2630 240 1078 Output Total 300 Balance 2630 -60 1078 Intake: Oral 2630 240 1078 Output: Urine 300 Other: Voiding Method Toilet Toilet Urinal Urinal # Voids 6 5 # Bowel Movements 1 - Labs CBC & Chem 7: 04/05/24 05:12 04/05/24 05:12 Labs: Abnormal Lab Results - Last 24 Hours (Table) 04/05/24 04/05/24 Range/Units 05:12 05:12 WBC 1.46 A* (4.50-10.00) X 10*3/uL RBC 2.52 L (4.40-5.60) X 10*6/uL Hgb 7.1 L (13.0-17.0) g/dL Hct 21.2 L (39.6-50.0) % RDW 18.5 H (11.5-14.5) % Plt Count 88 L (140-440) X 10*3/uL MPV 12.3 H (9.5-12.2) FL Neutrophils # (Manual) 0.89 L (1.80-7.70) X 10*3/uL Lymphocytes # (Manual) 0.34 L (0.90-5.00) X 10*3/uL Monocytes # (Manual) 0.15 L (0.20-1.00) X 10*3/uL Eosinophils # (Manual) 0.01 L (0.04-0.35) X 10*3/uL NRBC/100 WBC Diff 0.02 H (0.00-0.01) X 10*3/uL Sodium 131 L (135-145) mmol/L BUN 30.1 H (9.0-27.0) mg/dL BUN/Creatinine Ratio 27.36 H (12.00-20.00) Ratio Uric Acid 3.2 L (3.7-8.7) mg/dL AST 93 H (14-35) U/L ALT 94 H (10-49) U/L Alkaline Phosphatase 597 H (41-126) U/L Total Protein 4.9 L (6.2-8.2) g/dL Albumin 2.5 L (3.8-4.9) g/dL Albumin/Globulin Ratio 1.04 L (1.60-3.17) Ratio Microbiology - Last 24 Hours (Table) 04/04/24 08:14 Gram Stain - Preliminary Sputum Sputum Culture - Preliminary
[2024-04-06 07:52] VITALS: BP 98/54; PULSE 77; RESP 16; TEMP 97.4
[2024-04-06 10:42] LABS: Anisocytosis Slight; Basophils % (A) 1 %; Eosinophils % (A) 1 %; HCT 25.8 % (39.0-53.0); HGB 8.4 gm/dL (13.0-17.5); Hypochromasia Slight; Lymphocytes # (A) 0.2 k/uL (1.0-4.8); Lymphocytes % (A) 18 %; MCH 28.6 pg (25.0-35.0); MCHC 32.5 g/dL (31.0-37.0); Mean Platelet Volume 10.5; Monocytes # (A) 0.1 k/uL (0-1.0); Monocytes % (A) 6 %; Neutrophils # (A) 0.9 k/uL (1.3-7.7); Neutrophils % (A) 72 %; Platelet Count 103 k/uL (150-450); RBC 2.93 m/uL (4.30-5.90); RDW 17.6 % (11.5-15.5)
[2024-04-06] MEDS ORDERED: RX INFO: IV CONTRAST WAS GIVEN 1 EACH MISC MISCELLANE PRN (10:46)
[2024-04-06 10:50] LABS: African American GFR (CKD) 71 (>60 ml/min/1.73 sqM); Anion Gap 2 mmol/L; Blood Urea Nitrogen 35 mg/dL (9-20); Calcium 10.2 mg/dL (8.4-10.2); Carbon Dioxide 28 mmol/L (22-30); Chloride 100 mmol/L (98-107); Glucose 104 mg/dL (74-99); Magnesium 1.9 mg/dL (1.6-2.3); Non-African American GFR(CKD) 61 (>60 ml/min/1.73 sqM); Potassium 4.7 mmol/L (3.5-5.1); Sodium 130 mmol/L (137-145)
--- NOTE | 2024-04-06 10:53 | P.PN ---
Subjective Progress Note Date: 04/06/24 Patient continues to feel well. He denies any fever/chills. No cough, abdominal pain or diarrhea. Appetite is fair. Objective - Vital Signs Vital signs: Vital Signs Temp 97.4 F L 04/06/24 07:30 Pulse 77 04/06/24 07:30 Resp 16 04/06/24 07:30 BP 98/54 04/06/24 07:30 Pulse Ox 96 04/06/24 07:30 FiO2 Intake & Output 04/05/24 04/06/24 04/06/24 18:59 06:59 18:59 Intake Total 2516 740 Balance 2516 740 Intake: Oral 2516 740 Other: Voiding Method Toilet Urinal # Voids 5 4 # Bowel Movements 1 - Constitutional General appearance: Present: no acute distress - EENT Eyes: Present: EOMI ENT: Present: hearing grossly normal, normal oropharynx - Neck Thyroid: bilateral: normal size - Respiratory Respiratory: bilateral: CTA - Cardiovascular Rhythm: regular Heart sounds: normal: S1, S2 - Gastrointestinal General gastrointestinal: Present: normal bowel sounds, soft - Integumentary Integumentary: Present: normal - Neurologic Neurologic: Present: CNII-XII intact - Musculoskeletal Musculoskeletal: Present: generalized weakness, strength equal bilaterally - Psychiatric Psychiatric: Present: A&O x's 3, appropriate affect - Labs CBC & Chem 7: 04/06/24 10:18 04/05/24 05:12 Labs: Abnormal Lab Results - Last 24 Hours (Table) 04/05/24 04/06/24 Range/Units 05:12 10:18 WBC 1.46 A* (4.50-10.00) X 10*3/uL RBC 2.52 L 2.93 L (4.40-5.60) X 10*6/uL Hgb 7.1 L 8.4 L (13.0-17.0) g/dL Hct 21.2 L 25.8 L (39.6-50.0) % RDW 18.5 H 17.6 H (11.5-14.5) % Plt Count 88 L 103 L (140-440) X 10*3/uL MPV 12.3 H (9.5-12.2) FL Neutrophils # 0.9 L (1.3-7.7) k/uL Neutrophils # (Manual) 0.89 L (1.80-7.70) X 10*3/uL Lymphocytes # 0.2 L (1.0-4.8) k/uL Lymphocytes # (Manual) 0.34 L (0.90-5.00) X 10*3/uL Monocytes # (Manual) 0.15 L (0.20-1.00) X 10*3/uL Eosinophils # (Manual) 0.01 L (0.04-0.35) X 10*3/uL NRBC/100 WBC Diff 0.02 H (0.00-0.01) X 10*3/uL Microbiology - Last 24 Hours (Table) 04/04/24 08:14 Gram Stain - Preliminary Sputum Sputum Culture - Preliminary Brandie dubliniensis Escherichia coli 03/31/24 23:36 Blood Culture - Final Blood Assessment and Plan (1) Fever Narrative/Plan: Patient has remained afebrile, since 04/01/2024. The clinical impression was th at of tumor fever due to his underlying malignancy. The patient has responded well to bolus steroids, making this more likely. However his sputum was positive for Brandie, and E. coli. -Case was discussed in detail with the admitting service. Given his clinical course, invasive infection is felt to be less likely. However due to his immunocompromise state currently, and upcoming plans for chemotherapy, it is felt to be more prudent to adopt a more aggressive approach. The patient will have imaging done to rule out invasive infection. Assuming this is negative, he will be placed on a course of PO antifungal and antibiotic for discharge Current Visit: Yes Status: Acute Priority: High Code(s): R50.9 - FEVER, UNSPECIFIED SNOMED Code(s): 149424233 (2) Pancytopenia Narrative/Plan: CBC is pending this a.m. Transfuse, if hemoglobin is less than 7. If CBC is stable, or if the patient needs transfusion, he can be discharged, in the latter case, posttransfusion, as long as workup for invasive infection is negative. Discussed with admitting service. Office will contact him to set up his treatment Current Visit: Yes Status: Acute Priority: High Code(s): D61.818 - OTHER PANCYTOPENIA SNOMED Code(s): 009600509 (3) Elevated LFTs Narrative/Plan: Liver enzymes have responded well to high-dose steroids making lymphoma involvement in the liver more likely. Current Visit: No Status: Acute Priority: High Code(s): R79.89 - OTHER S PECIFIED ABNORMAL FINDINGS OF BLOOD CHEMISTRY SNOMED Code(s): 973904744
--- NOTE | 2024-04-06 11:44 | CT ---
EXAMINATION TYPE: CT chest w con DATE OF EXAM: 04/06/2024 11:31 AM COMPARISON: 03/26/2024, 03/11/2024. CLINICAL INDICATION: Male, 78 years old with history of r/o invasive fungal pna; PHH, Invasive fungal pna TECHNIQUE: Multiple axial images were obtained through the chest. Sagittal and coronal reformats were created for review. MIP was performed on a separate workstation. Contrast used:100 ml mL of Isovue 300 with IV Contrast (None if empty) Oral contrast used: (None if empty) CT DLP: 381.60 mGycm, Automated exposure control for dose reduction was used. FINDINGS: LUNGS/ PLEURA: Trace bilateral pleural effusions. There is associated atelectasis. No pneumothorax. N o airspace consolidation. AIRWAY: Patent and unremarkable. HEART: Size within normal limits.Atherosclerosis of the arterial vasculature. MEDIASTINUM: Lymphadenopathy throughout the mediastinum with enlarged lymph nodes. Examples include r ight low paratracheal 13 mm in short axis, left low paratracheal/AP window measuring up to 14 mm in s hort axis subcarinal prominent lymph node measuring up to 37 mm x 92 mm displacement esophagus community resource officer iorly. Right pulmonary hilum lymph node measuring up to 17 mm. VASCULATURE: No aortic aneurysm. MUSCULOSKELETAL: No acute osseous abnormalities SOFT TISSUES/LYMPH NODES: Bilateral axillary lymph nodes which are enlarged measuring up to 15 in the right and 11 mm in the left. Subpectoral and right measuring 11 mm and on the left measuring 10 mm. LOWER NECK: Lymph nodes which are enlarged in the lower neck including subpectoral measuring 10 mm on the left, left thoracic Inlet measuring 12 mm just lateral to the left thyroid gland. UPPER ABDOMEN: Geographic low attenuating areas in the spleen. IMPRESSION: 1. Scattered lymphadenopathy including mediastinal, lower neck and upper chest including the right a xillar lymphadenopathy with large subcarinal lymph node. Some of these lymph nodes have decreased in size from 03/11/2024. Continued surveillance and possibly tissue sampling if not deform recommended. 2. Trace bilateral pleural effusions no focal airspace consolidation. 3. Geographic areas in the spleen possibly sequela of fungal infection given and provided history. [facility], , 04/06/2024 11:42 AM
[2024-04-06] MEDS: FLUCONAZOLE 100 MG TAB PO ONE (12:09)
--- NOTE | 2024-04-06 12:35 | P.DS ---
Providers Date of admission: 04/01/24 09:55 Expected date of discharge: 04/06/24 Attending physician: Sotero Cheema MD Consults: 03/31/24 23:11 Consult Physician Routine Consulting Provider: Melodie De Guzman Consult Reason/Comments: Hodgkin lymphoma Do you want consulting provider notified?: Yes, Notify in am 04/06/24 10:51 Consult Physician Routine Consulting Provider: Rico Lang Consult Reason/Comments: e coli and jonatan in sputum Do you want consulting provider notified?: Yes Primary care physician: Corona Novoa MD Hospital Course: SIRS, suspected bacterial pneumonia versus secondary to lymphoma Febrile neutropenia Recent diagnosis of Hodgkin's lymphoma Pancytopenia, status post 1 unit PRBCs Hyponatremia Lactic acidosis Non-anion gap metabolic acidosis Psychotic disorder/Anxiety disorder GERD BPH Hospital Course: 78-year-old male with history of hypertension, dyslipidemia, anxiety/depression, GERD, CAD status post stent, and recently diagnosed Hodgkin's lymphoma (at least stage III, follows with Dr. De Guzman, diagnosed earlier this month, has not started treatment as of yet), presenting for generalized weakness. He was found to be neutropenic and have high-grade fevers on admission. Fevers were felt to be secondary to tumor burden from Hodgkin's lymphoma. Therefore, patient was initiated on steroids with guidance from oncology. Patient's fever profile significantly improved as well as his symptoms, patient reported significant improvement in his weakness. Notably, on day of discharge he was identified to have E. coli and Jonatan species growing from his sputum. This was discussed with oncology infectious disease and decided that patient should be started on prophylactic antibiotics including cefdinir and fluconazole given that his neutropenia was likely to be prolonged and his immune status was likely to be compromised for significant duration. Patient was provided 10 days of antibiotics and will follow-up with oncology, PCP on discharge. Patient did require 1 unit of packed red blood cell transfusion during his hospitalization. Lastly, he did undergo CT scan of the chest to screen for invasive fungal infection. The results of this test showed diffuse lymphadenopathy as well as potential splenic lesions consistent with possible fungal infection, however, this would not be consistent with having Jonatan in the sputum. Therefore, fungal involvement of the spleen is felt to be less likely, and lymphoma involvement of the spleen felt to be more likely. I spent 45 minutes coordinating this discharge Labs: WBC 1.5, hemoglobin 7.4, RDW 16.7 platelet count 117, sodium 131, bicarb 17, creatinine 1.51, glucose 106, lactate 5.8, T. bili 1.4, AST 329, ALT 132, alkaline phosphatase 840, troponin less than 0.012, and BNP 2530. Imaging: - EKG done in the ER showed heart rate of 99 bpm, sinus rhythm with occasional supraventricular premature complexes, nonspecific T wave abnormality, and QTc 383. - ER CXR: Cardiomegaly, pulmonary vascular congestion and bilateral pleural effusions suggesting pulmonary edema. Gen: In NAD, non-toxic HEENT: normocephalic, atraumatic, hearing acuity is intant, mucous membranes moist CVS: perfusing all extremities well, no pitting edema, Respiratory: symmetric chest expansion, no accessory muscle use, GI: soft, NTTP, ND, : no suprapubic tenderness, no CVA tenderness MSK/Derm: no rashes, cyanosis Neuro: CN II-XII intact, no motor weakness, Psych: cooperative, euthymic mood, judgment and insight is intact Patient Condition at Discharge: Fair Plan - Discharge Summary Discharge Rx Participant: Yes New Discharge Prescriptions: New dexAMETHasone [Decadron] 40 mg PO DAILY #80 tablet Fluconazole [Diflucan] 200 mg PO DAILY #10 tab Acetaminophen Tab [Tylenol] 650 mg PO Q6HR PRN tab PRN Reason: Fever And/ Or Pain allopurinoL [Zyloprim] 100 mg PO DAILY #30 tab Cefdinir 300 mg PO Q12HR #20 cap Continue ARIPiprazole [Abilify] 5 mg PO HS Magnesium Oxide [Mag-Ox] 400 mg PO BID #60 tab Tamsulosin [Flomax] 0.8 mg PO DAILY Albuterol Inhaler [Ventolin Hfa Inhaler] 1 - 2 puff INHALATION RT-Q4H PRN PRN Reason: Shortness Of Breath Venlafaxine HCl [Effexor XR] 150 mg PO HS Pantoprazole [Protonix] 40 mg PO BID #100 tab guaiFENesin SYRUP 100MG/5ML [Robitussin] 200 mg PO BID Discharge Medication List ARIPiprazole [Abilify] 5 mg PO HS 03/12/24 [History] Venlafaxine HCl [Effexor XR] 150 mg PO HS 03/12/24 [History] Magnesium Oxide [Mag-Ox] 400 mg PO BID #60 tab 03/17/24 [Rx] Albuterol Inhaler [Ventolin Hfa Inhaler] 1 - 2 puff INHALATION RT-Q4H PRN 03/25/24 [History] Tamsulosin [Flomax] 0.8 mg PO DAILY 03/25/24 [History] Pantoprazole [Protonix] 40 mg PO BID #100 tab 03/29/24 [Rx] guaiFENesin SYRUP 100MG/5ML [Robitussin] 200 mg PO BID 03/31/24 [History] dexAMETHasone [Decadron] 40 mg PO DAILY #80 tablet 04/02/24 [Rx] Acetaminophen Tab [Tylenol] 650 mg PO Q6HR PRN tab 04/06/24 [Rx] Cefdinir 300 mg PO Q12HR #20 cap 04/06/24 [Rx] Fluconazole [Diflucan] 200 mg PO DAILY #10 tab 04/06/24 [Rx] allopurinoL [Zyloprim] 100 mg PO DAILY #30 tab 04/06/24 [Rx] Follow up Appointment(s)/Referral(s): Melodie De Guzman MD [STAFF PHYSICIAN] - 04/07/24 2:30 pm Corona Novoa MD [Primary Care Provider] - 1-2 days [facility] [NON-STAFF] - 1 Week Discharge/Stand Alone Forms: Community Resources, Help In The Home, Personal Skirt Panel [employer]er Discharge Disposition: HOME SELF-CARE
[2024-04-07] MEDS ORDERED: FLUCONAZOLE 100 MG TAB PO SCH (09:00)
== END 2024-04-06 14:37 | disposition home or self-care (01) | DRG 841 ==
LOC: EC 15:33 → 5NMEDONC 19:30 → OBSVTOIN 04-01 09:55 → 5NMEDONC 04-01 19:41
PROVIDERS: ADMIT Internal Medicine; ATTEND Internal Medicine
PROC: 30233N1 Transfusion of Nonautologous Red Blood Cells into Peripheral Vein, Percutaneous Approach (ICD-10-PCS; principal; 2024-04-02)
DX: C81.22 Mixed cellularity Hodgkin lymphoma, intrathoracic lymph nodes (principal); D61.818 Other pancytopenia; D84.9 Immunodeficiency, unspecified; E87.1 Hypo-osmolality and hyponatremia; E87.20 Acidosis, unspecified; N17.9 Acute kidney failure, unspecified; R65.10 Systemic inflammatory response syndrome (SIRS) of non-infectious origin without acute organ dysfunction; D70.9 Neutropenia, unspecified; E78.5 Hyperlipidemia, unspecified; E83.52 Hypercalcemia; E86.0 Dehydration; I12.9 Hypertensive chronic kidney disease with stage 1 through stage 4 chronic kidney disease, or unspecified chronic kidney disease; N18.9 Chronic kidney disease, unspecified; I25.10 Atherosclerotic heart disease of native coronary artery without angina pectoris; I51.7 Cardiomegaly; K76.0 Fatty (change of) liver, not elsewhere classified; N40.1 Benign prostatic hyperplasia with lower urinary tract symptoms; F41.9 Anxiety disorder, unspecified; K21.9 Gastro-esophageal reflux disease without esophagitis; R74.01 Elevation of levels of liver transaminase levels; R50.81 Fever presenting with conditions classified elsewhere; R32 Unspecified urinary incontinence; F29 Unspecified psychosis not due to a substance or known physiological condition; I25.2 Old myocardial infarction; Z95.5 Presence of coronary angioplasty implant and graft; Z87.891 Personal history of nicotine dependence
CPT/HCPCS: 36415; 71046; 71260; 80048; 80053; 83605; 83735; 83880; 84100; 84484; 84550; 85025; 85027; 85610; 85730; 86038; 86255; 86644; 86645; 86663; 86664; 86665; 86850; 86900; 86901; 86920; 87040; 87070; 87077; 87186; 87205; 87449; 87636; 93005; 94640; 96361; 96365; 96366; 96368; 96372; 96375; 96376; 99285

== ENCOUNTER 2024-04-10 14:23 | Observation (INO) | payer MEDICARE, OTHER ==
--- NOTE | 2024-04-10 15:42 | ED ---
General Adult HPI - General Chief complaint: Fall Stated complaint: weakness Time Seen by Provider: 04/10/24 14:58 Source: patient Mode of arrival: EMS Limitations: no limitations - History of Present Illness Initial comments: 78-year-old male presents to the emergency department for evaluation of generalized weakness. Patient reports that he was just discharged from the hospital for similar symptoms. He states today that he has been unable to stand and walk because he is so weak. He states that because of this he took a fall. He does report hitting his head and is admitting to low back pain. Denies any radicular symptoms. He does report a recent diagnosis of non-Hodgkin's lymphoma. He also reports needing a blood transfusion at his last hospitalization. He denies melena, hematochezia. Patient is not on blood thinners. - Related Data Home Medications Medication Instructions Recorded Confirmed ARIPiprazole [Abilify] 5 mg PO HS 03/12/24 04/10/24 Venlafaxine HCl [Effexor XR] 150 mg PO HS 03/12/24 04/10/24 Albuterol Inhaler [Ventolin Hfa 1 - 2 puff INHALATION RT-Q4H PRN 03/25/24 04/10/24 Inhaler] Tamsulosin [Flomax] 0.8 mg PO DAILY 03/25/24 04/10/24 guaiFENesin SYRUP 100MG/5ML 200 mg PO BID 03/31/24 04/10/24 [Robitussin] Previous Rx's Medication Instructions Recorded Magnesium Oxide [Mag-Ox] 400 mg PO BID #60 tab 03/17/24 Pantoprazole [Protonix] 40 mg PO BID #100 tab 03/29/24 Acetaminophen Tab [Tylenol] 650 mg PO Q6HR PRN tab 04/06/24 Cefdinir 300 mg PO Q12HR #20 cap 04/06/24 Fluconazole [Diflucan] 200 mg PO DAILY #10 tab 04/06/24 allopurinoL [Zyloprim] 100 mg PO DAILY #30 tab 04/06/24 dexAMETHasone [Decadron] 40 mg PO DAILY #80 tab 04/06/24 Allergies Allergy/AdvReac Type Severity Reaction Status Date / Time No Known Allergies Allergy Verified 04/10/24 15:46 Review of Systems ROS Statement: Those systems with pertinent positive or pertinent negative responses have been documented in the HPI. ROS Other: All systems not noted in ROS Statement are negative. Past Medical History Past Medical History: Coronary Artery Disease (CAD), Cancer, GERD/Reflux, Hyperlipidemia, Myocardial Infarction ([place]) Additional Past Medical History / Comment(s): DJD, Hodgkins Lymphoma 2023 Last Myocardial Infarction Date:: 2016 History of Any Multi-Drug Resistant Organisms: None Reported Past Surgical History: Heart Catheterization With Stent Past Anesthesia/Blood Transfusion Reactions: No Reported Reaction Date of Last Stent Placement:: 2022 Past Psychological History: No Psychological Hx Reported Smoking Status: Former smoker Past Alcohol Use History: None Reported Past Drug Use History: None Reported General Exam Limitations: no limitations General appearance: alert, in no apparent distress Head exam: Present: atraumatic, normocephalic, normal inspection Eye exam: Present: PERRL, EOMI, other (Pallorous conjunctiva). Absent: scleral icterus, conjunctival injection, periorbital swelling Respiratory exam: Present: normal lung sounds bilaterally. Absent: respiratory distress, wheezes, rales, rhonchi, stridor Cardiovascular Exam: Present: regular rate, normal rhythm, normal heart sounds. Absent: systolic murmur, diastolic murmur, rubs, gallop, clicks GI/Abdominal exam: Present: soft. Absent: distended, tenderness, guarding, rebound, rigid Extremities exam: Present: normal inspection, full ROM, normal capillary refill. Absent: tenderness, pedal edema, joint swelling, calf tenderness Neurological exam: Present: alert, oriented X3 Psychiatric exam: Present: normal affect, normal mood Skin exam: Present: warm, dry, intact, normal color. Absent: rash Course Vital Signs 04/10/24 04/10/24 04/10/24 14:28 14:52 18:27 Temperature 98.1 F Pulse Rate 95 98 Respiratory 18 18 Rate Blood Pressure 93/53 115/53 Blood Pressure 95/58 [Left Arm Sitting] Blood Pressure 87/50 [Left Arm Standing] Blood Pressure 116/61 [Left Arm Supine] O2 Sat by Pulse 95 98 Oximetry Medical Decision Making - Medical Decision Making Was pt. sent in by a medical professional or institution (, PA, INSURANCE HEALTHCARE CONSULTANT, urgent care, hospital, or fdc...) When possible be specific @ -No Did you speak to anyone other than the patient for history (EMS, parent, family, police, friend...)? What history was obtained from this source @ -Patient's son provided a history of this patient Did you review nursing and triage notes (agree or disagree)? Why? @ -I reviewed and agree with nursing and triage notes Were old charts reviewed (outside hosp., previous admission, EMS record, old EKG, old radiological studies, urgent care reports/EKG's, fdc records)? Report findings @ -No old charts were reviewed Differential Diagnosis (chest pain, altered mental status, abdominal pain women, abdominal pain men, vaginal bleeding, weakness, fever, dyspnea, syncope, headache, dizziness, GI bleed, back pain, seizure, CVA, palpatations, mental health, musculoskeletal)? @ -Differential Weakness: Hypoglycemia, shock, sepsis, hyponatremia, anemia, infection, [place], ETOH, adverse medicine reaction, overdose, stroke, this is not meant to be an all-inclusive list. EKG interpreted by me (3pts min.). @ -EKG at 1440 shows sinus rhythm with occasional PVCs rate 93, ID 141, QRS 83, QTQTc 3 [id number] X-rays interpreted by me (1pt min.). @ -None done CT interpreted by me (1pt min.). @ -CT brain and C-spine shows no evidence of acute process CT lumbar spine shows no evidence of acute fracture or dislocation U/S interpreted by me (1pt. min.). @ -None done What testing was considered but not performed or refused? (CT, X-rays, U/S, labs)? Why? @ -None What meds were considered but not given or refused? Why? @ -None Did you discuss the management of the patient with other professionals (lydia ayala i.e. , PA, INSURANCE HEALTHCARE CONSULTANT, lab, RT, psych nurse, foster care social worker, tissue recovery technician, teacher, senior credit officer, caseworker protective services)? Give summary @ -Management discussed with Mario Gary who is accepting of the admission Was smoking cessation discussed for >3mins.? @ -No Was critical care preformed (if so, how long)? @ -No Were there social determinants of health that impacted care today? How? (Homelessness, low income, unemployed, alcoholism, drug addiction, transportation, low edu. Level, literacy, decrease access to med. care, group home, rehab)? @ -No Was there de-escalation of care discussed even if they declined (Discuss DNR or withdrawal of care, Hospice)? DNR status @ -No What co-morbidities impacted this encounter? (DM, HTN, Smoking, COPD, CAD, Cancer, CVA, ARF, Chemo, Hep., AIDS, mental health diagnosis, sleep apnea, morbid obesity)? @ -None Was patient admitted / discharged? Hospital course, mention meds given and route, prescriptions, significant lab abnormalities, going to OR and other pertinent info. @ -Admitted. Patient presented the emergency department for evaluation of generalized weakness and fall. Patient recently diagnosed with non-Hodgkin's lymphoma. He has been having intermittent episodes of weakness. Family reports that he has been anemic recently and needed a blood transfusion. Laboratory studies obtained today significant for hemoglobin of 6.4. Patient received 1 un it of blood patient will be admitted for significant anemia and weakness. Case discussed with Mario Vega with [facility] who is accepting of the admission. Case discussed with Dr. Georges Undiagnosed new problem with uncertain prognosis? @ -No Drug Therapy requiring intensive monitoring for toxicity (Heparin, Nitro, Insulin, Cardizem)? @ -No Were any procedures done? @ -No Diagnosis/symptom? @ -Anemia, generalized weakness Acute, or Chronic, or Acute on Chronic? @ -Acute] Uncomplicated (without systemic symptoms) or Complicated (systemic symptoms)? @ -Uncomplicated Side effects of treatment? @ -No Exacerbation, Progression, or Severe Exacerbation? @ -No Poses a threat to life or bodily function? How? (Chest pain, [place], [place], pneumonia, PE, COPD, DKA, ARF, appy, cholecystitis, CVA, Diverticulitis, Homicidal, Suicidal, threat to staff... and all critical care pts) @ -No - Lab Data Result diagrams: 04/10/24 16:41 04/10/24 16:41 Lab Results 04/10/24 04/10/24 04/10/24 Range/Units 16:41 16:41 16:41 WBC 2.7 L (3.8-10.6) k/uL RBC 2.21 L (4.30-5.90) m/uL Hgb 6.4 L* D (13.0-17.5) gm/dL Hct 19.6 L* (39.0-53.0) % MCV 89.0 (80.0-100.0) fL MCH 29.1 (25.0-35.0) pg MCHC 32.7 (31.0-37.0) g/dL RDW 19.2 H (11.5-15.5) % Plt Count 86 L (150-450) k/uL MPV 11.0 Neutrophils % 86 % Lymphocytes % 8 % Monocytes % 4 % Eosinophils % 0 % Basophils % 0 % Neutrophils # 2.3 (1.3-7.7) k/uL Lymphocytes # 0.2 L (1.0-4.8) k/uL Monocytes # 0.1 (0-1.0) k/uL Eosinophils # 0.0 (0-0.7) k/uL Basophils # 0.0 (0-0.2) k/uL Manual Slide Review Performed Large Platelets Present Polychromasia Present Hypochromasia Slight Anisocytosis Slight Retic Count (0.5-2.0) % PT 14.3 H (10.0-12.5) sec INR 1.4 H (<1.2) APTT 20.8 L (22.0-30.0) sec Sodium 134 L (137-145) mmol/L Potassium 4.9 (3.5-5.1) mmol/L Chloride 106 (98-107) mmol/L Carbon Dioxide 24 (22-30) mmol/L Anion Gap 4 mmol/L BUN 64 H (9-20) mg/dL Creatinine 1.29 H (0.66-1.25) mg/dL Est GFR (CKD-EPI)AfAm 62 (>60 ml/min/1.73 sqM) Est GFR (CKD-EPI)NonAf 53 (>60 ml/min/1.73 sqM) Glucose 141 H (74-99) mg/dL Plasma Lactic Acid Flo (0.7-2.0) mmol/L Calcium 9.5 (8.4-10.2) mg/dL Total Bilirubin 0.8 (0.2-1.3) mg/dL AST 84 H (17-59) U/L ALT 112 H (4-49) U/L Alkaline Phosphatase 338 H (38-126) U/L Total Protein 4.9 L (6.3-8.2) g/dL Albumin 2.3 L (3.5-5.0) g/dL Urine Color Urine Appearance (Clear) Urine pH (5.0-8.0) Ur Specific Britton (1.001-1.035) Urine Protein (Negative) Urine Glucose (UA) (Negative) Urine Ketones (Negative) Urine Blood (Negative) Urine Nitrite (Negative) Urine Bilirubin (Negative) Urine Urobilinogen (<2.0) mg/dL Ur Leukocyte Esterase (Negative) Urine RBC (0-5) /hpf Urine WBC (0-5) /hpf Blood Type Blood Type Recheck Bld Type Recheck Status Antibody Screen Crossmatch Spec Expiration Date 04/10/24 04/10/24 04/10/24 Range/Units 16:41 16:41 17:22 WBC (3.8-10.6) k/uL RBC (4.30-5.90) m/uL Hgb (13.0-17.5) gm/dL Hct (39.0-53.0) % MCV (80.0-100.0) fL MCH (25.0-35.0) pg MCHC (31.0-37.0) g/dL RDW (11.5-15.5) % Plt Count (150-450) k/uL MPV Neutrophils % % Lymphocytes % % Monocytes % % Eosinophils % % Basophils % % Neutrophils # (1.3-7.7) k/uL Lymphocytes # (1.0-4.8) k/uL Monocytes # (0-1.0) k/uL Eosinophils # (0-0.7) k/uL Basophils # (0-0.2) k/uL Manual Slide Review Large Platelets Polychromasia Hypochromasia Anisocytosis Retic Count 5.1 H (0.5-2.0) % PT (10.0-12.5) sec INR (<1.2) APTT (22.0-30.0) sec Sodium (137-145) mmol/L Potassium (3.5-5.1) mmol/L Chloride (98-107) mmol/L Carbon Dioxide (22-30) mmol/L Anion Gap mmol/L BUN (9-20) mg/dL Creatinine (0.66-1.25) mg/dL Est GFR (CKD-EPI)AfAm (>60 ml/min/1.73 sqM) Est GFR (CKD-EPI)NonAf (>60 ml/min/1.73 sqM) Glucose (74-99) mg/dL Plasma Lactic Acid Flo 3.7 H* (0.7-2.0) mmol/L Calcium (8.4-10.2) mg/dL Total Bilirubin (0.2-1.3) mg/dL AST (17-59) U/L ALT (4-49) U/L Alkaline Phosphatase (38-126) U/L Total Protein (6.3-8.2) g/dL Albumin (3.5-5.0) g/dL Urine Color Urine Appearance (Clear) Urine pH (5.0-8.0) Ur Specific Britton (1.001-1.035) Urine Protein (Negative) Urine Glucose (UA) (Negative) Urine Ketones (Negative) Urine Blood (Negative) Urine Nitrite (Negative) Urine Bilirubin (Negative) Urine Urobilinogen (<2.0) mg/dL Ur Leukocyte Esterase (Negative) Urine RBC (0-5) /hpf Urine WBC (0-5) /hpf Blood Type O Positive Blood Type Recheck O Pos Bld Type Recheck Status No Antibody Screen NEGATIVE Crossmatch See Detail Spec Expiration Date 04/13/2024 - 232104/10/24 Range/Units 17:37 WBC (3.8-10.6) k/uL RBC (4.30-5.90) m/uL Hgb (13.0-17.5) gm/dL Hct (39.0-53.0) % MCV (80.0-100.0) fL MCH (25.0-35.0) pg MCHC (31.0-37.0) g/dL RDW (11.5-15.5) % Plt Count (150-450) k/uL MPV Neutrophils % % Lymphocytes % % Monocytes % % Eosinophils % % Basophils % % Neutrophils # (1.3-7.7) k/uL Lymphocytes # (1.0-4.8) k/uL Monocytes # (0-1.0) k/uL Eosinophils # (0-0.7) k/uL Basophils # (0-0.2) k/uL Manual Slide Review Large Platelets Polychromasia Hypochromasia Anisocytosis Retic Count (0.5-2.0) % PT (10.0-12.5) sec INR (<1.2) APTT (22.0-30.0) sec Sodium (137-145) mmol/L Potassium (3.5-5.1) mmol/L Chloride (98-107) mmol/L Carbon Dioxide (22-30) mmol/L Anion Gap mmol/L BUN (9-20) mg/dL Creatinine (0.66-1.25) mg/dL Est GFR (CKD-EPI)AfAm (>60 ml/min/1.73 sqM) Est GFR (CKD-EPI)NonAf (>60 ml/min/1.73 sqM) Glucose (74-99) mg/dL Plasma Lactic Acid Flo (0.7-2.0) mmol/L Calcium (8.4-10.2) mg/dL Total Bilirubin (0.2-1.3) mg/dL AST (17-59) U/L ALT (4-49) U/L Alkaline Phosphatase (38-126) U/L Total Protein (6.3-8.2) g/dL Albumin (3.5-5.0) g/dL Urine Color Colorless Urine Appearance Clear (Clear) Urine pH 6.0 (5.0-8.0) Ur Specific Britton 1.017 (1.001-1.035) Urine Protein Trace H (Negative) Urine Glucose (UA) 3+ H (Negative) Urine Ketones Negative (Negative) Urine Blood Trace H (Negative) Urine Nitrite Negative (Negative) Urine Bilirubin Negative (Negative) Urine Urobilinogen 2.0 (<2.0) mg/dL Ur Leukocyte Esterase Negative (Negative) Urine RBC 5 (0-5) /hpf Urine WBC 1 (0-5) /hpf Blood Type Blood Type Recheck Bld Type Recheck Status Antibody Screen Crossmatch Spec Expiration Date Disposition Clinical Impression: Fall, Weakness, Anemia requiring transfusions Disposition: ADMITTED IP TO THIS HOSP Condition: Stable Is patient prescribed a controlled substance at d/c from ED?: No
[2024-04-10] MEDS: SODIUM CHLORIDE 0.9% 1,000 ML IV STA (16:30)
--- NOTE | 2024-04-10 16:40 | CT ---
EXAMINATION TYPE: CT brain emily evans con DATE OF EXAM: 04/10/2024 4:33 PM COMPARISON: None. CLINICAL INDICATION: Male, 78 years old with history of fall, Fall this morning, no thinners. Pain TECHNIQUE: CT of the brain is performed utilizing 3 mm thick sections through the posterior fossa and 3 mm thick sections through the remaining calvarium. Study is performed within 24 hours of arrival to the hospital. Contrast used: mL of , (none if empty) CT DLP: 1324.4 mGycm, Automated exposure control for dose reduction was used. FINDINGS: No abnormal hyperdensity is present to suggest an acute intracranial hemorrhage. No mass lesion is evident. No acute infarcts are evident. Ventricles and sulci are prominent for the patient age. Paranasal sinuses and mastoid air cells within the [id number] are clear. IMPRESSIONS: 1. No acute intracranial process. Follow-up MRI can be performed as clinically indicated. 2. Atrophy CT cervical spine. COMPARISON: None TECHNIQUE: CT of the cervical spine is performed in the axial plane at 2 mm thick sections. Reconstr ucted images in the coronal, and sagittal plane are reviewed on the computer. FINDINGS: No acute fractures are evident. Vertebral body alignment is normal. Diffuse loss of disc height is present throughout the cervical spine. Vertebral body heights are preserved. No spinal canal stenosis is evident. Some endplate spurring is noted at C6-7. Small anterior vertebra l body spurs are present C2-C7. Foraminal narrowing is present on the right 5 to mild degree C5-6. More severe foraminal narrowing is present at C3-4 C4-5 on the left with mild foraminal narrowing C5-6 and C6-7 IMPRESSION: 1. No acute osseous abnormality radiographically apparent. 2. Diffuse loss of disc height throughout the cervical spine. 3. Bilateral foraminal narrowing more severe on the left than the right. Correlate with radicular sym ptoms. MRI can be performed as clinically indicated [facility], Workstation: [email or web address], 04/10/2024 4:38 PM
[2024-04-10 16:51] LABS: Anisocytosis Slight; Basophils % (A) 0 %; Eosinophils % (A) 0 %; Hypochromasia Slight; Lymphocytes # (A) 0.2 k/uL (1.0-4.8); Lymphocytes % (A) 8 %; MCH 29.1 pg (25.0-35.0); MCHC 32.7 g/dL (31.0-37.0); Monocytes # (A) 0.1 k/uL (0-1.0); Monocytes % (A) 4 %; Neutrophils # (A) 2.3 k/uL (1.3-7.7); Neutrophils % (A) 86 %; RBC 2.21 m/uL (4.30-5.90); RDW 19.2 % (11.5-15.5); WBC 2.7 k/uL (3.8-10.6)
--- NOTE | 2024-04-10 16:55 | CT ---
EXAMINATION TYPE: CT lumbar spine wo con DATE OF EXAM: 04/10/2024 4:33 PM COMPARISON: None. CLINICAL INDICATION: Male, 78 years old with history of fall, Fall, lower back pain TECHNIQUE: CT of the lumbar spine is performed on a spiral scan at 3 mm thick sections. Reconstructed images are performed in the coronal and sagittal planes. Contrast used: mL of , (none if empty) Oral contrast used: (none if empty) CT DLP: 1447.6 mGycm, Automated exposure control for dose reduction was used. FINDINGS: There is diffuse loss of disc height essentially throughout the lumbar spine. Vacuum disc p henomenon is present at L2-3 L3-4 and L4-5. Note is made of some lower thoracic vacuum disc phenomeno n. There is a relative preservation of the L1-2 disc level. There is a large loss of endplate at the inferior endplate of L2. Large Schmorl's node can be conside red. Borders appear indistinct. T11-12: No focal disc herniation or significant disc bulge is evident. No spinal canal stenosis or neural foraminal stenosis is present. T12-L1: No focal disc herniation or significant disc bulge is evident. No spinal canal stenosis or neural foraminal stenosis is present. L1-L2: No focal disc herniation or significant disc bulge is evident. Loss of disc heights through th is level. Vacuum disc phenomenon is present. No spinal canal stenosis or neural foraminal stenosis i s present. L2-L3: No focal disc herniation or significant disc bulge is evident. There is loss of disc height. S ome mild endplate spurring from L1 to is present No spinal canal stenosis or neural foraminal stenos is is present. L3-L4: There is loss of disc height is normal. Vacuum disc phenomenon is present. No spinal canal joe nosis is present. Mild ligamentum flavum laxity is present. Mild to moderate foraminal narrowing is p resent. L4-L5: Mild broad-based disc bulge is present with anterior thecal sac contact. No AP spinal canal st enosis is present. Moderate bilateral foraminal narrowing is present. L5-S1: No focal disc herniation or significant disc bulge is evident. No spinal canal stenosis is p resent. Severe bilateral foraminal narrowing is present. Vertebral alignment appears normal. IMPRESSION: 1. Multilevel degenerative disc changes with vacuum disc phenomenon. 2. Appears be a large Schmorl's node at the inferior endplate of L2. 3. Foraminal narrowing L3-4 through L5-S1 discussed above. 4. No acute osseous abnormality radiographically apparent. [facility], Workstation: [facility], 04/10/2024 4:53 PM
[2024-04-10 16:57] LABS: Platelet Count 86 k/uL (150-450)
[2024-04-10 16:58] LABS: HCT 19.6 % (39.0-53.0); HGB 6.4 gm/dL (13.0-17.5)
[2024-04-10 17:02] LABS: ALT 112 U/L (4-49); AST 84 U/L (17-59); African American GFR (CKD) 62 (>60 ml/min/1.73 sqM); Albumin 2.3 g/dL (3.5-5.0); Alkaline Phosphatase 338 U/L (38-126); Anion Gap 4 mmol/L; Blood Urea Nitrogen 64 mg/dL (9-20); Calcium 9.5 mg/dL (8.4-10.2); Carbon Dioxide 24 mmol/L (22-30); Chloride 106 mmol/L (98-107); Glucose 141 mg/dL (74-99); Non-African American GFR(CKD) 53 (>60 ml/min/1.73 sqM); Potassium 4.9 mmol/L (3.5-5.1); Sodium 134 mmol/L (137-145); Total Bilirubin 0.8 mg/dL (0.2-1.3); Total Protein 4.9 g/dL (6.3-8.2)
[2024-04-10 17:22] LABS: INR 1.4 (<1.2); Prothrombin Time 14.3 sec (10.0-12.5)
--- NOTE | 2024-04-10 17:28 | XR ---
EXAMINATION TYPE: XR chest 2V DATE OF EXAM: 04/10/2024 5:14 PM COMPARISON: None. CLINICAL INDICATION: Male, 78 years old with history of Weakness, fall, pain, history of lymphoma TECHNIQUE: XR chest 2V view(s) obtained. FINDINGS: The heart size is normal. The pulmonary vasculature is normal. Posterior pleural effusions are present. There is blunting of the costophrenic angles bilaterally.. No pneumothorax is evident. No displaced rib fractures identified. IMPRESSION: 1. Bilateral posterior pleural effusions. [facility], Workstation: [facility], 04/10/2024 5:26 PM
[2024-04-10 17:32] LABS: Large Platelets Present; Polychromasia Present
[2024-04-10] MEDS ORDERED: NALOXONE 0.4 MG/ML 1 ML VIAL IV PRN (17:36)
[2024-04-10] MEDS ORDERED: MORPHINE SULFATE 4 MG/ML SYRINGE IV PRN (17:36)
[2024-04-10] MEDS ORDERED: ACETAMINOPHEN TAB 325 MG TAB PO PRN ×2 (17:36→17:50)
[2024-04-10 17:39] LABS: Partial Thromboplastin Time 20.8 sec (22.0-30.0)
[2024-04-10 17:54] LABS: Appearance,Urine Clear (Clear); Bilirubin,Urine Negative (Negative); Blood,Urine Trace (Negative); Color,Urine Colorless; Glucose,Urine (UA) 3+ (Negative); Ketones,Urine Negative (Negative); Leukocyte Esterase,Urine Negative (Negative); Nitrite,Urine Negative (Negative); Protein,Urine Trace (Negative); RBC,Urine 5 /hpf (0-5); Specific Gravity,Urine 1.017 (1.001-1.035); WBC,Urine 1 /hpf (0-5)
[2024-04-10] MEDS: SODIUM CHLORIDE 0.9% 1,000 ML IV SCH (17:58)
--- NOTE | 2024-04-10 18:25 | P.HPIM ---
History of Present Illness H&P Date: 04/10/24 Chief Complaint: weakness Julius is a 78-year-old male with past medical history of Hodgkin's lymphoma. Presented to the hospital for weakness. He reports that his last unit of blood was approximately 1 week prior when he was hospitalized. He reports that he has been feeling more more weak. He denies any medication changes and since his last hospitalization there are family numbers at bedside reports patient has been more weak. When he presented to hospital his white blood cell counts to be 2.7 with hemoglobin 6.4. Platelet count was 86. INR was 1.4. Lactic acid was 3.7. The patient reports that he does not have any hematochezia or melanotic stools. He had a CT head and neck which revealed no acute process. Of note the patient was hospitalized from April 01 and was discharged home on April 06. At that time the patient presented with generalized weakness and was noted to be having high-grade fevers. Fevers were attribute to his tumor burden. He was started on steroids and his fever had improved. It was notable that his sputum culture had grown E. coli and Brandie. He was started on prophylactic antibiotics with cefdinir and fluconazole. He underwent 1 unit PRBC administration. Review of Systems Constitutional: Reports as per HPI Past Medical History Past Medical History: Coronary Artery Disease (CAD), Cancer, GERD/Reflux, Hyperlipidemia, Myocardial Infarction ([place]) Additional Past Medical History / Comment(s): DJD, Hodgkins Lymphoma 2023 Last Myocardial Infarction Date:: 2016 History of Any Multi-Drug Resistant Organisms: None Reported Past Surgical History: Heart Catheterization With Stent Past Anesthesia/Blood Transfusion Reactions: No Reported Reaction Date of Last Stent Placement:: 2022 Past Psychological History: No Psychological Hx Reported Smoking Status: Former smoker Past Alcohol Use History: None Reported Past Drug Use History: None Reported Medications and Allergies Home Medications Medication Instructions Recorded Confirmed Type ARIPiprazole [Abilify] 5 mg PO HS 03/12/24 04/10/24 History Venlafaxine HCl [Effexor XR] 150 mg PO HS 03/12/24 04/10/24 History Magnesium Oxide [Mag-Ox] 400 mg PO BID #60 tab 03/17/24 04/10/24 Rx Albuterol Inhaler [Ventolin Hfa 1 - 2 puff INHALATION RT-Q4H PRN 03/25/24 04/10/24 History Inhaler] Tamsulosin [Flomax] 0.8 mg PO DAILY 03/25/24 04/10/24 History Pantoprazole [Protonix] 40 mg PO BID #100 tab 03/29/24 04/10/24 Rx guaiFENesin SYRUP 100MG/5ML 200 mg PO BID 03/31/24 04/10/24 History [Robitussin] Acetaminophen Tab [Tylenol] 650 mg PO Q6HR PRN tab 04/06/24 04/10/24 Rx Cefdinir 300 mg PO Q12HR #20 cap 04/06/24 04/10/24 Rx Fluconazole [Diflucan] 200 mg PO DAILY #10 tab 04/06/24 04/10/24 Rx allopurinoL [Zyloprim] 100 mg PO DAILY #30 tab 04/06/24 04/10/24 Rx dexAMETHasone [Decadron] 40 mg PO DAILY #80 tab 04/06/24 04/10/24 Rx Allergies Allergy/AdvReac Type Severity Reaction Status Date / Time No Known Allergies Allergy Verified 04/10/24 15:46 Physical Exam Vitals: Vital Signs Temp Pulse Resp BP BP BP BP 04/10/24 14:52 95/58 87/50 116/61 04/10/24 14:28 98.1 F 95 18 93/53 Pulse Ox 04/10/24 14:52 04/10/24 14:28 95 Intake and Output 04/10/24 04/10/24 04/10/24 06:59 14:59 22:59 Other: Weight 94.347 kg General: Male, appears stated age Derm: warm, dry Head: atraumatic, normocephalic, symmetric Eyes: EOMI, no lid lag, anicteric sclera, pupils equal round reactive to light ENT: Nose and ears atraumatic, no thrush, no pharyngeal erythema Neck: No thyromegaly, no cervical lymphadenopathy, trachea midline, supple Mouth: no lip lesion, mucus membranes moist Cardiovascular: S1S2 reg, no murmur, positive posterior tibial pulse bilateral, no edema, capillary refill less than 2 seconds Lungs: clear to ascultation bilateral, no ronchi, no rales, no wheeze, no accessory muscle use Abdominal: soft, nontender to palpation, no guarding, no appreciable organomegaly, normal bowel sounds Ext: no gross muscle atrophy, muscle strength muscle strength 5 out of 5 in all 4 extremities, no contractures Neuro: Moving all extremity spontaneously Psych: Alert, oriented, appropriate affect Results CBC & Chem 7: 04/10/24 16:41 04/10/24 16:41 Labs: Abnormal Lab Results - Last 24 Hours (Table) 04/10/24 04/10/24 04/10/24 Range/Units 16:41 16:41 16:41 WBC 2.7 L (3.8-10.6) k/uL RBC 2.21 L (4.30-5.90) m/uL Hgb 6.4 L* D (13.0-17.5) gm/dL Hct 19.6 L* (39.0-53.0) % RDW 19.2 H (11.5-15.5) % Plt Count 86 L (150-450) k/uL Lymphocytes # 0.2 L (1.0-4.8) k/uL PT 14.3 H (10.0-12.5) sec INR 1.4 H (<1.2) APTT 20.8 L (22.0-30.0) sec Sodium 134 L (137-145) mmol/L BUN 64 H (9-20) mg/dL Creatinine 1.29 H (0.66-1.25) mg/dL Glucose 141 H (74-99) mg/dL Plasma Lactic Acid Flo (0.7-2.0) mmol/L AST 84 H (17-59) U/L ALT 112 H (4-49) U/L Alkaline Phosphatase 338 H (38-126) U/L Total Protein 4.9 L (6.3-8.2) g/dL Albumin 2.3 L (3.5-5.0) g/dL Urine Protein (Negative) Urine Glucose (UA) (Negative) Urine Blood (Negative) 04/10/24 04/10/24 Range/Units 16:41 17:37 WBC (3.8-10.6) k/uL RBC (4.30-5.90) m/uL Hgb (13.0-17.5) gm/dL Hct (39.0-53.0) % RDW (11.5-15.5) % Plt Count (150-450) k/uL Lymphocytes # (1.0-4.8) k/uL PT (10.0-12.5) sec INR (<1.2) APTT (22.0-30.0) sec Sodium (137-145) mmol/L BUN (9-20) mg/dL Creatinine (0.66-1.25) mg/dL Glucose (74-99) mg/dL Plasma Lactic Acid Flo 3.7 H* (0.7-2.0) mmol/L AST (17-59) U/L ALT (4-49) U/L Alkaline Phosphatase (38-126) U/L Total Protein (6.3-8.2) g/dL Albumin (3.5-5.0) g/dL Urine Protein Trace H (Negative) Urine Glucose (UA) 3+ H (Negative) Urine Blood Trace H (Negative) Assessment and Plan Assessment: #) Generalized weakness, suspect 2/2 to hodkin's lymphom and anemia #) Pancytopenia, hgb noted to be 6.4, currently pending 1 unit PRBC. Maintain hemoglobin goal greater than 7 and platelet count greater than 10. Transfuse if needed. Check iron studies and reticulocyte to confirm that this is a bone marrow suppression. He may require serial CBC lab work drawn outpatient and blood as needed. Appreciate oncology assistance to help with this being arranged outpatient. Continue dexamethasone therapy. pending port placement later this month #) lactic acidosis, type B from hodgkin's lymphma #) Sputum cx positive for e. coli and brandie. Will require [employer] suppressive antibx. continue fluconazole and cefdnir as prescribed previously #) Transaminitis, possibly from Hodkin's lymphoma dvt ppx: scds dispo: medsurge anticipate discharge date: 24-48 hours Time with Patient: Greater than 30
[2024-04-10] MEDS ORDERED: ONDANSETRON 4 MG/2 ML VIAL IVP PRN (18:28)
[2024-04-10 18:50] LABS: Reticulocyte % 5.1 % (0.5-2.0)
[2024-04-10] MEDS: VENLAFAXINE HCL ER 150 MG CAP PO SCH (20:15)
[2024-04-10] MEDS: PANTOPRAZOLE 40 MG TABLET PO SCH (20:15)
[2024-04-10] MEDS: CEFDINIR 300 MG CAP PO SCH (20:15)
[2024-04-10] MEDS: ARIPiprazole 5 MG TAB PO SCH (20:15)
[2024-04-10] MEDS: MAGNESIUM OXIDE 400 MG TAB PO SCH (20:18)
[2024-04-11 00:31] LABS: Anisocytosis Slight; Basophils % (A) 0 %; Eosinophils % (A) 0 %; HCT 22.8 % (39.0-53.0); HGB 7.6 gm/dL (13.0-17.5); Hypochromasia Slight; Lymphocytes # (A) 0.3 k/uL (1.0-4.8); Lymphocytes % (A) 9 %; MCH 30.4 pg (25.0-35.0); MCHC 33.5 g/dL (31.0-37.0); MCV 90.7 fL (80.0-100.0); Monocytes # (A) 0.1 k/uL (0-1.0); Monocytes % (A) 5 %; Neutrophils # (A) 2.6 k/uL (1.3-7.7); Neutrophils % (A) 84 %; RBC 2.51 m/uL (4.30-5.90); RDW 18.5 % (11.5-15.5); WBC 3.1 k/uL (3.8-10.6)
[2024-04-11 01:44] LABS: Platelet Count 82 k/uL (150-450)
[2024-04-11 03:40] LABS: % Iron Saturation 68.42 (15.00-50.00)
[2024-04-11] MEDS: TAMSULOSIN 0.4 MG CAP.ER.24H PO SCH (08:13)
[2024-04-11] MEDS: allopurinoL 100 MG TAB PO SCH (08:13)
[2024-04-11] MEDS: dexAMETHasone 4 MG TAB PO SCH (08:13)
[2024-04-11] MEDS: FLUCONAZOLE 100 MG TAB PO SCH (08:13)
[2024-04-11 09:46] LABS: Basophils # (A) 0 X 10*3/uL (0.00-0.10); Basophils % (A) 0 %; Eosinophils # (A) 0 X 10*3/uL (0.04-0.35); Eosinophils % (A) 0 %; HCT 22.1 % (39.6-50.0); HGB 7.2 g/dL (13.0-17.0); Immature Platelet Fraction 10.9 % (1.1-6.1); Lymphocytes # (A) 0.29 X 10*3/uL (0.90-5.00); Lymphocytes % (A) 8.8 %; MCH 29.9 pg (27.0-32.0); MCHC 32.6 g/dL (32.0-37.0); MCV 91.7 FL (80.0-97.0); Mean Platelet Volume 13.3 FL (9.5-12.2); Monocytes # (A) 0.19 X 10*3/uL (0.20-1.00); Monocytes % (A) 5.7 %; NRBC Per 100 WBC 0 X 10*3/uL (0.00-0.01); Neutrophils # (A) 2.67 X 10*3/uL (1.80-7.70); Neutrophils % (A) 80.7 %; Platelet Count 74 X 10*3/uL (140-440); RBC 2.41 X 10*6/uL (4.40-5.60); RDW 19.8 % (11.5-14.5); WBC 3.31 X 10*3/uL (4.50-10.00)
--- NOTE | 2024-04-11 12:57 | P.PN ---
Subjective Progress Note Date: 04/11/24 Principal diagnosis: 78-year-old male with past medical history of Hodgkin lymphoma who is present to the hospital for weakness. His hemoglobin is noted to be 6.4 and he was transf used 1 unit PRBC on April 10. 04/11 overnight the patient was noted to be weak and is walking with the aid and he had landed on the floor. No nausea vomiting reported Objective - Vital Signs Vital signs: Vital Signs Temp 98.1 F 04/11/24 11:40 Pulse 82 04/11/24 11:40 Resp 16 04/11/24 11:40 BP 97/57 04/11/24 11:40 Pulse Ox 96 04/11/24 11:40 FiO2 Intake & Output 04/10/24 04/11/24 04/11/24 18:59 06:59 18:59 Intake Total 430 Output Total 200 500 Balance 230 -500 Weight 94.347 kg 92 kg Intake: Oral 120 Blood Product 310 Rc As-1 Unit 310 [id number] Output: Urine 200 500 Other: Voiding Method Urinal Urinal # Voids 3 2 - Exam General: Male, appears stated age Derm: warm, dry Head: atraumatic, normocephalic, symmetric Eyes: EOMI, no lid lag, anicteric sclera, pupils equal round reactive to light ENT: Nose and ears atraumatic, no thrush, no pharyngeal erythema Neck: No thyromegaly, no cervical lymphadenopathy, trachea midline, supple Mouth: no lip lesion, mucus membranes moist Cardiovascular: S1S2 reg, no murmur, positive posterior tibial pulse bilateral, no edema, capillary refill less than 2 seconds Lungs: clear to ascultation bilateral, no ronchi, no rales, no wheeze, no accessory muscle use Abdominal: soft, nontender to palpation, no guarding, no appreciable organ omegaly, normal bowel sounds Ext: no gross muscle atrophy, muscle strength muscle strength 5 out of 5 in all 4 extremities, no contractures Neuro: Moving all extremity spontaneously Psych: Alert, oriented, appropriate affect - Labs CBC & Chem 7: 04/11/24 05:23 04/10/24 16:41 Labs: Abnormal Lab Results - Last 24 Hours (Table) 04/10/24 04/10/24 04/10/24 Range/Units 16:41 16:41 16:41 WBC 2.7 L (3.8-10.6) k/uL RBC 2.21 L (4.30-5.90) m/uL Hgb 6.4 L* D (13.0-17.5) gm/dL Hct 19.6 L* (39.0-53.0) % RDW 19.2 H (11.5-15.5) % Plt Count 86 L (150-450) k/uL MPV (9.5-12.2) FL Immature Gran # (0.00-0.04) X 10*3/uL Lymphocytes # 0.2 L (1.0-4.8) k/uL Monocytes # (0.20-1.00) X 10*3/uL Eosinophils # (0.04-0.35) X 10*3/uL Immature Plt Fraction (1.1-6.1) % Retic Count (0.5-2.0) % PT 14.3 H (10.0-12.5) sec INR 1.4 H (<1.2) APTT 20.8 L (22.0-30.0) sec Sodium 134 L (137-145) mmol/L BUN 64 H (9-20) mg/dL Creatinine 1.29 H (0.66-1.25) mg/dL Glucose 141 H (74-99) mg/dL Plasma Lactic Acid Flo (0.7-2.0) mmol/L Iron (65-175) UG/DL % Saturation (15.00-50.00) Transferrin (204.0-354.0) mg/dL Ferritin (22.0-322.0) ng/mL AST 84 H (17-59) U/L ALT 112 H (4-49) U/L Alkaline Phosphatase 338 H (38-126) U/L Total Protein 4.9 L (6.3-8.2) g/dL Albumin 2.3 L (3.5-5.0) g/dL Urine Protein (Negative) Urine Glucose (UA) (Negative) Urine Blood (Negative) Crossmatch 04/10/24 04/10/24 04/10/24 Range/Units 16:41 16:41 17:22 WBC (3.8-10.6) k/uL RBC (4.30-5.90) m/uL Hgb (13.0-17.5) gm/dL Hct (39.0-53.0) % RDW (11.5-15.5) % Plt Count (150-450) k/uL MPV (9.5-12.2) FL Immature Gran # (0.00-0.04) X 10*3/uL Lymphocytes # (1.0-4.8) k/uL Monocytes # (0.20-1.00) X 10*3/uL Eosinophils # (0.04-0.35) X 10*3/uL Immature Plt Fraction (1.1-6.1) % Retic Count 5.1 H (0.5-2.0) % PT (10.0-12.5) sec INR (<1.2) APTT (22.0-30.0) sec Sodium (137-145) mmol/L BUN (9-20) mg/dL Creatinine (0.66-1.25) mg/dL Glucose (74-99) mg/dL Plasma Lactic Acid Flo 3.7 H* (0.7-2.0) mmol/L Iron (65-175) UG/DL % Saturation (15.00-50.00) Transferrin (204.0-354.0) mg/dL Ferritin (22.0-322.0) ng/mL AST (17-59) U/L ALT (4-49) U/L Alkaline Phosphatase (38-126) U/L Total Protein (6.3-8.2) g/dL Albumin (3.5-5.0) g/dL Urine Protein (Negative) Urine Glucose (UA) (Negative) Urine Blood (Negative) Crossmatch See Detail 04/10/24 04/10/24 04/10/24 Range/Units 17:37 17:49 17:49 WBC (3.8-10.6) k/uL RBC (4.30-5.90) m/uL Hgb (13.0-17.5) gm/dL Hct (39.0-53.0) % RDW (11.5-15.5) % Plt Count (150-450) k/uL MPV (9.5-12.2) FL Immature Gran # (0.00-0.04) X 10*3/uL Lymphocytes # (1.0-4.8) k/uL Monocytes # (0.20-1.00) X 10*3/uL Eosinophils # (0.04-0.35) X 10*3/uL Immature Plt Fraction (1.1-6.1) % Retic Count (0.5-2.0) % PT (10.0-12.5) sec INR (<1.2) APTT (22.0-30.0) sec Sodium (137-145) mmol/L BUN (9-20) mg/dL Creatinine (0.66-1.25) mg/dL Glucose (74-99) mg/dL Plasma Lactic Acid Flo (0.7-2.0) mmol/L Iron 182 H (65-175) UG/DL % Saturation 68.42 H (15.00-50.00) Transferrin 190.0 L 191.0 L (204.0-354.0) mg/dL Ferritin 3549.0 H (22.0-322.0) ng/mL AST (17-59) U/L ALT (4-49) U/L Alkaline Phosphatase (38-126) U/L Total Protein (6.3-8.2) g/dL Albumin (3.5-5.0) g/dL Urine Protein Trace H (Negative) Urine Glucose (UA) 3+ H (Negative) Urine Blood Trace H (Negative) Crossmatch 04/10/24 04/11/24 04/11/24 Range/Units 19:35 00:04 00:04 WBC 3.1 L (3.8-10.6) k/uL RBC 2.51 L (4.30-5.90) m/uL Hgb 7.6 L (13.0-17.5) gm/dL Hct 22.8 L (39.0-53.0) % RDW 18.5 H (11.5-15.5) % Plt Count 82 L (150-450) k/uL MPV (9.5-12.2) FL Immature Gran # (0.00-0.04) X 10*3/uL Lymphocytes # 0.3 L (1.0-4.8) k/uL Monocytes # (0.20-1.00) X 10*3/uL Eosinophils # (0.04-0.35) X 10*3/uL Immature Plt Fraction (1.1-6.1) % Retic Count (0.5-2.0) % PT (10.0-12.5) sec INR (<1.2) APTT (22.0-30.0) sec Sodium (137-145) mmol/L BUN (9-20) mg/dL Creatinine (0.66-1.25) mg/dL Glucose (74-99) mg/dL Plasma Lactic Acid Flo 3.2 H* 3.5 H* (0.7-2.0) mmol/L Iron (65-175) UG/DL % Saturation (15.00-50.00) Transferrin (204.0-354.0) mg/dL Ferritin (22.0-322.0) ng/mL AST (17-59) U/L ALT (4-49) U/L Alkaline Phosphatase (38-126) U/L Total Protein (6.3-8.2) g/dL Albumin (3.5-5.0) g/dL Urine Protein (Negative) Urine Glucose (UA) (Negative) Urine Blood (Negative) Crossmatch 04/11/24 04/11/24 04/11/24 Range/Units 05:13 05:23 11:32 WBC 3.31 L (3.8-10.6) k/uL RBC 2.41 L (4.30-5.90) m/uL Hgb 7.2 L (13.0-17.5) gm/dL Hct 22.1 L (39.0-53.0) % RDW 19.8 H (11.5-15.5) % Plt Count 74 L (150-450) k/uL MPV 13.3 H (9.5-12.2) FL Immature Gran # 0.16 H (0.00-0.04) X 10*3/uL Lymphocytes # 0.29 L (1.0-4.8) k/uL Monocytes # 0.19 L (0.20-1.00) X 10*3/uL Eosinophils # 0 L (0.04-0.35) X 10*3/uL Immature Plt Fraction 10.9 H (1.1-6.1) % Retic Count (0.5-2.0) % PT (10.0-12.5) sec INR (<1.2) APTT (22.0-30.0) sec Sodium (137-145) mmol/L BUN (9-20) mg/dL Creatinine (0.66-1.25) mg/dL Glucose (74-99) mg/dL Plasma Lactic Acid Flo 3.2 H* 2.5 H* (0.7-2.0) mmol/L Iron (65-175) UG/DL % Saturation (15.00-50.00) Transferrin (204.0-354.0) mg/dL Ferritin (22.0-322.0) ng/mL AST (17-59) U/L ALT (4-49) U/L Alkaline Phosphatase (38-126) U/L Total Protein (6.3-8.2) g/dL Albumin (3.5-5.0) g/dL Urine Protein (Negative) Urine Glucose (UA) (Negative) Urine Blood (Negative) Crossmatch Assessment and Plan Assessment: #) Generalized weakness, suspect 2/2 to hodkin's lymphom and anemia #) Pancytopenia, hgb noted to be 7.2 after 1 unit PRBC. Continue to check and monitor hemoglobin however his reticulocyte index count is 1.1, likely hypoproliferation from his hodkin's. maintain hemoglobin goal greater than 7 and platelet count greater than 10. Transfuse if needed. He may require serial CBC lab work drawn outpatient and blood as needed. Appreciate oncology ass istance to help with this being arranged outpatient. Continue dexamethasone therapy. pending port placement later this month #) lactic acidosis, type B from hodgkin's lymphma, monitor off antibx. #) Sputum cx positive for e. coli and jonatan. Will require detention suppressive antibx. continue fluconazole and cefdnir as prescribed previously #) Transaminitis, possibly from Hodkin's lymphoma dvt ppx: scds dispo: med/surge, will likely need placement given significant weakness Time with Patient: Greater than 30
--- NOTE | 2024-04-11 14:52 | P.GSCN ---
History of Present Illness Consult date: 04/11/24 History of present illness: CHIEF COMPLAINT: Weakness and fall HISTORY OF PRESENT ILLNESS: This is a 78-year-old male who presents the hospital with weakness and fall. Patient was recently diagnosed with Hodgkin lymphoma in March 2024. He is pancytopenic on admission. Hemoglobin 6.4 and patient did receive a unit of blood. Repeat hemoglobin is 7.2. Surgical service has been consulted for port placement. PAST MEDICAL HISTORY: Coronary disease with cardiac stent, Hodgkin lymphoma, GERD, hyperlipidemia, [place] PAST SURGICAL HISTORY: See below MEDICATIONS: See below ALLERGIES: See below SOCIAL HISTORY: No illicit drug use. REVIEW OF SYSTEMS: CONSTITUTIONAL: Denies fever or chills. HEENT: Denies blurred vision, vision changes, or eye pain. Denies hemoptysis CARDIOVASCULAR: Denies chest pain or pressure. RESPIRATORY: No shortness of breath. GASTROINTESTINAL: See HPI for pertinent findings HEMATOLOGIC: Denies bleeding disorders. GENITOURINARY: Denies any blood in urine or increased urinary frequency. SKIN: Denies pruitis. Denies rash. PHYSICAL EXAM: VITAL SIGNS: Reviewed GENERAL: Well-developed in no acute distress. Pale HEENT: No sclera icterus. Extraocular movements grossly intact. Moist buccal mucosa. Head is atraumatic, normocephalic. No nasal drainage. ABDOMEN: Soft. Nondistended. Nontender NEUROLOGIC: Alert and oriented. Cranial nerves II through XII grossly intact. LABORATORY DATA: WBC 3.31 Hgb 6.4 up to 7.2 platelets 74 INR 1.4 Sodium 134 potassium 4.9 creatinine 1.29 Lactic acid 2.5 IMAGING: CT scan head and cervical spine no acute intracranial process. No acute osseous abnormality of C-spine. Bilateral foraminal narrowing more severe at the left and right. Chest xray reports Bilateral posterior pleural effusions ASSESSMENT: 1. Hodgkin's lymphoma 2. Pancytopenia PLAN: -Further recommendations forthcoming per surgeon regarding port placement -Continue supportive care Physician End Matcher note has been reviewed by physician. Signing provider agrees with the documented findings, assessment, and plan of care. Attestation Patient was transferred to outside facility prior to my evaluation. Apparently, patient had bloody bowel movement and recommendation was made by a different consulted surgeon for transfer to tertiary care center. Joana Flores DO Past Medical History Past Medical History: Coronary Artery Disease (CAD), Cancer, GERD/Reflux, Hyp erlipidemia, Myocardial Infarction ([place]) Additional Past Medical History / Comment(s): DJD, Hodgkins Lymphoma 2023 Last Myocardial Infarction Date:: 2016 History of Any Multi-Drug Resistant Organisms: None Reported Past Surgical History: Back Surgery, Cholecystectomy, Heart Catheterization With Stent Past Anesthesia/Blood Transfusion Reactions: No Reported Reaction Date of Last Stent Placement:: 2022 Past Psychological History: No Psychological Hx Reported Smoking Status: Former smoker Past Alcohol Use History: None Reported Past Drug Use History: None Reported Medications and Allergies Home Medications Medication Instructions Recorded Confirmed Type ARIPiprazole [Abilify] 5 mg PO HS 03/12/24 04/10/24 History Venlafaxine HCl [Effexor XR] 150 mg PO HS 03/12/24 04/10/24 History Magnesium Oxide [Mag-Ox] 400 mg PO BID #60 tab 03/17/24 04/10/24 Rx Albuterol Inhaler [Ventolin Hfa 1 - 2 puff INHALATION RT-Q4H PRN 03/25/24 04/10/24 History Inhaler] Tamsulosin [Flomax] 0.8 mg PO DAILY 03/25/24 04/10/24 History Pantoprazole [Protonix] 40 mg PO BID #100 tab 03/29/24 04/10/24 Rx guaiFENesin SYRUP 100MG/5ML 200 mg PO BID 03/31/24 04/10/24 History [Robitussin] Acetaminophen Tab [Tylenol] 650 mg PO Q6HR PRN tab 04/06/24 04/10/24 Rx Cefdinir 300 mg PO Q12HR #20 cap 04/06/24 04/10/24 Rx Fluconazole [Diflucan] 200 mg PO DAILY #10 tab 04/06/24 04/10/24 Rx allopurinoL [Zyloprim] 100 mg PO DAILY #30 tab 04/06/24 04/10/24 Rx dexAMETHasone [Decadron] 40 mg PO DAILY #80 tab 04/06/24 04/10/24 Rx Allergies Allergy/AdvReac Type Severity Reaction Status Date / Time No Known Allergies Allergy Verified 04/10/24 15:46 Surgical - Exam Osteopathic Statement: *. No significant issues noted on an osteopathic structural exam other than those noted in the History and Physical/Consult. Vital Signs Temp Pulse Resp BP Pulse Ox 98.1 F 95 18 93/53 95 04/10/24 14:28 04/10/24 14:28 04/10/24 14:28 04/10/24 14:28 04/10/24 14:28 Results - Labs 04/12/24 02:52 04/12/24 02:52 Abnormal Lab Results - Last 24 Hours (Table) 04/10/24 04/10/24 04/10/24 Range/Units 16:41 16:41 16:41 WBC 2.7 L (3.8-10.6) k/uL RBC 2.21 L (4.30-5.90) m/uL Hgb 6.4 L* D (13.0-17.5) gm/dL Hct 19.6 L* (39.0-53.0) % RDW 19.2 H (11.5-15.5) % Plt Count 86 L (150-450) k/uL MPV (9.5-12.2) FL Immature Gran # (0.00-0.04) X 10*3/uL Lymphocytes # 0.2 L (1.0-4.8) k/uL Monocytes # (0.20-1.00) X 10*3/uL Eosinophils # (0.04-0.35) X 10*3/uL Immature Plt Fraction (1.1-6.1) % Retic Count (0.5-2.0) % PT 14.3 H (10.0-12.5) sec INR 1.4 H (<1.2) APTT 20.8 L (22.0-30.0) sec Sodium 134 L (137-145) mmol/L BUN 64 H (9-20) mg/dL Creatinine 1.29 H (0.66-1.25) mg/dL Glucose 141 H (74-99) mg/dL Plasma Lactic Acid Flo (0.7-2.0) mmol/L Iron (65-175) UG/DL % Saturation (15.00-50.00) Transferrin (204.0-354.0) mg/dL Ferritin (22.0-322.0) ng/mL AST 84 H (17-59) U/L ALT 112 H (4-49) U/L Alkaline Phosphatase 338 H (38-126) U/L Total Protein 4.9 L (6.3-8.2) g/dL Albumin 2.3 L (3.5-5.0) g/dL Urine Protein (Negative) Urine Glucose (UA) (Negative) Urine Blood (Negative) Crossmatch 04/10/24 04/10/24 04/10/24 Range/Units 16:41 16:41 17:22 WBC (3.8-10.6) k/uL RBC (4.30-5.90) m/uL Hgb (13.0-17.5) gm/dL Hct (39.0-53.0) % RDW (11.5-15.5) % Plt Count (150-450) k/uL MPV (9.5-12.2) FL Immature Gran # (0.00-0.04) X 10*3/uL Lymphocytes # (1.0-4.8) k/uL Monocytes # (0.20-1.00) X 10*3/uL Eosinophils # (0.04-0.35) X 10*3/uL Immature Plt Fraction (1.1-6.1) % Retic Count 5.1 H (0.5-2.0) % PT (10.0-12.5) sec INR (<1.2) APTT (22.0-30.0) sec Sodium (137-145) mmol/L BUN (9-20) mg/dL Creatinine (0.66-1.25) mg/dL Glucose (74-99) mg/dL Plasma Lactic Acid Flo 3.7 H* (0.7-2.0) mmol/L Iron (65-175) UG/DL % Saturation (15.00-50.00) Transferrin (204.0-354.0) mg/dL Ferritin (22.0-322.0) ng/mL AST (17-59) U/L ALT (4-49) U/L Alkaline Phosphatase (38-126) U/L Total Protein (6.3-8.2) g/dL Albumin (3.5-5.0) g/dL Urine Protein (Negative) Urine Glucose (UA) (Negative) Urine Blood (Negative) Crossmatch See Detail 04/10/24 04/10/24 04/10/24 Range/Units 17:37 17:49 17:49 WBC (3.8-10.6) k/uL RBC (4.30-5.90) m/uL Hgb (13.0-17.5) gm/dL Hct (39.0-53.0) % RDW (11.5-15.5) % Plt Count (150-450) k/uL MPV (9.5-12.2) FL Immature Gran # (0.00-0.04) X 10*3/uL Lymphocytes # (1.0-4.8) k/uL Monocytes # (0.20-1.00) X 10*3/uL Eosinophils # (0.04-0.35) X 10*3/uL Immature Plt Fraction (1.1-6.1) % Retic Count (0.5-2.0) % PT (10.0-12.5) sec INR (<1.2) APTT (22.0-30.0) sec Sodium (137-145) mmol/L BUN (9-20) mg/dL Creatinine (0.66-1.25) mg/dL Glucose (74-99) mg/dL Plasma Lactic Acid Flo (0.7-2.0) mmol/L Iron 182 H (65-175) UG/DL % Saturation 68.42 H (15.00-50.00) Transferrin 190.0 L 191.0 L (204.0-354.0) mg/dL Ferritin 3549.0 H (22.0-322.0) ng/mL AST (17-59) U/L ALT (4-49) U/L Alkaline Phosphatase (38-126) U/L Total Protein (6.3-8.2) g/dL Albumin (3.5-5.0) g/dL Urine Protein Trace H (Negative) Urine Glucose (UA) 3+ H (Negative) Urine Blood Trace H (Negative) Crossmatch 04/10/24 04/11/24 04/11/24 Range/Units 19:35 00:04 00:04 WBC 3.1 L (3.8-10.6) k/uL RBC 2.51 L (4.30-5.90) m/uL Hgb 7.6 L (13.0-17.5) gm/dL Hct 22.8 L (39.0-53.0) % RDW 18.5 H (11.5-15.5) % Plt Count 82 L (150-450) k/uL MPV (9.5-12.2) FL Immature Gran # (0.00-0.04) X 10*3/uL Lymphocytes # 0.3 L (1.0-4.8) k/uL Monocytes # (0.20-1.00) X 10*3/uL Eosinophils # (0.04-0.35) X 10*3/uL Immature Plt Fraction (1.1-6.1) % Retic Count (0.5-2.0) % PT (10.0-12.5) sec INR (<1.2) APTT (22.0-30.0) sec Sodium (137-145) mmol/L BUN (9-20) mg/dL Creatinine (0.66-1.25) mg/dL Glucose (74-99) mg/dL Plasma Lactic Acid Flo 3.2 H* 3.5 H* (0.7-2.0) mmol/L Iron (65-175) UG/DL % Saturation (15.00-50.00) Transferrin (204.0-354.0) mg/dL Ferritin (22.0-322.0) ng/mL AST (17-59) U/L ALT (4-49) U/L Alkaline Phosphatase (38-126) U/L Total Protein (6.3-8.2) g/dL Albumin (3.5-5.0) g/dL Urine Protein (Negative) Urine Glucose (UA) (Negative) Urine Blood (Negative) Crossmatch 04/11/24 04/11/24 04/11/24 Range/Units 05:13 05:23 11:32 WBC 3.31 L (3.8-10.6) k/uL RBC 2.41 L (4.30-5.90) m/uL Hgb 7.2 L (13.0-17.5) gm/dL Hct 22.1 L (39.0-53.0) % RDW 19.8 H (11.5-15.5) % Plt Count 74 L (150-450) k/uL MPV 13.3 H (9.5-12.2) FL Immature Gran # 0.16 H (0.00-0.04) X 10*3/uL Lymphocytes # 0.29 L (1.0-4.8) k/uL Monocytes # 0.19 L (0.20-1.00) X 10*3/uL Eosinophils # 0 L (0.04-0.35) X 10*3/uL Immature Plt Fraction 10.9 H (1.1-6.1) % Retic Count (0.5-2.0) % PT (10.0-12.5) sec INR (<1.2) APTT (22.0-30.0) sec Sodium (137-145) mmol/L BUN (9-20) mg/dL Creatinine (0.66-1.25) mg/dL Glucose (74-99) mg/dL Plasma Lactic Acid Flo 3.2 H* 2.5 H* (0.7-2.0) mmol/L Iron (65-175) UG/DL % Saturation (15.00-50.00) Transferrin (204.0-354.0) mg/dL Ferritin (22.0-322.0) ng/mL AST (17-59) U/L ALT (4-49) U/L Alkaline Phosphatase (38-126) U/L Total Protein (6.3-8.2) g/dL Albumin (3.5-5.0) g/dL Urine Protein (Negative) Urine Glucose (UA) (Negative) Urine Blood (Negative) Crossmatch Diabetes panel 04/10/24 Range/Units 16:41 Sodium 134 L (137-145) mmol/L Potassium 4.9 (3.5-5.1) mmol/L Chloride 106 (98-107) mmol/L Carbon Dioxide 24 (22-30) mmol/L BUN 64 H (9-20) mg/dL Creatinine 1.29 H (0.66-1.25) mg/dL Glucose 141 H (74-99) mg/dL Calcium 9.5 (8.4-10.2) mg/dL AST 84 H (17-59) U/L ALT 112 H (4-49) U/L Alkaline Phosphatase 338 H (38-126) U/L Total Protein 4.9 L (6.3-8.2) g/dL Albumin 2.3 L (3.5-5.0) g/dL Calcium panel 04/10/24 Range/Units 16:41 Calcium 9.5 (8.4-10.2) mg/dL Albumin 2.3 L (3.5-5.0) g/dL Pituitary panel 04/10/24 Range/Units 16:41 Sodium 134 L (137-145) mmol/L Potassium 4.9 (3.5-5.1) mmol/L Chloride 106 (98-107) mmol/L Carbon Dioxide 24 (22-30) mmol/L BUN 64 H (9-20) mg/dL Creatinine 1.29 H (0.66-1.25) mg/dL Glucose 141 H (74-99) mg/dL Calcium 9.5 (8.4-10.2) mg/dL Adrenal panel 04/10/24 Range/Units 16:41 Sodium 134 L (137-145) mmol/L Potassium 4.9 (3.5-5.1) mmol/L Chloride 106 (98-107) mmol/L Carbon Dioxide 24 (22-30) mmol/L BUN 64 H (9-20) mg/dL Creatinine 1.29 H (0.66-1.25) mg/dL Glucose 141 H (74-99) mg/dL Calcium 9.5 (8.4-10.2) mg/dL Total Bilirubin 0.8 (0.2-1.3) mg/dL AST 84 H (17-59) U/L ALT 112 H (4-49) U/L Alkaline Phosphatase 338 H (38-126) U/L Total Protein 4.9 L (6.3-8.2) g/dL Albumin 2.3 L (3.5-5.0) g/dL
[2024-04-11 14:59] LABS: Anisocytosis Slight; HCT 22.4 % (39.0-53.0); HGB 7.4 gm/dL (13.0-17.5); Hypochromasia Moderate; MCH 30.3 pg (25.0-35.0); MCV 91.7 fL (80.0-100.0); Mean Platelet Volume 11.1; RBC 2.44 m/uL (4.30-5.90); RDW 18.7 % (11.5-15.5); WBC 3.7 k/uL (3.8-10.6)
[2024-04-11 15:03] LABS: Platelet Count 81 k/uL (150-450)
[2024-04-11] MEDS: SODIUM CHLORIDE 0.9% 1,000 ML IV ONE (22:40)
[2024-04-11 22:49] LABS: Glucose,Whole Blood 198 mg/dL (70-110)
[2024-04-11] MEDS: PANTOPRAZOLE 40 MG/10 ML VIAL IVP STA (23:46)
[2024-04-11] MEDS: SODIUM CHLORIDE 0.9% 1,000 ML IV SCH (23:48)
[2024-04-12] MEDS: SODIUM CHLORIDE 0.9% 500 ML 500 ML IV ONE (01:09)
[2024-04-12] MEDS ORDERED: Magnesium Replacement Protocol 1 EACH MISC MISCELLANE PRN (02:15)
[2024-04-12] MEDS ORDERED: Potassium Replacement Protocol 1 EACH MISC MISCELLANE PRN (02:15)
[2024-04-12 03:36] LABS: Anisocytosis Slight; Basophils % (A) 0 %; Eosinophils % (A) 0 %; Lymphocytes # (A) 0.3 k/uL (1.0-4.8); Lymphocytes % (A) 9 %; MCH 29.9 pg (25.0-35.0); MCHC 33.4 g/dL (31.0-37.0); MCV 89.4 fL (80.0-100.0); Mean Platelet Volume 11.9; Monocytes # (A) 0.1 k/uL (0-1.0); Monocytes % (A) 4 %; Neutrophils % (A) 85 %; Poikilocytosis Slight; RBC 2.03 m/uL (4.30-5.90); RDW 18.4 % (11.5-15.5); WBC 3.5 k/uL (3.8-10.6)
[2024-04-12 03:46] LABS: Platelet Count 78 k/uL (150-450)
[2024-04-12 03:47] LABS: African American GFR (CKD) 69 (>60 ml/min/1.73 sqM); Anion Gap -1 mmol/L; Blood Urea Nitrogen 69 mg/dL (9-20); Calcium 8.9 mg/dL (8.4-10.2); Carbon Dioxide 21 mmol/L (22-30); Chloride 112 mmol/L (98-107); Glucose 128 mg/dL (74-99); Magnesium 2.3 mg/dL (1.6-2.3); Non-African American GFR(CKD) 60 (>60 ml/min/1.73 sqM); Potassium 5.5 mmol/L (3.5-5.1); Sodium 132 mmol/L (137-145)
[2024-04-12 03:48] LABS: HGB 6.1 gm/dL (13.0-17.5)
[2024-04-12 03:49] LABS: HCT 18.1 % (39.0-53.0)
[2024-04-12 05:15] VITALS: RESP 16; TEMP 98.1
[2024-04-12] MEDS: SODIUM ZIRCONIUM CYCLOSILICATE 10 GM PACKET PO ONE (05:22)
[2024-04-12 05:36] VITALS: BP 94/58; PULSE 84
--- NOTE | 2024-04-12 06:03 | P.EN ---
Notified by RN that patient had a large melanotic stool. The patient was seen and examined at the bedside. He reported feeling somewhat lightheaded with positional changes but had no additional complaints. The patient's BP was noted to be in the 90s systolics. 1 unit PRBCs was ordered and administered with subsequent CBC showing a hemoglobin of 6.1. 2 additional units of PRBCs were ordered and the case was discussed with general surgery on-call. Dr. Ray recommended that patient be transferred for immediate endoscopy and possible colonoscopy. The patient was given IV fluids and IV Protonix. The case was discussed with computer security specialist on-call and the patient was transferred to the medical ICU. The case was presented to [facility] who accepted the patient but noted that they will not have a bed until later in the day. The case was also been presented to [facility]. The patient subsequently received a bed at that facility. The patient's family was notified and was in agreement with the transfer.
--- NOTE | 2024-04-12 07:26 | P.DS ---
Providers Date of admission: 04/10/24 17:55 Attending physician: Yesenia Riddle MD Consults: 04/10/24 18:18 Consult Physician Routine Consulting Provider: Ganesh Knight Consult Reason/Comments: recurrent anemia in the setting of hodkin's lymphoma Do you want consulting provider notified?: Yes, Notify in am 04/11/24 14:04 Consult Physician Routine Consulting Provider: Joana Flores Consult Reason/Comments: eval for port placement Do you want consulting provider notified?: Yes 04/11/24 23:00 Consult Physician Stat Consulting Provider: Grabiel Camejo Consult Reason/Comments: Requires higher level of care Do you want consulting provider notified?: Already Contacted Primary care physician: Corona Novoa MD Hospital Course: 78 YO M who had presented to the hospital on 04/10 for weakness. His hgb was noted to be 6.4. He was tranfused 1 unit prbc on 04/10 and hgb was noted to be stable on 04/11. On 04/11, night the patient had a large melantoic stool and was noted to be lightheaded. he was given 1 unit prbc he was tranferred to the icu where he was given an additional 2 unit prbc. General surgery had recommended transfer for more immediate endoscopy. [facility] Assessment: #) Generalized weakness, suspect 2/2 to hodkin's lymphom and anemia #) Pancytopenia, hgb noted to be 7.2 after 1 unit PRBC. s/p 4 unit prbc this admission. noted to have a melanotic stool and concern for upper gi bleed, possibly from gastriis from high dose steroids. tranferred to [facility] for more immediate endoscopy. #) lactic acidosis, type B from hodgkin's lymphma, monitor off antibx. #) Sputum cx positive for e. coli and jonatan. Will require intermediate card tender suppressive antibx. continue fluconazole and cefdnir as prescribed previously #) Transaminitis, possibly from Hodkin's lymphoma Patient Condition at Discharge: Stable Plan - Discharge Summary Discharge Rx Participant: Yes New Discharge Prescriptions: No Action ARIPiprazole [Abilify] 5 mg PO HS Magnesium Oxide [Mag-Ox] 400 mg PO BID #60 tab Tamsulosin [Flomax] 0.8 mg PO DAILY Albuterol Inhaler [Ventolin Hfa Inhaler] 1 - 2 puff INHALATION RT-Q4H PRN PRN Reason: Shortness Of Breath Fluconazole [Diflucan] 200 mg PO DAILY #10 tab Acetaminophen Tab [Tylenol] 650 mg PO Q6HR PRN tab PRN Reason: Fever And/ Or Pain allopurinoL [Zyloprim] 100 mg PO DAILY #30 tab Venlafaxine HCl [Effexor XR] 150 mg PO HS Pantoprazole [Protonix] 40 mg PO BID #100 tab guaiFENesin SYRUP 100MG/5ML [Robitussin] 200 mg PO BID Cefdinir 300 mg PO Q12HR #20 cap dexAMETHasone [Decadron] 40 mg PO DAILY #80 tab Discharge Medication List ARIPiprazole [Abilify] 5 mg PO HS 03/12/24 [History] Venlafaxine HCl [Effexor XR] 150 mg PO HS 03/12/24 [History] Magnesium Oxide [Mag-Ox] 400 mg PO BID #60 tab 03/17/24 [Rx] Albuterol Inhaler [Ventolin Hfa Inhaler] 1 - 2 puff INHALATION RT-Q4H PRN 03/25/24 [History] Tamsulosin [Flomax] 0.8 mg PO DAILY 03/25/24 [History] Pantoprazole [Protonix] 40 mg PO BID #100 tab 03/29/24 [Rx] guaiFENesin SYRUP 100MG/5ML [Robitussin] 200 mg PO BID 03/31/24 [History] Acetaminophen Tab [Tylenol] 650 mg PO Q6HR PRN tab 04/06/24 [Rx] Cefdinir 300 mg PO Q12HR #20 cap 04/06/24 [Rx] Fluconazole [Diflucan] 200 mg PO DAILY #10 tab 04/06/24 [Rx] allopurinoL [Zyloprim] 100 mg PO DAILY #30 tab 04/06/24 [Rx] dexAMETHasone [Decadron] 40 mg PO DAILY #80 tab 04/06/24 [Rx] Follow up Appointment(s)/Referral(s): Corona Novoa MD [Primary Care Provider] - 1-2 days Discharge Disposition: TRANSFER TO SNF/F
--- NOTE | 2024-04-12 11:59 | P.CONS ---
History of Present Illness - Reason for Consult Consult date: 04/11/24 anemia, lymphoma Requesting physician: Rohan Dickinson - Chief Complaint weakness - History of Present Illness Mr. Spicer is a 78-year-old male who was transferred from [facility] in [place] due to hypercalcemia and abnormal lymphadenopathy noted on CT scan. Patient reports has been having increasing confusion over the last 3 weeks as well as weight loss and decreased appetite that has progressed over the last [address] CAP without contrast showed mediastinal and right hilar lymphadenopathy with markedly enlarged subcarinal lymph node. Single mildly enlarged lymph node in the right axilla and 1 in the left periaortic region in the abdomen. Small right pleural effusion with adjacent atelectasis. Minimal reticular nodular opacity most notable in the right lower lobe and less so in the left upper lobe, favoring inflammatory infectious process. Patient was also noted to be in acute renal failure with elevated calcium. Labs upon presentation to the ER showed creatinine 2.45, GFR 24. Calcium 14.7. Patient was given Zometa prior to arrival and calcitonin on admit. He underwent ultrasound-guided core needle biopsy of the right axillary lymphadenopathy on 03/13/2024 and was noted to be consistent with classical Hodgkin's lymphoma, mixed cellularity type. Subsequently, he was admitted with weakness and noted to have pancytopenia and cholestatic/hepatocellular transaminitis of unclear etiology. After discharge on 03/29/2024, he was readmitted on 03/31/2024 with fevers, dyspnea, and wheezing concerning for pneumonia. In addition to treatment with antibiotics, he was started on pulse dose steroids with improvement in his transaminitis. Based on the workup above, I am concerned he has advanced classical Hodgkin's lymphoma with at least stage III disease and possibly stage IV if he has liver and potentially bone marrow involvement. Based on having advanced stage disease, I did recommend treatment with 6 cycles of nivolumab plus AVD per recently published SWOG 1826 trial. He does have PET/CT scheduled for 04/17/2024. Currently awaiting prior auth to begin treatment. Patient Oralia presented to emergency room for generalized weakness and dizziness and subsequent fall. Upon admit CT brain without contrast showed no acute intracranial processes. Hemoglobin noted at 6.4 and subsequently received 1 unit PRBCs with repeat hemoglobin of 7.6. WBC 3.1, platelets 82,000. Patient denies melena and blood in the stool. Iron saturation 68.4%, ferritin 3549. However patient did receive 1 unit PRBCs on 04/02. It was recommended that p castro underwent endoscopy during previous admit but patient had declined and said that he would prefer to do outpatient, but is yet to have follow-up with GI. Review of Systems 10 point ROS is negative except as stated in the HPI Past Medical History Past Medical History: Coronary Artery Disease (CAD), Cancer, GERD/Reflux, Hy perlipidemia, Myocardial Infarction ([place]) Additional Past Medical History / Comment(s): DJD, Hodgkins Lymphoma 2023 Last Myocardial Infarction Date:: 2016 History of Any Multi-Drug Resistant Organisms: None Reported Past Surgical History: Back Surgery, Cholecystectomy, Heart Catheterization With Stent Past Anesthesia/Blood Transfusion Reactions: No Reported Reaction Date of Last Stent Placement:: 2022 Past Psychological History: No Psychological Hx Reported Smoking Status: Former smoker Past Alcohol Use History: None Reported Past Drug Use History: None Reported Medications and Allergies Home Medications Medication Instructions Recorded Confirmed Type ARIPiprazole [Abilify] 5 mg PO HS 03/12/24 04/10/24 History Venlafaxine HCl [Effexor XR] 150 mg PO HS 03/12/24 04/10/24 History Magnesium Oxide [Mag-Ox] 400 mg PO BID #60 tab 03/17/24 04/10/24 Rx Albuterol Inhaler [Ventolin Hfa 1 - 2 puff INHALATION RT-Q4H PRN 03/25/24 04/10/24 History Inhaler] Tamsulosin [Flomax] 0.8 mg PO DAILY 03/25/24 04/10/24 History Pantoprazole [Protonix] 40 mg PO BID #100 tab 03/29/24 04/10/24 Rx guaiFENesin SYRUP 100MG/5ML 200 mg PO BID 03/31/24 04/10/24 History [Robitussin] Acetaminophen Tab [Tylenol] 650 mg PO Q6HR PRN tab 04/06/24 04/10/24 Rx Cefdinir 300 mg PO Q12HR #20 cap 04/06/24 04/10/24 Rx Fluconazole [Diflucan] 200 mg PO DAILY #10 tab 04/06/24 04/10/24 Rx allopurinoL [Zyloprim] 100 mg PO DAILY #30 tab 04/06/24 04/10/24 Rx dexAMETHasone [Decadron] 40 mg PO DAILY #80 tab 04/06/24 04/10/24 Rx Allergies Allergy/AdvReac Type Severity Reaction Status Date / Time No Known Allergies Allergy Verified 04/10/24 15:46 Physical Exam Vitals: Vital Signs Temp Pulse Pulse Resp BP BP BP 04/11/24 11:40 98.1 F 82 16 97/57 04/11/24 07:15 108/63 04/11/24 07:11 97.4 F L 85 17 04/11/24 01:17 97.7 F 79 18 04/10/24 21:32 98.3 F 86 17 114/67 04/10/24 21:10 98.6 F 82 18 111/57 04/10/24 21:08 98.6 F 82 18 111/57 04/10/24 20:32 98.6 F 81 18 114/52 04/10/24 20:00 98.2 F 85 18 103/56 04/10/24 19:40 98.6 F 89 18 103/49 04/10/24 19:27 98.5 F 86 16 103/51 04/10/24 18:27 98 18 115/53 04/10/24 14:52 95/58 87/50 04/10/24 14:28 98.1 F 95 18 93/53 BP Pulse Ox 04/11/24 11:40 96 04/11/24 07:15 04/11/24 07:11 103/61 94 L 04/11/24 01:17 102/67 96 04/10/24 21:32 98 04/10/24 21:10 98 04/10/24 21:08 98 04/10/24 20:32 96 04/10/24 20:00 97 04/10/24 19:40 95 04/10/24 19:27 95 04/10/24 18:27 98 04/10/24 14:52 116/61 04/10/24 14:28 95 Intake and Output 04/10/24 04/11/24 04/11/24 22:59 06:59 14:59 Intake Total 430 Output Total 200 500 Balance 430 -200 -500 Intake: Oral 120 Blood Product 310 Rc As-1 Unit 310 [id number] Output: Urine 200 500 Other: Voiding Method Urinal Urinal # Voids 3 2 Weight 92 kg - Constitutional General appearance: average body habitus, no acute distress - EENT Eyes: anicteric sclerae, EOMI ENT: hearing grossly normal - Respiratory Respiratory: bilateral: CTA - Cardiovascular Rhythm: regular - Gastrointestinal General gastrointestinal: soft, no tenderness - Integumentary Integumentary: no cyanotic, pale - Musculoskeletal Musculoskeletal: generalized weakness - Psychiatric Psychiatric: A&O x's 3 Results CBC & Chem 7: 04/12/24 02:52 04/12/24 02:52 Labs: Abnormal Lab Results - Last 24 Hours (Table) 04/10/24 04/10/24 04/10/24 Range/Units 16:41 16:41 16:41 WBC 2.7 L (3.8-10.6) k/uL RBC 2.21 L (4.30-5.90) m/uL Hgb 6.4 L* D (13.0-17.5) gm/dL Hct 19.6 L* (39.0-53.0) % RDW 19.2 H (11.5-15.5) % Plt Count 86 L (150-450) k/uL MPV (9.5-12.2) FL Immature Gran # (0.00-0.04) X 10*3/uL Lymphocytes # 0.2 L (1.0-4.8) k/uL Monocytes # (0.20-1.00) X 10*3/uL Eosinophils # (0.04-0.35) X 10*3/uL Immature Plt Fraction (1.1-6.1) % Retic Count (0.5-2.0) % PT 14.3 H (10.0-12.5) sec INR 1.4 H (<1.2) APTT 20.8 L (22.0-30.0) sec Sodium 134 L (137-145) mmol/L BUN 64 H (9-20) mg/dL Creatinine 1.29 H (0.66-1.25) mg/dL Glucose 141 H (74-99) mg/dL Plasma Lactic Acid Flo (0.7-2.0) mmol/L Iron (65-175) UG/DL % Saturation (15.00-50.00) Transferrin (204.0-354.0) mg/dL Ferritin (22.0-322.0) ng/mL AST 84 H (17-59) U/L ALT 112 H (4-49) U/L Alkaline Phosphatase 338 H (38-126) U/L Total Protein 4.9 L (6.3-8.2) g/dL Albumin 2.3 L (3.5-5.0) g/dL Urine Protein (Negative) Urine Glucose (UA) (Negative) Urine Blood (Negative) Crossmatch 04/10/24 04/10/24 04/10/24 Range/Units 16:41 16:41 17:22 WBC (3.8-10.6) k/uL RBC (4.30-5.90) m/uL Hgb (13.0-17.5) gm/dL Hct (39.0-53.0) % RDW (11.5-15.5) % Plt Count (150-450) k/uL MPV (9.5-12.2) FL Immature Gran # (0.00-0.04) X 10*3/uL Lymphocytes # (1.0-4.8) k/uL Monocytes # (0.20-1.00) X 10*3/uL Eosinophils # (0.04-0.35) X 10*3/uL Immature Plt Fraction (1.1-6.1) % Retic Count 5.1 H (0.5-2.0) % PT (10.0-12.5) sec INR (<1.2) APTT (22.0-30.0) sec Sodium (137-145) mmol/L BUN (9-20) mg/dL Creatinine (0.66-1.25) mg/dL Glucose (74-99) mg/dL Plasma Lactic Acid Flo 3.7 H* (0.7-2.0) mmol/L Iron (65-175) UG/DL % Saturation (15.00-50.00) Transferrin (204.0-354.0) mg/dL Ferritin (22.0-322.0) ng/mL AST (17-59) U/L ALT (4-49) U/L Alkaline Phosphatase (38-126) U/L Total Protein (6.3-8.2) g/dL Albumin (3.5-5.0) g/dL Urine Protein (Negative) Urine Glucose (UA) (Negative) Urine Blood (Negative) Crossmatch See Detail 04/10/24 04/10/24 04/10/24 Range/Units 17:37 17:49 17:49 WBC (3.8-10.6) k/uL RBC (4.30-5.90) m/uL Hgb (13.0-17.5) gm/dL Hct (39.0-53.0) % RDW (11.5-15.5) % Plt Count (150-450) k/uL MPV (9.5-12.2) FL Immature Gran # (0.00-0.04) X 10*3/uL Lymphocytes # (1.0-4.8) k/uL Monocytes # (0.20-1.00) X 10*3/uL Eosinophils # (0.04-0.35) X 10*3/uL Immature Plt Fraction (1.1-6.1) % Retic Count (0.5-2.0) % PT (10.0-12.5) sec INR (<1.2) APTT (22.0-30.0) sec Sodium (137-145) mmol/L BUN (9-20) mg/dL Creatinine (0.66-1.25) mg/dL Glucose (74-99) mg/dL Plasma Lactic Acid Flo (0.7-2.0) mmol/L Iron 182 H (65-175) UG/DL % Saturation 68.42 H (15.00-50.00) Transferrin 190.0 L 191.0 L (204.0-354.0) mg/dL Ferritin 3549.0 H (22.0-322.0) ng/mL AST (17-59) U/L ALT (4-49) U/L Alkaline Phosphatase (38-126) U/L Total Protein (6.3-8.2) g/dL Albumin (3.5-5.0) g/dL Urine Protein Trace H (Negative) Urine Glucose (UA) 3+ H (Negative) Urine Blood Trace H (Negative) Crossmatch 04/10/24 04/11/24 04/11/24 Range/Units 19:35 00:04 00:04 WBC 3.1 L (3.8-10.6) k/uL RBC 2.51 L (4.30-5.90) m/uL Hgb 7.6 L (13.0-17.5) gm/dL Hct 22.8 L (39.0-53.0) % RDW 18.5 H (11.5-15.5) % Plt Count 82 L (150-450) k/uL MPV (9.5-12.2) FL Immature Gran # (0.00-0.04) X 10*3/uL Lymphocytes # 0.3 L (1.0-4.8) k/uL Monocytes # (0.20-1.00) X 10*3/uL Eosinophils # (0.04-0.35) X 10*3/uL Immature Plt Fraction (1.1-6.1) % Retic Count (0.5-2.0) % PT (10.0-12.5) sec INR (<1.2) APTT (22.0-30.0) sec Sodium (137-145) mmol/L BUN (9-20) mg/dL Creatinine (0.66-1.25) mg/dL Glucose (74-99) mg/dL Plasma Lactic Acid Flo 3.2 H* 3.5 H* (0.7-2.0) mmol/L Iron (65-175) UG/DL % Saturation (15.00-50.00) Transferrin (204.0-354.0) mg/dL Ferritin (22.0-322.0) ng/mL AST (17-59) U/L ALT (4-49) U/L Alkaline Phosphatase (38-126) U/L Total Protein (6.3-8.2) g/dL Albumin (3.5-5.0) g/dL Urine Protein (Negative) Urine Glucose (UA) (Negative) Urine Blood (Negative) Crossmatch 04/11/24 04/11/24 04/11/24 Range/Units 05:13 05:23 11:32 WBC 3.31 L (3.8-10.6) k/uL RBC 2.41 L (4.30-5.90) m/uL Hgb 7.2 L (13.0-17.5) gm/dL Hct 22.1 L (39.0-53.0) % RDW 19.8 H (11.5-15.5) % Plt Count 74 L (150-450) k/uL MPV 13.3 H (9.5-12.2) FL Immature Gran # 0.16 H (0.00-0.04) X 10*3/uL Lymphocytes # 0.29 L (1.0-4.8) k/uL Monocytes # 0.19 L (0.20-1.00) X 10*3/uL Eosinophils # 0 L (0.04-0.35) X 10*3/uL Immature Plt Fraction 10.9 H (1.1-6.1) % Retic Count (0.5-2.0) % PT (10.0-12.5) sec INR (<1.2) APTT (22.0-30.0) sec Sodium (137-145) mmol/L BUN (9-20) mg/dL Creatinine (0.66-1.25) mg/dL Glucose (74-99) mg/dL Plasma Lactic Acid Flo 3.2 H* 2.5 H* (0.7-2.0) mmol/L Iron (65-175) UG/DL % Saturation (15.00-50.00) Transferrin (204.0-354.0) mg/dL Ferritin (22.0-322.0) ng/mL AST (17-59) U/L ALT (4-49) U/L Alkaline Phosphatase (38-126) U/L Total Protein (6.3-8.2) g/dL Albumin (3.5-5.0) g/dL Urine Protein (Negative) Urine Glucose (UA) (Negative) Urine Blood (Negative) Crossmatch Chest x-ray: report reviewed CT Scan - head: report reviewed Assessment and Plan (1) MATT (acute kidney injury) Status: Acute Priority: High Code(s): N17.9 - ACUTE KIDNEY FAILURE, UNSPECIFIED SNOMED Code(s): 51744089 (2) Anemia Status: Acute Code(s): D64.9 - ANEMIA, UNSPECIFIED SNOMED Code(s): 557288021 (3) Elevated LFTs Status: Acute Priority: High Code(s): R79.89 - OTHER SPECIFIED ABNORMAL FINDINGS OF BLOOD CHEMISTRY SNOMED Code(s): 228642747 (4) Hodgkins lymphoma Status: Acute Priority: High Code(s): C81.90 - HODGKIN LYMPHOMA, UNSPECIFIED, UNSPECIFIED SITE SNOMED Code(s): 213214290 (5) Pancytopenia Status: Acute Priority: High Code(s): D61.818 - OTHER PANCYTOPENIA SNOMED Code(s): 448848891 (6) Weakness Status: Acute Priority: High Code(s): R53.1 - WEAKNESS SNOMED Code(s): 92902049 Plan: Hodgkin's lymphoma -New diagnosis. Unfortunately pt has had repeat hospitalizations over the last month delaying outpt workup -Based on workup thus far, I am concerned he has advanced classical Hodgkin's lymphoma with at least stage III disease and possibly stage IV if he has liver and potentially bone marrow involvement -Completed two rounds pulse dose dex -Recommended treatment with 6 cycles of nivolumab plus AVD. Currently awaiting prior auth to begin treatment. -Due to repeat hospitalizations and anemia, requiring frequent blood transfusions, if patient stays over the weekend, prior to d/c to rehab will try to arrange pt to receive cycle 1 of AVD inpt -General surgery consulted for port placement Pancytopenia: -Hemoglobin 6.4 on admit and subsequently received 1 unit PRBCs with repeat hem oglobin of 7.6. WBC 3.1, platelets 82,000. Iron saturation 68.4%, ferritin 3549. However patient did receive 1 unit PRBCs on 04/02 likely affecting iron studies -Patient denies melena and blood in the stool, but there were concerns for possible melanotic stools during previous admits, and it was recommended that patient underwent endoscopy at that time to r/o GI bleed but patient had declined and said that he would prefer to f/u outpt, but has yet to have follow- up with GI -Concern that noted pancytopenia is r/t Lymphoma bone marrow involvement, but GI bleed is still within differential. Continue to monitor stools for hematochezia/melena -Daily CBC. Please transfuse for hgb less than 7 or if symptomatic Doctor attests: I performed a history and physical examination of this patient, developed impression and plan of care. Discussed with dictator. I agree with dictators note, documented as a scribe.
== END 2024-04-12 06:51 ==
LOC: EC 14:23 → 5NMEDONC 17:55 → 2SICU 04-11 22:44
PROVIDERS: ADMIT Family Medicine; ATTEND Family Medicine
DX: R53.1 Weakness (principal); D64.9 Anemia, unspecified; D61.818 Other pancytopenia; E87.29 Other acidosis; K92.1 Melena; C81.90 Hodgkin lymphoma, unspecified, unspecified site; R74.01 Elevation of levels of liver transaminase levels; N17.9 Acute kidney failure, unspecified; E83.52 Hypercalcemia; J98.11 Atelectasis; I25.2 Old myocardial infarction; I25.10 Atherosclerotic heart disease of native coronary artery without angina pectoris; K21.9 Gastro-esophageal reflux disease without esophagitis; E78.5 Hyperlipidemia, unspecified; M19.90 Unspecified osteoarthritis, unspecified site; Z95.5 Presence of coronary angioplasty implant and graft; Z87.891 Personal history of nicotine dependence; Z79.899 Other long term (current) drug therapy; W19.XXXA Unspecified fall, initial encounter
CPT/HCPCS: 36430 ×2; 96374; 96361; 99285; 36415; 93005; 97162; 97166; 86900; 86901; 80053; 80048; 82607; 82728; 83540; 83550; 83605 ×2; 83735; 85025 ×3; 85027; 85610; 85045; 85730; 86850; 86920; 81001; 84466; 71046; 72125; 72131; 70450; G0378 ×3; P9016 ×3; J8540; J2470

== ENCOUNTER 2024-04-17 19:03 | Emergency (ER) | payer MEDICARE, OTHER ==
[2024-04-17 19:22] VITALS: BP 99/65; PULSE 103; RESP 16; TEMP 98.4
--- NOTE | 2024-04-17 19:33 | ED ---
Recheck HPI - General Chief Complaint: Recheck/Abnormal Lab/Rx Stated Complaint: med clearance Time Seen by Provider: 04/17/24 19:20 Source: patient, family, RN notes reviewed Mode of arrival: wheelchair Limitations: no limitations - History of Present Illness Initial Comments: quick note- 78 year old male presenting with son for medical clearance. States that patient was discharged from [facility] yesterday and was intended to be admitted to a nursing facility however was advised by patient's oncologist, Dr. Knight, to report to the emergency department for medical clearance. Patient was recently diagnosed with Hodgkin's 1 month ago. Patient is currently denying chest pain, shortness of breath, abdominal pain, urinary or bowel habit changes. - Related Data Home Medications Medication Instructions Recorded Confirmed ARIPiprazole [Abilify] 5 mg PO HS 03/12/24 04/10/24 Venlafaxine HCl [Effexor XR] 150 mg PO HS 03/12/24 04/10/24 Albuterol Inhaler [Ventolin Hfa 1 - 2 puff INHALATION RT-Q4H PRN 03/25/24 04/10/24 Inhaler] Tamsulosin [Flomax] 0.8 mg PO DAILY 03/25/24 04/10/24 guaiFENesin SYRUP 100MG/5ML 200 mg PO BID 03/31/24 04/10/24 [Robitussin] Previous Rx's Medication Instructions Recorded Magnesium Oxide [Mag-Ox] 400 mg PO BID #60 tab 03/17/24 Pantoprazole [Protonix] 40 mg PO BID #100 tab 03/29/24 Acetaminophen Tab [Tylenol] 650 mg PO Q6HR PRN tab 04/06/24 Cefdinir 300 mg PO Q12HR #20 cap 04/06/24 Fluconazole [Diflucan] 200 mg PO DAILY #10 tab 04/06/24 allopurinoL [Zyloprim] 100 mg PO DAILY #30 tab 04/06/24 dexAMETHasone [Decadron] 40 mg PO DAILY #80 tab 04/06/24 Allergies Allergy/AdvReac Type Severity Reaction Status Date / Time No Known Allergies Allergy Verified 04/17/24 19:17 Review of Systems ROS Statement: Those systems with pertinent positive or pertinent negative responses have been documented in the HPI. ROS Other: All systems not noted in ROS Statement are negative. Past Medical History Past Medical History: Coronary Artery Disease (CAD), Cancer, GERD/Reflux, Hyperlipidemia, Myocardial Infarction ([place]) Additional Past Medical History / Comment(s): DJD, Hodgkins Lymphoma 2023 Last Myocardial Infarction Date:: 2016 History of Any Multi-Drug Resistant Organisms: None Reported Past Surgical History: Back Surgery, Cholecystectomy, Heart Catheterization With Stent Past Anesthesia/Blood Transfusion Reactions: No Reported Reaction Date of Last Stent Placement:: 2022 Past Psychological History: No Psychological Hx Reported Smoking Status: Former smoker Past Alcohol Use History: None Reported Past Drug Use History: None Reported General Exam - General Exam Comments Initial Comments: Visual Physical Exam Vital signs reviewed General: Well-appearing, nontoxic, no acute distress. Head: Normocephalic, atraumatic Eyes: PERRLA, EOMI ENT: Airway patent Chest: Nonlabored breathing Skin: No visual rash, normal skin tone Neuro: Alert and oriented 3 Musculoskeletal: No gross abnormalities Limitations: no limitations Course Vital Signs 04/17/24 19:17 Temperature 98.4 F Pulse Rate 103 H Respiratory 16 Rate Blood Pressure 99/65 O2 Sat by Pulse 100 Oximetry Medical Decision Making - Medical Decision Making I completed the quick note portion of this chart signed Kassidy Riddle PA-C Comprehensive medical decision making unable to be determined due to patient being AGAINST MEDICAL ADVICE - Lab Data Lab Results 04/17/24 Range/Units 20:23 Urine Color Yellow Urine Appearance Clear (Clear) Urine pH 5.5 (5.0-8.0) Ur Specific [place] 1.020 (1.001-1.035) Urine Protein Trace H (Negative) Urine Glucose (UA) 2+ H (Negative) Urine Ketones Negative (Negative) Urine Blood Negative (Negative) Urine Nitrite Negative (Negative) Urine Bilirubin Negative (Negative) Urine Urobilinogen 2.0 (<2.0) mg/dL Ur Leukocyte Esterase Negative (Negative) Disposition Clinical Impression: Left against medical advice Disposition: LEFT AGAINST MEDICAL ADVICE Condition: Undetermined Is patient prescribed a controlled substance at d/c from ED?: No Referrals: Corona Novoa MD [Primary Care Provider] - 1-2 days
[2024-04-17 20:39] LABS: Appearance,Urine Clear (Clear); Bilirubin,Urine Negative (Negative); Blood,Urine Negative (Negative); Color,Urine Yellow; Glucose,Urine (UA) 2+ (Negative); Ketones,Urine Negative (Negative); Leukocyte Esterase,Urine Negative (Negative); Nitrite,Urine Negative (Negative); PH, Urine 5.5 (5.0-8.0); Protein,Urine Trace (Negative)
== END 2024-04-17 21:19 | disposition left against medical advice (07) ==
LOC: EC 19:03
DX: Z02.79 Encounter for issue of other medical certificate (principal); Z87.891 Personal history of nicotine dependence; Z53.29 Procedure and treatment not carried out because of patient's decision for other reasons
CPT/HCPCS: 81003; 93005; 99282

== ENCOUNTER 2024-04-18 12:07 | Inpatient (IN) | payer MEDICARE, OTHER ==
--- NOTE | 2024-04-18 12:28 | ED ---
General Adult HPI - General Source: patient, family, RN notes reviewed Mode of arrival: wheelchair Limitations: no limitations <Jazlyn Price - Last Filed: 04/18/24 12:26> <Tarun Cottrell - Last Filed: 04/18/24 14:07> - General Chief complaint: Medical Clearance Stated complaint: Well Check Time Seen by Provider: 04/18/24 12:20 - History of Present Illness Initial comments: Quick note: 78-year-old male presents to the emergency department for medical evaluation. Patient reports that he was recently admitted and then transferred to [facility]. Patient's son attempted to take him home but his son reports that he is too weak for him to care for and he needs to be in a jail. They attempted to get him into [facility] but states that he needs medical clearance. (Jazlyn Price) - Related Data Home Medications Medication Instructions Recorded Confirmed ARIPiprazole [Abilify] 5 mg PO HS 03/12/24 04/10/24 Venlafaxine HCl [Effexor XR] 150 mg PO HS 03/12/24 04/10/24 Albuterol Inhaler [Ventolin Hfa 1 - 2 puff INHALATION RT-Q4H PRN 03/25/24 04/10/24 Inhaler] Tamsulosin [Flomax] 0.8 mg PO DAILY 03/25/24 04/10/24 guaiFENesin SYRUP 100MG/5ML 200 mg PO BID 03/31/24 04/10/24 [Robitussin] Previous Rx's Medication Instructions Recorded Magnesium Oxide [Mag-Ox] 400 mg PO BID #60 tab 03/17/24 Pantoprazole [Protonix] 40 mg PO BID #100 tab 03/29/24 Acetaminophen Tab [Tylenol] 650 mg PO Q6HR PRN tab 04/06/24 Cefdinir 300 mg PO Q12HR #20 cap 04/06/24 Fluconazole [Diflucan] 200 mg PO DAILY #10 tab 04/06/24 allopurinoL [Zyloprim] 100 mg PO DAILY #30 tab 04/06/24 dexAMETHasone [Decadron] 40 mg PO DAILY #80 tab 04/06/24 Allergies Allergy/AdvReac Type Severity Reaction Status Date / Time No Known Allergies Allergy Verified 04/18/24 12:17 Review of Systems ROS Other: All systems not noted in ROS Statement are negative. <Jazlyn Price - Last Filed: 04/18/24 12:26> ROS Other: All systems not noted in ROS Statement are negative. <Tarun Cottrell - Last Filed: 04/18/24 14:07> ROS Statement: Those systems with pertinent positive or pertinent negative responses have been documented in the HPI. Past Medical History Past Medical History: Coronary Artery Disease (CAD), Cancer, GERD/Reflux, GI Bleed, Hyperlipidemia, Myocardial Infarction ([place]) Additional Past Medical History / Comment(s): DJD, Hodgkins Lymphoma 2023 Last Myocardial Infarction Date:: 2016 History of Any Multi-Drug Resistant Organisms: None Reported Past Surgical History: Back Surgery, Cholecystectomy, Heart Catheterization With Stent Past Anesthesia/Blood Transfusion Reactions: No Reported Reaction Date of Last Stent Placement:: 2022 Past Psychological History: No Psychological Hx Reported Smoking Status: Former smoker Past Alcohol Use History: None Reported Past Drug Use History: None Reported <Jazlyn Price - Last Filed: 04/18/24 12:26> General Exam Limitations: no limitations <Jazlyn Price - Last Filed: 04/18/24 12:26> General appearance: alert, in no apparent distress Head exam: Present: atraumatic, normocephalic Eye exam: Present: normal appearance, PERRL ENT exam: Present: normal exam Neck exam: Present: normal inspection. Absent: tenderness, meningismus Respiratory exam: Present: normal lung sounds bilaterally. Absent: respiratory distress, wheezes Cardiovascular Exam: Present: normal rhythm, tachycardia GI/Abdominal exam: Present: soft. Absent: distended, tenderness Extremities exam: Present: pedal edema Neurological exam: Present: alert, oriented X3 Psychiatric exam: Present: normal affect, normal mood Skin exam: Present: warm, dry, intact, pallor <Tarun Cottrell - Last Filed: 04/18/24 14:07> - General Exam Comments Initial Comments: Visual Physical Exam Vital signs reviewed General: Well-appearing, nontoxic, no acute distress. Head: Normocephalic, atraumatic Eyes: PERRLA, EOMI ENT: Airway patent Chest: Nonlabored breathing Skin: No visual rash, normal skin tone Neuro: Alert and oriented 3 Musculoskeletal: No gross abnormalities (Jazlyn Price) Course Vital Signs 04/18/24 04/18/24 12:17 13:36 Temperature 98.1 F Pulse Rate 110 H 92 Respiratory 18 18 Rate Blood Pressure 84/50 95/60 O2 Sat by Pulse 96 98 Oximetry Medical Decision Making <Jazlyn Price - Last Filed: 04/18/24 12:26> - Lab Data Result diagrams: 04/18/24 13:21 <Tarun Cottrell Jerry - Last Filed: 04/18/24 14:07> - Medical Decision Making Quick note preformed and electronically signed by Jazlyn Price PA-C (Jazlyn Price) Was pt. sent in by a medical professional or institution ([facility]KOLAY Jefferson, COTTAGE SUPERVISOR, urgent care, hospital, or jail...) When possible be specific @ -No Did you speak to anyone other than the patient for history (EMS, parent, family, police, friend...)? What history was obtained from this source @ -No Did you review nursing and triage notes (agree or disagree)? Why? @ -I reviewed and agree with nursing and triage notes Were old charts reviewed (outside hosp., previous admission, EMS record, old EKG, old radiological studies, urgent care reports/EKG's, jail records)? Report findings @ -No old charts were reviewed Differential Weakness: Hypoglycemia, shock, sepsis, hyponatremia, anemia, infection, VA, ETOH, adverse medicine reaction, overdose, stroke, this is not meant to be an all-inclusive l ist. EKG interpreted by me (3pts min.). @ -[Sinus rhythm rate of 98, WV interval 145, QRS duration 80, QTc [address] segment elevation X-rays interpreted by me (1pt min.). @None done CT interpreted by me (1pt min.). @ -None done U/S interpreted by me (1pt. min.). @ -None done What testing was considered but not performed or refused? (CT, X-rays, U/S, labs)? Why? @ -None What meds were considered but not given or refused? Why? @ -None Did you discuss the management of the patient with other professionals (professionals i.e. NIKOLAY Jefferson, COTTAGE SUPERVISOR, lab, RT, psych nurse, social scientist, sales intern, teacher, pharmaceutical officer, case worker)? Give summary @ -[[facility] Was smoking cessation discussed for >3mins.? @ -No Was critical care preformed (if so, how long)? @ -No Were there social determinants of health that impacted care today? How? (Homelessness, low income, unemployed, alcoholism, drug addiction, transportation, low edu. Level, literacy, decrease access to med. care, m[facility], rehab)? @ -No Was there de-escalation of care discussed even if they declined (Discuss DNR or withdrawal of care, Hospice)? DNR status @ -No What co-morbidities impacted this encounter? (DM, HTN, Smoking, COPD, CAD, Cancer, CVA, ARF, Chemo, Hep., AIDS, mental health diagnosis, sleep apnea, morbid obesity)? @ -[COPD, lung CA Was patient admitted / discharged? Hospital course, mention meds given and route, prescriptions, significant lab abnormalities, going to OR and other pertinent info. @78-year-old male with generalized weakness and needing rehab. There is been contact with [facility] and [facility] where the patient is planned to go. The case worker in the emergency department is determined that he will need to be placed in observation and evaluated by PT prior to discharge to the jail. Basic laboratory studies have been ordered and the patient will be admitted to [facility], Dr. Parra will admit Undiagnosed new problem with uncertain prognosis? @ -No Drug Therapy requiring intensive monitoring for toxicity (Heparin, Nitro, Insulin, Cardizem)? @ -No Were any procedures done? @ -No Diagnosis/symptom? @ -Weakness, needs placement for rehabilitation Acute, or Chronic, or Acute on Chronic? @Acute Uncomplicated (without systemic symptoms) or Complicated (systemic symptoms)? @ -Default Side effects of treatment? @ -No Exacerbation, Progression, or Severe Exacerbation? @ -No Poses a threat to life or bodily function? How? (Chest pain, USA, VA, pneumonia, PE, COPD, DKA, ARF, appy, cholecystitis, CVA, Diverticulitis, Homicidal, Suicidal, threat to staff... and all critical care pts) @ -No (Tarun Cottrell) - Lab Data Lab Results 04/18/24 Range/Units 13:21 Sodium 129 L (137-145) mmol/L Potassium 3.9 (3.5-5.1) mmol/L Chloride 108 H (98-107) mmol/L Carbon Dioxide 19 L (22-30) mmol/L Anion Gap 2 mmol/L BUN 24 H (9-20) mg/dL Creatinine 0.93 (0.66-1.25) mg/dL Est GFR (CKD-EPI)AfAm >90 (>60 ml/min/1.73 sqM) Est GFR (CKD-EPI)NonAf 79 (>60 ml/min/1.73 sqM) Glucose 99 (74-99) mg/dL Calcium 8.1 L (8.4-10.2) mg/dL Magnesium 1.9 (1.6-2.3) mg/dL Total Bilirubin 0.8 (0.2-1.3) mg/dL AST 52 (17-59) U/L ALT 65 H (4-49) U/L Alkaline Phosphatase 222 H (38-126) U/L Total Protein 4.1 L (6.3-8.2) g/dL Albumin 1.9 L (3.5-5.0) g/dL Disposition <Jazlyn Price - Last Filed: 04/18/24 12:26> Is patient prescribed a controlled substance at d/c from ED?: No Time of Disposition: 14:07 <Tarun Cottrell - Last Filed: 04/18/24 14:07> Clinical Impression: Hyponatremia, Debility, Hodgkins lymphoma Disposition: ADMITTED IP TO THIS HOSP Condition: Stable Referrals: Corona Novoa MD [Primary Care Provider] - 1-2 days
[2024-04-18 13:41] LABS: ALT 65 U/L (4-49); AST 52 U/L (17-59); African American GFR (CKD) >90 (>60 ml/min/1.73 sqM); Albumin 1.9 g/dL (3.5-5.0); Alkaline Phosphatase 222 U/L (38-126); Anion Gap 2 mmol/L; Blood Urea Nitrogen 24 mg/dL (9-20); Calcium 8.1 mg/dL (8.4-10.2); Carbon Dioxide 19 mmol/L (22-30); Chloride 108 mmol/L (98-107); Glucose 99 mg/dL (74-99); Magnesium 1.9 mg/dL (1.6-2.3); Non-African American GFR(CKD) 79 (>60 ml/min/1.73 sqM); Potassium 3.9 mmol/L (3.5-5.1); Sodium 129 mmol/L (137-145); Total Bilirubin 0.8 mg/dL (0.2-1.3); Total Protein 4.1 g/dL (6.3-8.2)
[2024-04-18] MEDS ORDERED: ACETAMINOPHEN TAB 325 MG TAB PO PRN (14:07)
[2024-04-18] MEDS ORDERED: NALOXONE 0.4 MG/ML 1 ML VIAL IV PRN (14:07)
[2024-04-18] MEDS ORDERED: ALBUTEROL NEBULIZED 2.5 MG/3 ML INHALATION PRN (15:40)
[2024-04-18] MEDS: SODIUM CHLORIDE 0.9% 1,000 ML IV SCH (16:27)
[2024-04-18 18:05] LABS: Anisocytosis Slight; Basophils % (A) 0 %; Eosinophils % (A) 0 %; HCT 23.3 % (39.0-53.0); Hypochromasia Slight; Lymphocytes # (A) 0.2 k/uL (1.0-4.8); Lymphocytes % (A) 4 %; MCH 31.3 pg (25.0-35.0); MCHC 33.8 g/dL (31.0-37.0); MCV 92.8 fL (80.0-100.0); Macrocytosis Slight; Mean Platelet Volume 9.9; Monocytes # (A) 0.1 k/uL (0-1.0); Monocytes % (A) 2 %; Neutrophils # (A) 5.6 k/uL (1.3-7.7); Neutrophils % (A) 93 %; RBC 2.51 m/uL (4.30-5.90); RDW 19.1 % (11.5-15.5)
--- NOTE | 2024-04-18 18:11 | P.HPIM ---
History of Present Illness H&P Date: 04/18/24 Patient is a 78-year-old male with CAD (history of cath with 1 stent placement), hyperlipidemia, GERD, peptic ulcer disease (status post endoscopy), GERD, recent GI bleed, and Hodgkin's lymphoma (on no therapy diagnosed on 03/[address] Obrien) who came in for generalized weakness. Patient was discharged from [facility] last Monday 04/16 and he was status post endoscopy due GI bleed found on admission in our facility. Since then patient and patient's son noted that he is generally weak and could not perform any ADLs including feeding and bathing himslef. Patient denies headache, loss of consciousness, facial symmetry, changes in speech, changes in vision, changes in sensation, tremors, chest pain, shortness of breath, calf tenderness, palpitations, abdominal pain, hematemesis, hematochezia, melena, cough, fevers, weight loss, recent travel or sick contacts. They were advised to seek care in emergency department in order to be admitted to [facility] for rehab. Patient was recently admitted on 04/10 for weakness and was found to have positive sputum culture with E. coli and Brandie. Hemoglobin was also very low and multiple transfusions were done. During that admission, patient was found to have melanotic stool and hypotension and was transfused 3 units packed RBC and decided on immediate transfer to [facility]. In the ED, EKG showed sinus rhythm with a rate of [address]-T changes QTc 399 In the ED, sodium was 129 chloride 108 bicarb 19 anion gap 20 BUN 24 creatinine 0.93 glucose 99 calcium 8.1 total bilirubin 0.8 AST 52 ALT 65 alk phos 222 a lbumin 1.9. On admission, patient was afebrile at 98.1, tachycardic at 110, hypotensive at 80/50, oxygen saturation 96% on room air Review of systems: Pertinent positives and negatives as discussed in HPI, a complete review of systems was performed and all other systems are negative. Social history: Tobacco: Former smoker Alcohol: Denies alcohol intake Recreational drugs: Denies alcohol use Travel: No recent travel Physical examination: Vital signs reviewed General: non toxic, no distress, appears at stated age Derm: no unusual rashes/lesions, warm Head: atraumatic, normocephalic, symmetric Eyes: EOMI, anicteric sclera, pupils equal round reactive to light ENT: Nose and ears atraumatic Neck: No cervical lymphadenopathy, trachea midline, supple Mouth: no lip lesion, mucus membranes moist Cardiovascular: S1S2 reg, no murmur Lungs: CTA bilateral, no rhonchi, no rales, no accessory muscle use Abdominal: soft, nondistended, nontender to palpation, no guarding Ext: muscle strength 3 out of 5 in all 4 extremities distally and proximally grossly for age, no gross muscle atrophy, no contractures, positive dorsalis pedis pulse bilateral, no edema Neuro: CN II-XI grossly intact, no gross focal neuro deficits Psych: Alert and oriented x 3, appropriate affect and mood Assessment/Plan: 78-year-old male with a history of Hodgkin's lymphoma not on therapy here for evaluation of generalized weakness. #. Generalized weakness #. Recent acute blood loss anemia secondary to peptic ulcer disease #. Hodgkin's lymphoma not on any therapy #. Elevated ALP likely due to above Fall precautions CBC pending Monitor CBC and CMP PT OT consult Case management arranging acute rehab on outpatient basis #. Hypotension, resolved IV fluids 0.9 normal saline at 75 cc/h, continue #. Hyponatremia at baseline, euvolemic Sodium at 129 Patient currently symptomatic and hemodynamically stable Monitor BMP #. Normal anion gap metabolic acidosis #. Hyperchloremia Chloride 108 anion gap 2 bicarb 19 Monitor BMP for now Chronic Conditions: #. CAD #. GERD #. Hyperlipidemia #. Hodgkin's lymphoma #. Recent infection of E. coli and Brandie (found in sputum culture) Resume Abilify, Effexor, Flomax, Zyloprim, Ventolin, fluconazole and levofloxacin Hold magnesium oxide Robitussin and filgrastim for now F: 0.9 normal saline 75 cc/h E: Replete as needed N: Regular diet A: Fall precautions DVT ppx: SCDs GI ppx: Protonix 40 mg p.o. twice daily Dispo: The patient is admitted with an anticipated greater than 2 midnight stay for evaluation of generalized weakness CODE STATUS: Full Discussed with: Patient and patient's son Anticipated discharge place: Subacute rehab Natty Dong MD PGY-1 IM Dictation was produced using [employer] dictation software. please excuse any grammatical, word or spelling errors. A total of 55 minutes was spent on the care of this complex patient more than 50% of the time was spent in counseling and care coordination. I have seen and evaluated the patient today. Discussed with the resident and agree with the residents finding and plan as documented in the resident's note. Changes highlighted in blue font. Past Medical History Past Medical History: Coronary Artery Disease (CAD), Cancer, GERD/Reflux, GI Bleed, Hyperlipidemia, Myocardial Infarction ([place]) Additional Past Medical History / Comment(s): DJD, Hodgkins Lymphoma 2023 Last Myocardial Infarction Date:: 2016 History of Any Multi-Drug Resistant Organisms: None Reported Past Surgical History: Back Surgery, Cholecystectomy, Heart Catheterization With Stent Past Anesthesia/Blood Transfusion Reactions: No Reported Reaction Date of Last Stent Placement:: 2022 Past Psychological History: No Psychological Hx Reported Smoking Status: Former smoker Past Alcohol Use History: None Reported Past Drug Use History: None Reported Medications and Allergies Home Medications Medication Instructions Recorded Confirmed Type ARIPiprazole [Abilify] 5 mg PO HS 03/12/24 04/18/24 History Venlafaxine HCl [Effexor XR] 150 mg PO HS 03/12/24 04/18/24 History Magnesium Oxide [Mag-Ox] 400 mg PO BID #60 tab 03/17/24 04/18/24 Rx Albuterol Inhaler [Ventolin Hfa 2 puff INHALATION RT-Q4H PRN 03/25/24 04/18/24 History Inhaler] Tamsulosin [Flomax] 0.8 mg PO DAILY 03/25/24 04/18/24 History Pantoprazole [Protonix] 40 mg PO BID #100 tab 03/29/24 04/18/24 Rx guaiFENesin SYRUP 100MG/5ML 200 mg PO Q4H PRN 03/31/24 04/18/24 History [Robitussin] Acetaminophen Tab [Tylenol] 650 mg PO Q6HR PRN tab 04/06/24 04/18/24 Rx allopurinoL [Zyloprim] 100 mg PO DAILY #30 tab 04/06/24 04/18/24 Rx Filgrastim-Sndz [Zarxio] 480 mcg SQ DIRECTED 04/18/24 04/18/24 History Fluconazole 200 mg PO DAILY 04/18/24 04/18/24 History Levofloxacin [Levaquin] 500 mg PO DAILY 04/18/24 04/18/24 History Allergies Allergy/AdvReac Type Severity Reaction Status Date / Time No Known Allergies Allergy Verified 04/18/24 14:47 Physical Exam Vitals: Vital Signs Temp Pulse Resp BP Pulse Ox 04/18/24 13:36 92 18 95/60 98 04/18/24 12:17 98.1 F 110 H 18 84/50 96 Intake and Output 04/17/24 04/18/24 04/18/24 22:59 06:59 14:59 Other: Weight 94.347 kg Results CBC & Chem 7: 04/18/24 17:45 04/18/24 13:21 Labs: Abnormal Lab Results - Last 24 Hours (Table) 04/18/24 Range/Units 13:21 Sodium 129 L (137-145) mmol/L Chloride 108 H (98-107) mmol/L Carbon Dioxide 19 L (22-30) mmol/L BUN 24 H (9-20) mg/dL Calcium 8.1 L (8.4-10.2) mg/dL ALT 65 H (4-49) U/L Alkaline Phosphatase 222 H (38-126) U/L Total Protein 4.1 L (6.3-8.2) g/dL Albumin 1.9 L (3.5-5.0) g/dL
[2024-04-18 18:15] LABS: HGB 7.9 gm/dL (13.0-17.5); Platelet Count 62 k/uL (150-450)
[2024-04-18] MEDS: VENLAFAXINE HCL ER 150 MG CAP PO SCH (21:08)
[2024-04-18] MEDS: PANTOPRAZOLE 40 MG TABLET PO SCH (21:08)
[2024-04-18] MEDS: ARIPiprazole 5 MG TAB PO SCH (21:08)
[2024-04-19] MEDS: allopurinoL 100 MG TAB PO SCH (09:11)
[2024-04-19] MEDS: TAMSULOSIN 0.4 MG CAP.ER.24H PO SCH (09:11)
[2024-04-19] MEDS: LEVOFLOXACIN 500 MG TAB PO SCH (09:12)
[2024-04-19] MEDS: FLUCONAZOLE 100 MG TAB PO SCH (09:12)
[2024-04-19 09:30] LABS: BUN/Creat Ratio 18.11 Ratio (12.00-20.00); Blood Urea Nitrogen 16.3 mg/dL (9.0-27.0); Chloride 107 mmol/L (96-109); Glucose 80 mg/dL (70-110); Potassium 4.1 mmol/L (3.5-5.5); Sodium 135 mmol/L (135-145)
[2024-04-19 09:31] LABS: ALT 60 U/L (10-49); AST 46 U/L (14-35); Albumin 2.1 g/dL (3.8-4.9); Alkaline Phosphatase 210 U/L (41-126); Calcium 7.6 mg/dL (8.7-10.3); Carbon Dioxide 23.3 mmol/L (21.6-31.8); Globulin 1.5 g/dL (1.6-3.3); Total Bilirubin 0.6 mg/dL (0.3-1.2); Total Protein 3.6 g/dL (6.2-8.2)
[2024-04-19 11:26] LABS: HGB 6.8 g/dL (13.0-17.0); Immature Platelet Fraction 8.2 % (1.1-6.1); MCH 30.2 pg (27.0-32.0); MCHC 32.4 g/dL (32.0-37.0); MCV 93.3 FL (80.0-97.0); Mean Platelet Volume 13.5 FL (9.5-12.2); NRBC Per 100 WBC 0 X 10*3/uL (0.00-0.01); Platelet Count 53 X 10*3/uL (140-440); RBC 2.25 X 10*6/uL (4.40-5.60); RDW 20.2 % (11.5-14.5)
--- NOTE | 2024-04-19 11:35 | P.PN ---
Subjective Progress Note Date: 04/19/24 Principal diagnosis: Debility secondary to Hodgkins Lymphoma Patient is a 78-year-old male with CAD (history of cath with 1 stent placement), hyperlipidemia, GERD, peptic ulcer disease (status post endoscopy), GERD, recent GI bleed, and Hodgkin's lymphoma (on no therapy diagnosed on 03/[address] Obrien) who came in for generalized weakness. Patient was discharged from [facility] last Monday 04/16 and he was status post endoscopy due GI bleed found on admission in our facility. Since then patient and patient's son noted that he is generally weak and could not perform any ADLs including feeding and bathing himslef. Patient denies headache, loss of consciousness, facial symmetry, changes in speech, changes in vision, changes in sensation, tremors, chest pain, shortness of breath, calf tenderness, palpitations, abdominal pain, hematemesis, hematochezia, melena, cough, fevers, weight loss, recent travel or sick contacts. They were advised to seek care in emergency department in order to be admitted to [facility] for rehab. Patient was recently admitted on 04/10 for weakness and was found to have positive sputum culture with E. coli and Brandie. Hemoglobin was also very low and multiple transfusions were done. During that admission, patient was found to have melanotic stool and hypotension and was transfused 3 units packed RBC and decided on immediate transfer to [facility]. In the ED, EKG showed sinus rhythm with a rate of [address]-T changes QTc 399 In the ED, sodium was 129 chloride 108 bicarb 19 anion gap 20 BUN 24 creatinine 0.93 glucose 99 calcium 8.1 total bilirubin 0.8 AST 52 ALT 65 alk phos 222 albumin 1.9. On admission, patient was afebrile at 98.1, tachycardic at 110, hypotensive at 80/50, oxygen saturation 96% on room air 04/19/2024 patient seen and examined at bedside. No new complaints. No acute events overnight. WBC 3.2 hemoglobin 6.8 MCV 93.3 platelet count 52,000 sodium 135 potassium 4.1 chloride 107 bicarb 23.3 BUN 16.3 creatinine 0.9 glucose 80 calcium 7.6 total bilirubin 0.6 AST 46 ALT 60 alk phos 210 albumin 2.1 Review of systems: Pertinent positives and negatives as discussed in HPI, a complete review of systems was performed and all other systems are negative. Pertinent imaging and labs reviewed. Physical examination: Vital signs reviewed General: non toxic, no distress, appears at stated age Derm: no unusual rashes/lesions, warm Head: atraumatic, normocephalic, symmetric Eyes: EOMI, anicteric sclera, pupils equal round reactive to light ENT: Nose and ears atraumatic Neck: No cervical lymphadenopathy, trachea midline, supple Mouth: no lip lesion, mucus membranes moist Cardiovascular: S1S2 reg, no murmur Lungs: CTA bilateral, no rhonchi, no rales, no accessory muscle use Abdominal: soft, nondistended, nontender to palpation, no guarding Ext: muscle strength 3 out of 5 in all 4 extremities distally and proximally grossly for age, no gross muscle atrophy, no contractures, positive dorsalis pedis pulse bilateral, bilateral +2 pitting edema up to below the knees Neuro: CN II-XI grossly intact, no gross focal neuro deficits Psych: Alert and oriented x 3, appropriate affect and mood Assessment/Plan: 78-year-old male with a history of Hodgkin's lymphoma not on therapy here for evaluation of generalized weakness. #. Debility #. Recent acute blood loss anemia secondary to peptic ulcer disease #. Hodgkin's lymphoma not on any therapy #. Pancytopenia likely due to Hodgkin's lymphoma #. Elevated ALP likely due to above Fall precautions WBC 3.2 hemoglobin 6.8 MCV 93.3 platelet count 52,000 Transfuse 1u pRBC and type and screen Monitor CBC and CMP PT OT consult Case management arranging acute rehab on outpatient basis #. Hypotension, resolved Discontinue IV fluids 0.9 normal saline Encourage oral intake #. Hyponatremia at baseline, euvolemic, improved Sodium at 129 Patient currently symptomatic and hemodynamically stable Monitor BMP #. Normal anion gap metabolic acidosis, resolved #. Hyperchloremia, resolved Chloride 107 anion gap 4.7 bicarb 23.3 Monitor BMP for now Chronic Conditions: #. CAD #. GERD #. Hyperlipidemia #. Hodgkin's lymphoma #. Recent infection of E. coli and Brandie (found in sputum culture) Resume Abilify, Effexor, Flomax, Zyloprim, Ventolin, fluconazole and levofloxacin Hold magnesium oxide Robitussin and filgrastim for now F: Oral intake E: Replete as needed N: Regular diet A: Fall precautions. Maintain on bedrest. DVT ppx: SCDs GI ppx: Protonix 40 mg p.o. twice daily CODE STATUS: Full Anticipated discharge place: Subacute rehab Natty Dong MD PGY-1/[employer]le Assembler Dictation was produced using [employer] dictation software. please excuse any grammatical, word or spelling errors. I have seen and evaluated the patient today. Discussed with the resident and agree with the residents finding and plan as documented in the resident's note. Changes highlighted in blue font. Objective - Vital Signs Vital signs: Vital Signs Temp 97.4 F L 04/19/24 07:51 Pulse 90 04/19/24 07:51 Resp 15 04/19/24 07:51 BP 93/55 04/19/24 07:51 Pulse Ox 94 L 04/19/24 07:51 FiO2 Intake & Output 04/18/24 04/19/24 04/19/24 18:59 06:59 18:59 Intake Total 1180 Output Total 501 600 Balance 679 -600 Weight 94.347 kg 94.347 kg Intake: Oral 1180 Output: Urine 500 600 Stool 1 Other: Voiding Method Urinal Urinal Diaper Diaper Incontinent Incontinent # Voids 1 - Labs CBC & Chem 7: 04/19/24 05:16 04/19/24 05:16 Labs: Abnormal Lab Results - Last 24 Hours (Table) 04/18/24 04/18/24 04/19/24 Range/Units 13:21 17:45 05:16 RBC 2.51 L (4.30-5.90) m/uL Hgb 7.9 L D (13.0-17.5) gm/dL Hct 23.3 L (39.0-53.0) % RDW 19.1 H (11.5-15.5) % Plt Count 62 L (150-450) k/uL Lymphocytes # 0.2 L (1.0-4.8) k/uL Sodium 129 L (137-145) mmol/L Chloride 108 H (98-107) mmol/L Carbon Dioxide 19 L (22-30) mmol/L BUN 24 H (9-20) mg/dL Calcium 8.1 L 7.6 L (8.4-10.2) mg/dL AST 46 H (14-35) U/L ALT 65 H 60 H (4-49) U/L Alkaline Phosphatase 222 H 210 H (38-126) U/L Total Protein 4.1 L 3.6 L (6.3-8.2) g/dL Albumin 1.9 L 2.1 L (3.5-5.0) g/dL Globulin 1.5 L (1.6-3.3) g/dL Albumin/Globulin Ratio 1.40 L (1.60-3.17) Ratio
[2024-04-19 12:26] LABS: Basophils # (A) 0 X 10*3/uL (0.00-0.10); Basophils % (A) 0 %; Eosinophils # (A) 0.01 X 10*3/uL (0.04-0.35); Eosinophils % (A) 0.3 %; Lymphocytes # (A) 0.14 X 10*3/uL (0.90-5.00); Lymphocytes % (A) 4.4 %; Monocytes % (A) 3.1 %; Neutrophils # (A) 2.93 X 10*3/uL (1.80-7.70); Neutrophils % (A) 91.6 %
[2024-04-19 19:31] LABS: Anisocytosis Slight; HCT 26.4 % (39.0-53.0); HGB 8.8 gm/dL (13.0-17.5); MCH 30.9 pg (25.0-35.0); MCHC 33.2 g/dL (31.0-37.0); MCV 93.1 fL (80.0-100.0); Macrocytosis Slight; Mean Platelet Volume 10.4; Poikilocytosis Slight; RBC 2.83 m/uL (4.30-5.90); RDW 18.9 % (11.5-15.5); WBC 2.2 k/uL (3.8-10.6)
[2024-04-19 19:33] LABS: Platelet Count 60 k/uL (150-450)
[2024-04-20 10:01] LABS: Blood Urea Nitrogen 15.4 mg/dL (9.0-27.0); Calcium 7.6 mg/dL (8.7-10.3); Carbon Dioxide 22.1 mmol/L (21.6-31.8); Chloride 106 mmol/L (96-109); Glucose 87 mg/dL (70-110); Potassium 4.2 mmol/L (3.5-5.5); Sodium 134 mmol/L (135-145)
--- NOTE | 2024-04-20 12:32 | P.PN ---
Subjective Progress Note Date: 04/20/24 Subjective: Patient seen and examined at bedside. No acute events overnight. Pertinent positives and negatives as discussed above, a complete review of systems was performed and all other systems are negative. Vitals Signs Reviewed. General: [nontoxic], [no distress], [appears at stated age] Derm: [warm], [dry] Head: [atraumatic], [normocephalic], [symmetric] Eyes: [EOMI], [no lid lag], [anicteric sclera] Mouth: [no lip lesion], [mucus membranes moist] Cardiovascular: [S1S2 reg], [no murmur] Lungs: [CTA bilateral], [no rhonchi, no rales] , [no accessory muscle use] Abdominal: [soft], [ nontender to palpation], [no guarding], [no appreciable organomegaly] Ext: [no gross muscle atrophy], [no edema], [no contractures] Neuro: [ CN II-XI grossly intact], [no focal neuro deficits] Psych: [Alert], [oriented], [appropriate affect] Data Reviewed Today: Pertinent Labs: CBC pending, will be reviewed when available, sodium 134, potassium 4.2, creatinine 1 Imaging: No new imaging Assessment and Plan: #. Debility #. Recent acute blood loss anemia secondary to peptic ulcer disease #. Hodgkin's lymphoma not on any therapy #. Pancytopenia likely due to Hodgkin's lymphoma #. Elevated ALP likely due to above Fall precautions CBC pending Status post 1 unit of PRBC PT/OT #. Hypotension, resolved #. Hypovolemic hyponatremia, resolved #. Normal anion gap metabolic acidosis, resolved #. Hyperchloremia, resolved Chronic Conditions: #. CAD #. GERD #. Hyperlipidemia #. Hodgkin's lymphoma #. Recent infection of E. coli and Brandie (found in sputum culture) Resume Abilify, Effexor, Flomax, Zyloprim, Ventolin, fluconazole and levofloxacin Hold magnesium oxide Robitussin and filgrastim for now F: Oral intake E: Replete as needed N: Regular diet A: Fall precautions. DVT ppx: SCDs GI ppx: Protonix 40 mg p.o. twice daily CODE STATUS: Full Anticipated discharge place: Subacute rehab Anticipated discharge time: Pending bed availability Objective - Vital Signs Vital signs: Vital Signs Temp 98.4 F 04/20/24 07:48 Pulse 86 04/20/24 07:48 Resp 15 04/20/24 07:48 BP 105/67 04/20/24 07:48 Pulse Ox 98 04/20/24 07:48 FiO2 Intake & Output 04/19/24 04/20/24 04/20/24 18:59 06:59 18:59 Intake Total 850 710 240 Output Total 600 1300 450 Balance 250 -590 -210 Intake: Oral 540 710 240 Blood Product 310 Rc As-1 Unit 310 [id number] Output: Urine 600 1300 450 Other: Voiding Method Urinal Urinal Urinal Diaper Diaper Diaper Incontinent - Labs CBC & Chem 7: 04/19/24 18:46 04/20/24 03:42 Labs: Abnormal Lab Results - Last 24 Hours (Table) 04/19/24 04/19/24 04/20/24 Range/Units 11:32 18:46 03:42 WBC 2.2 L (3.8-10.6) k/uL RBC 2.83 L (4.30-5.90) m/uL Hgb 8.8 L (13.0-17.5) gm/dL Hct 26.4 L (39.0-53.0) % RDW 18.9 H (11.5-15.5) % Plt Count 60 L (150-450) k/uL Sodium 134 L (135-145) mmol/L Calcium 7.6 L (8.7-10.3) mg/dL Crossmatch See Detail
[2024-04-20 14:44] LABS: Basophils # (M) 0 X 10*3/uL (0.00-0.10); Eosinophils # (M) 0 X 10*3/uL (0.04-0.35); HCT 25.8 % (39.6-50.0); HGB 8.1 g/dL (13.0-17.0); Lymphocytes # (M) 0.02 X 10*3/uL (0.90-5.00); MCH 29.2 pg (27.0-32.0); MCHC 31.4 g/dL (32.0-37.0); MCV 93.1 FL (80.0-97.0); Mean Platelet Volume 12.6 FL (9.5-12.2); Monocytes # (M) 0.04 X 10*3/uL (0.20-1.00); NRBC Per 100 WBC 0 X 10*3/uL (0.00-0.01); Neutrophils # (M) 1.95 X 10*3/uL (1.80-7.70); Neutrophils % (M) 97 %; Nucleated Red Blood Cells 1 /100 WBCS; Platelet Count 62 X 10*3/uL (140-440); RBC 2.77 X 10*6/uL (4.40-5.60); RDW 19.2 % (11.5-14.5); WBC 2.01 X 10*3/uL (4.50-10.00)
[2024-04-21] MEDS: DOCUSATE 100 MG CAP PO PRN (06:16)
[2024-04-21 09:40] LABS: Basophils # (A) 0.01 X 10*3/uL (0.00-0.10); Basophils % (A) 0.9 %; Eosinophils # (A) 0.02 X 10*3/uL (0.04-0.35); Eosinophils % (A) 1.7 %; HCT 30.2 % (39.6-50.0); HGB 9.6 g/dL (13.0-17.0); Immature Platelet Fraction 7.2 % (1.1-6.1); Lymphocytes # (A) 0.25 X 10*3/uL (0.90-5.00); Lymphocytes % (A) 21.7 %; MCH 29.6 pg (27.0-32.0); MCHC 31.8 g/dL (32.0-37.0); MCV 93.2 FL (80.0-97.0); Mean Platelet Volume 12.1 FL (9.5-12.2); Monocytes # (A) 0.07 X 10*3/uL (0.20-1.00); Monocytes % (A) 6.1 %; NRBC Per 100 WBC 0 X 10*3/uL (0.00-0.01); Neutrophils # (A) 0.75 X 10*3/uL (1.80-7.70); Neutrophils % (A) 65.3 %; Platelet Count 75 X 10*3/uL (140-440); RBC 3.24 X 10*6/uL (4.40-5.60); RDW 19.4 % (11.5-14.5); WBC 1.15 X 10*3/uL (4.50-10.00)
--- NOTE | 2024-04-21 13:23 | P.PN ---
Subjective Progress Note Date: 04/21/24 Subjective: Patient seen and examined at bedside. No acute events overnight. Pending insurance approval and bed placement to assisted facility. Pertinent positives and negatives as discussed above, a complete review of systems was performed and all other systems are negative. Vitals Signs Reviewed. Gen: In NAD, non-toxic HEENT: normocephalic, atraumatic, hearing acuity is intant, mucous membranes moist CVS: perfusing all extremities well, no pitting edema, Respiratory: symmetric chest expansion, no accessory muscle use, GI: soft, NTTP, ND, : no suprapubic tenderness, no CVA tenderness MSK/Derm: no rashes, cyanosis Neuro: CN II-XII intact, no motor weakness, Psych: cooperative, euthymic mood, judgment and insight is intact Assessment and Plan: #. Debility #. Recent acute blood loss anemia secondary to peptic ulcer disease #. Hodgkin's lymphoma not on any therapy #. Pancytopenia likely due to Hodgkin's lymphoma #. Elevated ALP likely due to above Fall precautions CBC pending Status post 1 unit of PRBC PT/OT #. Hypotension, resolved #. Hypovolemic hyponatremia, resolved #. Normal anion gap metabolic acidosis, resolved #. Hyperchloremia, resolved Chronic Conditions: #. CAD #. GERD #. Hyperlipidemia #. Hodgkin's lymphoma #. Recent infection of E. coli and Brandie (found in sputum culture) Resume Abilify, Effexor, Flomax, Zyloprim, Ventolin, fluconazole and levofloxacin Hold magnesium oxide Robitussin and filgrastim for now F: Oral intake E: Replete as needed N: Regular diet A: Fall precautions. DVT ppx: SCDs GI ppx: Protonix 40 mg p.o. twice daily CODE STATUS: Full Anticipated discharge place: Subacute rehab Anticipated discharge time: Pending bed availability Objective - Vital Signs Vital signs: Vital Signs Temp 98.1 F 04/21/24 07:38 Pulse 96 04/21/24 07:38 Resp 16 04/21/24 07:38 BP 99/62 04/21/24 07:38 Pulse Ox 98 04/21/24 07:38 FiO2 Intake & Output 04/20/24 04/21/24 04/21/24 18:59 06:59 18:59 Intake Total 360 1180 Output Total 450 700 Balance -90 480 Intake: Oral 360 1180 Output: Urine 450 700 Other: Voiding Method Urinal Toilet Toilet Diaper Urinal Urinal Diaper Diaper # Voids 2 4 1 # Bowel Movements 1 - Labs CBC & Chem 7: 04/21/24 05:50 04/20/24 03:42 Labs: Abnormal Lab Results - Last 24 Hours (Table) 04/20/24 04/21/24 Range/Units 03:42 05:50 WBC 2.01 L 1.15 A* (4.50-10.00) X 10*3/uL RBC 2.77 L 3.24 L (4.40-5.60) X 10*6/uL Hgb 8.1 L 9.6 L (13.0-17.0) g/dL Hct 25.8 L 30.2 L (39.6-50.0) % MCHC 31.4 L 31.8 L (32.0-37.0) g/dL RDW 19.2 H 19.4 H (11.5-14.5) % Plt Count 62 L 75 L (140-440) X 10*3/uL MPV 12.6 H (9.5-12.2) FL Immature Gran # 0.05 H (0.00-0.04) X 10*3/uL Neutrophils # 0.75 L (1.80-7.70) X 10*3/uL Lymphocytes # 0.25 L (0.90-5.00) X 10*3/uL Lymphocytes # (Manual) 0.02 L (0.90-5.00) X 10*3/uL Monocytes # 0.07 L (0.20-1.00) X 10*3/uL Monocytes # (Manual) 0.04 L (0.20-1.00) X 10*3/uL Eosinophils # 0.02 L (0.04-0.35) X 10*3/uL Eosinophils # (Manual) 0 L (0.04-0.35) X 10*3/uL Immature Plt Fraction 8.0 H 7.2 H (1.1-6.1) %
[2024-04-22 10:34] LABS: Anisocytosis Slight; HGB 9.8 gm/dL (13.0-17.5); MCH 30.3 pg (25.0-35.0); MCHC 32.8 g/dL (31.0-37.0); MCV 92.6 fL (80.0-100.0); Macrocytosis Slight; Mean Platelet Volume 9.5; Poikilocytosis Slight; RBC 3.24 m/uL (4.30-5.90); RDW 19.1 % (11.5-15.5)
[2024-04-22 10:50] LABS: ALT 48 U/L (4-49); AST 54 U/L (17-59); African American GFR (CKD) 85 (>60 ml/min/1.73 sqM); Albumin 2.5 g/dL (3.5-5.0); Albumin/Globulin Ratio 1.1; Alkaline Phosphatase 266 U/L (38-126); Anion Gap 6 mmol/L; Blood Urea Nitrogen 16 mg/dL (9-20); Calcium 8.6 mg/dL (8.4-10.2); Carbon Dioxide 24 mmol/L (22-30); Chloride 102 mmol/L (98-107); Globulin 2.3 g/dL; Glucose 90 mg/dL (74-99); Magnesium 1.8 mg/dL (1.6-2.3); Non-African American GFR(CKD) 73 (>60 ml/min/1.73 sqM); Potassium 4.2 mmol/L (3.5-5.1); Sodium 132 mmol/L (137-145); Total Bilirubin 0.8 mg/dL (0.2-1.3); Total Protein 4.8 g/dL (6.3-8.2)
[2024-04-22 11:00] LABS: WBC 0.8 k/uL (3.8-10.6)
[2024-04-22 11:28] LABS: Platelet Count 82 k/uL (150-450)
--- NOTE | 2024-04-22 14:00 | P.PN ---
Subjective Progress Note Date: 04/22/24 Hospital course: Patient is a very pleasant 78-year-old male with a past medical history of CAD status post stenting, hyperlipidemia, GERD, peptic ulcer disease, GI bleed, and Hodgkin's lymphoma. He presented to the hospital on 04/18/2024 with a chief complaint of generalized weakness. Physical exam: Patient seen and fully evaluated at bedside this morning. He reports overall feeling slightly better today and is preparing to take a shower this morning. Patient denies having any headache, lightheadedness, dizziness, chest pain, palpitations, shortness of breath, or experiencing any numbness/tingling in his extremities. He reports he has tolerated oral intake and denies any nausea or vomiting. Vital signs reviewed and stable. General: Nontoxic, no distress and appears stated age. Derm: Skin warm and dry, normal coloration for ethnicity. Head: Atraumatic, normocephalic and symmetric. Eyes: EOM's intact, no lid lag, and anicteric sclera Mouth: no lip lesions, mucus membranes moist Cardiovascular: regular rate and rhythm with normal S1S2, no murmur, positive posterior tibial pulses bilaterally, and cap refill < 2 seconds. Lungs: Respirations even, regular, and unlabored on room air. Lungs CTA bilaterally, no rhonchi, no rales, no wheezing, and no accessory muscle usage. Abdominal: soft, nontender to palpation, no guarding, no appreciable organomegaly Ext: ROM intact. No gross muscle atrophy, no edema, no contractures Neuro: Speech clear, face symmetrical and CN II-XII grossly intact with no noted focal neuro deficits Psych: Alert and oriented to person, place, time, and situation. Appropriate and pleasant affect. Assessment and Plan of Care: Debility resulting in generalized weakness and inability to independently complete ADLs Recent acute on chronic blood loss anemia secondary to peptic ulcer disease Hodgkin's lymphoma not on any therapy as recently diagnosed 03/2024 Pancytopenia likely due to Hodgkin's lymphoma Neutropenia Elevated ALP likely due to above -Patient has been accepted to [facility] and currently awaiting insurance authorization for rehab -Fall precautions -CBC showing continued pancytopenia slightly worsening with WBC count of 0.8, hemoglobin of 9.8, and platelet count of 82. -Resume Filgrastim 480 mcg daily pending further recommendations from hematology/oncology -Consult placed to hematology/oncology for evaluation -Maintain neutropenic precautions -Status post 1 unit of PRBC hemoglobin stable at 9.8 -PT/OT following, recommending SNF for rehab Recent infection of E. coli and Brandie (found in sputum culture) -Continue fluconazole 200 mg daily and levofloxacin 500 mg daily Hypotension, resolved Normal anion gap metabolic acidosis, resolved Hyperchloremia, resolved Chronic Conditions: GERD -Continue Protonix 40 mg twice daily. BPH -Continue Flomax 0.8 mg daily. Anxiety -Continue Abilify 5 mg nightly and Effexor 150 mg nightly. CAD with previous stent placement Hyperlipidemia -Patient no longer on statin or any other cardiac medications at this time. Data reviewed: Morning labs reviewed. CBC showing continued pancytopenia with worsening leukopenia WBC count of 0.8, hemoglobin 9.8, platelet count 82. Neutrophil count from yesterday was 0.75. BMP showing hyponatremia with sodium of 132 otherwise normal findings. Blood glucose 90. Magnesium 1.8. Liver profile showing elevated alkaline phos of 266. Albumin also low at 2.5. Vital signs reviewed. Blood pressure 104/65, heart rate 94, respiratory rate 17, temp 97.9 F, and SpO2 100% on room air. CODE STATUS: Full code DVT prophylaxis: SCDs Anticipated discharge date: Pending clinical course Anticipated discharge place: [facility], patient has been accepted to [facility] Patient was seen independently by Nurse Pracitioner. This document was prepared using [employer] dictation software. Please allow for errors in charge entry specialist, while rare they do occur. Mario Vega NP rendered care for this patient independently, reviewed the findings and plan as documented in the note above and agree with plan. I did not physically speak with or examine the patient on this date. Objective - Vital Signs Vital signs: Vital Signs Temp 97.9 F 04/22/24 07:36 Pulse 94 04/22/24 07:36 Resp 17 04/22/24 07:36 BP 104/65 04/22/24 07:36 Pulse Ox 100 04/22/24 07:36 FiO2 Intake & Output 04/21/24 04/22/24 04/22/24 18:59 06:59 18:59 Intake Total 540 Output Total 650 Balance -110 Intake: Oral 540 Output: Urine 650 Other: Voiding Method Toilet Toilet Urinal Urinal Diaper Diaper # Voids 1 # Bowel Movements 1 - Labs CBC & Chem 7: 04/22/24 09:52 04/22/24 09:52
[2024-04-22] MEDS: FILGRASTIM-SNDZ 480 MCG/0.8 ML SYRINGE SQ SCH (14:13)
--- NOTE | 2024-04-22 15:08 | P.PN ---
Progress Note - Text Progress Note Date: 04/22/24 Pt will be seen in formal consult 04/23/24 Dx: Hodgkins Lymphoma, Pancytopenia and weakness 2/2 HD Pt has not been able to stay out of the hospital long enough to get treatment, now plans to go to rehab. Pt will not be successful at rehab until treatment of HD starts as it is the underlying cause for all his c/o. Nursing confirmed with pt and son that everyone is ok to start treatment inpt. Orders have been sent.
[2024-04-23 06:06] LABS: Anisocytosis Slight; Basophils % (A) 0 %; Eosinophils % (A) 1 %; HCT 26.3 % (39.0-53.0); HGB 8.6 gm/dL (13.0-17.5); Hypochromasia Slight; Lymphocytes # (A) 0.2 k/uL (1.0-4.8); Lymphocytes % (A) 4 %; MCH 30.8 pg (25.0-35.0); MCHC 32.8 g/dL (31.0-37.0); MCV 93.7 fL (80.0-100.0); Macrocytosis Slight; Mean Platelet Volume 9.3; Monocytes # (A) 0.3 k/uL (0-1.0); Monocytes % (A) 6 %; Neutrophils # (A) 3.6 k/uL (1.3-7.7); Neutrophils % (A) 87 %; RDW 18.4 % (11.5-15.5); WBC 4.2 k/uL (3.8-10.6)
[2024-04-23 06:19] LABS: Platelet Count 67 k/uL (150-450)
[2024-04-23] MEDS ORDERED: MAGNESIUM HYDROXIDE 2,400 MG/30 ML CUP PO PRN (09:26)
[2024-04-23] MEDS ORDERED: LOPERAMIDE 2 MG CAP PO PRN (09:26)
[2024-04-23 09:27] LABS: ALT 41 U/L (10-49); AST 45 U/L (14-35); Albumin 2.5 g/dL (3.8-4.9); Albumin/Globulin Ratio 1.47 Ratio (1.60-3.17); Alkaline Phosphatase 239 U/L (41-126); BUN/Creat Ratio 16.91 Ratio (12.00-20.00); Blood Urea Nitrogen 18.6 mg/dL (9.0-27.0); Calcium 8.5 mg/dL (8.7-10.3); Chloride 104 mmol/L (96-109); Globulin 1.7 g/dL (1.6-3.3); Glucose 83 mg/dL (70-110); Magnesium 1.6 mg/dL (1.5-2.4); Potassium 4.2 mmol/L (3.5-5.5); Sodium 134 mmol/L (135-145); Total Bilirubin 0.6 mg/dL (0.3-1.2); Total Protein 4.2 g/dL (6.2-8.2)
[2024-04-23] MEDS ORDERED: ONDANSETRON 4 MG/2 ML VIAL IVP PRN (09:34)
[2024-04-23] MEDS ORDERED: VINBLASTINE IV ONE (12:00)
[2024-04-23] MEDS ORDERED: SODIUM CHLORIDE 0.9% IV ONE (12:00)
--- NOTE | 2024-04-23 12:38 | P.PN ---
Subjective Progress Note Date: 04/23/24 Hospital course: Patient is a very pleasant 78-year-old male with a past medical history of CAD status post stenting, hyperlipidemia, GERD, peptic ulcer disease, GI bleed, and Hodgkin's lymphoma. He presented to the hospital on 04/18/2024 with a chief complaint of generalized weakness. Upon arrival to our facility, patient underwent evaluation in the emergency department. Vital signs upon arrival show blood pressure 84/50, heart rate 110, respiratory rate 18, temp 98.1 F, and SpO2 of 96% on room air. EKG was completed showing sinus mechanism at 98 bpm. Labs completed and reviewed. CBC showing bicytopenia with hemoglobin of 7.9 and platelet count of 62. BMP showing hyponatremia with sodium of 129 and non-anion gap metabolic acidosis with chloride of 108, bicarb of 19, and anion gap of 2 with prerenal azotemia with BUN of 24. Magnesium 1.9. Liver profile showing elevated ALT of 65 and alkaline phosphatase of 222. Albumin was low at 1.9. Physical exam: Patient seen and fully evaluated at bedside this morning. He reports feeling tired and awaiting PICC line placement for scheduled chemotherapy to begin later today. Patient denies any other complaints, questions, needs, or concerns at this time. Vital signs reviewed. General: Nontoxic, no distress and appears stated age. Derm: Skin warm and dry, normal coloration for ethnicity. Head: Atraumatic, normocephalic and symmetric. Eyes: EOM's intact, no lid lag, and anicteric sclera Mouth: no lip lesions, mucus membranes moist Cardiovascular: regular rate and rhythm with normal S1S2, no murmur, positive posterior tibial pulses bilaterally, and cap refill < 2 seconds. Lungs: Respirations even, regular, and unlabored on room air. Lungs CTA bilaterally, no rhonchi, no rales, no wheezing, and no accessory muscle usage. Abdominal: soft, nontender to palpation, no guarding, no appreciable organomegaly Ext: ROM intact. No gross muscle atrophy, no edema, no contractures Neuro: Speech clear, face symmetrical and CN II-XII grossly intact with no noted focal neuro deficits Psych: Alert and oriented to person, place, time, and situation. Appropriate and pleasant affect. Assessment and Plan of Care: Debility resulting in generalized weakness and inability to independently complete ADLs Recent acute on chronic blood loss anemia secondary to peptic ulcer disease Hodgkin's lymphoma, recently diagnosed 03/2024 Pancytopenia likely due to Hodgkin's lymphoma Neutropenia, resolved after receiving dose of filgrastim Elevated ALP likely due to above -Patient has been [facility] will obtain insurance authorization for placement. -Fall precautions -Patient received 1 dose of filgrastim 480 mcg and 04/22/2024 secondary to leukopenia and neutropenia and per oncology recommendations, additional doses held as they are starting inpatient chemotherapy today. -Hematology/oncology following, discussed plan of care in detail with oncology WINDOWS MIGRATION TECHNICIAN. -Maintain neutropenic precautions -Status post 1 unit of PRBC hemoglobin stable at 8.6 -PT/OT following, recommending SNF for rehab Recent infection of E. coli and Brandie (found in sputum culture) -Continue fluconazole 200 mg daily and levofloxacin 500 mg daily Hypotension, improved with IV fluid hydration. -Continue 0.9% normal saline at 75 cc/h. Hyponatremic hyperchloremia, improved with IV fluid hydration -Continue 0.9% normal saline at 75 cc/h. Non-anion gap metabolic acidosis, resolved with IV fluid hydration Chronic Conditions: GERD -Continue Protonix 40 mg twice daily. BPH -Continue Flomax 0.8 mg daily. Anxiety -Continue Abilify 5 mg nightly and Effexor 150 mg nightly. CAD with previous stent placement Hyperlipidemia -Patient no longer on statin or any other cardiac medications at this time. Data reviewed: Morning labs reviewed. CBC showing bicytopenia with hemoglobin of 8.6 and platelet count of 67. BMP showing hyponatremia with sodium of 134 and mild hypocarbia with bicarb of 21 otherwise normal findings. Blood glucose 83. Magnesium was low at 1.6 and orders placed for magnesium sulfate 2 g IVPB. Liver profile showing elevated AST of 45 and alkaline phosphatase of 239. Albumin remains low at 2.5. Vital signs reviewed. Blood pressure 96/61, heart rate 103, respiratory rate 20, temp 97.6 F, and SpO2 of 96% on room air. CODE STATUS: Full code DVT prophylaxis: SCDs Anticipated discharge date: Pending clinical course Anticipated discharge place: SNF, patient has been accepted to [facility] Patient was seen independently by Nurse Pracitioner. This document was prepared using [employer] dictation software. Please allow for errors in steamer blocker, while rare they do occur. Mario Vega WINDOWS MIGRATION TECHNICIAN rendered care for this patient independently, reviewed the findings and plan as documented in the note above and agree with plan. I did not physically speak with or examine the patient on this date. Objective - Vital Signs Vital signs: Vital Signs Temp 97.6 F 04/23/24 07:27 Pulse 103 H 04/23/24 07:27 Resp 20 04/23/24 07:27 BP 96/61 04/23/24 07:27 Pulse Ox 96 04/23/24 07:27 FiO2 Intake & Output 04/22/24 04/23/24 04/23/24 18:59 06:59 18:59 Intake Total 540 Output Total 700 Balance -160 Intake: Oral 540 Output: Urine 700 Other: Voiding Method Toilet Toilet Urinal Urinal Diaper Diaper # Voids 1 1 - Labs CBC & Chem 7: 04/23/24 05:00 04/23/24 05:00 Labs: Abnormal Lab Results - Last 24 Hours (Table) 04/22/24 04/22/24 04/23/24 Range/Units 09:52 09:52 05:00 WBC 0.8 L* (3.8-10.6) k/uL RBC 3.24 L 2.80 L (4.30-5.90) m/uL Hgb 9.8 L 8.6 L (13.0-17.5) gm/dL Hct 30.0 L 26.3 L (39.0-53.0) % RDW 19.1 H 18.4 H (11.5-15.5) % Plt Count 82 L 67 L (150-450) k/uL Lymphocytes # 0.2 L (1.0-4.8) k/uL Sodium 132 L (137-145) mmol/L Alkaline Phosphatase 266 H (38-126) U/L Total Protein 4.8 L (6.3-8.2) g/dL Albumin 2.5 L (3.5-5.0) g/dL
[2024-04-23] MEDS: PETROLATUM, WHITE OINT 50 GM TUBE TOPICAL SCH (12:48)
[2024-04-23] MEDS: MAGNESIUM SULFATE-D5W PMX 1 GM in DEXTROSE/WATER 1 100ML.BAG IVPB SCH (12:48)
[2024-04-23] MEDS: OLANZapine 2.5 MG TAB PO SCH (12:49)
[2024-04-23] MEDS: SODIUM CHLORIDE 0.9% 1,000 ML IV SCH (12:49)
[2024-04-23] MEDS: SODIUM CHLORIDE 0.9% 1,000 ML IV ONE (13:36)
[2024-04-23] MEDS: FOSAPREPITANT DIMEGLUMINE 150 MG in SODIUM CHLORIDE 0.9% 145 ML IV ONE (15:40)
--- NOTE | 2024-04-23 16:10 | P.CONS ---
History of Present Illness - Reason for Consult Consult date: 04/23/24 Hodgkins disease Requesting physician: Mario Vega - Chief Complaint weakness - History of Present Illness From consult dated 04/11. Mr. Spicer is a 78-year-old male who was transferred from [facility] in [place] due to hypercalcemia and abnormal lymphadenopathy noted on CT scan. Patient reports has been having increasing confusion over the last 3 weeks as well as weight loss and decreased appetite that has progressed over the last [address] CAP without contrast showed mediastinal and right hilar lymphadenopathy with markedly enlarged subcarinal lymph node. Single mildly enlarged lymph node in the right axilla and 1 in the left periaortic region in the abdomen. Small right pleural effusion with adjacent atelectasis. Minimal reticular nodular opacity most notable in the right lower lobe and less so in the left upper lobe, favoring inflammatory infectious process. Patient was also noted to be in acute renal failure with elevated calcium. Labs upon presentation to the ER showed creatinine 2.45, GFR 24. Calcium 14.7. Patient was given Zometa prior to arrival and calcitonin on admit. He underwent ultrasound-guided core needle biopsy of the right axillary lymphadenopathy on 03/13/2024 and was noted to be consistent with classical Hodgkin's lymphoma, mixed cellularity type. Subsequently, he was admitted with weakness and noted to have pancytopenia and cholestatic/hepatocellular transaminitis of unclear etiology. After discharge on 03/29/2024, he was readmitted on 03/31/2024 with fevers, dyspnea, and wheezing concerning for pneumonia. In addition to treatment with antibiotics, he was started on pulse dose steroids with improvement in his transaminitis. Based on the workup above, I am concerned he has advanced classical Hodgkin's lymphoma with at least stage III disease and possibly stage IV if he has liver and potentially bone marrow involvement. Based on having advanced stage disease, I did recommend treatment with 6 cycles of nivolumab plus AVD per recently published SWOG 1826 trial. He does have PET/CT scheduled for 04/17/2024 Pt never had PET/CT as he has been in and out of hospital long enough to get it. This is pt 5th admit in 6 weeks. His counts are not improving and pt is not doing well with rehabilitating because he has untreated malignancy. He was discharged 3 times to home with home health and once to SNF, all to return within 7-10 days for weakness. When seen today pt was sitting up in bed, he denied fevers, N,V, he is eating ok, appetite is fair, he does get SOB with exertion but is comfortable otherwise. No abd c/o, acute changes in bowel or bladder, legs are mildly swollen, no rashes but skin is very dry. Review of Systems 10 point ROS is neg except as stated in HPI Past Medical History Past Medical History: Coronary Artery Disease (CAD), Cancer, GERD/Reflux, GI Bleed, Hyperlipidemia, Myocardial Infarction (MT) Additional Past Medical History / Comment(s): DJD, Hodgkins Lymphoma 2023 Last Myocardial Infarction Date:: 2016 History of Any Multi-Drug Resistant Organisms: None Reported Past Surgical History: Back Surgery, Cholecystectomy, Heart Catheterization With Stent Additional Past Surgical History / Comment(s): egd at [facility] recently apr 2024- bleed was cauterized per pt Past Anesthesia/Blood Transfusion Reactions: No Reported Reaction Date of Last Stent Placement:: 2022 Past Psychological History: No Psychological Hx Reported Smoking Status: Former smoker Past Alcohol Use History: None Reported Past Drug Use History: None Reported Medications and Allergies Home Medications Medication Instructions Recorded Confirmed Type ARIPiprazole [Abilify] 5 mg PO HS 03/12/24 04/18/24 History Venlafaxine HCl [Effexor XR] 150 mg PO HS 03/12/24 04/18/24 History Magnesium Oxide [Mag-Ox] 400 mg PO BID #60 tab 03/17/24 04/18/24 Rx Albuterol Inhaler [Ventolin Hfa 2 puff INHALATION RT-Q4H PRN 03/25/24 04/18/24 History Inhaler] Tamsulosin [Flomax] 0.8 mg PO DAILY 03/25/24 04/18/24 History Pantoprazole [Protonix] 40 mg PO BID #100 tab 03/29/24 04/18/24 Rx guaiFENesin SYRUP 100MG/5ML 200 mg PO Q4H PRN 03/31/24 04/18/24 History [Robitussin] Acetaminophen Tab [Tylenol] 650 mg PO Q6HR PRN tab 04/06/24 04/18/24 Rx allopurinoL [Zyloprim] 100 mg PO DAILY #30 tab 04/06/24 04/18/24 Rx Filgrastim-Sndz [Zarxio] 480 mcg SQ DIRECTED 04/18/24 04/18/24 History Fluconazole 200 mg PO DAILY 04/18/24 04/18/24 History Levofloxacin [Levaquin] 500 mg PO DAILY 04/18/24 04/18/24 History Allergies Allergy/AdvReac Type Severity Reaction Status Date / Time No Known Allergies Allergy Verified 04/18/24 14:47 Physical Exam Vitals: Vital Signs Temp Pulse Resp BP BP Pulse Ox 04/23/24 07:27 97.6 F 103 H 20 96/61 96 04/23/24 02:00 98.3 F 99 12 97/60 96 04/22/24 19:45 99.1 F 89 12 115/67 98 04/22/24 12:59 98.3 F 103 H 17 94/55 96 Intake and Output 04/22/24 04/23/24 04/23/24 22:59 06:59 14:59 Intake Total 540 Output Total 700 Balance -160 Intake: Oral 540 Output: Urine 700 Other: Voiding Method Toilet Urinal Diaper # Voids 1 - Constitutional General appearance: average body habitus, cooperative, no acute distress - EENT Eyes: anicteric sclerae, EOMI ENT: hearing grossly normal, normal oropharynx - Neck Neck: lymphadenopathy - Respiratory Respiratory: bilateral: CTA - Cardiovascular Rhythm: regular Heart sounds: normal: S1, S2 Abnormal Heart Sounds: no systolic murmur, no diastolic murmur, no rub, no S3 Gallop, no S4 Gallop, no click, no other leg Peripheral Edema: bilateral: 1+ - Gastrointestinal General gastrointestinal: no absent bowel sounds, no decreased bowel sounds, no distended, no hepatomegaly, no hyperactive bowel sounds, normal bowel sounds, no organomegaly, no rigid, no scaphoid, soft, no splenomegaly, no tenderness, no umbilical hernia, no ventral hernia - Integumentary Integumentary: pale - Neurologic Neurologic: CNII-XII intact - Musculoskeletal Musculoskeletal: generalized weakness - Psychiatric Psychiatric: A&O x's 3, appropriate affect, intact judgment & insight Results CBC & Chem 7: 04/23/24 05:00 04/23/24 05:00 Labs: Abnormal Lab Results - Last 24 Hours (Table) 04/22/24 04/22/24 04/23/24 Range/Units 09:52 09:52 05:00 WBC 0.8 L* (3.8-10.6) k/uL RBC 3.24 L (4.30-5.90) m/uL Hgb 9.8 L (13.0-17.5) gm/dL Hct 30.0 L (39.0-53.0) % RDW 19.1 H (11.5-15.5) % Plt Count 82 L (150-450) k/uL Lymphocytes # (1.0-4.8) k/uL Sodium 132 L 134 L (137-145) mmol/L Carbon Dioxide 21.0 L (21.6-31.8) mmol/L Calcium 8.5 L (8.7-10.3) mg/dL AST 45 H (14-35) U/L Alkaline Phosphatase 266 H 239 H (38-126) U/L Total Protein 4.8 L 4.2 L (6.3-8.2) g/dL Albumin 2.5 L 2.5 L (3.5-5.0) g/dL Albumin/Globulin Ratio 1.47 L (1.60-3.17) Ratio 04/23/24 Range/Units 05:00 WBC (3.8-10.6) k/uL RBC 2.80 L (4.30-5.90) m/uL Hgb 8.6 L (13.0-17.5) gm/dL Hct 26.3 L (39.0-53.0) % RDW 18.4 H (11.5-15.5) % Plt Count 67 L (150-450) k/uL Lymphocytes # 0.2 L (1.0-4.8) k/uL Sodium (137-145) mmol/L Carbon Dioxide (21.6-31.8) mmol/L Calcium (8.7-10.3) mg/dL AST (14-35) U/L Alkaline Phosphatase (38-126) U/L Total Protein (6.3-8.2) g/dL Albumin (3.5-5.0) g/dL Albumin/Globulin Ratio (1.60-3.17) Ratio Comments: ECHO report reviewed from 03/30/24 Assessment and Plan (1) Hodgkins lymphoma Current Visit: Yes Status: Acute Priority: High Code(s): C81.90 - HODGKIN LYMPHOMA, UNSPECIFIED, UNSPECIFIED SITE SNOMED Code(s): 357709423 (2) Debility Current Visit: Yes Status: Acute Priority: High Code(s): R53.81 - OTHER MALAISE SNOMED Code(s): 78870265 (3) Pancytopenia Current Visit: Yes Status: Acute Priority: High Code(s): D61.818 - OTHER PANCYTOPENIA SNOMED Code(s): 937816937 Plan: Hodgkin's disease -Diagnosis and clinical course as documented in HPI -Debility and pancytopenia secondary to HD -It is reported that there are plans for patient to be discharged to rehab. Pt is not going to be able to rehab until he has some treatment for HD, the underlying cause of his weakness. Plan to give 1st cycle of treatment inpt -PICC line placement for administration of AVD. -Echo on 03/30/2024 LVEF 50%. -Supportive medications, IV fluids ordered -Daily weights, lab draws -Daily f/u -Once patient has received his first cycle of treatment, another cycle will not be due for 3 weeks. Strongly recommend patient participating in rehabilitation so that he can be strong enough to go home. No further treatments will be administered until patient is home from rehabilitation facility. Pt and his family are aware that pt cannot receive treatment if he is in a rehab facility. Doctor attests: I performed a history and physical examination of this patient, developed impression and plan of care. Discussed with dictator. I agree with dictators note, documented as a scribe.
[2024-04-23] MEDS: DEXAMETHASONE SOD PHOSPHATE 10 MG/ML 1 ML VIAL IV ONE (16:37)
[2024-04-23] MEDS: FAMOTIDINE 20 MG/2 ML VIAL IV ONE (16:40)
[2024-04-23] MEDS: ONDANSETRON 16 MG in SODIUM CHLORIDE 0.9% 50 ML IVPB ONE (16:46)
[2024-04-23] MEDS: SALT AND SODA MOUTHWASH 1,000 ML PO SCH (16:57)
[2024-04-23] MEDS: DOXORUBICIN HCL IV ONE (17:23)
[2024-04-23] MEDS: VINBLASTINE IV ONE (17:52)
[2024-04-23] MEDS: SODIUM CHLORIDE 0.9% IV ONE ×2 (17:52→18:21)
[2024-04-23] MEDS: DACARBAZINE IV ONE (18:21)
[2024-04-24 05:46] LABS: Anisocytosis Slight; Basophils % (A) 0 %; Eosinophils % (A) 0 %; HGB 7.9 gm/dL (13.0-17.5); Hypochromasia Moderate; Lymphocytes # (A) 0.2 k/uL (1.0-4.8); Lymphocytes % (A) 5 %; MCH 31.3 pg (25.0-35.0); MCV 95.1 fL (80.0-100.0); Macrocytosis Slight; Mean Platelet Volume 10.5; Monocytes # (A) 0.2 k/uL (0-1.0); Monocytes % (A) 5 %; Neutrophils # (A) 3.5 k/uL (1.3-7.7); Neutrophils % (A) 90 %; RBC 2.53 m/uL (4.30-5.90); RDW 18.4 % (11.5-15.5); WBC 3.9 k/uL (3.8-10.6)
[2024-04-24 05:51] LABS: ALT 35 U/L (4-49); AST 49 U/L (17-59); African American GFR (CKD) >90 (>60 ml/min/1.73 sqM); Albumin 2.1 g/dL (3.5-5.0); Alkaline Phosphatase 218 U/L (38-126); Anion Gap 1 mmol/L; Blood Urea Nitrogen 23 mg/dL (9-20); Calcium 8.2 mg/dL (8.4-10.2); Carbon Dioxide 19 mmol/L (22-30); Chloride 109 mmol/L (98-107); Globulin 2.1 g/dL; Glucose 127 mg/dL (74-99); Non-African American GFR(CKD) 80 (>60 ml/min/1.73 sqM); Potassium 4.6 mmol/L (3.5-5.1); Sodium 129 mmol/L (137-145); Total Bilirubin 0.7 mg/dL (0.2-1.3); Total Protein 4.2 g/dL (6.3-8.2)
[2024-04-24 05:52] LABS: Platelet Count 58 k/uL (150-450)
[2024-04-24] MEDS ORDERED: FLUCONAZOLE 100 MG TAB PO SCH (09:00)
--- NOTE | 2024-04-24 12:20 | P.GSCN ---
History of Present Illness Consult date: 04/24/24 History of present illness: CHIEF COMPLAINT: weakness Reason for consult: Mediport placement HISTORY OF PRESENT ILLNESS: This is a 78-year-old male with recent diagnosis of Hodgkin's lymphoma in March 2024. He is followed by oncology service. They are planning to start chemotherapy. Surgical service has been consulted in regards to a Mediport placement. Patient is lying in bed comfortably. PAST MEDICAL HISTORY: See below PAST SURGICAL HISTORY: See below MEDICATIONS: See below ALLERGIES: See below SOCIAL HISTORY: No illicit drug use. REVIEW OF SYSTEMS: CONSTITUTIONAL: Denies fever or chills. HEENT: Denies blurred vision, vision changes, or eye pain. Denies hemoptysis CARDIOVASCULAR: Denies chest pain or pressure. RESPIRATORY: No shortness of breath. GASTROINTESTINAL: See HPI for pertinent findings HEMATOLOGIC: Denies bleeding disorders. GENITOURINARY: Denies any blood in urine or increased urinary frequency. SKIN: Denies pruitis. Denies rash. PHYSICAL EXAM: VITAL SIGNS: Reviewed GENERAL: Well-developed in no acute distress. HEENT: No sclera icterus. Extraocular movements grossly intact. Moist buccal mucosa. Head is atraumatic, normocephalic. No nasal drainage. ABDOMEN: Soft. Nondistended. Nontender NEUROLOGIC: Alert and oriented. Cranial nerves II through XII grossly intact. LABORATORY DATA: WBC 3.9 Hgb 7.9 platelets 58 Sodium 129 potassium 4.6 creatinine 0.92 IMAGING: ASSESSMENT: 1. Hodgkin's lymphoma 2. Thrombocytopenia PLAN: -Patient scheduled for Mediport placement today with Dr. Macdonald -Will transfuse 1 unit of platelets prior to procedure Thank you for this consultation Physician Game Bird Farmer note has been reviewed by physician. Signing provider agrees with the documented findings, assessment, and plan of care. Past Medical History Past Medical History: Coronary Artery Disease (CAD), Cancer, GERD/Reflux, GI Bleed, Hyperlipidemia, Myocardial Infarction (DC) Additional Past Medical History / Comment(s): DJD, Hodgkins Lymphoma 2023 Last Myocardial Infarction Date:: 2016 History of Any Multi-Drug Resistant Organisms: None Reported Past Surgical History: Back Surgery, Cholecystectomy, Heart Catheterization With Stent Additional Past Surgical History / Comment(s): egd at [facility] recently apr 2024- sm bleed was cauterized per pt Past Anesthesia/Blood Transfusion Reactions: No Reported Reaction Date of Last Stent Placement:: 2022 Past Psychological History: No Psychological Hx Reported Smoking Status: Former smoker Past Alcohol Use History: None Reported Past Drug Use History: None Reported Medications and Allergies Home Medications Medication Instructions Recorded Confirmed Type ARIPiprazole [Abilify] 5 mg PO HS 03/12/24 04/18/24 History Venlafaxine HCl [Effexor XR] 150 mg PO HS 03/12/24 04/18/24 History Magnesium Oxide [Mag-Ox] 400 mg PO BID #60 tab 03/17/24 04/18/24 Rx Albuterol Inhaler [Ventolin Hfa 2 puff INHALATION RT-Q4H PRN 03/25/24 04/18/24 History Inhaler] Tamsulosin [Flomax] 0.8 mg PO DAILY 03/25/24 04/18/24 History Pantoprazole [Protonix] 40 mg PO BID #100 tab 03/29/24 04/18/24 Rx guaiFENesin SYRUP 100MG/5ML 200 mg PO Q4H PRN 03/31/24 04/18/24 History [Robitussin] Acetaminophen Tab [Tylenol] 650 mg PO Q6HR PRN tab 04/06/24 04/18/24 Rx allopurinoL [Zyloprim] 100 mg PO DAILY #30 tab 04/06/24 04/18/24 Rx Filgrastim-Sndz [Zarxio] 480 mcg SQ DIRECTED 04/18/24 04/18/24 History Fluconazole 200 mg PO DAILY 04/18/24 04/18/24 History Levofloxacin [Levaquin] 500 mg PO DAILY 04/18/24 04/18/24 History Allergies Allergy/AdvReac Type Severity Reaction Status Date / Time No Known Allergies Allergy Verified 04/18/24 14:47 Surgical - Exam Vital Signs Temp Pulse Resp BP Pulse Ox 98.1 F 110 H 18 84/50 96 04/18/24 12:17 04/18/24 12:17 04/18/24 12:17 04/18/24 12:17 04/18/24 12:17 Results - Labs 04/24/24 04:21 04/24/24 04:21 Abnormal Lab Results - Last 24 Hours (Table) 04/24/24 04/24/24 Range/Units 04:21 04:21 RBC 2.53 L (4.30-5.90) m/uL Hgb 7.9 L (13.0-17.5) gm/dL Hct 24.0 L (39.0-53.0) % RDW 18.4 H (11.5-15.5) % Plt Count 58 L (150-450) k/uL Lymphocytes # 0.2 L (1.0-4.8) k/uL Sodium 129 L (137-145) mmol/L Chloride 109 H (98-107) mmol/L Carbon Dioxide 19 L (22-30) mmol/L BUN 23 H (9-20) mg/dL Glucose 127 H (74-99) mg/dL Calcium 8.2 L (8.4-10.2) mg/dL Alkaline Phosphatase 218 H (38-126) U/L Total Protein 4.2 L (6.3-8.2) g/dL Albumin 2.1 L (3.5-5.0) g/dL Diabetes panel 04/24/24 Range/Units 04:21 Sodium 129 L (137-145) mmol/L Potassium 4.6 (3.5-5.1) mmol/L Chloride 109 H (98-107) mmol/L Carbon Dioxide 19 L (22-30) mmol/L BUN 23 H (9-20) mg/dL Creatinine 0.92 (0.66-1.25) mg/dL Glucose 127 H (74-99) mg/dL Calcium 8.2 L (8.4-10.2) mg/dL AST 49 (17-59) U/L ALT 35 (4-49) U/L Alkaline Phosphatase 218 H (38-126) U/L Total Protein 4.2 L (6.3-8.2) g/dL Albumin 2.1 L (3.5-5.0) g/dL Calcium panel 04/24/24 Range/Units 04:21 Calcium 8.2 L (8.4-10.2) mg/dL Albumin 2.1 L (3.5-5.0) g/dL Pituitary panel 04/24/24 Range/Units 04:21 Sodium 129 L (137-145) mmol/L Potassium 4.6 (3.5-5.1) mmol/L Chloride 109 H (98-107) mmol/L Carbon Dioxide 19 L (22-30) mmol/L BUN 23 H (9-20) mg/dL Creatinine 0.92 (0.66-1.25) mg/dL Glucose 127 H (74-99) mg/dL Calcium 8.2 L (8.4-10.2) mg/dL Adrenal panel 04/24/24 Range/Units 04:21 Sodium 129 L (137-145) mmol/L Potassium 4.6 (3.5-5.1) mmol/L Chloride 109 H (98-107) mmol/L Carbon Dioxide 19 L (22-30) mmol/L BUN 23 H (9-20) mg/dL Creatinine 0.92 (0.66-1.25) mg/dL Glucose 127 H (74-99) mg/dL Calcium 8.2 L (8.4-10.2) mg/dL Total Bilirubin 0.7 (0.2-1.3) mg/dL AST 49 (17-59) U/L ALT 35 (4-49) U/L Alkaline Phosphatase 218 H (38-126) U/L Total Protein 4.2 L (6.3-8.2) g/dL Albumin 2.1 L (3.5-5.0) g/dL
--- NOTE | 2024-04-24 12:51 | P.PN ---
Subjective Progress Note Date: 04/24/24 Hospital course: Patient is a very pleasant 78-year-old male with a past medical history of CAD status post stenting, hyperlipidemia, GERD, peptic ulcer disease, GI bleed, and Hodgkin's lymphoma. He presented to the hospital on 04/18/2024 with a chief complaint of generalized weakness. Upon arrival to our facility, patient underwent evaluation in the emergency department. Vital signs upon arrival show blood pressure 84/50, heart rate 110, respiratory rate 18, temp 98.1 F, and SpO2 of 96% on room air. EKG was completed showing sinus mechanism at 98 bpm. Labs completed and reviewed. CBC showing bicytopenia with hemoglobin of 7.9 and platelet count of 62. BMP showing hyponatremia with sodium of 129 and non-anion gap metabolic acidosis with chloride of 108, bicarb of 19, and anion gap of 2 with prerenal azotemia with BUN of 24. Magnesium 1.9. Liver profile showing elevated ALT of 65 and alkaline phosphatase of 222. Albumin was low at 1.9. Physical exam: Patient seen and fully evaluated at bedside this morning. Patient reports feeling well this morning. He appears to have tolerated first round of chemotherapy well and denies having any side effects including nausea, vomiting, diarrhea, increased lethargy or weakness. Discussed plan with patient, patient is scheduled to receive platelet transfusion and undergo placement of port for further chemotherapy treatments. Patient was informed likely discharge tomorrow morning pending repeat platelet count. Patient denies having any questions, concerns, or complaints at this time. Vital signs reviewed. General: Nontoxic, no distress and appears stated age. Derm: Skin warm and dry, normal coloration for ethnicity. Head: Atraumatic, normocephalic and symmetric. Eyes: EOM's intact, no lid lag, and anicteric sclera Mouth: no lip lesions, mucus membranes moist Cardiovascular: regular rate and rhythm with normal S1S2, no murmur, positive posterior tibial pulses bilaterally, and cap refill < 2 seconds. Lungs: Respirations even, regular, and unlabored on room air. Lungs CTA bilaterally, no rhonchi, no rales, no wheezing, and no accessory muscle usage. Abdominal: soft, nontender to palpation, no guarding, no appreciable organomeg west Ext: ROM intact. No gross muscle atrophy, no edema, no contractures Neuro: Speech clear, face symmetrical and CN II-XII grossly intact with no noted focal neuro deficits Psych: Alert and oriented to person, place, time, and situation. Appropriate and pleasant affect. Assessment and Plan of Care: Debility resulting in generalized weakness and inability to independently complete ADLs Recent acute on chronic blood loss anemia secondary to peptic ulcer disease Hodgkin's lymphoma, recently diagnosed 03/2024 Pancytopenia likely due to Hodgkin's lymphoma Neutropenia, resolved after receiving dose of filgrastim Elevated ALP likely due to above -Patient has been accepted to [facility] and plans for discharge tomorrow morning. -Fall precautions -Patient received 1 dose of filgrastim 480 mcg and 04/22/2024 secondary to leukopenia and neutropenia and per oncology recommendations, additional doses held as patient was started on chemotherapy on 04/23/2024. -Hematology/oncology following, discussed plan of care in detail with oncology OPERATIONS TECHNICIAN patient to receive platelet transfusion, port to be placed, and repeat platelets to be drawn tomorrow prior to going to rehab. -Maintain neutropenic precautions -Status post 1 unit of PRBC hemoglobin stable at 8.6. Currently platelet count is 58 and orders were placed by hematology for patient to be transfused with 1 unit of platelets. -PT/OT following, recommending SNF for rehab Recent infection of E. coli and Brandie (found in sputum culture) -Continue fluconazole 200 mg daily and levofloxacin 500 mg daily Hypotension, improved with IV fluid hydration. -Continue 0.9% normal saline at 75 cc/h. Hyponatremic hyperchloremia, improved with IV fluid hydration -Continue 0.9% normal saline at 75 cc/h. Non-anion gap metabolic acidosis, resolved with IV fluid hydration Chronic Conditions: GERD -Continue Protonix 40 mg twice daily. BPH -Continue Flomax 0.8 mg daily. Anxiety -Continue Abilify 5 mg nightly and Effexor 150 mg nightly. CAD with previous stent placement Hyperlipidemia -Patient no longer on statin or any other cardiac medications at this time. Data reviewed: Morning labs reviewed. CBC showing bicytopenia with hemoglobin of 9 and platelet count 88. BMP showing mild hyponatremia with sodium of 129 non-anion gap metabolic acidosis with chloride of 109, bicarb of 19, and anion gap of 14. BUN also elevated 23. Blood glucose 127. Liver profile showing persistently elevated but stable alkaline phosphatase of 218. Vital signs reviewed. Blood pressure 98/60, heart rate 95, respiratory rate 18, temp 97.9 F, and SpO2 of 97% on room air. CODE STATUS: Full code DVT prophylaxis: SCDs Anticipated discharge date: Tomorrow morning Anticipated discharge place: [facility] Patient was seen independently by Nurse Pracitioner. This document was prepared using [employer] dictation software. Please allow for errors in teacher's assistant, while rare they do occur. Mario Vega OPERATIONS TECHNICIAN rendered care for this patient independently, reviewed the findings and plan as documented in the note above and agree with plan. I did not physically speak with or examine the patient on this date. Objective - Vital Signs Vital signs: Vital Signs Temp 97.9 F 04/24/24 07:47 Pulse 95 04/24/24 07:47 Resp 18 04/24/24 07:47 BP 98/60 04/24/24 07:47 Pulse Ox 97 04/24/24 07:47 FiO2 Intake & Output 04/23/24 04/24/24 04/24/24 18:59 06:59 18:59 Intake Total 1020 250 Output Total 1000 Balance 1020 -750 Weight 83.1 kg 83.8 kg Intake: Oral 1020 250 Output: Urine 1000 Other: Voiding Method Toilet Toilet Urinal Urinal Diaper Diaper # Voids 4 - Labs CBC & Chem 7: 04/24/24 12:27 04/24/24 04:21 Labs: Abnormal Lab Results - Last 24 Hours (Table) 04/23/24 04/24/24 04/24/24 Range/Units 05:00 04:21 04:21 RBC 2.53 L (4.30-5.90) m/uL Hgb 7.9 L (13.0-17.5) gm/dL Hct 24.0 L (39.0-53.0) % RDW 18.4 H (11.5-15.5) % Plt Count 58 L (150-450) k/uL Lymphocytes # 0.2 L (1.0-4.8) k/uL Sodium 134 L 129 L (135-145) mmol/L Chloride 109 H (98-107) mmol/L Carbon Dioxide 21.0 L 19 L (21.6-31.8) mmol/L BUN 23 H (9-20) mg/dL Glucose 127 H (74-99) mg/dL Calcium 8.5 L 8.2 L (8.7-10.3) mg/dL AST 45 H (14-35) U/L Alkaline Phosphatase 239 H 218 H (41-126) U/L Total Protein 4.2 L 4.2 L (6.2-8.2) g/dL Albumin 2.5 L 2.1 L (3.8-4.9) g/dL Albumin/Globulin Ratio 1.47 L (1.60-3.17) Ratio
[2024-04-24 12:55] LABS: Anisocytosis Slight; Basophils % (A) 0 %; Eosinophils % (A) 0 %; HGB 8.6 gm/dL (13.0-17.5); Lymphocytes # (A) 0.3 k/uL (1.0-4.8); Lymphocytes % (A) 5 %; MCH 30.5 pg (25.0-35.0); MCV 92.4 fL (80.0-100.0); Mean Platelet Volume 10.5; Monocytes # (A) 0.3 k/uL (0-1.0); Monocytes % (A) 6 %; Neutrophils # (A) 4.7 k/uL (1.3-7.7); Neutrophils % (A) 87 %; RBC 2.82 m/uL (4.30-5.90); WBC 5.4 k/uL (3.8-10.6)
[2024-04-24 12:57] LABS: Platelet Count 68 k/uL (150-450)
--- NOTE | 2024-04-24 14:28 | P.PN ---
Subjective Progress Note Date: 04/24/24 Principal diagnosis: Hodgkins disease In f/u today pt is in good spirits, he reoprts he feels pretty good other then some mild dry mouth. He denied any side effects after chemo infusion. He does have an appetite. No fevers, cough, abd pain, swelling in legs is much better, no other questions or concerns. Objective - Vital Signs Vital signs: Vital Signs Temp 98.4 F 04/24/24 13:04 Pulse 93 04/24/24 13:04 Resp 18 04/24/24 13:04 BP 111/65 04/24/24 13:04 Pulse Ox 99 04/24/24 13:04 FiO2 Intake & Output 04/23/24 04/24/24 04/24/24 18:59 06:59 18:59 Intake Total 1020 250 333 Output Total 1000 1 Balance 1020 -750 332 Weight 83.1 kg 83.8 kg Intake: Oral 1020 250 Blood Product 333 Platelet Pheresis Pas 333 Psoralen Unit [id number] Output: Urine 1000 Stool 1 Other: Voiding Method Toilet Toilet Toilet Urinal Urinal Urinal Diaper Diaper Diaper # Voids 4 - Constitutional General appearance: Present: average body habitus, cooperative, no acute distress - EENT EENT Comment(s): dry mucus membranes Eyes: Present: anicteric sclerae, EOMI ENT: Present: hearing grossly normal - Respiratory Respiratory: bilateral: CTA - Cardiovascular Rhythm: regular Heart sounds: normal: S1, S2 Abnormal Heart Sounds: Absent: systolic murmur, diastolic murmur, rub, S3 Gallop, S4 Gallop, click, other - Peripheral edema leg Peripheral Edema: bilateral: Trace - Gastrointestinal General gastrointestinal: Present: normal bowel sounds, soft - Neurologic Neurologic: Present: CNII-XII intact - Musculoskeletal Musculoskeletal: Present: generalized weakness, strength equal bilaterally - Psychiatric Psychiatric: Present: A&O x's 3, appropriate affect, intact judgment & insight - Labs CBC & Chem 7: 04/24/24 12:27 04/24/24 04:21 Labs: Abnormal Lab Results - Last 24 Hours (Table) 04/24/24 04/24/24 04/24/24 Range/Units 04:21 04:21 12:27 RBC 2.53 L 2.82 L (4.30-5.90) m/uL Hgb 7.9 L 8.6 L (13.0-17.5) gm/dL Hct 24.0 L 26.0 L (39.0-53.0) % RDW 18.4 H 19.0 H (11.5-15.5) % Plt Count 58 L 68 L (150-450) k/uL Lymphocytes # 0.2 L 0.3 L (1.0-4.8) k/uL Sodium 129 L (137-145) mmol/L Chloride 109 H (98-107) mmol/L Carbon Dioxide 19 L (22-30) mmol/L BUN 23 H (9-20) mg/dL Glucose 127 H (74-99) mg/dL Calcium 8.2 L (8.4-10.2) mg/dL Alkaline Phosphatase 218 H (38-126) U/L Total Protein 4.2 L (6.3-8.2) g/dL Albumin 2.1 L (3.5-5.0) g/dL Assessment and Plan (1) Hodgkins lymphoma Current Visit: Yes Status: Acute Priority: High Code(s): C81.90 - HODGKIN LYMPHOMA, UNSPECIFIED, UNSPECIFIED SITE SNOMED Code(s): 941385779 (2) Debility Current Visit: Yes Status: Acute Priority: High Code(s): R53.81 - OTHER MALAISE SNOMED Code(s): 60695720 (3) Pancytopenia Current Visit: Yes Status: Acute Priority: High Code(s): D61.818 - OTHER PANCYTOPENIA SNOMED Code(s): 112004721 Plan: Hodgkin's disease -Diagnosis and clinical course as documented in consult -Debility and pancytopenia secondary to HD -Pt has not been out of the hospital long enough to get a treatment. It was felt that pt was not going to be able to rehab until he has some treatment for HD, the underlying cause of his weakness/hospital admissions. Gave 1st cycle of treatment inpt. Pt tolerated well so far. -PICC line placement for administration of AVD. Port is going to be placed today for future treatments. PICC can be removed after confirmation port functional -Echo on 03/30/2024 LVEF 50%. -Supportive medications, IV fluids cont -Daily weights, lab draws cont -Daily f/u -Once patient has received his first cycle of treatment, another cycle will not be due for 3 weeks. Strongly recommend patient participating in rehabilitation so that he can be strong enough to go home. No further treatments will be administered until patient is home from rehabilitation facility. Pt and his family are aware that pt cannot receive treatment if he is in a rehab facility.
[2024-04-24] MEDS ORDERED: LIDOCAINE 1% INJ 10MG/ML (20 ML MDV) ONE (19:54)
[2024-04-24] MEDS ORDERED: ceFAZolin 1 GM/50 ML BAG (PMX) ONE (19:54)
[2024-04-24] MEDS ORDERED: PHENYLEPHRINE-0.9% NACL SYG 1,000 MCG/10 ML SYRINGE ONE (19:54)
[2024-04-24] MEDS ORDERED: PROPOFOL 10 MG/ML 20 ML VIAL IV ONE (19:54)
[2024-04-24] MEDS: SODIUM CHLORIDE 0.9% 1,000 ML IV ONE (19:56)
[2024-04-24] MEDS: SODIUM CHLORIDE 0.9% 50 ML with ceFAZolin 2,000 MG IV ONE (20:17)
[2024-04-24] MEDS: LIDOCAINE 1% INJ 10MG/ML (20 ML MDV) SQ ONE ×2 (20:18)
--- NOTE | 2024-04-24 20:49 | P.OP ---
Date of Procedure: 04/24/24 Preoperative Diagnosis: Hodgkin's Lymphoma Postoperative Diagnosis: Hodgkin's Lymphoma Procedure(s) Performed: Mediport Insertion Anesthesia: MAC Surgeon: Vini Macdonald Estimated Blood Loss (ml): 5 Pathology: none sent Condition: stable Disposition: PACU Description of Procedure: The patient was taken to the operating room, placed supine, put under general endotracheal anesthesia. The patient's neck, chest, and shoulders were prepped and draped in usual sterile fashion. Timeout was performed. The right subclavian vein was cannulated with a finder needle. The wire was passed, which was in good position under fluoro, using Seldinger Technique. Near wire incision site made a pocket above the fascia and sutured in a single-lumen MediPort into the pocket in 4 places using 2-0 Vicryl. I then sized the catheter under fluoro and placed introducer and dilator over the wire, removed the wire and dilator, placed the catheter through the introducer and removed the introducer. The line tip was in good position under fluoro. It withdrew and flushed well. I then closed the incision using 3-0 Vicryl, 4-0 Monocryl for the skin, and skin glue. Accessed the ports with a 1-inch 20-gauge Christensen needle, and it withdrew and flushed well with final heparin flush. We secured this with Tegaderm. The patient was sent to the PACU in stable condition.
--- NOTE | 2024-04-24 23:43 | XR ---
EXAMINATION TYPE: XR chest 1V DATE OF EXAM: 04/24/2024 9:16 PM CLINICAL INDICATION:Male, 78 years old with history of PTX; [facility] COMPARISON: Chest radiographs from 04/10/2024. TECHNIQUE: XR chest 1V Frontal view of the chest. FINDINGS: Lungs/Pleura: There is no evidence of pleural effusion, focal consolidation, or pneumothorax. Pulmonary vascularity: Unremarkable. Heart/mediastinum: Cardiomediastinal silhouette is unremarkable. Musculoskeletal: No acute osseous pathology. Other findings: None Lines/Tubes: Right internal jugular central venous catheter is seen with distal tip projecting over the right atri um. Left-sided PICC with distal tip overlying the proximal right atrium. IMPRESSION: 1. Right internal jugular central venous catheter and left-sided PICC line are seen terminating over the right atrium. 2. No acute cardiopulmonary disease/process. [facility], , 04/24/2024 11:41 PM
[2024-04-24] MEDS: OLANZapine 2.5 MG TAB PO SCH (23:52)
[2024-04-24] MEDS: FILGRASTIM-SNDZ 480 MCG/0.8 ML SYRINGE SQ SCH (23:54)
[2024-04-25 06:50] LABS: Anisocytosis Slight; Basophils % (A) 0 %; Eosinophils % (A) 0 %; HCT 28.8 % (39.0-53.0); HGB 9.3 gm/dL (13.0-17.5); Hypochromasia Slight; Lymphocytes # (A) 0.2 k/uL (1.0-4.8); Lymphocytes % (A) 5 %; MCH 30.9 pg (25.0-35.0); MCHC 32.2 g/dL (31.0-37.0); MCV 96.1 fL (80.0-100.0); Macrocytosis Slight; Mean Platelet Volume 10.5; Monocytes # (A) 0.2 k/uL (0-1.0); Monocytes % (A) 5 %; Neutrophils # (A) 4.1 k/uL (1.3-7.7); Neutrophils % (A) 88 %; RDW 19.1 % (11.5-15.5); WBC 4.6 k/uL (3.8-10.6)
[2024-04-25 06:59] LABS: Platelet Count 63 k/uL (150-450)
[2024-04-25 07:11] LABS: ALT 34 U/L (4-49); AST 50 U/L (17-59); African American GFR (CKD) >90 (>60 ml/min/1.73 sqM); Albumin 2.4 g/dL (3.5-5.0); Alkaline Phosphatase 222 U/L (38-126); Anion Gap 7 mmol/L; Blood Urea Nitrogen 24 mg/dL (9-20); Calcium 8.6 mg/dL (8.4-10.2); Carbon Dioxide 21 mmol/L (22-30); Chloride 107 mmol/L (98-107); Globulin 2.4 g/dL; Glucose 79 mg/dL (74-99); Non-African American GFR(CKD) 80 (>60 ml/min/1.73 sqM); Potassium 4.1 mmol/L (3.5-5.1); Sodium 135 mmol/L (137-145); Total Bilirubin 0.7 mg/dL (0.2-1.3); Total Protein 4.8 g/dL (6.3-8.2)
--- NOTE | 2024-04-25 08:37 | FL ---
EXAMINATION TYPE: FL guided central line placemt DATE OF EXAM: 04/24/2024 8:55 PM COMPARISON: Pre Operative Images if available both CT/MRI or plain film CLINICAL INDICATION: Male, 78 years old with history of MEDIPORT PLACEMENT; TECHNIQUE: FL guided central line placemt, multiple fluoroscopic images provided for procedure. Total fluoroscopy time: 38.2 seconds Total submitted images to PACS: 1 DAP: 0.8917 mGym2 Gycm2 uGym2 cGycm2 or equivalent. FINDINGS: Fluoroscopic imaging for Port-A-Cath insertion no evidence for pneumothorax. Multilevel degeneration changes of the spine. IMPRESSION: 1. No evidence for intraoperative complication. 2. Please see the operative/procedural note for further details. [facility], , 04/25/2024 8:34 AM
--- NOTE | 2024-04-25 09:58 | P.DS ---
Providers Date of admission: 04/22/24 17:58 Expected date of discharge: 04/25/24 Attending physician: Hector Parra Consults: 04/22/24 11:19 Consult Physician Routine Consulting Provider: Ganesh Knight Consult Reason/Comments: Hodgkins Lymphoma Do you want consulting provider notified?: Yes 04/24/24 09:45 Consult Physician Routine Consulting Provider: Vini Macdonald Consult Reason/Comments: port placement for chemotherapy Do you want consulting provider notified?: Already Contacted 04/24/24 10:13 Consult Physician Routine Consulting Provider: Vini Macdonald Consult Reason/Comments: Port placement, Hodgkin's Lymphoma Do you want consulting provider notified?: Already Contacted Primary care physician: Corona Novoa MD Hospital Course: Discharge Diagnosis: Debility resulting in generalized weakness and inability to independently complete ADLs Recent acute on chronic blood loss anemia secondary to peptic ulcer disease Hodgkin's lymphoma, recently diagnosed 03/2024 Pancytopenia likely due to Hodgkin's lymphoma Neutropenia, resolved after receiving dose of filgrastim Elevated ALP likely due to above Recent infection of E. coli and Brandie (found in sputum culture). Completed antibiotic course of fluconazole 200 mg daily and levofloxacin 500 mg daily Hypotension, improved with IV fluid hydration. Hyponatremic hyperchloremia, improved with IV fluid hydration Non-anion gap metabolic acidosis, resolved with IV fluid hydration Chronic Conditions: GERD -Continue Protonix 40 mg twice daily. BPH -Continue Flomax 0.8 mg daily. Anxiety -Continue Abilify 5 mg nightly and Effexor 150 mg nightly. CAD with previous stent placement Hyperlipidemia -Patient no longer on statin or any other cardiac medications at this time. Hospital course: Patient is a very pleasant 78-year-old male with a past medical history of CAD status post stenting, hyperlipidemia, GERD, peptic ulcer disease, GI bleed, and Hodgkin's lymphoma. He presented to the hospital on 04/18/2024 with a chief complaint of generalized weakness. Upon arrival to our facility, patient underwent evaluation in the emergency department. Vital signs upon arrival show blood pressure 84/50, heart rate 110, respiratory rate 18, temp 98.1 F, and SpO2 of 96% on room air. EKG was completed showing sinus mechanism at 98 bpm. Labs completed and reviewed. CBC showing bicytopenia with hemoglobin of 7.9 and platelet count of 62. BMP showing hyponatremia with sodium of 129 and non-anion gap metabolic acidosis with chloride of 108, bicarb of 19, and anion gap of 2 with prerenal azotemia with BUN of 24. Magnesium 1.9. Liver profile showing elevated ALT of 65 and alkaline phosphatase of 222. Albumin was low at 1.9. Patient underwent hospitalization under services with consultation to hematology/oncology. He underwent inpatient chemotherapy for treatment of his Hodgkin's lymphoma. A Mediport was placed by general surgery for continued chemotherapy outpatient. Patient was evaluated by PT/OT recommending rehab. Patient medically optimized and has been cleared by general surgery and oncology for discharge. Patient being discharged to [facility]. Patient to hold filgrastim until outpatient follow-up with hematology/oncology. PICC line being removed prior to discharge per oncology. Discussed this with nursing staff at bedside. Patient to have repeat lab work in 1 week to follow-up on CBC per oncology recommendations. Patient medically optimized and stable for discharge to rehab. Physical exam: Patient seen and fully evaluated at bedside this morning. Patient reports continuing to feel well and denies experiencing any side effects from chemotherapy. He denies experiencing any nausea, vomiting, diarrhea, increased lethargy or weakness. Patient updated on plan for discharge to rehab today and is looking forward to transfer to rehab as he reports being eager to get back home as soon as he is strong enough. Vital signs reviewed. General: Nontoxic, no distress and appears stated age. Derm: Skin warm and dry, normal coloration for ethnicity. Head: Atraumatic, normocephalic and symmetric. Eyes: EOM's intact, no lid lag, and anicteric sclera Mouth: no lip lesions, mucus membranes moist Cardiovascular: regular rate and rhythm with normal S1S2, no murmur, positive posterior tibial pulses bilaterally, and cap refill < 2 seconds. Lungs: Respirations even, regular, and unlabored on room air. Lungs CTA bilaterally, no rhonchi, no rales, no wheezing, and no accessory muscle usage. Abdominal: soft, nontender to palpation, no guarding, no appreciable organomegaly Ext: ROM intact. No gross muscle atrophy, no edema, no contractures Neuro: Speech clear, face symmetrical and CN II-XII grossly intact with no noted focal neuro deficits Psych: Alert and oriented to person, place, time, and situation. Appropriate and pleasant affect. A total of 37 minutes of time were spent preparing this complex discharge summary. Pt was discharged on 04/25/2024 at 9:56 AM. Patient was seen independently by Nurse Practitioner. This document was prepared using [employer] dictation software. Please allow for errors in flower stripper while rare they do occur. Mario Vega LICENSING WORKER rendered care for this patient independently, reviewed the findings and plan as documented in the note above. I did not physically speak with or examine the patient on this date. Patient Condition at Discharge: Stable Plan - Discharge Summary Discharge Rx Participant: Yes New Discharge Prescriptions: New Petrolatum, White [Aquaphor] 1 applic TOPICAL QID each Docusate [Colace] 100 mg PO DAILY PRN cap PRN Reason: Constipation Prochlorperazine [Compazine] 10 mg PO Q6H PRN #30 tab PRN Reason: Nausea Loperamide [Imodium] 2 mg PO QID PRN cap PRN Reason: Diarrhea Continue ARIPiprazole [Abilify] 5 mg PO HS Magnesium Oxide [Mag-Ox] 400 mg PO BID #60 tab Tamsulosin [Flomax] 0.8 mg PO DAILY Albuterol Inhaler [Ventolin Hfa Inhaler] 2 puff INHALATION RT-Q4H PRN PRN Reason: Shortness Of Breath Acetaminophen Tab [Tylenol] 650 mg PO Q6HR PRN tab PRN Reason: Fever And/ Or Pain allopurinoL [Zyloprim] 100 mg PO DAILY #30 tab Filgrastim-Sndz [Zarxio] 480 mcg SQ DIRECTED Venlafaxine HCl [Effexor XR] 150 mg PO HS Pantoprazole [Protonix] 40 mg PO BID #100 tab guaiFENesin SYRUP 100MG/5ML [Robitussin] 200 mg PO Q4H PRN PRN Reason: cough/congestion Discontinued Fluconazole 200 mg PO DAILY Levofloxacin [Levaquin] 500 mg PO DAILY Discharge Medication List ARIPiprazole [Abilify] 5 mg PO HS 03/12/24 [History] Venlafaxine HCl [Effexor XR] 150 mg PO HS 03/12/24 [History] Magnesium Oxide [Mag-Ox] 400 mg PO BID #60 tab 03/17/24 [Rx] Albuterol Inhaler [Ventolin Hfa Inhaler] 2 puff INHALATION RT-Q4H PRN 03/25/24 [History] Tamsulosin [Flomax] 0.8 mg PO DAILY 03/25/24 [History] Pantoprazole [Protonix] 40 mg PO BID #100 tab 03/29/24 [Rx] guaiFENesin SYRUP 100MG/5ML [Robitussin] 200 mg PO Q4H PRN 03/31/24 [History] Acetaminophen Tab [Tylenol] 650 mg PO Q6HR PRN tab 04/06/24 [Rx] allopurinoL [Zyloprim] 100 mg PO DAILY #30 tab 04/06/24 [Rx] Filgrastim-Sndz [Zarxio] 480 mcg SQ DIRECTED 04/18/24 [History] Docusate [Colace] 100 mg PO DAILY PRN cap 04/25/24 [Rx] Loperamide [Imodium] 2 mg PO QID PRN cap 04/25/24 [Rx] Petrolatum, White [Aquaphor] 1 applic TOPICAL QID each 04/25/24 [Rx] Prochlorperazine [Compazine] 10 mg PO Q6H PRN #30 tab 04/25/24 [Rx] Follow up Appointment(s)/Referral(s): Corona Novoa MD [Primary Care Provider] - 1-2 days Melodie De Guzman MD [STAFF PHYSICIAN] - 1 Week Ambulatory/Diagnostic Orders: Complete Blood Count w/diff [LAB.AMB] Time Frame: 1 Week, Location: None Selected Activity/Diet/Wound Care/Special Instructions: PICC line to be removed prior to patient's discharge per Oncology Activity: As tolerated. Take breaks as needed. Diet: Heart healthy and carb consistent diet. Avoid salts, or foods with hidden salts such as canned or boxed foods and frozen dinners. Extra salt makes your heart work harder and traps the fluid in your body for longer. Special Instructions: Take all of your medications as directed and remember to keep all of your doctor's appointments and follow-up as needed. Wishing you a truly blessed and wonderful holiday season and a happy healthier new year!! Thank you for allowing us to participate in your care, it was truly a pleasure having you for our patient!!! . Discharge Disposition: TRANSFER TO SNF/ECF
--- NOTE | 2024-04-25 10:00 | P.PN ---
Subjective Progress Note Date: 04/25/24 SURGICAL PROGRESS NOTE CHIEF COMPLAINT: Hodgkin's lymphoma HISTORY OF PRESENT ILLNESS: Patient is postop day #1 status post Mediport insertion. Pain reports mild discomfort. His pain is controlled. Afebrile. There is plan for discharge to [facility] today. WBC 4.6 hemoglobin 9.3 platelets 63 PHYSICAL EXAM: VITAL SIGNS: Reviewed. GENERAL: Well-developed in no acute distress. Chest: Mediport site right chest wall is clean dry and intact NEUROLOGIC: Alert and oriented. Cranial nerves II through XII grossly intact. ASSESSMENT: 1. Hodgkin's lymphoma status post Mediport insertion PLAN: -Patient can be discharged from surgical standpoint Physician Ordained Minister note has been reviewed by physician. Signing provider agrees with the documented findings, assessment, and plan of care. Objective - Vital Signs Vital signs: Vital Signs Temp 97.8 F 04/25/24 07:26 Pulse 88 04/25/24 07:26 Resp 20 04/25/24 07:26 BP 93/56 04/25/24 07:26 Pulse Ox 99 04/25/24 07:26 FiO2 Intake & Output 04/24/24 04/25/24 04/25/24 18:59 06:59 18:59 Intake Total 813 550 Output Total 1 5 Balance 812 545 Weight 89.3 kg Intake: IV 550 Oral 480 Blood Product 333 Platelet Pheresis Pas 333 Psoralen Unit [id number] Output: Stool 1 Estimated Blood Loss 5 Other: Voiding Method Toilet Toilet Urinal Urinal Diaper Diaper # Voids 3 2 - Labs CBC & Chem 7: 04/25/24 05:49 04/25/24 05:49 Labs: Abnormal Lab Results - Last 24 Hours (Table) 04/24/24 04/25/24 04/25/24 Range/Units 12:27 05:49 05:49 RBC 2.82 L 3.00 L (4.30-5.90) m/uL Hgb 8.6 L 9.3 L (13.0-17.5) gm/dL Hct 26.0 L 28.8 L (39.0-53.0) % RDW 19.0 H 19.1 H (11.5-15.5) % Plt Count 68 L 63 L (150-450) k/uL Lymphocytes # 0.3 L 0.2 L (1.0-4.8) k/uL Sodium 135 L (137-145) mmol/L Carbon Dioxide 21 L (22-30) mmol/L BUN 24 H (9-20) mg/dL Alkaline Phosphatase 222 H (38-126) U/L Total Protein 4.8 L (6.3-8.2) g/dL Albumin 2.4 L (3.5-5.0) g/dL
[2024-04-25 14:35] VITALS: BP 95/56; PULSE 67; RESP 18; TEMP 98.3
== END 2024-04-25 18:20 | DRG 847 ==
LOC: EC 12:07 → 5NMEDONC 14:08 → OBSVTOIN 04-22 17:58
PROVIDERS: ADMIT Student in an Organized Health Care Education/Training Program; ATTEND Student in an Organized Health Care Education/Training Program
PROC: 30233N1 Transfusion of Nonautologous Red Blood Cells into Peripheral Vein, Percutaneous Approach (ICD-10-PCS; 2024-04-19)
PROC: 02H633Z Insertion of Infusion Device into Right Atrium, Percutaneous Approach (ICD-10-PCS; 2024-04-24)
PROC: 3E04305 Introduction of Other Antineoplastic into Central Vein, Percutaneous Approach (ICD-10-PCS; 2024-04-24)
PROC: 30233R1 Transfusion of Nonautologous Platelets into Peripheral Vein, Percutaneous Approach (ICD-10-PCS; 2024-04-24)
PROC: 02H633Z Insertion of Infusion Device into Right Atrium, Percutaneous Approach (ICD-10-PCS; 2024-04-24)
PROC: 0JH63WZ Insertion of Totally Implantable Vascular Access Device into Chest Subcutaneous Tissue and Fascia, Percutaneous Approach (ICD-10-PCS; principal; 2024-04-24 13:25)
DX: Z51.11 Encounter for antineoplastic chemotherapy (principal); C81.20 Mixed cellularity Hodgkin lymphoma, unspecified site; D61.818 Other pancytopenia; E87.1 Hypo-osmolality and hyponatremia; E87.20 Acidosis, unspecified; N17.9 Acute kidney failure, unspecified; D62 Acute posthemorrhagic anemia; R53.81 Other malaise; R74.01 Elevation of levels of liver transaminase levels; I95.9 Hypotension, unspecified; E87.8 Other disorders of electrolyte and fluid balance, not elsewhere classified; K21.9 Gastro-esophageal reflux disease without esophagitis; F41.9 Anxiety disorder, unspecified; N40.0 Benign prostatic hyperplasia without lower urinary tract symptoms; E78.5 Hyperlipidemia, unspecified; I25.10 Atherosclerotic heart disease of native coronary artery without angina pectoris; Z95.5 Presence of coronary angioplasty implant and graft; Z79.899 Other long term (current) drug therapy; I25.2 Old myocardial infarction; Z87.891 Personal history of nicotine dependence; Z87.11 Personal history of peptic ulcer disease
CPT/HCPCS: 36415; 36573; 71045; 77001; 80048; 80053; 83735; 85025; 85027; 86850; 86900; 86901; 86920; 93005; 96360; 96361; 99285

== ENCOUNTER 2024-09-11 13:54 | Inpatient (IN) | payer MEDICARE, OTHER ==
[2024-09-11] MEDS ORDERED: NALOXONE 0.4 MG/ML 1 ML VIAL IV PRN (14:51)
--- NOTE | 2024-09-11 14:51 | ED ---
General Adult HPI - General Chief complaint: Neuro Symptoms/Deficit Stated complaint: CVA Time Seen by Provider: 09/11/24 14:00 Source: patient, EMS Mode of arrival: EMS - History of Present Illness Initial comments: 78-year-old male with past medical history of Hodgkin's lymphoma presents to the emergency department from [facility]. Patient went into their facility reporting that he had some right sided weakness. He noticed it when he woke up this morning however patient's last known well was at 11 PM last night. Patient had full evaluation including CT and CTA which demonstrated no acute process. Patient had resolution in his symptoms upon transferring to our hospital. They did recommend that the patient be admitted for stroke workup. Patient denies previous history of stroke. No head injuries. No recent illnesses. Patient is currently getting chemotherapy with treatment last week. Son noted that the patient did have some difficulties with his speech. Denies any chest pain or shortness of breath upon my evaluation. Also reports that his weakness seems to be entirely resolved. No other alleviating, precipitating or modifying factors - Related Data Home Medications Medication Instructions Recorded Confirmed ARIPiprazole [Abilify] 5 mg PO HS 03/12/24 04/18/24 Venlafaxine HCl [Effexor XR] 150 mg PO HS 03/12/24 04/18/24 Albuterol Inhaler [Ventolin Hfa 2 puff INHALATION RT-Q4H PRN 03/25/24 04/18/24 Inhaler] Tamsulosin [Flomax] 0.8 mg PO DAILY 03/25/24 04/18/24 guaiFENesin SYRUP 100MG/5ML 200 mg PO Q4H PRN 03/31/24 04/18/24 [Robitussin] Previous Rx's Medication Instructions Recorded Magnesium Oxide [Mag-Ox] 400 mg PO BID #60 tab 03/17/24 Pantoprazole [Protonix] 40 mg PO BID #100 tab 03/29/24 Acetaminophen Tab [Tylenol] 650 mg PO Q6HR PRN tab 04/06/24 allopurinoL [Zyloprim] 100 mg PO DAILY #30 tab 04/06/24 Docusate [Colace] 100 mg PO DAILY PRN cap 04/25/24 Loperamide [Imodium] 2 mg PO QID PRN cap 04/25/24 Petrolatum, White [Aquaphor] 1 applic TOPICAL QID each 04/25/24 Prochlorperazine [Compazine] 10 mg PO Q6H PRN #30 tab 04/25/24 Allergies Allergy/AdvReac Type Severity Reaction Status Date / Time No Known Allergies Allergy Verified 09/11/24 14:03 Review of Systems ROS Statement: Those systems with pertinent positive or pertinent negative responses have been documented in the HPI. ROS Other: All systems not noted in ROS Statement are negative. Past Medical History Past Medical History: Coronary Artery Disease (CAD), Cancer, CVA/TIA, GERD/Reflu x, GI Bleed, Hyperlipidemia, Myocardial Infarction ([place]) Additional Past Medical History / Comment(s): DJD, Hodgkins Lymphoma 2023 Last Myocardial Infarction Date:: 2016 History of Any Multi-Drug Resistant Organisms: None Reported Past Surgical History: Back Surgery, Cholecystectomy, Heart Catheterization With Stent Additional Past Surgical History / Comment(s): egd at [facility] recently apr 2024- sm bleed was cauterized per pt, port right chest wall Past Anesthesia/Blood Transfusion Reactions: No Reported Reaction Date of Last Stent Placement:: 2022 Past Psychological History: No Psychological Hx Reported Smoking Status: Former smoker Past Alcohol Use History: Rare Past Drug Use History: None Reported Course Vital Signs 09/11/24 13:56 Temperature 98.6 F Pulse Rate 96 Respiratory 16 Rate Blood Pressure 127/71 O2 Sat by Pulse 99 Oximetry Medical Decision Making - Medical Decision Making Was pt. sent in by a medical professional or institution (, PA, DEPLOYMENT MANAGER, urgent care, hospital, or [facility]...) When possible be specific @ -[No] Did you speak to anyone other than the patient for history (EMS, parent, family, police, friend...)? What history was obtained from this source @ -[No] Did you review nursing and triage notes (agree or disagree)? Why? @ -[I reviewed and agree with nursing and triage notes] Were old charts reviewed (outside hosp., previous admission, EMS record, old EKG, old radiological studies, urgent care reports/EKG's, [facility] records)? Report findings @ -I reviewed the transfer record from [facility]. Patient was not a thrombolytic candidate as his last known well was [address] and CTA did not show any acute findings. They did recommend full stroke workup and therefore patient was transferred to our facility Differential Diagnosis (chest pain, altered mental status, abdominal pain women, abdominal pain men, vaginal bleeding, weakness, fever, dyspnea, syncope, headache, dizziness, GI bleed, back pain, seizure, CVA, palpatations, mental health, musculoskeletal)? @ -[not applicable] EKG interpreted by me (3pts min.). @ -[As above] X-rays interpreted by me (1pt min.). @ -[None done] CT interpreted by me (1pt min.). @ -[None done] U/S interpreted by me (1pt. min.). @ -[None done] What testing was considered but not performed or refused? (CT, X-rays, U/S, labs)? Why? @ -[None] What meds were considered but not given or refused? Why? @ -[None] Did you discuss the management of the patient with other professionals (professionals i.e. , PA, DEPLOYMENT MANAGER, lab, RT, psych nurse, social work therapist, residence life director, teacher, flight deck officer, heel caser)? Give summary @ -[No] Was smoking cessation discussed for >3mins.? @ -[No] Was critical care preformed (if so, how long)? @ -[No] Were there social determinants of health that impacted care today? How? (Homelessness, low income, unemployed, alcoholism, drug addiction, transportation, low edu. Level, literacy, decrease access to med. care, halfway, rehab)? @ -[No] Was there de-escalation of care discussed even if they declined (Discuss DNR or withdrawal of care, Hospice)? DNR status @ -[No] What co-morbidities impacted this encounter? (DM, HTN, Smoking, COPD, CAD, Cancer, CVA, ARF, Chemo, Hep., AIDS, mental health diagnosis, sleep apnea, morbid obesity)? @ -[None] Was patient admitted / discharged? Hospital course, mention meds given and route, prescriptions, significant lab abnormalities, going to OR and other pertinent info. @ -[hospital course] Undiagnosed new problem with uncertain prognosis? @ -[No] Drug Therapy requiring intensive monitoring for toxicity (Heparin, Nitro, Insulin, Cardizem)? @ -[No] Were any procedures done? @ -[No] Diagnosis/symptom? @ -[default] Acute, or Chronic, or Acute on Chronic? @ -[default] Uncomplicated (without systemic symptoms) or Complicated (systemic symptoms)? @ -[default] Side effects of treatment? @ -[No] Exacerbation, Progression, or Severe Exacerbation? @ -[No] Poses a threat to life or bodily function? How? (Chest pain, [place], GA, pneumonia, PE, COPD, DKA, ARF, appy, cholecystitis, CVA, Diverticulitis, Homicidal, Suicidal, threat to staff... and all critical care pts) @ -[No] Disposition Clinical Impression: Cerebrovascular accident (CVA) Disposition: ADMITTED IP TO THIS [facility] Condition: Stable Is patient prescribed a controlled substance at d/c from ED?: No Referrals: Corona Novoa MD [Primary Care Provider] - 1-2 days Time of Disposition: 14:51 Decision to Admit Reason: Admit from EC Decision Date: 09/11/24 Decision Time: 14:51
[2024-09-11] MEDS: ARIPiprazole 5 MG TAB PO SCH (23:09)
[2024-09-11] MEDS: MAGNESIUM OXIDE 400 MG TAB PO SCH (23:09)
[2024-09-11] MEDS: VENLAFAXINE HCL ER 150 MG CAP PO SCH (23:09)
[2024-09-11] MEDS: ACETAMINOPHEN TAB 325 MG TAB PO PRN (23:10)
[2024-09-11] MEDS: IBUPROFEN 400 MG TAB PO PRN (23:10)
[2024-09-12] MEDS ORDERED: ONDANSETRON ODT 8 MG TAB.RAPDIS PO PRN
[2024-09-12 08:03] LABS: HCT 28.5 % (39.6-50.0); HGB 9.7 g/dL (13.0-17.0); Immature Platelet Fraction 6.4 % (1.1-6.1); MCV 82.4 fL (80.0-97.0); Mean Platelet Volume 12.1 fL (9.5-12.2); Platelet Count 130 10*3/uL (140-440); RBC 3.46 10*6/uL (4.40-5.60); RDW 17.4 % (11.5-14.5); WBC 1.52 10*3/uL (4.50-10.00)
[2024-09-12] MEDS: PANTOPRAZOLE 40 MG TABLET PO SCH (08:11)
[2024-09-12] MEDS: ASPIRIN 325 MG TAB PO SCH (08:11)
[2024-09-12] MEDS: TAMSULOSIN 0.4 MG CAP.ER.24H PO SCH (08:11)
[2024-09-12 08:14] LABS: African American GFR (CKD) 85 (>60 ml/min/1.73 sqM); Anion Gap 13 mmol/L; Blood Urea Nitrogen 21 mg/dL (9-20); Calcium 10.4 mg/dL (8.4-10.2); Carbon Dioxide 21 mmol/L (22-30); Chloride 100 mmol/L (98-107); Glucose 87 mg/dL (74-99); Non-African American GFR(CKD) 73 (>60 ml/min/1.73 sqM); Potassium 4.2 mmol/L (3.5-5.1); Sodium 134 mmol/L (137-145)
[2024-09-12 09:25] LABS: Band Neutrophils % 1 %; Basophils # (M) 0.02 k/uL (0-0.2); Eosinophils # (M) 0.05 k/uL (0-0.7); Lymphocytes # (M) 0.43 k/uL (1.0-4.8); Monocytes # (M) 0.23 k/uL (0-1.0); Neutrophils % (M) 52 %; Nucleated Red Blood Cells 0 /100 WBC (0-0); Total Cells Counted 100
[2024-09-12 09:27] LABS: RBC Fragments Present
[2024-09-12 09:28] LABS: Spherocytes Present
[2024-09-12 10:32] LABS: Chol/HDL Ratio 3.03 Ratio; LDL Cholesterol,Calculated 50.2 mg/dL (0.0-131.0)
--- NOTE | 2024-09-12 12:58 | P.CNNES ---
History of Present Illness Consult date: 09/12/24 Requesting physician: Isabela Cardoza Reason for Consult: Right sided weakness, suspected cva History of Present Illness: This is a 78-year-old gentleman with history of Hodgkin's lymphoma who is on chemotherapy who was transferred from outside hospital for further discussion of his strokelike symptoms. Patient stated that yesterday around 8:45 AM upon waking up he neurologist that right arm and leg was weak as well as he felt the left leg was weak but the right leg was weaker than the left. His symptoms lasted until 12 PM. His last normal state was the night before at 8:30 PM. He denies any history of stroke or TIAs. Denies being on any antiplatelet. He does have a history of Hodgkin's disease and that he is on chemotherapy. Denies any A-fib. He feels back to baseline. Denies any tobacco, alcohol or illicit drug use. At the outside hospital patient had CT of the head and CT angiography of the head and neck and no acute process is noted. He was given aspirin at the outside facility. Some of the workup during this hospital visit consisted of: Panel is triglyceride 134, cholesterol is 115, LDL is 50 and HDL is 38 I reviewed the rest of the lab work Review of Systems As per HPI. Past Medical History Past Medical History: Coronary Artery Disease (CAD), Cancer, CVA/TIA, GERD/Reflux, GI Bleed, Hyperlipidemia, Myocardial Infarction ([place]) Additional Past Medical History / Comment(s): DJD, Hodgkins Lymphoma 2023 Last Myocardial Infarction Date:: 2016 History of Any Multi-Drug Resistant Organisms: None Reported Past Surgical History: Back Surgery, Cholecystectomy, Heart Catheterization With Stent Additional Past Surgical History / Comment(s): egd at [facility] recently apr 2024- sm bleed was cauterized per pt, port right chest wall Past Anesthesia/Blood Transfusion Reactions: No Reported Reaction Date of Last Stent Placement:: 2016 Past Psychological History: No Psychological Hx Reported Smoking Status: Former smoker Past Alcohol Use History: Rare Past Drug Use History: None Reported Medications and Allergies Home Medications Medication Instructions Recorded Confirmed Type ARIPiprazole [Abilify] 5 mg PO HS 03/12/24 09/11/24 History Venlafaxine HCl [Effexor XR] 150 mg PO HS 03/12/24 09/11/24 History Magnesium Oxide [Mag-Ox] 400 mg PO BID #60 tab 03/17/24 09/11/24 Rx Tamsulosin [Flomax] 0.8 mg PO DAILY 03/25/24 09/11/24 History Ondansetron Odt [Zofran Odt] 8 mg PO Q8HR PRN 09/11/24 09/11/24 History Pantoprazole [Protonix] 40 mg PO DAILY 09/11/24 09/11/24 History Allergies Allergy/AdvReac Type Severity Reaction Status Date / Time sildenafil AdvReac headache Verified 09/11/24 16:27 per [place] records Physical Examination - Vital Signs Vital Signs: Vital Signs Temp Pulse Pulse Resp BP BP Pulse Ox 09/12/24 12:00 98.1 F 87 16 118/74 98 09/12/24 08:00 99.2 F 92 16 105/66 93 L 09/12/24 03:14 98.1 F 91 18 131/75 97 09/12/24 02:00 87 14 09/12/24 00:00 98.6 F 87 19 121/65 94 L 09/11/24 20:00 98.4 F 93 14 124/77 97 09/11/24 18:00 92 18 115/79 98 09/11/24 16:00 103 H 18 118/75 96 09/11/24 13:56 98.6 F 96 16 127/71 99 Intake and Output 09/11/24 09/12/24 09/12/24 22:59 06:59 14:59 Intake Total 490 490 Output Total 300 Balance 190 490 Intake: IV 10 10 Invasive Line 1 10 10 Oral 480 480 Output: Urine 300 Other: Voiding Method Urinal Toilet Toilet # Voids 2 1 Weight 80.739 kg 76.6 kg GENERAL: The patient is sitting in a recliner chair and is not in acute distress. NEUROLOGICAL: Higher mental function: The patient is awake, alert, oriented to self, place and time. Patient is following commands. No aphasia and no neglect. Cranial nerves: The pupils are round, equal and reactive to light and accommodation. Visual araujo are full to confrontation throughout. Extraocular movement is intact no nystagmus is noted. Facial sensation is normal to touch throughout. The facial strength is normal throughout. Hearing is moderately decreased bilaterally to hand rub. Tongue is midline and moved [id number] without any difficulty. No dysarthria is noted. Shoulder shrug is normal bilaterally. Motor: The strength is 5 over 5 throughout. Normal tone and bulk. Cerebellum: Normal finger to nose heel to beavers bilaterally. Sensation: Sensation is normal to touch throughout. Reflexes (right/left): 2+ throughout. Plantars are mute bilaterally. Results - Laboratory Findings CBC and BMP: 09/12/24 07:24 09/12/24 07:24 Abnormal Lab Findings: Abnormal Labs 09/12/24 09/12/24 07:24 07:24 WBC 1.52 L RBC 3.46 L Hgb 9.7 L Hct 28.5 L Plt Count 130 L Neutrophils # (Manual) 0.80 L Lymphocytes # (Manual) 0.43 L Immature Plt Fraction 6.4 H Sodium 134 L Carbon Dioxide 21 L BUN 21 H Calcium 10.4 H HDL Cholesterol 38.00 L Assessment and Plan Assessment: This is a 78-year-old gentleman with history of Hodgkin's disease who is on chemotherapy who initially presented to outside facility because of strokelike symptoms of right sided weakness over the right upper and lower extremity as well as left lower extremity but the right was worse than left. His symptoms re solved within approximately [address] of the head and CT angiography of the head and neck at the outside facility which was unremarkable for any acute process. He was transferred to our facility for escalation of care. Likely transient ischemic attack History of Hodgkin's disease on chemotherapy Plan: In our facility the patient was started on aspirin 81 mg daily as well as I added Plavix 75 mg daily. Prior to this patient was not on any antiplatelet. Recommend dual antiplatelet for 21 days and after 21 days stop Plavix but continue aspirin indefinitely. Started the patient on Lipitor 40 mg nightly for secondary stroke prophylaxis I ordered MRI of the brain, 2D echo. Continue neurochecks Cardiac monitoring PT OT and GREENHOUSE FLORIST are consulted Will defer the rest of the medical management department other specialist For DVT prophylaxis I started the patient on subcu heparin The plan discussed with the patient and his nurse Thank you for the consultation Dr. Tian will resume neurology service tomorrow a.m. Time with Patient: Greater than 30
[2024-09-12 13:39] VITALS: BMI 23.6
--- NOTE | 2024-09-12 15:14 | P.HPIM ---
History of Present Illness H&P Date: 09/12/24 Patient is a 78-year-old male with past history of CAD status post 1 stent, hypertension, hyperlipidemia, Hodgkin's lymphoma undergoing chemotherapy is transferred from [facility] after he presented with concerns for stroke. Patient reports that he woke up yesterday feeling weak and lethargic especially more on the right side compared to the left. He reports that he was also having some difficulty with speech. Throughout the day his symptoms were improving however his family members were concerned about him having a stroke therefore they advised him to go to [facility] for further evaluation where he had a CT brain and CTA of head and neck which showed no acute intracranial process. For further workup patient was transferred to [facility]. At the time of the interview patient reports complete resolution of his symptoms. He denies any headaches, vision changes, weakness numbness or tingling anywhere. He reports no previous of CVA. He is not on any blood thinner. Lab work shows WBC 1.52, hemoglobin 9.7, MCV 82.4, neutrophil count 0.80, lymphocyte count 0.43, sodium 134, BUN 21, creatinine 0.99, calcium 10.4, LDL 50, VLDL 26.80, HDL 38 Review of systems: Pertinent positives and negatives as discussed in HPI, a complete review of sy stems was performed and all other systems are negative. Physical examination: Vital signs reviewed General: non toxic, no distress, appears at stated age, normal weight Derm: no unusual rashes/lesions, warm Head: atraumatic, normocephalic, symmetric Eyes: EOMI, no lid lag, anicteric sclera, pupils equal round reactive to light ENT: Nose and ears atraumatic Neck: No cervical lymphadenopathy, trachea midline, supple Mouth: no lip lesion, mucus membranes moist Cardiovascular: S1S2 reg, no murmur, positive dorsalis pedis pulse bilateral, no edema Lungs: CTA bilateral, no rhonchi, no rales, no accessory muscle use Abdominal: soft, nontender to palpation, no guarding Ext: muscle strength 5 out of 5 in all 4 extremities grossly, no gross muscle atrophy, no contractures, Neuro: CN II-XI grossly intact, no gross focal neuro deficits Psych: Alert, oriented, appropriate affect Assessment/Plan: This is a Patient is a 78-year-old male with past history of CAD status post 1 stent, hypertension, hyperlipidemia, Hodgkin's lymphoma undergoing chemotherapy is transferred from [facility] after he presented with concerns for stroke. Case was discussed with the Emergency Room provider and decision was made to admit the patient for CVA Labs and images: Lab work shows WBC 1.52, hemoglobin 9.7, MCV 82.4, neutrophil count 0.80, lymphocyte count 0.43, sodium 134, BUN 21, creatinine 0.99, calcium 10.4, LDL 50, VLDL 26.80, HDL 38 Active: #Suspected transient ischemic attack CT brain and CTA of the head and neck at outside facility was unremarkable Order brain MRI Order echocardiogram with bubble study Start patient on aspirin 81 mg, Lipitor 40 mg and Plavix 75 mg once daily Anticoagulation with heparin subcu 5000 units twice daily Consult neurology Neurochecks Lipid studies done for results of above #History of Hodgkin's lymphoma on chemotherapy #Pancytopenia #Hypercalcemia Patient follows Dr. 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 daily F: None E: Replete as needed N: Heart healthy diet A: Ambulatory baseline The patient is admitted with an anticipated more than than 2 midnight stay for evaluation of CVA versus TIA CODE STATUS: Full code Discussed with: Patient Anticipated discharge place: Pending clinical course Dictation was produced using [employer] dictation software. Please excuse any grammatical, word or spelling errors. Dr. Moore seen patient with resident, present during exam, and agreed with findings. Past Medical History Past Medical History: Coronary Artery Disease (CAD), Cancer, CVA/TIA, GERD/Reflux, GI Bleed, Hyperlipidemia, Myocardial Infarction ([place]) Additional Past Medical History / Comment(s): DJD, Hodgkins Lymphoma 2023 Last Myocardial Infarction Date:: 2016 History of Any Multi-Drug Resistant Organisms: None Reported Past Surgical History: Back Surgery, Cholecystectomy, Heart Catheterization With Stent Additional Past Surgical History / Comment(s): egd at [facility] recently apr 2024- bleed was cauterized per pt, port right chest wall Past Anesthesia/Blood Transfusion Reactions: No Reported Reaction Date of Last Stent Placement:: 2016 Past Psychological History: No Psychological Hx Reported Smoking Status: Former smoker Past Alcohol Use History: Rare Past Drug Use History: None Reported Medications and Allergies Home Medications Medication Instructions Recorded Confirmed Type ARIPiprazole [Abilify] 5 mg PO HS 03/12/24 09/11/24 History Venlafaxine HCl [Effexor XR] 150 mg PO HS 03/12/24 09/11/24 History Magnesium Oxide [Mag-Ox] 400 mg PO BID #60 tab 03/17/24 09/11/24 Rx Tamsulosin [Flomax] 0.8 mg PO DAILY 03/25/24 09/11/24 History Ondansetron Odt [Zofran Odt] 8 mg PO Q8HR PRN 09/11/24 09/11/24 History Pantoprazole [Protonix] 40 mg PO DAILY 09/11/24 09/11/24 History Allergies Allergy/AdvReac Type Severity Reaction Status Date / Time sildenafil AdvReac headache Verified 09/11/24 16:27 [facility] Physical Exam Vitals: Vital Signs Temp Pulse Pulse Resp BP BP Pulse Ox 09/12/24 12:00 98.1 F 87 16 118/74 98 09/12/24 08:00 99.2 F 92 16 105/66 93 L 09/12/24 03:14 98.1 F 91 18 131/75 97 09/12/24 02:00 87 14 09/12/24 00:00 98.6 F 87 19 121/65 94 L 09/11/24 20:00 98.4 F 93 14 124/77 97 09/11/24 18:00 92 18 115/79 98 09/11/24 16:00 103 H 18 118/75 96 Intake and Output 09/11/24 09/12/24 09/12/24 22:59 06:59 14:59 Intake Total 490 620 Output Total 300 Balance 190 620 Intake: IV 10 20 Invasive Line 1 10 20 Oral 480 600 Output: Urine 300 Other: Voiding Method Urinal Toilet Toilet # Voids 2 1 Weight 80.739 kg 76.6 kg 76.6 kg Results CBC & Chem 7: 09/12/24 07:24 09/12/24 07:24 Labs: Abnormal Lab Results - Last 24 Hours (Table) 09/12/24 09/12/24 Range/Units 07:24 07:24 WBC 1.52 L (4.50-10.00) 10*3/uL RBC 3.46 L (4.40-5.60) 10*6/uL Hgb 9.7 L (13.0-17.0) g/dL Hct 28.5 L (39.6-50.0) % Plt Count 130 L (140-440) 10*3/uL Neutrophils # (Manual) 0.80 L (1.3-7.7) k/uL Lymphocytes # (Manual) 0.43 L (1.0-4.8) k/uL Immature Plt Fraction 6.4 H (1.1-6.1) % Sodium 134 L (137-145) mmol/L Carbon Dioxide 21 L (22-30) mmol/L BUN 21 H (9-20) mg/dL Calcium 10.4 H (8.4-10.2) mg/dL HDL Cholesterol 38.00 L (40.00-60.00) mg/dL Thrombosis Risk Factor Assmnt - Choose All That Apply Any of the Below Risk Factors Present?: No Each Risk Factor Represents 3 Points: Age 75 years or older Each Risk Factor Represents 5 Points: Stroke (< 1 month) Thrombosis Risk Factor Assessment Total Risk Factor Score: 8 Thrombosis Risk Factor Assessment Level: High Risk
[2024-09-12] MEDS: ATORVASTATIN 40 MG TAB PO SCH (20:37)
[2024-09-12] MEDS: HEPARIN SODIUM,PORCINE 5,000 UNIT/ML 1 ML VIAL SQ SCH (20:38)
[2024-09-13 07:44] LABS: HCT 27.5 % (39.6-50.0); HGB 9.2 g/dL (13.0-17.0); MCH 27.2 pg (27.0-32.0); MCHC 33.5 g/dL (32.0-37.0); MCV 81.4 fL (80.0-97.0); Mean Platelet Volume 11.5 fL (9.5-12.2); Platelet Count 142 10*3/uL (140-440); RBC 3.38 10*6/uL (4.40-5.60); RDW 17.5 % (11.5-14.5); WBC 2.75 10*3/uL (4.50-10.00)
[2024-09-13 08:00] LABS: African American GFR (CKD) 86 (>60 ml/min/1.73 sqM); Anion Gap 8 mmol/L; Blood Urea Nitrogen 17 mg/dL (9-20); Calcium 10.1 mg/dL (8.4-10.2); Carbon Dioxide 23 mmol/L (22-30); Chloride 104 mmol/L (98-107); Glucose 92 mg/dL (74-99); Non-African American GFR(CKD) 75 (>60 ml/min/1.73 sqM); Potassium 4.2 mmol/L (3.5-5.1); Sodium 135 mmol/L (137-145)
[2024-09-13] MEDS: CLOPIDOGREL 75 MG TAB PO SCH (09:46)
[2024-09-13] MEDS: ASPIRIN 81 MG PO SCH (09:46)
[2024-09-13 12:27] LABS: Anisocytosis (M) Present; Band Neutrophils % 15 %; Eosinophils # (M) 0.14 k/uL (0-0.7); Hypochromasia (M) Present; Lymphocytes # (M) 0.33 k/uL (1.0-4.8); Metamyelocytes # (M) 0.06 k/uL (0); Metamyelocytes % 2 %; Monocytes # (M) 0.33 k/uL (0-1.0); Myelocytes # (M) 0.11 k/uL (0); Myelocytes % 4 %; Neutrophils # (M) 1.81 k/uL (1.3-7.7); Neutrophils % (M) 51 %; Nucleated Red Blood Cells 0 /100 WBC (0-0); Poikilocytosis (M) Present; Reactive Lymphocytes Present; Total Cells Counted 200
--- NOTE | 2024-09-13 14:38 | P.PN ---
Subjective Progress Note Date: 09/13/24 Patient is a 78-year-old male with past history of CAD status post 1 stent, hypertension, hyperlipidemia, Hodgkin's lymphoma undergoing chemotherapy is transferred from [facility] after he presented with concerns for stroke. Patient reports that he woke up yesterday feeling weak and lethargic especially more on the right side compared to the left. He reports that he was also having some difficulty with speech. Throughout the day his symptoms were improving however his family members were concerned about him having a stroke therefore they advised him to go to [facility] for further evaluation where he had a CT brain and CTA of head and neck which showed no acute intracranial process. For further workup patient was transferred to [facility]. At the time of the interview patient reports complete resolution of his symptoms. He denies any headaches, vision changes, weakness numbness or tingling anywhere. He reports no previous of CVA. He is not on any blood thinner. Lab work shows WBC 1.52, hemoglobin 9.7, MCV 82.4, neutrophil count 0.80, lymp hocyte count 0.43, sodium 134, BUN 21, creatinine 0.99, calcium 10.4, LDL 50, VLDL 26.80, HDL 38 09/13/2024 Patient seen and examined at the bedside. No acute events overnight. MRI of the brain pending, likely today in the afternoon. WBC 2.75, hemoglobin 9.2, sodium 135, BUN 17, creatinine 0.98 Physical examination: Vital signs reviewed General: non toxic, no distress, appears at stated age, normal weight Derm: no unusual rashes/lesions, warm Head: atraumatic, normocephalic, symmetric Eyes: EOMI, no lid lag, anicteric sclera, pupils equal round reactive to light ENT: Nose and ears atraumatic Neck: No cervical lymphadenopathy, trachea midline, supple Mouth: no lip lesion, mucus membranes moist Cardiovascular: S1S2 reg, no murmur, positive dorsalis pedis pulse bilateral, no edema Lungs: CTA bilateral, no rhonchi, no rales, no accessory muscle use Abdominal: soft, nontender to palpation, no guarding Ext: muscle strength 5 out of 5 in all 4 extremities grossly, no gross muscle atrophy, no contractures, Neuro: CN II-XI grossly intact, no gross focal neuro deficits Psych: Alert, oriented, appropriate affect Assessment/Plan: This is a Patient is a 78-year-old male with past history of CAD status post 1 stent, hypertension, hyperlipidemia, Hodgkin's lymphoma undergoing chemotherapy is transferred from [facility] after he presented with concerns for stroke. Case was discussed with the Emergency Room provider and decision was made to admit the patient for CVA Labs and images: Lab work shows WBC 1.52, hemoglobin 9.7, MCV 82.4, neutrophil count 0.80, lymphocyte count 0.43, sodium 134, BUN 21, creatinine 0.99, calcium 10.4, LDL 50, VLDL 26.80, HDL 38 Active: #Suspected transient ischemic attack CT brain and CTA of the head and neck at outside facility was unremarkable Order brain MRI, pending, likely today Echocardiogram with bubble study, report pending Continue patient on aspirin 81 mg, Lipitor 40 mg and Plavix 75 mg once daily Anticoagulation with heparin subcu 5000 units twice daily Consult neurology Neurochecks Lipid studies done for results of above #History of Hodgkin's lymphoma on chemotherapy #Pancytopenia #Hypercalcemia Patient follows Dr. 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 daily F: None E: Replete as needed N: Heart healthy diet A: Ambulatory baseline CODE STATUS: Full code Discussed with: Patient Anticipated discharge place: Pending clinical course Dictation was produced using [employer] dictation software. Please excuse any g rammatical, word or spelling errors. Dr. Moore seen patient with resident, present during exam, and agreed with findings. Objective - Vital Signs Vital signs: Vital Signs Temp 98.8 F 09/13/24 08:00 Pulse 99 09/13/24 08:00 Resp 18 09/13/24 08:00 BP 102/64 09/13/24 08:00 Pulse Ox 94 L 09/13/24 08:00 FiO2 Intake & Output 09/12/24 09/13/24 09/13/24 18:59 06:59 18:59 Intake Total 842 960 Balance 842 960 Weight 76.6 kg 76 kg Intake: IV 20 Invasive Line 1 20 Oral 822 960 Other: Voiding Method Toilet Toilet # Voids 2 0 1 - Labs CBC & Chem 7: 09/13/24 07:18 09/13/24 07:18 Labs: Abnormal Lab Results - Last 24 Hours (Table) 09/13/24 09/13/24 Range/Units 07:18 07:18 WBC 2.75 L (4.50-10.00) 10*3/uL RBC 3.38 L (4.40-5.60) 10*6/uL Hgb 9.2 L (13.0-17.0) g/dL Hct 27.5 L (39.6-50.0) % Immature Gran # 0.35 H (0.00-0.04) 10*3/uL Lymphocytes # (Manual) 0.33 L (1.0-4.8) k/uL Metamyelocytes # (Man) 0.06 H (0) k/uL Myelocytes # (Manual) 0.11 H (0) k/uL Sodium 135 L (137-145) mmol/L
--- NOTE | 2024-09-13 17:44 | MR ---
EXAMINATION TYPE: MR brain wo con DATE OF EXAM: 09/13/2024 4:46 PM COMPARISON: 09/11/2024.. CLINICAL INDICATION: Male, 78 years old with history of stroke. speech difficulty; PHH, stroke. spee ch difficulty TECHNIQUE: Multi planar, multi sequence imaging was performed through the brain including: T1, T2, In version recovery, Diffusion weighted imaging, and gradient echo imaging. No gadolinium was given. FINDINGS: Restricted diffusion foci are seen within the left parietal region cortex series 303 image 192 The dove-white junctions, ventricular system, basal cisterns appear unremarkable. Scattered foci of high T2 signal intensity are seen within the periventricular white matter. Midline structures show n o abnormality. The susceptibility weighted images do not reveal any evidence for micro-hemorrhage. The bone marrow signal is within normal limits. Paranasal sinuses and mastoid air cells: No significant paranasal sinus disease. Few opacified left m astoid air cells. Visualized orbits: Orbital contents are intact. IMPRESSION: 1. Acute/subacute CVA involving the left parietal region predominantly the cortex 2. Nonspecific white matter changes, likely secondary to small vessel ischemic disease. 3. Trace left mastoid air cell effusion. [facility], , 09/13/2024 5:42 PM
[2024-09-13 20:24] VITALS: RESP 16
[2024-09-14 08:34] LABS: HCT 28.3 % (39.6-50.0); HGB 9.6 g/dL (13.0-17.0); MCH 28.1 pg (27.0-32.0); MCHC 33.9 g/dL (32.0-37.0); MCV 82.7 fL (80.0-97.0); Mean Platelet Volume 11.6 fL (9.5-12.2); Platelet Count 157 10*3/uL (140-440); RBC 3.42 10*6/uL (4.40-5.60); RDW 17.8 % (11.5-14.5); WBC 7.23 10*3/uL (4.50-10.00)
[2024-09-14 09:54] VITALS: BP 123/68; PULSE 94; TEMP 98.2
--- NOTE | 2024-09-14 11:40 | CA ---
Transthoracic Echo Report Name: Julius Spicer Age: 78 Gender: M : 1945 Exam Date: 09/12/2024 14:19 Exam Location: [facility] Ht (in): 71 Wt (lb): 168 Ordering Physician: Cory Bernal MD Attending/Referring Phys: Medicaid Nurse Heather Prado RDCS Procedure CPT: Indications: CVA Cardiac Hx: Cancer, Port Technical Quality: Fair Contrast 1: Total Dose (mL): Contrast 2: Total Dose (mL): MEASUREMENTS (Male / Female) Normal Values 2D ECHO LV Diastolic Diameter PLAX 4.7 cm 4.2 - 5.9 / 3.9 - 5.3 cm LV Systolic Diameter PLAX 2.9 cm IVS Diastolic Thickness 1.2 cm 0.6 - 1.0 / 0.6 - 0.9 cm LVPW Diastolic Thickness 1.4 cm 0.6 - 1.0 / 0.6 - 0.9 cm LV Relative Wall Thickness 0.6 RV Internal Dim ED PLAX 3.1 cm LA Systolic Diameter LX 3.5 cm 3.0 - 4.0 / 2.7 - 3.8 cm LV Diastolic Volume MOD BP 78.3 cm??? 67 - 155 / 56 - 104 cm??? LV Systolic Volume MOD BP 31.1 cm??? - 58 / 19 - 49 cm??? LV Ejection Fraction MOD BP 60.3 % >= 55 % LV Cardiac Index MOD BP 1663.9 cm???/min???m??? LV Diastolic Volume MOD 4C 87.8 cm??? LV Systolic Volume MOD 4C 34.2 cm??? LV Ejection Fraction MOD 4C 61.1 % LV Cardiac Index MOD 4C 1891.2 cm???/min???m??? LV Diastolic Length 4C 7.3 cm LV Systolic Length 4C 5.3 cm LV Diastolic Volume MOD 2C 68.2 cm??? LV Systolic Volume MOD 2C 27.4 cm??? LV Ejection Fraction MOD 2C 59.8 % LV Cardiac Index MOD 2C 1438.4 cm???/min???m??? LV Diastolic Length 2C 7.2 cm LV Systolic Length 2C 5.5 cm LA Volume 61.3 cm??? 18 - 58 / 22 - 52 cm??? LA Volume Index 31.3 cm???/m??? 16 - 28 cm???/m??? M-MODE Aortic Root Diameter MM 3.9 cm LA Systolic Diameter MM 3.4 cm LA Ao Ratio MM 0.9 AV Cusp Separation MM 2.0 cm DOPPLER MV Area PHT 2.4 cm??? Mitral E Point Velocity 62.6 cm/s Mitral A Point Velocity 77.2 cm/s Mitral E to A Ratio 0.8 MV Deceleration Time 312.7 ms TR Peak Velocity 254.0 cm/s TR Peak Gradient 25.8 mmHg Right Ventricular Systolic Press 29.2 mmHg FINDINGS Left Ventricle Left ventricular ejection fraction is estimated at 55-60%. Mildly increased septal wall thickness. Normal left ventricular systolic function with no obvious regional wall motion abnormalities. Left ventricular cavity size normal. Right Ventricle Normal right ventricular size and function. Right ventricular systolic pressure within normal limits. Right Atrium Mild right atrial dilatation. Catheter/pacemaker wire in the right atrial cavity. Left Atrium Mildly increased left atrial volume. Mitral Valve Structurally normal mitral valve. Mild mitral regurgitation. No mitral stenosis. Aortic Valve Trileaflet aortic valve. No aortic valve stenosis or regurgitation. Tricuspid Valve Structurally normal tricuspid valve. Mild tricuspid regurgitation. No tricuspid stenosis. Pulmonic Valve Structurally normal pulmonic valve. No pulmonic stenosis. Trace pulmonic regurgitation. Pericardium No pericardial or pleural effusion. Aorta Mild aortic dilatation at the level of the sinuses of valsalva (root). CONCLUSIONS LVEF 55% No obvious regional wall motion abnormality Mild concentric LVH Mild biatrial dilatation PPM wire noticed in RA and RV Mild mitral regurgitation, mild tricuspid regurgitation Mildly dilated aortic root at 3.9 cm Previewed by: Dr Caesar Madison (Electronically Signed) Final Date: 14 Sep 2024 11:39
--- NOTE | 2024-09-14 11:58 | P.DS ---
Providers Date of admission: 09/11/24 15:03 Attending physician: Rocio Moore Consults: 09/11/24 15:02 Consult Physician Urgent Consulting Provider: Cory Bernal Consult Reason/Comments: right sided weakness, suspected cva Do you want consulting provider notified?: Yes Primary care physician: Corona Novoa MD Hospital Course: Patient is a pleasant 78-year-old with history of Hodgkin's on chemotherapy came with symptoms of right-sided weakness. Patient underwent stroke workup echocardiogram is within normal limits and brain MRI showed acute/subacute cerebrovascular accident involving the left parietal lobe predominantly in the cortex. This is an emergency brought rated to be. Patient's symptoms completely resolved not requiring any physical therapy here patient strength is normal at this time. Patient was started on aspirin, Plavix to continue Plavix for 25 days and aspirin indefinitely and statin and will be discharged today. PHYSICAL EXAMINATION: GENERAL: The patient is alert and oriented x3, not in any acute distress. Well developed, well nourished. HEENT: Pupils are round and equally reacting to light. EOMI. No scleral icterus. No conjunctival pallor. Normocephalic, atraumatic. No pharyngeal erythema. No thyromegaly. CARDIOVASCULAR: S1 and S2 present. No murmurs, rubs, or gallops. PULMONARY: Chest is clear to auscultation, no wheezing or crackles. ABDOMEN: Soft, nontender, nondistended, normoactive bowel sounds. No palpable organomegaly. MUSCULOSKELETAL: No joint swelling or deformity. EXTREMITIES: No cyanosis, clubbing, or pedal edema. NEUROLOGICAL: Gross neurological examination did not reveal any focal deficits. SKIN: No rashes. Assessment -Acute cerebrovascular accident involving the left parietal lobe and right side of the body #2 cerebral artery territory. - Hodgkin's lymphoma for which patient is undergoing chemotherapy - Pancytopenia secondary to lymphoma - Hypercalcemia secondary to dehydration which resolved at this time Patient Condition at Discharge: Stable Plan - Discharge Summary Discharge Rx Participant: No New Discharge Prescriptions: New Aspirin 81 mg PO DAILY #30 tab Atorvastatin [Lipitor] 40 mg PO HS #30 tab Clopidogrel [Plavix] 75 mg PO DAILY #21 tab Continue ARIPiprazole [Abilify] 5 mg PO HS Magnesium Oxide [Mag-Ox] 400 mg PO BID #60 tab Tamsulosin [Flomax] 0.8 mg PO DAILY Pantoprazole [Protonix] 40 mg PO DAILY Ondansetron Odt [Zofran ODT] 8 mg PO Q8HR PRN PRN Reason: Nausea Venlafaxine HCl [Effexor XR] 150 mg PO HS Discharge Medication List ARIPiprazole [Abilify] 5 mg PO HS 03/12/24 [History] Venlafaxine HCl [Effexor XR] 150 mg PO HS 03/12/24 [History] Magnesium Oxide [Mag-Ox] 400 mg PO BID #60 tab 03/17/24 [Rx] Tamsulosin [Flomax] 0.8 mg PO DAILY 03/25/24 [History] Ondansetron Odt [Zofran ODT] 8 mg PO Q8HR PRN 09/11/24 [History] Pantoprazole [Protonix] 40 mg PO DAILY 09/11/24 [History] Aspirin 81 mg PO DAILY #30 tab 09/14/24 [Rx] Atorvastatin [Lipitor] 40 mg PO HS #30 tab 09/14/24 [Rx] Clopidogrel [Plavix] 75 mg PO DAILY #21 tab 09/14/24 [Rx] Follow up Appointment(s)/Referral(s): Corona Novoa MD [Primary Care Provider] - 3 Days Viktor Mendoza MD [REFERRING] - 1 Week Discharge Disposition: HOME SELF-CARE
--- NOTE | 2024-09-14 15:09 | P.PN ---
Subjective Progress Note Date: 09/14/24 The patient is a 78-year-old male who was seen in neurologic follow-up on September 14, 2024, in cross coverage for Dr. Cory Bernal, in collaboration with Nery Bowman, via teleneurology. The patient's chart has been reviewed. Interim history is obtained. The patient reports that his symptoms have all completely resolved. He is feeling well. He is anxious to go home. Objective - Vital Signs Vital signs: Vital Signs Temp 98.2 F 09/14/24 08:00 Pulse 94 09/14/24 08:00 Resp 16 09/14/24 08:00 BP 123/68 09/14/24 08:00 Pulse Ox 96 09/14/24 08:00 FiO2 Intake & Output 09/13/24 09/14/24 09/14/24 18:59 06:59 18:59 Intake Total 1680 540 450 Balance 1680 540 450 Weight 76.8 kg Intake: Oral 1680 540 450 Other: Voiding Method Toilet # Voids 1 2 - Exam General: The patient is seated in the bedside chair. He is eating his lunch without difficulty. HEENT: Head is atraumatic, normocephalic. Fundus not visualized. There is no scleral icterus. Mucous membranes are moist. Neurological examination Mental status: The patient is awake, alert and oriented x 3. His speech is clear. There is no dysarthria or aphasia. Cranial nerves: 2-12 grossly intact Coordination: Patient is observed using his fork without difficulty. There is no ataxia or tremor. - Labs CBC & Chem 7: 09/14/24 08:02 09/13/24 07:18 Labs: Abnormal Lab Results - Last 24 Hours (Table) 09/13/24 09/14/24 Range/Units 07:18 08:02 RBC 3.42 L (4.40-5.60) 10*6/uL Hgb 9.6 L (13.0-17.0) g/dL Hct 28.3 L (39.6-50.0) % Lymphocytes # (Manual) 0.33 L (1.0-4.8) k/uL Metamyelocytes # (Man) 0.06 H (0) k/uL Myelocytes # (Manual) 0.11 H (0) k/uL Assessment and Plan Assessment: 1. MRI of the brain reveals a high, left parietal ischemic infarct. Images have been personally reviewed. 2. History of Hodgkin's lymphoma, receiving chemotherapy Plan: 1. Continue aspirin 81 mg daily as well as I added Plavix 75 mg daily. Prior to this patient was not on any antiplatelet. Recommend dual antiplatelet for 21 days and after 21 days stop Plavix, but continue aspirin indefinitely. 2. Started the patient on Lipitor 40 mg nightly for secondary stroke prophylaxis 3. The patient is neurologically stable for discharge Time with Patient: Less than 30 (25 minutes were spent caring for this patient today including, obtaining an interim history, examining the patient, reviewing imaging, chart documentation, labs and creating this note)
== END 2024-09-14 13:37 | disposition home or self-care (01) | DRG 65 ==
LOC: EC 13:54 → 3SCARD 15:03
PROVIDERS: ADMIT Internal Medicine; ATTEND Internal Medicine
DX: I63.9 Cerebral infarction, unspecified (principal); C81.90 Hodgkin lymphoma, unspecified, unspecified site; D61.818 Other pancytopenia; G81.91 Hemiplegia, unspecified affecting right dominant side; E22.2 Syndrome of inappropriate secretion of antidiuretic hormone; E86.0 Dehydration; I10 Essential (primary) hypertension; F32.A Depression, unspecified; E78.5 Hyperlipidemia, unspecified; E83.52 Hypercalcemia; Z79.899 Other long term (current) drug therapy; Z87.891 Personal history of nicotine dependence; Z88.8 Allergy status to other drugs, medicaments and biological substances; I25.10 Atherosclerotic heart disease of native coronary artery without angina pectoris; K21.9 Gastro-esophageal reflux disease without esophagitis; F41.9 Anxiety disorder, unspecified; Z79.02 Long term (current) use of antithrombotics/antiplatelets; I25.2 Old myocardial infarction; Z95.5 Presence of coronary angioplasty implant and graft
CPT/HCPCS: 70551; 80048; 80061; 84484; 85025; 85027; 93306; 99285

== ENCOUNTER 2024-11-05 17:25 | Inpatient (IN) | payer MEDICARE, OTHER ==
--- NOTE | 2024-11-05 17:37 | ED ---
General Adult HPI - General Chief complaint: Weakness Stated complaint: Weakness Time Seen by Provider: 11/05/24 17:27 Source: patient, EMS, RN notes reviewed Mode of arrival: EMS Limitations: no limitations - History of Present Illness Initial comments: Patient is a 78-year-old male presenting to the emergency department with general weakness. Symptoms have progressed over the past couple of days. Patient is no longer able to get up on his own. Patient is on chemotherapy for lymphoma. Last chemotherapy was around 1 week ago. Patient feels he is eating and drinking okay. No isolated area of weakness. No confusion. - Related Data Home Medications Medication Instructions Recorded Confirmed ARIPiprazole [Abilify] 5 mg PO HS 03/12/24 09/11/24 Venlafaxine HCl [Effexor XR] 150 mg PO HS 03/12/24 09/11/24 Tamsulosin [Flomax] 0.8 mg PO DAILY 03/25/24 09/11/24 Ondansetron Odt [Zofran ODT] 8 mg PO Q8HR PRN 09/11/24 09/11/24 Pantoprazole [Protonix] 40 mg PO DAILY 09/11/24 09/11/24 Previous Rx's Medication Instructions Recorded Magnesium Oxide [Mag-Ox] 400 mg PO BID #60 tab 03/17/24 Aspirin 81 mg PO DAILY #30 tab 09/14/24 Atorvastatin [Lipitor] 40 mg PO HS #30 tab 09/14/24 Clopidogrel [Plavix] 75 mg PO DAILY #21 tab 09/14/24 Allergies Allergy/AdvReac Type Severity Reaction Status Date / Time sildenafil AdvReac headache Verified 11/05/24 17:34 [facility] Review of Systems ROS Statement: Those systems with pertinent positive or pertinent negative responses have been documented in the HPI. ROS Other: All systems not noted in ROS Statement are negative. Constitutional: Denies: fever Eyes: Denies: eye pain ENT: Denies: ear pain Respiratory: Denies: dyspnea Cardiovascular: Denies: chest pain Endocrine: Reports: fatigue Gastrointestinal: Denies: abdominal pain Neurological: Reports: as per HPI, weakness. Denies: headache Past Medical History Past Medical History: Coronary Artery Disease (CAD), Cancer, CVA/TIA, GERD/Reflux, GI Bleed, Hyperlipidemia, Myocardial Infarction (ID) Additional Past Medical History / Comment(s): DJD, Hodgkins Lymphoma 2023 Last Myocardial Infarction Date:: 2016 History of Any Multi-Drug Resistant Organisms: None Reported Past Surgical History: Back Surgery, Cholecystectomy, Heart Catheterization With Stent Additional Past Surgical History / Comment(s): egd at [facility] recently apr 2024- sm bleed was cauterized per pt, port right chest wall Past Anesthesia/Blood Transfusion Reactions: No Reported Reaction Date of Last Stent Placement:: 2022 Past Psychological History: No Psychological Hx Reported Smoking Status: Former smoker Past Alcohol Use History: Rare Past Drug Use History: None Reported General Exam Limitations: no limitations General appearance: alert, in no apparent distress Head exam: Present: normocephalic Eye exam: Present: other (Pale conjunctiva) ENT exam: Present: mucous membranes dry Neck exam: Present: normal inspection Respiratory exam: Present: normal lung sounds bilaterally Cardiovascular Exam: Present: regular rate, normal rhythm GI/Abdominal exam: Present: soft. Absent: tenderness Extremities exam: Present: normal inspection Neurological exam: Present: alert. Absent: motor sensory deficit Psychiatric exam: Present: normal affect, normal mood Skin exam: Present: pallor Course Vital Signs 11/05/24 17:31 Temperature 98.9 F Pulse Rate 97 Respiratory 20 Rate Blood Pressure 96/59 O2 Sat by Pulse 96 Oximetry EKG Findings - EKG Results: EKG: interpreted by ERMD (Q wave V1 V2), sinus rhythm, normal axis, normal ST/T Medical Decision Making - Medical Decision Making Was pt. sent in by a medical professional or institution (, PA, COST ENGINEER, urgent care, hospital, or long term...) When possible be specific @ -No Did you speak to anyone other than the patient for history (EMS, parent, family, police, friend...)? What history was obtained from this source @ -No Did you review nursing and triage notes (agree or disagree)? Why? @ -I reviewed and agree with nursing and triage notes Were old charts reviewed (outside hosp., previous admission, EMS record, old EKG, old radiological studies, urgent care reports/EKG's, long term records)? Report findings @ -No old charts were reviewed Differential Diagnosis (chest pain, altered mental status, abdominal pain women, abdominal pain men, vaginal bleeding, weakness, fever, dyspnea, syncope, headache, dizziness, GI bleed, back pain, seizure, CVA, palpatations, mental health, musculoskeletal)? @ -Differential Weakness: Hypoglycemia, shock, sepsis, hyponatremia, anemia, infection, ID, ETOH, adverse medicine reaction, overdose, stroke, this is not meant to be an all-inclusive list. EKG interpreted by me (3pts min.). @ -As above X-rays interpreted by me (1pt min.). @ -Chest x-ray shows nonspecific findings CT interpreted by me (1pt min.). @ -None done U/S interpreted by me (1pt. min.). @ -None done What testing was considered but not performed or refused? (CT, X-rays, U/S, labs)? Why? @ -None What meds were considered but not given or refused? Why? @ -None Did you discuss the management of the patient with other professionals (evelyn ventura i.e. , PA, COST ENGINEER, lab, RT, psych nurse, social service manager, manager er, teacher, commissary officer, case briefer)? Give summary @ -Case was discussed with Dr. Logan who will admit covering hospital call Was smoking cessation discussed for >3mins.? @ -No Was critical care preformed (if so, how long)? @ -No Were there social determinants of health that impacted care today? How? (Homelessness, low income, unemployed, alcoholism, drug addiction, transportation, low edu. Level, literacy, decrease access to med. care, prison, rehab)? @ -No Was there de-escalation of care discussed even if they declined (Discuss DNR or withdrawal of care, Hospice)? DNR status @ -No What co-morbidities impacted this encounter? (DM, HTN, Smoking, COPD, CAD, Cancer, CVA, ARF, Chemo, Hep., AIDS, mental health diagnosis, sleep apnea, morbid obesity)? @ -Lymphoma, chemotherapy 1 week ago Was patient admitted / discharged? Hospital course, mention meds given and route, prescriptions, significant lab abnormalities, going to OR and other pertinent info. @ -Patient presents with generalized weakness, unable to stand on his own. Patient does have some dehydration and leukopenia. Patient will be admitted with oncology consult. Patient reevaluated and updated Undiagnosed new problem with uncertain prognosis? @ -No Drug Therapy requiring intensive monitoring for toxicity (Heparin, Nitro, Insulin, Cardizem)? @ -No Were any procedures done? @ -No Diagnosis/symptom? @ -Weakness, dehydration Acute, or Chronic, or Acute on Chronic? @ -Acute, acute Uncomplicated (without systemic symptoms) or Complicated (systemic symptoms)? @ -Complicated with leukopenia Side effects of treatment? @ -No Exacerbation, Progression, or Severe Exacerbation? @ -No Poses a threat to life or bodily function? How? (Chest pain, USA, ID, pneumonia, PE, COPD, DKA, ARF, appy, cholecystitis, CVA, Diverticulitis, Homicidal, [place], threat to staff... and all critical care pts) @ -No - Lab Data Result diagrams: 11/05/24 17:42 11/05/24 17:42 Lab Results 11/05/24 11/05/24 11/05/24 Range/Units 17:42 17:42 17:42 WBC 0.67 L* (4.50-10.00) 10*3/uL RBC 2.74 L (4.40-5.60) 10*6/uL Hgb 7.9 L D (13.0-17.0) g/dL Hct 23.1 L (39.6-50.0) % MCV 84.3 (80.0-97.0) fL MCH 28.8 (27.0-32.0) pg MCHC 34.2 (32.0-37.0) g/dL Plt Count 176 (140-440) 10*3/uL MPV 11.1 (9.5-12.2) fL Immature Gran % (Auto) 3.0 % Neutrophils % Not Reportable Lymphocytes % Not Reportable Monocytes % Not Reportable Eosinophils % Not Reportable Basophils % Not Reportable Immature Gran # 0.02 (0.00-0.04) 10*3/uL Neutrophils # Not Reportable Lymphocytes # Not Reportable Monocytes # Not Reportable Eosinophils # Not Reportable Basophils # Not Reportable Differential Comment P Manual Slide Review Performed Anisocytosis (manual) Present Rouleaux Present PT 11.7 (10.0-12.5) sec INR 1.1 (<1.2) APTT 20.7 L (22.0-30.0) sec Sodium 134 L (137-145) mmol/L Potassium 4.2 (3.5-5.1) mmol/L Chloride 99 (98-107) mmol/L Carbon Dioxide 21 L (22-30) mmol/L Anion Gap 14 mmol/L BUN 34 H (9-20) mg/dL Creatinine 1.25 (0.66-1.25) mg/dL Est GFR (CKD-EPI)AfAm 64 (>60 ml/min/1.73 sqM) Est GFR (CKD-EPI)NonAf 56 (>60 ml/min/1.73 sqM) Glucose 105 H (74-99) mg/dL Plasma Lactic Acid Flo (0.7-2.0) mmol/L Calcium 11.8 H (8.4-10.2) mg/dL Magnesium 1.7 (1.6-2.3) mg/dL Total Bilirubin 0.8 (0.2-1.3) mg/dL AST 148 H (17-59) U/L ALT 54 H (4-49) U/L Alkaline Phosphatase 274 H (38-126) U/L Total Protein 5.9 L (6.3-8.2) g/dL Albumin 3.6 (3.5-5.0) g/dL Urine Color Urine Appearance (Clear) Urine pH (5.0-8.0) Ur Specific [place] (1.001-1.035) Urine Protein (Negative) Urine Glucose (UA) (Negative) Urine Ketones (Negative) Urine Blood (Negative) Urine Nitrite (Negative) Urine Bilirubin (Negative) Urine Urobilinogen (<2.0) mg/dL Ur Leukocyte Esterase (Negative) Urine RBC (0-5) /hpf Urine WBC (0-5) /hpf Urine Mucus (None) /hpf 11/05/24 11/05/24 Range/Units 17:42 19:09 WBC (4.50-10.00) 10*3/uL RBC (4.40-5.60) 10*6/uL Hgb (13.0-17.0) g/dL Hct (39.6-50.0) % MCV (80.0-97.0) fL MCH (27.0-32.0) pg MCHC (32.0-37.0) g/dL Plt Count (140-440) 10*3/uL MPV (9.5-12.2) fL Immature Gran % (Auto) % Neutrophils % Lymphocytes % Monocytes % Eosinophils % Basophils % Immature Gran # (0.00-0.04) 10*3/uL Neutrophils # Lymphocytes # Monocytes # Eosinophils # Basophils # Differential Comment Manual Slide Review Anisocytosis (manual) Rouleaux PT (10.0-12.5) sec INR (<1.2) APTT (22.0-30.0) sec Sodium (137-145) mmol/L Potassium (3.5-5.1) mmol/L Chloride (98-107) mmol/L Carbon Dioxide (22-30) mmol/L Anion Gap mmol/L BUN (9-20) mg/dL Creatinine (0.66-1.25) mg/dL Est GFR (CKD-EPI)AfAm (>60 ml/min/1.73 sqM) Est GFR (CKD-EPI)NonAf (>60 ml/min/1.73 sqM) Glucose (74-99) mg/dL Plasma Lactic Acid Flo 6.0 H* (0.7-2.0) mmol/L Calcium (8.4-10.2) mg/dL Magnesium (1.6-2.3) mg/dL Total Bilirubin (0.2-1.3) mg/dL AST (17-59) U/L ALT (4-49) U/L Alkaline Phosphatase (38-126) U/L Total Protein (6.3-8.2) g/dL Albumin (3.5-5.0) g/dL Urine Color Yellow Urine Appearance Cloudy (Clear) Urine pH 5.5 (5.0-8.0) Ur Specific [place] 1.024 (1.001-1.035) Urine Protein Trace H (Negative) Urine Glucose (UA) Negative (Negative) Urine Ketones Trace H (Negative) Urine Blood Trace H (Negative) Urine Nitrite Negative (Negative) Urine Bilirubin Negative (Negative) Urine Urobilinogen 2.0 (<2.0) mg/dL Ur Leukocyte Esterase Negative (Negative) Urine RBC 15 H (0-5) /hpf Urine WBC 1 (0-5) /hpf Urine Mucus Occasional H (None) /hpf Disposition Clinical Impression: Dehydration Disposition: ADMITTED IP TO THIS [facility] Is patient prescribed a controlled substance at d/c from ED?: No Referrals: Nonstaff,Physician [REFERRING] - 1-2 days Time of Disposition: 20:02
[2024-11-05] MEDS: SODIUM CHLORIDE 0.9% 1,000 ML IV SCH (17:45)
[2024-11-05 17:50] LABS: HCT 23.1 % (39.6-50.0); MCH 28.8 pg (27.0-32.0); MCHC 34.2 g/dL (32.0-37.0); MCV 84.3 fL (80.0-97.0); Platelet Count 176 10*3/uL (140-440); RBC 2.74 10*6/uL (4.40-5.60); RDW 19.8 % (11.5-14.5)
[2024-11-05 18:00] LABS: HGB 7.9 g/dL (13.0-17.0); WBC 0.67 10*3/uL (4.50-10.00)
[2024-11-05 18:03] LABS: ALT 54 U/L (4-49); AST 148 U/L (17-59); African American GFR (CKD) 64 (>60 ml/min/1.73 sqM); Albumin 3.6 g/dL (3.5-5.0); Alkaline Phosphatase 274 U/L (38-126); Anion Gap 14 mmol/L; Blood Urea Nitrogen 34 mg/dL (9-20); Calcium 11.8 mg/dL (8.4-10.2); Carbon Dioxide 21 mmol/L (22-30); Chloride 99 mmol/L (98-107); Glucose 105 mg/dL (74-99); Magnesium 1.7 mg/dL (1.6-2.3); Non-African American GFR(CKD) 56 (>60 ml/min/1.73 sqM); Potassium 4.2 mmol/L (3.5-5.1); Sodium 134 mmol/L (137-145); Total Protein 5.9 g/dL (6.3-8.2)
[2024-11-05 18:05] LABS: INR 1.1 (<1.2); Prothrombin Time 11.7 sec (10.0-12.5)
[2024-11-05 18:06] LABS: Partial Thromboplastin Time 20.7 sec (22.0-30.0)
--- NOTE | 2024-11-05 18:24 | XR ---
EXAMINATION TYPE: XR chest 2V DATE OF EXAM: 11/05/2024 6:09 PM CLINICAL INDICATION:Male, 78 years old with history of Weakness; [facility] COMPARISON: Chest radiograph 04/24/2024 TECHNIQUE: XR chest 2V Frontal view of the chest. FINDINGS: Lungs/Pleura: There is no evidence of pleural effusion, focal consolidation, or pneumothorax. Pulmonary vascularity: Mild pulmonary vascular congestion. Heart/mediastinum: Cardiomediastinal silhouette is unremarkable. Catheter projecting over the right hemithorax with distal tip noted overlying the proximal right atrium. Musculoskeletal: No gross evidence for acute osseous pathology. IMPRESSION: Mild pulmonary vascular congestion with no other acute cardiopulmonary disease/process. [facility], , 11/05/2024 6:22 PM
[2024-11-05 18:44] LABS: Anisocytosis (M) Present
[2024-11-05 18:46] LABS: Rouleaux Present
[2024-11-05 19:16] LABS: Bilirubin,Urine Negative (Negative); Blood,Urine Trace (Negative); Color,Urine Yellow; Glucose,Urine (UA) Negative (Negative); Ketones,Urine Trace (Negative); Leukocyte Esterase,Urine Negative (Negative); Mucus,Urine Occasional /hpf; Nitrite,Urine Negative (Negative); PH, Urine 5.5 (5.0-8.0); Protein,Urine Trace (Negative); RBC,Urine 15 /hpf (0-5); Specific Gravity,Urine 1.024 (1.001-1.035); Urobilinogen,Urine 2.0 mg/dL (<2.0); WBC,Urine 1 /hpf (0-5)
[2024-11-05] MEDS ORDERED: NALOXONE 0.4 MG/ML 1 ML VIAL IV PRN (20:02)
--- NOTE | 2024-11-05 23:14 | P.HPIM ---
History of Present Illness H&P Date: 11/05/24 Patient is a 78-year-old male with PMHx of CAD, Hodgkins Lymphoma, GERD, GI bleed, HLD, ME, and CVA/TIA presenting to the emergency department with general weakness. He says the patient has had weakness since last night and is no longer able to get up or walk on his own. He uses a walker at baseline. He has a port in R shoulder and last received chemotherapy around 1 week ago. Patient indicates he feels generalized weakness and there is no one part of his body that is weaker than the rest. He endorses some confusion, sore throat, and 25lb weight loss in past 12 months. Denies fevers, chills, pain, N/V. Surgical hx: Cholecystectomy, heart stent placement, back surgery Social HX: Former smoker, rare alcohol use, no drugs -Patient lives with his [facility], retired Family Hx: No significant family hx Imaging: CXR 11/05 : Mild pulmonary vascular congestion with no acute cardiopulmonary process Labs: Lactic acid 6.0 on admission, 3.2 2 hours later WBC - 0.6 Hgb- 7.9 Na - 134 BUN - 34 AST - 148 ALT - 154 Vitals: HR - 96 RR - 17 BP - 98/65 O2 - 98% Review of systems: Pertinent positives and negatives as discussed in HPI, a complete review of systems was performed and all other systems are negative. Physical examination: General: non toxic, no distress, appears at stated age, lethargic Derm: no unusual rashes/lesions, warm Head: atraumatic, normocephalic, symmetric Eyes: EOMI, anicteric sclera, pupils equal round reactive to light ENT: Nose and ears atraumatic Neck: No cervical lymphadenopathy, trachea midline, supple Mouth: no lip lesion, mucus membranes moist, exudate on right tonsil Cardiovascular: S1S2 reg, no murmur, positive dorsalis pedis pulse bilateral, no edema Lungs: CTA bilateral, no rhonchi, no rales, no accessory muscle use Abdominal: soft, nontender to palpation, no guarding Ext: muscle strength 5 out of 5 in all 4 extremities grossly, no gross muscle atrophy, dry skin Neuro: CN II-XI grossly intact, no gross focal neuro deficits Psych: Alert, oriented to person, place, and time Assessment/Plan: Patient is a 78 y/o M with hodgkins lymphoma presenting for generalized weakness likely 2/2 infection which was made worse by his immunocompromised state. #. Leukopenia with concern of neutropenia due to chemotherapy /generalized weakness with sore throat. Concern of sepsis repeat CBC with differential to assess if patient has neutropenia Peripheral smear Patient also has white transudate on R tonsil Pts WBC of 0.6 could be d/t his chemotherapy Need to identify cause of infection if present Plan: -Blood culture (1x port and 1x peripheral) -CRP, Procalcitonin -RSV, Influenza A/B, COVID -Strep throat -Repeat lactic acid every 2 hours -1 dose zosyn ordered -Pt/OT consulted - Neutropenic precaution - Consult oncology # Lactic acidosis due to hypoperfusion and dehydration : Questionable underlying infection and sepsis >> pending further workup Patient presented with lactate of 6 and repeat lactate of 3.2 Continue with IV fluid hydration #. Elevated Liver enzymes of unknown cause Patient complains of no GI issues at this time Plan: -Order abdominal U/S in AM #. Hodgkins lymphoma Plan: -F/U with oncology and adjust chemo as needed CODE STATUS is full code DVT prophylaxis on Lovenox subcu Disposition : Will have PT evaluate patient Attestation : Patient seen and examined with medical records supervisor. Agree with above assessment and plan. Patient is a 78-year-old male patient with history of Hodgkin's lymphoma and undergoing chemotherapy via right sided Chemo-Port presenting with generalized weakness. Labs showing leukopenia . His last chemotherapy was a week ago. No complaints of headache, neck stiffness, shortness of breath, chest pain, abdominal pain, dysuria or any genitourinary symptoms. His only complaint is mild sore throat . CBC did not demonstrate neutrophilic count. Will assume patient may have underlying neutropenia and he will be placed under neutropenic precautions. Will consult oncology. Physical exam showing a right sided white patch transudate on his tonsil . Pending COVID/RSV/influenza and strep throat. Will give one-time dose of IV Zosyn. Lactic acidosis with concern of dehydration as his BUN is elevated. Continue with IV fluid hydration and repeat lactate. Will take 2 sets of blood culture 1 from his peripheral IV and 1 from his port. Patient appears to be weak and ill looking. Will place him on fall precautions and have PT evaluate patient. Time spent : 55 min Past Medical History Past Medical History: Coronary Artery Disease (CAD), Cancer, CVA/TIA, GERD/Reflux, GI Bleed, Hyperlipidemia, Myocardial Infarction (ME) Additional Past Medical History / Comment(s): DJD, Hodgkins Lymphoma 2023 Last Myocardial Infarction Date:: 2016 History of Any Multi-Drug Resistant Organisms: None Reported Past Surgical History: Back Surgery, Cholecystectomy, Heart Catheterization With Stent Additional Past Surgical History / Comment(s): egd at [facility] recently apr 2024- bleed was cauterized per pt, port right chest wall Past Anesthesia/Blood Transfusion Reactions: No Reported Reaction Date of Last Stent Placement:: 2022 Past Psychological History: No Psychological Hx Reported Smoking Status: Former smoker Past Alcohol Use History: Rare Past Drug Use History: None Reported Medications and Allergies Home Medications Medication Instructions Recorded Confirmed Type ARIPiprazole [Abilify] 5 mg PO HS 03/12/24 09/11/24 History Venlafaxine HCl [Effexor XR] 150 mg PO HS 03/12/24 09/11/24 History Magnesium Oxide [Mag-Ox] 400 mg PO BID #60 tab 03/17/24 09/11/24 Rx Tamsulosin [Flomax] 0.8 mg PO DAILY 03/25/24 09/11/24 History Ondansetron Odt [Zofran ODT] 8 mg PO Q8HR PRN 09/11/24 09/11/24 History Pantoprazole [Protonix] 40 mg PO DAILY 09/11/24 09/11/24 History Aspirin 81 mg PO DAILY #30 tab 09/14/24 Rx Atorvastatin [Lipitor] 40 mg PO HS #30 tab 09/14/24 Rx Clopidogrel [Plavix] 75 mg PO DAILY #21 tab 09/14/24 Rx Allergies Allergy/AdvReac Type Severity Reaction Status Date / Time sildenafil AdvReac headache Verified 11/05/24 17:34 [facility] Physical Exam Vitals: Vital Signs Temp Pulse Resp BP Pulse Ox 11/05/24 21:36 96 17 98/65 98 11/05/24 20:38 105 H 20 119/68 100 11/05/24 17:31 98.9 F 97 20 96/59 96 Intake and Output 11/05/24 11/05/24 11/05/24 06:59 14:59 22:59 Other: Weight 75.296 kg Results CBC & Chem 7: 11/05/24 17:42 11/05/24 17:42 Labs: Abnormal Lab Results - Last 24 Hours (Table) 11/05/24 11/05/24 11/05/24 Range/Units 17:42 17:42 17:42 WBC 0.67 L* (4.50-10.00) 10*3/uL RBC 2.74 L (4.40-5.60) 10*6/uL Hgb 7.9 L D (13.0-17.0) g/dL Hct 23.1 L (39.6-50.0) % APTT 20.7 L (22.0-30.0) sec Sodium 134 L (137-145) mmol/L Carbon Dioxide 21 L (22-30) mmol/L BUN 34 H (9-20) mg/dL Glucose 105 H (74-99) mg/dL Plasma Lactic Acid Flo (0.7-2.0) mmol/L Calcium 11.8 H (8.4-10.2) mg/dL AST 148 H (17-59) U/L ALT 54 H (4-49) U/L Alkaline Phosphatase 274 H (38-126) U/L Total Protein 5.9 L (6.3-8.2) g/dL Urine Protein (Negative) Urine Ketones (Negative) Urine Blood (Negative) Urine RBC (0-5) /hpf Urine Mucus (None) /hpf 11/05/24 11/05/24 11/05/24 Range/Units 17:42 19:09 20:22 WBC (4.50-10.00) 10*3/uL RBC (4.40-5.60) 10*6/uL Hgb (13.0-17.0) g/dL Hct (39.6-50.0) % APTT (22.0-30.0) sec Sodium (137-145) mmol/L Carbon Dioxide (22-30) mmol/L BUN (9-20) mg/dL Glucose (74-99) mg/dL Plasma Lactic Acid Flo 6.0 H* 3.2 H* (0.7-2.0) mmol/L Calcium (8.4-10.2) mg/dL AST (17-59) U/L ALT (4-49) U/L Alkaline Phosphatase (38-126) U/L Total Protein (6.3-8.2) g/dL Urine Protein Trace H (Negative) Urine Ketones Trace H (Negative) Urine Blood Trace H (Negative) Urine RBC 15 H (0-5) /hpf Urine Mucus Occasional H (None) /hpf Assessment and Plan Time with Patient: Greater than 30
[2024-11-05] MEDS: PIPERACILLIN-TAZOBACTAM 3.375 GM in SODIUM CHLORIDE 0.9% 100 ML IVPB ONE (23:17)
[2024-11-05] MEDS: HYDROcodone/APAP 5-325MG 1 EACH TAB PO PRN (23:19)
[2024-11-05] MEDS: ARIPiprazole 5 MG TAB PO SCH (23:19)
[2024-11-05] MEDS: VENLAFAXINE HCL 50 MG TAB PO ONE (23:21)
[2024-11-05 23:42] LABS: NT-Pro-B-Type Natriuretic Pept 1980.0 pg/mL
[2024-11-06 01:33] LABS: RSV Not Detected (Not Detectd)
[2024-11-06 08:03] LABS: ALT 64 U/L (10-49); AST 133 U/L (14-35); Albumin 3.4 g/dL (3.8-4.9); Albumin/Globulin Ratio 1.89 Ratio (1.60-3.17); Alkaline Phosphatase 286 U/L (41-126); Anion Gap 13.40 mmol/L (4.00-12.00); BUN/Creat Ratio 23.75 Ratio (12.00-20.00); Blood Urea Nitrogen 28.5 mg/dL (9.0-27.0); Calcium 10.1 mg/dL (8.7-10.3); Carbon Dioxide 21.6 mmol/L (21.6-31.8); Chloride 101 mmol/L (96-109); Globulin 1.8 g/dL (1.6-3.3); Glucose 90 mg/dL (70-110); Potassium 4.1 mmol/L (3.5-5.5); Sodium 136 mmol/L (135-145); Total Protein 5.2 g/dL (6.2-8.2)
--- NOTE | 2024-11-06 08:07 | US ---
EXAMINATION TYPE: US abdomen complete DATE OF EXAM: 11/06/2024 COMPARISON: Ultrasound liver 03/27/2024, CT abdomen and pelvis 03/26/2024 CLINICAL INDICATION: Male, 78 years old with history of elevated liver enzymes; TECHNIQUE: Grayscale and color Doppler imaging of the abdomen was performed. FINDINGS: EXAM MEASUREMENTS: Liver Length: 16.0 cm Gallbladder Wall: Surgically absent cm CBD: 0.5 cm, color Doppler imaging was utilized to isolate the common bile duct for measurement. Spleen: 12.8 cm Right Kidney: 11.3x5.4x5.9 cm Left Kidney: 10.7x6.4x4.0 cm RACING MECHANIC NOTES: very limited scan due to pt unable to roll or hold breath, images obscured by bowel/gas Pancreas: Tail obscured by overlying bowel gas Liver: cirrhotic, heterogenous echotexture, Multiple cystic areas seen, Largest: 1. Left Lobe: 5.6x5.2x6.0cm 2. 2.7x2.9x2.4cm Gallbladder: Surgically absent CBD: partially obscured by gas, not well visualized Spleen: partially obscured, wnl as best visualized Right Kidney: wnl, No hydronephrosis, calculi or masses seen, partially obscured Left Kidney: wnl, No hydronephrosis, calculi or masses seen, partially obscured Upper IVC: wnl Abd Aorta: prox: obscured, mid/distally: very minimal plaque seen mid Heterogenous coarsened echotexture of the liver with some suggestion of surface nodularity. Multiple cystic lesions identified within the liver with largest measuring up to 6.0 cm these are not clearly seen on prior CT. This appears simple. However there is a 2.9 cm right hepatic lobe hypoechoic lesion with some internal echogenicity. No internal color flow. The intrahepatic portion of the IVC is unre markable. The proximal abdominal aorta is obscured by overlying bowel gas. The mid to distal portion demonstrates very minimal plaque with no evidence for aneurysm. Gallbladder is surgically absent. Com mon bile duct is poorly visualized due to overlying bowel gas. Appears grossly normal. The visualized portions of the pancreas are homogenous. The visualized portion of the spleen appears unremarkable. Partial obscuration of both kidneys and overlying bowel gas. Kidneys are symmetric and free of hydron ephrosis. No renal lesions are seen within limitations. IMPRESSION: 1. Possible hepatic cirrhosis with some new cystic lesions. There is a 2.9 cm right hepatic lobe les ion with some internal echogenicity. Not clearly simple. Raises concern for possible hepatocellular c arcinoma versus other etiologies. Further workup is recommended. Consider further evaluation with MR abdomen with IV contrast (liver mass protocol). 2. Post cholecystectomy changes. [facility], , 11/06/2024 8:05 AM
[2024-11-06] MEDS: ENOXAPARIN 40 MG/0.4 ML SYRINGE SQ SCH (08:23)
[2024-11-06 09:17] LABS: Basophils # (M) 0.05 X 10*3/uL (0.00-0.10); Eosinophils # (M) 0.02 X 10*3/uL (0.04-0.35); HCT 22.3 % (39.6-50.0); HGB 7.3 g/dL (13.0-17.0); Lymphocytes # (M) 0.14 X 10*3/uL (0.90-5.00); MCH 28.0 pg (27.0-32.0); MCHC 32.7 g/dL (32.0-37.0); MCV 85.4 FL (80.0-97.0); Monocytes # (M) 0.21 X 10*3/uL (0.20-1.00); NRBC Per 100 WBC 0 X 10*3/uL (0.00-0.01); Neutrophils # (M) 0.07 X 10*3/uL (1.80-7.70); Neutrophils % (M) 13 %; Platelet Count 157 X 10*3/uL (140-440); Promyelocytes # (M) 0.02 k/uL (0); RBC 2.61 X 10*6/uL (4.40-5.60); RDW 19.9 % (11.5-14.5); WBC 0.51 X 10*3/uL (4.50-10.00)
[2024-11-06] MEDS: LACTATED RINGERS 1,000 ML IV ONE (11:56)
[2024-11-06] MEDS: LACTATED RINGERS 1,000 ML IV STA (12:03)
[2024-11-06] MEDS: PIPERACILLIN-TAZOBACTAM 3.375 GM in SODIUM CHLORIDE 0.9% 100 ML IVPB SCH (12:04)
[2024-11-06] MEDS: ASPIRIN 81 MG PO SCH (12:05)
[2024-11-06] MEDS: MAGNESIUM OXIDE 400 MG TAB PO SCH (12:05)
[2024-11-06] MEDS: MIDODRINE 5 MG TAB PO SCH (12:05)
[2024-11-06] MEDS: CLOPIDOGREL 75 MG TAB PO SCH (12:05)
[2024-11-06 16:23] LABS: Hepatitis A Antibody IgM Nonreactive (Nonreactive); Hepatitis C IgG Antibody Nonreactive (Nonreactive)
[2024-11-06 17:41] LABS: Hepatitis B Surface Antigen Nonreactive (Nonreactive)
--- NOTE | 2024-11-06 18:12 | P.PN ---
Subjective Progress Note Date: 11/06/24 Hospital Course: Patient is a 78-year-old male with PMHx of CAD, Hodgkins Lymphoma, GERD, GI bleed, HLD, VA, and CVA/TIA presenting to the emergency department with general weakness. He says the patient has had weakness since last night and is no longer able to get up or walk on his own. He uses a walker at baseline. He has a port in R shoulder and last received chemotherapy around 1 week ago. He endorses some confusion, sore throat, and 25lb weight loss in past 12 months. Labs on admission were lactic acid 6.0 on admission, WBC 0.6, hgb 7.9, Na 134, BUN 34, Cr 1.25, AST 148, ALT 154. CXR shows mild pulmonary vascular congestion with no acute cardiopulmonary process. US of abdomen shows possible hepatic cirrhosis with some new cystic lesions, 2.9 cm right hepatic lobe lesion with some internal echogenicity that raises concern for possible hepatocelluar carcinoma versus other etiologies. Oncology consulted Subjective: Patient seen and examined at bedside. No acute events overnight. Pt states he still feels weak and describes his body as feeling very sore and stiff. He also reports a slight GRANT this morning. He notes his throat is not sore but is raspy instead. He denies cough, SOB, CP, dysuria. Pertinent positives and negatives as discussed above, a complete review of systems was performed and all other systems are negative. Vitals: Signs Reviewed Physical Exam: General: Sleepy but arousable, mildly confused, nontoxic, no distress, appears at stated age Derm: warm, dry, intact Head: atraumatic, normocephalic, symmetric Eyes: EOMI, anicteric sclera Mouth: no lip lesion, dry mucus membranes Cardiovascular: S1 S2 reg, no murmur, rubs, or gallops Lungs: CTA bilateral, no rhonchi, no rales, no accessory muscle use Abdominal: soft, non-tender to palpation, no appreciable organomegaly Extremities: no gross muscle atrophy, no edema, no contractures. Tunnel catheter in right shoulder Neuro: Alert, Oriented, CNII-XII grossly intact, gait normal Psych: well appearing, appropriate affect Data Received Today: Pertinent Labs: WBC 0.51, hgb 7.3, hct 22.3, BUN 28.5, Cr 1.2, anion gap 13.4, lactic acid 3.0, AST 133, ALT 64, alk phos 286. Viral panel negative. Hepatitis panel nonreactive. Imaging: US of abdomen shows possible hepatic cirrhosis with some new cystic lesions, 2.9 cm right hepatic lobe lesion with some internal echogenicity that raises concern for possible hepatocelluar carcinoma versus other etiologies Assessment and Plan: #. Leukopenia #. Neutropenic sepsis #. Hodgkins lymphoma - Blood cultures pending - Monitor CBC - Oncology consulted, recs appreciated - PT/OT consulted. - Continue neutropenic and fall precautions - Started zosyn 3.375g q8h #. Lactic acidosis due to hypoperfusion and dehydration - Improving since admission - Continue NS at 130ml/hr - Elevated lactate could also be type B in the setting of cirrhosis. #. Possible hepatic lesions with new cystic lesions #. Concern for metastasis vs. hepatocellular carcinoma #. Elevated liver enzymes - [facility] CMP - Ordered hepatitis panel - Follow-up with oncology regarding liver lesions. Depending on discussion, may order MR abdomen. Chronic: HLD, VA, CVa/TIA - continue home meds DVT ppx: Lovenox 40mg Code status: Full code Anticipated discharge place and time: Pending clinical course Michaela Berger DO PGY-1 IM Dictation was produced using [employer] dictation software. please excuse any grammatical, word or spelling errors. I have seen and evaluated the patient today. Discussed with the resident and agree with the residents finding and plan as documented in the resident's note. Changes highlighted in blue font. Objective - Vital Signs Vital signs: Vital Signs Temp 98.9 F 11/06/24 15:42 Pulse 94 11/06/24 16:49 Resp 16 11/06/24 16:49 BP 111/61 11/06/24 16:49 Pulse Ox 96 11/06/24 16:49 FiO2 Intake & Output 11/05/24 11/06/24 11/06/24 18:59 06:59 18:59 Weight 75.296 kg - Labs CBC & Chem 7: 11/06/24 03:55 11/06/24 03:55 Labs: Abnormal Lab Results - Last 24 Hours (Table) 11/05/24 11/05/24 11/05/24 Range/Units 17:42 17:42 17:42 WBC 0.67 L* (4.50-10.00) 10*3/uL RBC 2.74 L (4.40-5.60) 10*6/uL Hgb 7.9 L D (13.0-17.0) g/dL Hct 23.1 L (39.6-50.0) % RDW (11.5-14.5) % Neutrophils # (Manual) (1.80-7.70) X 10*3/uL Lymphocytes # (Manual) (0.90-5.00) X 10*3/uL Eosinophils # (Manual) (0.04-0.35) X 10*3/uL APTT 20.7 L (22.0-30.0) sec Sodium 134 L (137-145) mmol/L Carbon Dioxide 21 L (22-30) mmol/L Anion Gap (4.00-12.00) mmol/L BUN 34 H (9-20) mg/dL BUN/Creatinine Ratio (12.00-20.00) Ratio Glucose 105 H (74-99) mg/dL Plasma Lactic Acid Flo (0.7-2.0) mmol/L Calcium 11.8 H (8.4-10.2) mg/dL AST 148 H (17-59) U/L ALT 54 H (4-49) U/L Alkaline Phosphatase 274 H (38-126) U/L C-Reactive Protein (<1.0) mg/dL Total Protein 5.9 L (6.3-8.2) g/dL Albumin (3.8-4.9) g/dL Procalcitonin (0.02-0.50) ng/mL Urine Protein (Negative) Urine Ketones (Negative) Urine Blood (Negative) Urine RBC (0-5) /hpf Urine Mucus (None) /hpf 11/05/24 11/05/24 11/05/24 Range/Units 17:42 19:09 20:22 WBC (4.50-10.00) 10*3/uL RBC (4.40-5.60) 10*6/uL Hgb (13.0-17.0) g/dL Hct (39.6-50.0) % RDW (11.5-14.5) % Neutrophils # (Manual) (1.80-7.70) X 10*3/uL Lymphocytes # (Manual) (0.90-5.00) X 10*3/uL Eosinophils # (Manual) (0.04-0.35) X 10*3/uL APTT (22.0-30.0) sec Sodium (137-145) mmol/L Carbon Dioxide (22-30) mmol/L Anion Gap (4.00-12.00) mmol/L BUN (9-20) mg/dL BUN/Creatinine Ratio (12.00-20.00) Ratio Glucose (74-99) mg/dL Plasma Lactic Acid Flo 6.0 H* 3.2 H* (0.7-2.0) mmol/L Calcium (8.4-10.2) mg/dL AST (17-59) U/L ALT (4-49) U/L Alkaline Phosphatase (38-126) U/L C-Reactive Protein (<1.0) mg/dL Total Protein (6.3-8.2) g/dL Albumin (3.8-4.9) g/dL Procalcitonin (0.02-0.50) ng/mL Urine Protein Trace H (Negative) Urine Ketones Trace H (Negative) Urine Blood Trace H (Negative) Urine RBC 15 H (0-5) /hpf Urine Mucus Occasional H (None) /hpf 11/05/24 11/05/24 11/05/24 Range/Units 22:39 22:39 23:21 WBC (4.50-10.00) 10*3/uL RBC (4.40-5.60) 10*6/uL Hgb (13.0-17.0) g/dL Hct (39.6-50.0) % RDW (11.5-14.5) % Neutrophils # (Manual) (1.80-7.70) X 10*3/uL Lymphocytes # (Manual) (0.90-5.00) X 10*3/uL Eosinophils # (Manual) (0.04-0.35) X 10*3/uL APTT (22.0-30.0) sec Sodium (137-145) mmol/L Carbon Dioxide (22-30) mmol/L Anion Gap (4.00-12.00) mmol/L BUN (9-20) mg/dL BUN/Creatinine Ratio (12.00-20.00) Ratio Glucose (74-99) mg/dL Plasma Lactic Acid Flo 3.2 H* (0.7-2.0) mmol/L Calcium (8.4-10.2) mg/dL AST (17-59) U/L ALT (4-49) U/L Alkaline Phosphatase (38-126) U/L C-Reactive Protein 5.9 H (<1.0) mg/dL Total Protein (6.3-8.2) g/dL Albumin (3.8-4.9) g/dL Procalcitonin 0.56 H (0.02-0.50) ng/mL Urine Protein (Negative) Urine Ketones (Negative) Urine Blood (Negative) Urine RBC (0-5) /hpf Urine Mucus (None) /hpf 11/06/24 11/06/24 11/06/24 Range/Units 03:55 03:55 03:55 WBC 0.51 A* (4.50-10.00) 10*3/uL RBC 2.61 L (4.40-5.60) 10*6/uL Hgb 7.3 L (13.0-17.0) g/dL Hct 22.3 L (39.6-50.0) % RDW 19.9 H (11.5-14.5) % Neutrophils # (Manual) 0.07 A* (1.80-7.70) X 10*3/uL Lymphocytes # (Manual) 0.14 L (0.90-5.00) X 10*3/uL Eosinophils # (Manual) 0.02 L (0.04-0.35) X 10*3/uL APTT (22.0-30.0) sec Sodium (137-145) mmol/L Carbon Dioxide (22-30) mmol/L Anion Gap 13.40 H (4.00-12.00) mmol/L BUN 28.5 H (9-20) mg/dL BUN/Creatinine Ratio 23.75 H (12.00-20.00) Ratio Glucose (74-99) mg/dL Plasma Lactic Acid Flo 3.1 H* (0.7-2.0) mmol/L Calcium (8.4-10.2) mg/dL AST 133 H (17-59) U/L ALT 64 H (4-49) U/L Alkaline Phosphatase 286 H (38-126) U/L C-Reactive Protein (<1.0) mg/dL Total Protein 5.2 L (6.3-8.2) g/dL Albumin 3.4 L (3.8-4.9) g/dL Procalcitonin (0.02-0.50) ng/mL Urine Protein (Negative) Urine Ketones (Negative) Urine Blood (Negative) Urine RBC (0-5) /hpf Urine Mucus (None) /hpf 11/06/24 11/06/24 11/06/24 Range/Units 08:47 12:09 15:24 WBC (4.50-10.00) 10*3/uL RBC (4.40-5.60) 10*6/uL Hgb (13.0-17.0) g/dL Hct (39.6-50.0) % RDW (11.5-14.5) % Neutrophils # (Manual) (1.80-7.70) X 10*3/uL Lymphocytes # (Manual) (0.90-5.00) X 10*3/uL Eosinophils # (Manual) (0.04-0.35) X 10*3/uL APTT (22.0-30.0) sec Sodium (137-145) mmol/L Carbon Dioxide (22-30) mmol/L Anion Gap (4.00-12.00) mmol/L BUN (9-20) mg/dL BUN/Creatinine Ratio (12.00-20.00) Ratio Glucose (74-99) mg/dL Plasma Lactic Acid Flo 2.9 H* 4.3 H* 3.0 H* (0.7-2.0) mmol/L Calcium (8.4-10.2) mg/dL AST (17-59) U/L ALT (4-49) U/L Alkaline Phosphatase (38-126) U/L C-Reactive Protein (<1.0) mg/dL Total Protein (6.3-8.2) g/dL Albumin (3.8-4.9) g/dL Procalcitonin (0.02-0.50) ng/mL Urine Protein (Negative) Urine Ketones (Negative) Urine Blood (Negative) Urine RBC (0-5) /hpf Urine Mucus (None) /hpf
[2024-11-06] MEDS: ARIPiprazole 5 MG TAB PO SCH (20:07)
[2024-11-06] MEDS: VENLAFAXINE HCL ER 150 MG CAP PO SCH (20:08)
[2024-11-06] MEDS: ATORVASTATIN 40 MG TAB PO SCH (20:08)
[2024-11-06] MEDS ORDERED: VANCOMYCIN IV PER PHARMACY 1 EACH MISC MISCELLANE PRN (20:21)
[2024-11-06] MEDS: ACETAMINOPHEN TAB 500 MG TAB PO PRN (21:08)
[2024-11-06] MEDS: VANCOMYCIN 1,500 MG in SODIUM CHLORIDE 0.9% 500 ML 500 ML IVPB ONE (22:46)
[2024-11-07 04:01] LABS: HCT 25.3 % (39.6-50.0); HGB 8.3 g/dL (13.0-17.0); MCH 28.8 pg (27.0-32.0); MCHC 32.8 g/dL (32.0-37.0); MCV 87.8 fL (80.0-97.0); Platelet Count 162 10*3/uL (140-440); RBC 2.88 10*6/uL (4.40-5.60); RDW 20.1 % (11.5-14.5)
[2024-11-07 04:08] LABS: WBC 0.89 10*3/uL (4.50-10.00)
[2024-11-07 04:25] LABS: ALT 60 U/L (4-49); AST 130 U/L (17-59); African American GFR (CKD) 86 (>60 ml/min/1.73 sqM); Albumin 2.9 g/dL (3.5-5.0); Alkaline Phosphatase 352 U/L (38-126); Anion Gap 9 mmol/L; Blood Urea Nitrogen 22 mg/dL (9-20); Calcium 10.2 mg/dL (8.4-10.2); Carbon Dioxide 21 mmol/L (22-30); Chloride 102 mmol/L (98-107); Glucose 73 mg/dL (74-99); Magnesium 1.5 mg/dL (1.6-2.3); Non-African American GFR(CKD) 75 (>60 ml/min/1.73 sqM); Potassium 4.3 mmol/L (3.5-5.1); Sodium 132 mmol/L (137-145); Total Protein 5.1 g/dL (6.3-8.2)
[2024-11-07 06:08] LABS: Anisocytosis (M) Present
[2024-11-07 06:09] LABS: RBC Fragments Present
[2024-11-07] MEDS: PANTOPRAZOLE 40 MG TABLET PO SCH (06:54)
[2024-11-07] MEDS: MAGNESIUM OXIDE 400 MG TAB PO STA (07:10)
--- NOTE | 2024-11-07 09:18 | P.CONS ---
History of Present Illness - Reason for Consult Consult date: 11/06/24 - History of Present Illness Mr. Spicer is a pleasant 78-year-old male with history of Hodgkin's lymphoma follows up with Dr. Knight is being seen for generalized weakness. Patient states he has fallen 3 times at home. Last chemo treatment was 2 weeks ago. Patient states he did not receive a booster shot treatment. Denies any fever, chills, cough, sore throat. States he has not been having any difficulty eating or dr inking. Patient states he feels lightheaded when he gets from a sitting to standing position. Abdominal ultrasound significant for 2.9 cm right hepatic lobe lesion with some internal echogenicity. Oncology history: He underwent ultrasound-guided core needle biopsy of the right axillary lymphadenopathy on 03/13/2024 and was noted to be consistent with classical Hodgkin's lymphoma, mixed cellularity type. Subsequently, he was admitted with weakness and noted to have pancytopenia and cholestati c/hepatocellular transaminitis of unclear etiology. After discharge on 03/29/2024, he was readmitted on 03/31/2024 with fevers, dyspnea, and wheezing concerning for pneumonia. In addition to treatment with antibiotics, he was started on pulse dose steroids with improvement in his transaminitis. Based on the workup above, I am concerned he has advanced classical Hodgkin's lymphoma with at least stage III disease and possibly stage IV if he has liver and potentially bone marrow involvement. Based on having advanced stage disease, I did recommend treatment with 6 cycles of nivolumab plus AVD per recently published SWOG 1826 trial. He does have PET/CT scheduled for 04/17/2024. Currently awaiting prior auth to begin treatment. Past Medical History Past Medical History: Coronary Artery Disease (CAD), Cancer, CVA/TIA, GERD/Reflux, GI Bleed, Hyperlipidemia, Myocardial Infarction (NH) Additional Past Medical History / Comment(s): DJD, Hodgkins Lymphoma 2023 Last Myocardial Infarction Date:: 2016 History of Any Multi-Drug Resistant Organisms: None Reported Past Surgical History: Back Surgery, Cholecystectomy, Heart Catheterization With Stent Additional Past Surgical History / Comment(s): egd at [facility] recently apr 2024- sm bleed was cauterized per pt, port right chest wall Past Anesthesia/Blood Transfusion Reactions: No Reported Reaction Date of Last Stent Placement:: 2022 Past Psychological History: No Psychological Hx Reported Smoking Status: Former smoker Past Alcohol Use History: Rare Past Drug Use History: None Reported Medications and Allergies Home Medications Medication Instructions Recorded Confirmed Type ARIPiprazole [Abilify] 5 mg PO HS 03/12/24 11/06/24 History Venlafaxine HCl [Effexor XR] 150 mg PO HS 03/12/24 11/06/24 History Magnesium Oxide [Mag-Ox] 400 mg PO BID #60 tab 03/17/24 11/06/24 Rx Ondansetron Odt [Zofran ODT] 8 mg PO Q8HR PRN 09/11/24 11/06/24 History Pantoprazole [Protonix] 40 mg PO DAILY 09/11/24 11/06/24 History Aspirin 81 mg PO DAILY #30 tab 09/14/24 11/06/24 Rx Atorvastatin [Lipitor] 40 mg PO HS #30 tab 09/14/24 11/06/24 Rx Clopidogrel [Plavix] 75 mg PO DAILY #21 tab 09/14/24 11/06/24 Rx Midodrine [ProAmatine] 5 mg PO TID 11/06/24 11/06/24 History Allergies Allergy/AdvReac Type Severity Reaction Status Date / Time sildenafil AdvReac headache Verified 11/06/24 10:23 [facility] Physical Exam Vitals: Vital Signs Temp Pulse Resp BP Pulse Ox 11/06/24 08:21 99.8 F H 11/06/24 07:38 106 H 17 121/72 95 11/06/24 06:39 100 16 121/72 94 L 11/06/24 04:00 95 16 119/72 92 L 11/06/24 01:01 99 18 123/79 94 L 11/05/24 23:24 97 16 120/70 95 11/05/24 21:36 96 17 98/65 98 11/05/24 20:38 105 H 20 119/68 100 11/05/24 17:31 98.9 F 97 20 96/59 96 Intake and Output 11/05/24 11/06/24 11/06/24 22:59 06:59 14:59 Other: Weight 75.296 kg Results CBC & Chem 7: 11/08/24 06:36 11/08/24 06:36 Labs: Abnormal Lab Results - Last 24 Hours (Table) 11/05/24 11/05/24 11/05/24 Range/Units 17:42 17:42 17:42 WBC 0.67 L* (4.50-10.00) 10*3/uL RBC 2.74 L (4.40-5.60) 10*6/uL Hgb 7.9 L D (13.0-17.0) g/dL Hct 23.1 L (39.6-50.0) % RDW (11.5-14.5) % Neutrophils # (Manual) (1.80-7.70) X 10*3/uL Lymphocytes # (Manual) (0.90-5.00) X 10*3/uL Eosinophils # (Manual) (0.04-0.35) X 10*3/uL APTT 20.7 L (22.0-30.0) sec Sodium 134 L (137-145) mmol/L Carbon Dioxide 21 L (22-30) mmol/L Anion Gap (4.00-12.00) mmol/L BUN 34 H (9-20) mg/dL BUN/Creatinine Ratio (12.00-20.00) Ratio Glucose 105 H (74-99) mg/dL Plasma Lactic Acid Flo (0.7-2.0) mmol/L Calcium 11.8 H (8.4-10.2) mg/dL AST 148 H (17-59) U/L ALT 54 H (4-49) U/L Alkaline Phosphatase 274 H (38-126) U/L C-Reactive Protein (<1.0) mg/dL Total Protein 5.9 L (6.3-8.2) g/dL Albumin (3.8-4.9) g/dL Procalcitonin (0.02-0.50) ng/mL Urine Protein (Negative) Urine Ketones (Negative) Urine Blood (Negative) Urine RBC (0-5) /hpf Urine Mucus (None) /hpf 11/05/24 11/05/24 11/05/24 Range/Units 17:42 19:09 20:22 WBC (4.50-10.00) 10*3/uL RBC (4.40-5.60) 10*6/uL Hgb (13.0-17.0) g/dL Hct (39.6-50.0) % RDW (11.5-14.5) % Neutrophils # (Manual) (1.80-7.70) X 10*3/uL Lymphocytes # (Manual) (0.90-5.00) X 10*3/uL Eosinophils # (Manual) (0.04-0.35) X 10*3/uL APTT (22.0-30.0) sec Sodium (137-145) mmol/L Carbon Dioxide (22-30) mmol/L Anion Gap (4.00-12.00) mmol/L BUN (9-20) mg/dL BUN/Creatinine Ratio (12.00-20.00) Ratio Glucose (74-99) mg/dL Plasma Lactic Acid Flo 6.0 H* 3.2 H* (0.7-2.0) mmol/L Calcium (8.4-10.2) mg/dL AST (17-59) U/L ALT (4-49) U/L Alkaline Phosphatase (38-126) U/L C-Reactive Protein (<1.0) mg/dL Total Protein (6.3-8.2) g/dL Albumin (3.8-4.9) g/dL Procalcitonin (0.02-0.50) ng/mL Urine Protein Trace H (Negative) Urine Ketones Trace H (Negative) Urine Blood Trace H (Negative) Urine RBC 15 H (0-5) /hpf Urine Mucus Occasional H (None) /hpf 11/05/24 11/05/24 11/05/24 Range/Units 22:39 22:39 23:21 WBC (4.50-10.00) 10*3/uL RBC (4.40-5.60) 10*6/uL Hgb (13.0-17.0) g/dL Hct (39.6-50.0) % RDW (11.5-14.5) % Neutrophils # (Manual) (1.80-7.70) X 10*3/uL Lymphocytes # (Manual) (0.90-5.00) X 10*3/uL Eosinophils # (Manual) (0.04-0.35) X 10*3/uL APTT (22.0-30.0) sec Sodium (137-145) mmol/L Carbon Dioxide (22-30) mmol/L Anion Gap (4.00-12.00) mmol/L BUN (9-20) mg/dL BUN/Creatinine Ratio (12.00-20.00) Ratio Glucose (74-99) mg/dL Plasma Lactic Acid Flo 3.2 H* (0.7-2.0) mmol/L Calcium (8.4-10.2) mg/dL AST (17-59) U/L ALT (4-49) U/L Alkaline Phosphatase (38-126) U/L C-Reactive Protein 5.9 H (<1.0) mg/dL Total Protein (6.3-8.2) g/dL Albumin (3.8-4.9) g/dL Procalcitonin 0.56 H (0.02-0.50) ng/mL Urine Protein (Negative) Urine Ketones (Negative) Urine Blood (Negative) Urine RBC (0-5) /hpf Urine Mucus (None) /hpf 11/06/24 11/06/24 11/06/24 Range/Units 03:55 03:55 03:55 WBC 0.51 A* (4.50-10.00) 10*3/uL RBC 2.61 L (4.40-5.60) 10*6/uL Hgb 7.3 L (13.0-17.0) g/dL Hct 22.3 L (39.6-50.0) % RDW 19.9 H (11.5-14.5) % Neutrophils # (Manual) 0.07 A* (1.80-7.70) X 10*3/uL Lymphocytes # (Manual) 0.14 L (0.90-5.00) X 10*3/uL Eosinophils # (Manual) 0.02 L (0.04-0.35) X 10*3/uL APTT (22.0-30.0) sec Sodium (137-145) mmol/L Carbon Dioxide (22-30) mmol/L Anion Gap 13.40 H (4.00-12.00) mmol/L BUN 28.5 H (9-20) mg/dL BUN/Creatinine Ratio 23.75 H (12.00-20.00) Ratio Glucose (74-99) mg/dL Plasma Lactic Acid Flo 3.1 H* (0.7-2.0) mmol/L Calcium (8.4-10.2) mg/dL AST 133 H (17-59) U/L ALT 64 H (4-49) U/L Alkaline Phosphatase 286 H (38-126) U/L C-Reactive Protein (<1.0) mg/dL Total Protein 5.2 L (6.3-8.2) g/dL Albumin 3.4 L (3.8-4.9) g/dL Procalcitonin (0.02-0.50) ng/mL Urine Protein (Negative) Urine Ketones (Negative) Urine Blood (Negative) Urine RBC (0-5) /hpf Urine Mucus (None) /hpf 11/06/24 Range/Units 08:47 WBC (4.50-10.00) 10*3/uL RBC (4.40-5.60) 10*6/uL Hgb (13.0-17.0) g/dL Hct (39.6-50.0) % RDW (11.5-14.5) % Neutrophils # (Manual) (1.80-7.70) X 10*3/uL Lymphocytes # (Manual) (0.90-5.00) X 10*3/uL Eosinophils # (Manual) (0.04-0.35) X 10*3/uL APTT (22.0-30.0) sec Sodium (137-145) mmol/L Carbon Dioxide (22-30) mmol/L Anion Gap (4.00-12.00) mmol/L BUN (9-20) mg/dL BUN/Creatinine Ratio (12.00-20.00) Ratio Glucose (74-99) mg/dL Plasma Lactic Acid Flo 2.9 H* (0.7-2.0) mmol/L Calcium (8.4-10.2) mg/dL AST (17-59) U/L ALT (4-49) U/L Alkaline Phosphatase (38-126) U/L C-Reactive Protein (<1.0) mg/dL Total Protein (6.3-8.2) g/dL Albumin (3.8-4.9) g/dL Procalcitonin (0.02-0.50) ng/mL Urine Protein (Negative) Urine Ketones (Negative) Urine Blood (Negative) Urine RBC (0-5) /hpf Urine Mucus (None) /hpf Assessment and Plan Assessment: #. Hodgkins lymphoma #. Weakness/debility #. Bicytopenia: Leukopenia, anemia #. Transaminitis #. Lactic acidosis likely due to dehydration No signs of acute bleeding, monitor for now, transfuse if Hgb < 7.0 or if symptoms become worse Liver ultrasound displaying right hepatic lesion 2.9 cm, will monitor for now Bicytopenia and weakness likely secondary to the chemo treatment. Last treatment was 2 weeks ago. Monitor for fever, neutropenic precautions Thank you for this consultation. Will continue to follow throughout the dura tion of admission. Please not hesitate to ask any further questions. Plan: Patient was personally seen, examined, and management plan formulated, with resident. History/physical exam as above Patient presenting with cytopenias, as well as weakness, fatigue, decreased oral intake, due to chemotherapy effect. Does not have any obvious fever. Supportive treatment with hydration, transfusions as needed to keep hemoglobin greater than 7, and platelets greater than 10. -If patient spikes temperature, or otherwise shows any signs of infection, he will be started on G-CSF.
--- NOTE | 2024-11-07 12:07 | P.PN ---
Subjective Progress Note Date: 11/07/24 The patient feels somewhat stronger, and improved today. He did spike a temperature of 101.3 overnight, and has been placed on antibiotics. He denied any chills, abdominal pain, diarrhea, or obvious bleeding or bruising. Objective - Vital Signs Vital signs: Vital Signs Temp 99.9 F H 11/07/24 11:06 Pulse 83 11/07/24 11:06 Resp 16 11/07/24 11:06 BP 117/67 11/07/24 11:06 Pulse Ox 94 L 11/07/24 11:06 FiO2 Intake & Output 11/06/24 11/07/24 11/07/24 18:59 06:59 18:59 Intake Total 600 200 Output Total 425 Balance 600 -225 Weight 75 kg Intake: Oral 600 200 Output: Urine 425 Other: Voiding Method External Catheter External Catheter - Constitutional General appearance: Present: no acute distress - EENT Eyes: Present: EOMI ENT: Present: hearing grossly normal, normal oropharynx - Respiratory Respiratory: bilateral: CTA - Cardiovascular Rhythm: regular Heart sounds: normal: S1, S2 - Gastrointestinal General gastrointestinal: Present: normal bowel sounds, soft - Integumentary Integumentary: Present: normal - Neurologic Neurologic: Present: CNII-XII intact - Musculoskeletal Musculoskeletal: Present: generalized weakness, strength equal bilaterally - Psychiatric Psychiatric: Present: A&O x's 3, appropriate affect - Labs CBC & Chem 7: 11/07/24 03:38 11/07/24 03:38 Labs: Abnormal Lab Results - Last 24 Hours (Table) 11/06/24 11/06/24 11/06/24 Range/Units 12:09 15:24 18:35 WBC (4.50-10.00) 10*3/uL RBC (4.40-5.60) 10*6/uL Hgb (13.0-17.0) g/dL Hct (39.6-50.0) % Immature Gran # (0.00-0.04) 10*3/uL Sodium (137-145) mmol/L Carbon Dioxide (22-30) mmol/L BUN (9-20) mg/dL Glucose (74-99) mg/dL Plasma Lactic Acid Flo 4.3 H* 3.0 H* 4.5 H* (0.7-2.0) mmol/L Magnesium (1.6-2.3) mg/dL AST (17-59) U/L ALT (4-49) U/L Alkaline Phosphatase (38-126) U/L Total Protein (6.3-8.2) g/dL Albumin (3.5-5.0) g/dL 11/06/24 11/07/24 11/07/24 Range/Units 21:30 00:20 03:38 WBC 0.89 L* (4.50-10.00) 10*3/uL RBC 2.88 L (4.40-5.60) 10*6/uL Hgb 8.3 L (13.0-17.0) g/dL Hct 25.3 L (39.6-50.0) % Immature Gran # 0.16 H (0.00-0.04) 10*3/uL Sodium (137-145) mmol/L Carbon Dioxide (22-30) mmol/L BUN (9-20) mg/dL Glucose (74-99) mg/dL Plasma Lactic Acid Flo 4.4 H* 4.4 H* (0.7-2.0) mmol/L Magnesium (1.6-2.3) mg/dL AST (17-59) U/L ALT (4-49) U/L Alkaline Phosphatase (38-126) U/L Total Protein (6.3-8.2) g/dL Albumin (3.5-5.0) g/dL 11/07/24 11/07/24 11/07/24 Range/Units 03:38 03:38 06:57 WBC (4.50-10.00) 10*3/uL RBC (4.40-5.60) 10*6/uL Hgb (13.0-17.0) g/dL Hct (39.6-50.0) % Immature Gran # (0.00-0.04) 10*3/uL Sodium 132 L (137-145) mmol/L Carbon Dioxide 21 L (22-30) mmol/L BUN 22 H (9-20) mg/dL Glucose 73 L (74-99) mg/dL Plasma Lactic Acid Flo 4.1 H* 4.4 H* (0.7-2.0) mmol/L Magnesium 1.5 L (1.6-2.3) mg/dL AST 130 H (17-59) U/L ALT 60 H (4-49) U/L Alkaline Phosphatase 352 H (38-126) U/L Total Protein 5.1 L (6.3-8.2) g/dL Albumin 2.9 L (3.5-5.0) g/dL 11/07/24 Range/Units 10:04 WBC (4.50-10.00) 10*3/uL RBC (4.40-5.60) 10*6/uL Hgb (13.0-17.0) g/dL Hct (39.6-50.0) % Immature Gran # (0.00-0.04) 10*3/uL Sodium (137-145) mmol/L Carbon Dioxide (22-30) mmol/L BUN (9-20) mg/dL Glucose (74-99) mg/dL Plasma Lactic Acid Flo 4.9 H* (0.7-2.0) mmol/L Magnesium (1.6-2.3) mg/dL AST (17-59) U/L ALT (4-49) U/L Alkaline Phosphatase (38-126) U/L Total Protein (6.3-8.2) g/dL Albumin (3.5-5.0) g/dL Microbiology - Last 24 Hours (Table) 11/05/24 22:39 Blood Culture - Preliminary Blood Assessment and Plan (1) Febrile neutropenia Narrative/Plan: The patient did not have any fever at the time of presentation, but did spike a temperature of 101.3 overnight. He does not have any obvious source of infection. However he remains neutropenic, with total WBC 0.8-0.9 today. The patient has therefore appropriately been started on broad-spectrum antibiotics and cultures have been ordered. He will also be initiated on filgrastim. Discontinue filgrastim, once ANC is in a safe range. Current Visit: No Status: Acute Code(s): D70.9 - NEUTROPENIA, UNSPECIFIED; R50.81 - FEVER PRESENTING WITH CONDITIONS CLASSIFIED ELSEWHERE SNOMED Code(s): 279005333 (2) Anemia Narrative/Plan: Due to chemotherapy effect. Hemoglobin is in the 8 range today. Continue to monitor. Transfuse to keep hemoglobin greater than 7. Current Visit: No Status: Acute Code(s): D64.9 - ANEMIA, UNSPECIFIED SNOMED Code(s): 406654440 (3) Dehydration Narrative/Plan: Due to decreased oral intake, from chemotherapy effect. Continue IV hydration. Patient is clinically improved. Current Visit: Yes Status: Acute Code(s): E86.0 - DEHYDRATION SNOMED Code(s): 13458518 (4) Abnormal liver diagnostic imaging Narrative/Plan: The patient's ultrasound shows possible cirrhotic morphology. There are at least 2 liver lesions seen, 1 of which is felt to be likely a simple cyst while the other is felt to be potentially more suspicious for a mass lesion. The patient and his family deny any prior history of chronic liver disease, or risk factor for the same. Patient's prior liver imaging with CT and ultrasound, in 03/30 had shown at least some degree of hepatic steatosis. -The ultrasound results were discussed with the patient and his family. He was advised that at this time the finding of the hypoechoic lesions is nonspecific. Once the patient's hydration status is further improved, plan on MRI with contrast to evaluate the liver further. - If MRI confirms the presence of a suspicious solid mass, then the patient will need a biopsy, as it is unlikely that this would represent Hodgkin's disease, given his good response to ongoing treatment. In that situation, a new primary would be more likely, thus the indication for biopsy. Current Visit: Yes Status: Acute Code(s): R93.2 - ABNORMAL FINDINGS ON DX IMAGING OF LIVER AND BILIARY TRACT SNOMED Code(s): 322591837
[2024-11-07] MEDS: MAG HYDROX/AL HYDROX/SIMETH 30 ML, diphenhydrAMINE ELIXIR 75 MG, LIDOCAINE VISCOUS 2% 3... PO SCH (12:37)
--- NOTE | 2024-11-07 15:55 | P.PN ---
Subjective Progress Note Date: 11/07/24 Hospital Course: Patient is a 78-year-old male with PMHx of CAD, Hodgkins Lymphoma, GERD, GI bleed, HLD, FL, and CVA/TIA presenting to the emergency department with general weakness. He says the patient has had weakness since last night and is no longer able to get up or walk on his own. He uses a walker at baseline. He has a port in R shoulder and last received chemotherapy around 1 week ago. He endorses some confusion, sore throat, and 25lb weight loss in past 12 months. Labs on admission were lactic acid 6.0 on admission, WBC 0.6, hgb 7.9, Na 134, BUN 34, Cr 1.25, AST 148, ALT 154. CXR shows mild pulmonary vascular congestion with no acute cardiopulmonary process. US of abdomen shows possible hepatic cirrhosis with some new cystic lesions, 2.9 cm right hepatic lobe lesion with some internal echogenicity that raises concern for possible hepatocelluar carcinoma versus other etiologies. Oncology consulted Subjective: Patient seen and examined at bedside. Overnight, pt temperature was 101.3 and tylenol was given. This morning there haven't been additional fevers. Pt is doing better than yesterday. He still notes weakness and stiffness with mild improvement. He has no other complaints this morning. He denies CP, SOB, GRANT, fevers/chills, N/V, abdominal pain. Pertinent positives and negatives as discussed above, a complete review of systems was performed and all other systems are negative. Vitals: Signs Reviewed Physical Exam: General: nontoxic, no distress, appears at stated age Derm: warm, dry, intact Head: atraumatic, normocephalic, symmetric Eyes: EOMI, anicteric sclera Mouth: no lip lesion, mucus membranes moist Cardiovascular: S1 S2 reg, no murmur, rubs, or gallops Lungs: CTA bilateral, no rhonchi, no rales, no accessory muscle use Abdominal: soft, non-tender to palpation, no appreciable organomegaly Extremities: no gross muscle atrophy, no edema, no contractures, moving all extremities. Tunnel cath in right shoulder Neuro: Alert, only oriented to self but able to concentrate, CNII-XII grossly intact, gait normal Psych: well appearing, appropriate affect Data Received Today: Pertinent Labs: Wbc 0.89, hgb 8.3, sodium 132, BUN 22, Cr 0.98, AST 130, ALT 60, total protein 5.1 Imaging: none today. Blood cultures - no growth at 24 hours. Hepatitis panel - nonreactive Assessment and Plan: #. Leukopenia #. Neutropenic sepsis and fever #. Hodgkins lymphoma - Blood cultures pending for final result - Monitor CBC - Oncology consulted, recs appreciated - PT/OT consulted. - Continue neutropenic and fall precautions - If weakness still persists, will consult PT/OT - Continue zosyn 3.375g q8h #. Lactic acidosis due to hypoperfusion and dehydration - Improved since admission but have plateaued - Elevated lactate could also be type B in setting of cirrhosis. - Discontinued fluids and lactic acid levels. #. Possible hepatic lesions with new cystic lesions #. Concern for metastasis vs. hepatocellular carcinoma #. Elevated liver enzymes - Hepatitis panel negative - [facility]ior CMP - Ordered alpha fetoprotein - Per oncology, once pt's fluid status improves can obtain MRI of abdomen with contrast #. Hyponatremia - Discontinued fluids and will monitor #. Hypomagnesium - 400 mag-ox given once this AM - Continue 400 mg mag-ox BID - continue to monitor mag Mucositis secondary to chemotherapy - ordered magic mouthwash Chronic: HLD, FL, CVa/TIA - continue home meds DVT ppx: Lovenox 40 mg daily GI ppx: Protonix Code status: Full code Anticipated discharge place and time: Pending based on clinical course Michaela Berger DO PGY-1 IM Dictation was produced using [employer] dictation software. please excuse any grammatical, word or spelling errors. I have seen and evaluated the patient today. Discussed with the resident and agree with the residents finding and plan as documented in the resident's note. Changes highlighted in blue font. Objective - Vital Signs Vital signs: Vital Signs Temp 99.1 F 11/07/24 09:12 Pulse 87 11/07/24 09:12 Resp 16 11/07/24 09:12 BP 120/62 11/07/24 09:12 Pulse Ox 95 11/07/24 09:12 FiO2 Intake & Output 11/06/24 11/07/24 11/07/24 18:59 06:59 18:59 Intake Total 600 200 Output Total 425 Balance 600 -225 Weight 75 kg Intake: Oral 600 200 Output: Urine 425 Other: Voiding Method External Catheter - Labs CBC & Chem 7: 11/07/24 03:38 11/07/24 03:38 Labs: Abnormal Lab Results - Last 24 Hours (Table) 11/06/24 11/06/24 11/06/24 Range/Units 08:47 12:09 15:24 WBC (4.50-10.00) 10*3/uL RBC (4.40-5.60) 10*6/uL Hgb (13.0-17.0) g/dL Hct (39.6-50.0) % Immature Gran # (0.00-0.04) 10*3/uL Sodium (137-145) mmol/L Carbon Dioxide (22-30) mmol/L BUN (9-20) mg/dL Glucose (74-99) mg/dL Plasma Lactic Acid Flo 2.9 H* 4.3 H* 3.0 H* (0.7-2.0) mmol/L Magnesium (1.6-2.3) mg/dL AST (17-59) U/L ALT (4-49) U/L Alkaline Phosphatase (38-126) U/L Total Protein (6.3-8.2) g/dL Albumin (3.5-5.0) g/dL 11/06/24 11/06/24 11/07/24 Range/Units 18:35 21:30 00:20 WBC (4.50-10.00) 10*3/uL RBC (4.40-5.60) 10*6/uL Hgb (13.0-17.0) g/dL Hct (39.6-50.0) % Immature Gran # (0.00-0.04) 10*3/uL Sodium (137-145) mmol/L Carbon Dioxide (22-30) mmol/L BUN (9-20) mg/dL Glucose (74-99) mg/dL Plasma Lactic Acid Flo 4.5 H* 4.4 H* 4.4 H* (0.7-2.0) mmol/L Magnesium (1.6-2.3) mg/dL AST (17-59) U/L ALT (4-49) U/L Alkaline Phosphatase (38-126) U/L Total Protein (6.3-8.2) g/dL Albumin (3.5-5.0) g/dL 11/07/24 11/07/24 11/07/24 Range/Units 03:38 03:38 03:38 WBC 0.89 L* (4.50-10.00) 10*3/uL RBC 2.88 L (4.40-5.60) 10*6/uL Hgb 8.3 L (13.0-17.0) g/dL Hct 25.3 L (39.6-50.0) % Immature Gran # 0.16 H (0.00-0.04) 10*3/uL Sodium 132 L (137-145) mmol/L Carbon Dioxide 21 L (22-30) mmol/L BUN 22 H (9-20) mg/dL Glucose 73 L (74-99) mg/dL Plasma Lactic Acid Flo 4.1 H* (0.7-2.0) mmol/L Magnesium 1.5 L (1.6-2.3) mg/dL AST 130 H (17-59) U/L ALT 60 H (4-49) U/L Alkaline Phosphatase 352 H (38-126) U/L Total Protein 5.1 L (6.3-8.2) g/dL Albumin 2.9 L (3.5-5.0) g/dL 11/07/24 Range/Units 06:57 WBC (4.50-10.00) 10*3/uL RBC (4.40-5.60) 10*6/uL Hgb (13.0-17.0) g/dL Hct (39.6-50.0) % Immature Gran # (0.00-0.04) 10*3/uL Sodium (137-145) mmol/L Carbon Dioxide (22-30) mmol/L BUN (9-20) mg/dL Glucose (74-99) mg/dL Plasma Lactic Acid Flo 4.4 H* (0.7-2.0) mmol/L Magnesium (1.6-2.3) mg/dL AST (17-59) U/L ALT (4-49) U/L Alkaline Phosphatase (38-126) U/L Total Protein (6.3-8.2) g/dL Albumin (3.5-5.0) g/dL Microbiology - Last 24 Hours (Table) 11/05/24 22:39 Blood Culture - Preliminary Blood
[2024-11-07] MEDS: VANCOMYCIN 1,250 MG in SODIUM CHLORIDE 0.9% 250 ML IVPB SCH (15:58)
[2024-11-07] MEDS: FILGRASTIM-SNDZ 480 MCG/0.8 ML SYRINGE SQ SCH (17:16)
[2024-11-08 07:20] LABS: Basophils # (A) 0.05 10*3/uL (0.00-0.10); Basophils % (A) 0.7 %; Eosinophils # (A) 0.00 10*3/uL (0.04-0.35); Eosinophils % (A) 0.0 %; HCT 24.7 % (39.6-50.0); HGB 8.0 g/dL (13.0-17.0); Lymphocytes # (A) 0.53 10*3/uL (0.90-5.00); Lymphocytes % (A) 7.2 %; MCH 27.4 pg (27.0-32.0); MCHC 32.4 g/dL (32.0-37.0); MCV 84.6 fL (80.0-97.0); Monocytes # (A) 0.74 10*3/uL (0.20-1.00); Monocytes % (A) 10.0 %; Neutrophils # (A) 5.85 10*3/uL (1.80-7.70); Neutrophils % (A) 78.9 %; Platelet Count 157 10*3/uL (140-440); RBC 2.92 10*6/uL (4.40-5.60); RDW 20.3 % (11.5-14.5); WBC 7.41 10*3/uL (4.50-10.00)
[2024-11-08 07:45] LABS: African American GFR (CKD) 88 (>60 ml/min/1.73 sqM); Non-African American GFR(CKD) 77 (>60 ml/min/1.73 sqM)
[2024-11-08 07:51] LABS: ALT 60 U/L (4-49); AST 139 U/L (17-59); African American GFR (CKD) 89 (>60 ml/min/1.73 sqM); Albumin 2.7 g/dL (3.5-5.0); Alkaline Phosphatase 419 U/L (38-126); Anion Gap 10 mmol/L; Blood Urea Nitrogen 18 mg/dL (9-20); Calcium 9.6 mg/dL (8.4-10.2); Carbon Dioxide 20 mmol/L (22-30); Chloride 102 mmol/L (98-107); Glucose 60 mg/dL (74-99); Magnesium 1.4 mg/dL (1.6-2.3); Non-African American GFR(CKD) 77 (>60 ml/min/1.73 sqM); Potassium 4.2 mmol/L (3.5-5.1); Sodium 132 mmol/L (137-145); Total Protein 4.8 g/dL (6.3-8.2)
[2024-11-08] MEDS ORDERED: MAGNESIUM OXIDE 400 MG TAB PO SCH (09:15)
[2024-11-08] MEDS: MAGNESIUM OXIDE 400 MG TAB PO STA (10:10)
[2024-11-08] MEDS: MAGNESIUM SULFATE-D5W PMX 1 GM in DEXTROSE/WATER 1 100ML.BAG IVPB SCH (11:11)
[2024-11-08 11:42] LABS: Glucose,Whole Blood 84 mg/dL (70-110)
--- NOTE | 2024-11-08 13:31 | P.PN ---
Subjective Progress Note Date: 11/08/24 Hospital Course: Patient is a 78-year-old male with PMHx of CAD, Hodgkins Lymphoma, GERD, GI bleed, HLD, MS, and CVA/TIA presenting to the emergency department with general weakness. He says the patient has had weakness since last night and is no longer able to get up or walk on his own. He uses a walker at baseline. He has a port in R shoulder and last received chemotherapy around 1 week ago. He endorses some confusion, sore throat, and 25lb weight loss in past 12 months. Labs on admission were lactic acid 6.0 on admission, WBC 0.6, hgb 7.9, Na 134, BUN 34, Cr 1.25, AST 148, ALT 154. CXR shows mild pulmonary vascular congestion with no acute cardiopulmonary process. US of abdomen shows possible hepatic cirrhosis with some new cystic lesions, 2.9 cm right hepatic lobe lesion with some internal echogenicity that raises concern for possible hepatocelluar carcinoma versus other etiologies. Oncology consulted and started filgastim and recommneded obtaining the MRI abdomen with contrast. Subjective: Patient seen and examined at bedside. No acute events overnight. Pt is doing well this morning and has no complaints. He still notes some weakness but states it has improved. He denies fevers, chills, CP, SOB, N/V and abdominal pain. Pertinent positives and negatives as discussed above, a complete review of systems was performed and all other systems are negative. Vitals: Signs Reviewed Physical Exam: General: nontoxic, no distress, appears at stated age Derm: warm, dry, intact Head: atraumatic, normocephalic, symmetric Eyes: EOMI, anicteric sclera Mouth: no lip lesion, mucus membranes moist Cardiovascular: S1 S2 reg, no murmur, rubs, or gallops Lungs: CTA bilateral, no rhonchi, no rales, no accessory muscle use Abdominal: soft, non-tender to palpation, no appreciable organomegaly Extremities: no gross muscle atrophy, no edema, moving all extremities. Tunnel cath in right shoulder Neuro: Alert and oriented x3, CNII-XII grossly intact, gait normal Psych: well appearing, appropriate affect Data Received Today: Pertinent Labs: WBC 7.41, hgb 8.0, hct 24.7, sodium 132, mag 1.4, total bilirubin 1.4, AST 139, ALT 60 Imaging: None today Blood cultures - NG at 48 hours Assessment and Plan: #. Leukopenia #. Neutropenic sepsis and fever #. Hodgkins lymphoma - Blood cultures pending for final result - Monitor CBC - Oncology consulted, started Vancomycin, and filgrastim which can be discontinued with ANC in safe range - Will continue vancomycin, if afebrile tomorrow and MRSA screen negative will discontinue. - Continue zosyn 3.375g q8h - Continue neutropenic and fall precautions - Pt/OT consulted #. Lactic acidosis due to hypoperfusion and dehydration - Improved since admission but have plateaued - Elevated lactate could also be type B in setting of cirrhosis. - Will continue to monitor #. Possible hepatic lesions with new cystic lesions #. Concern for metastasis vs. hepatocellular carcinoma #. Elevated liver enzymes - Hepatitis panel negative - [facility]ior CMP - Pending alpha fetoprotein - Ordered MRI abdomen with contrast #. Hypomagnesium - Ordered 400 mag-ox once this AM - Ordered IV magnesium 1g this AM - Continue 400 mg mag-ox BID - Continue to monitor mag #. Hyponatremia - Will continue to monitor Mucositis secondary to chemotherapy - ordered magic mouthwash Chronic: HLD, MS, CVa/TIA - continue home meds DVT ppx: Lovenox 40 mg daily GI ppx: Protonix Code status: Full code Anticipated discharge place and time: Pending based on clinical course Michaela Berger DO PGY-1 IM Dictation was produced using [employer] dictation software. please excuse any grammatical, word or spelling errors. I have seen and evaluated the patient today. Discussed with the resident and agree with the residents finding and plan as documented in the resident's note. Changes highlighted in blue font. Objective - Vital Signs Vital signs: Vital Signs Temp 98.5 F 11/08/24 10:17 Pulse 109 H 11/08/24 10:17 Resp 20 11/08/24 10:17 BP 103/64 11/08/24 10:17 Pulse Ox 95 11/08/24 10:17 FiO2 Intake & Output 11/07/24 11/08/24 11/08/24 18:59 06:59 18:59 Intake Total 2040 300 Output Total 425 500 200 Balance 1615 -500 100 Weight 75 kg Intake: Intake, IV Titration 1000 300 Amount Magnesium Sulfate-D5w Pmx 200 1 gm In Dextrose/Water 1 100ml.bag @ 100 mls/hr IVPB Q1H [facility]–1983 Rx#: [id number] Piperacillin-Tazobactam 3 100 100 .375 gm In Sodium Chloride 0.9% 100 ml @ 25 mls/hr IVPB Q8H [facility] Rx#: [id number] Sodium Chloride 0.9% 1, 650 000 ml @ 130 mls/hr IV . Q7H42M [facility] Rx#:[id number] Vancomycin 1,250 mg In 250 Sodium Chloride 0.9% 250 ml @ 125 mls/hr IVPB Q16H [facility] Rx#:[id number] Oral 1040 0 Output: Urine 425 500 200 Other: Voiding Method Bedside Commode Bedside Commode Bedside Commode Urinal Urinal Urinal Diaper Diaper Diaper # Voids 1 # Bowel Movements 1 - Labs CBC & Chem 7: 11/08/24 06:36 11/08/24 06:36 Labs: Abnormal Lab Results - Last 24 Hours (Table) 11/08/24 11/08/24 Range/Units 06:36 06:36 RBC 2.92 L (4.40-5.60) 10*6/uL Hgb 8.0 L (13.0-17.0) g/dL Hct 24.7 L (39.6-50.0) % Immature Gran # 0.24 H (0.00-0.04) 10*3/uL Lymphocytes # 0.53 L (0.90-5.00) 10*3/uL Eosinophils # 0.00 L (0.04-0.35) 10*3/uL Sodium 132 L (137-145) mmol/L Carbon Dioxide 20 L (22-30) mmol/L Glucose 60 L (74-99) mg/dL Magnesium 1.4 L (1.6-2.3) mg/dL Total Bilirubin 1.4 H (0.2-1.3) mg/dL AST 139 H (17-59) U/L ALT 60 H (4-49) U/L Alkaline Phosphatase 419 H (38-126) U/L Total Protein 4.8 L (6.3-8.2) g/dL Albumin 2.7 L (3.5-5.0) g/dL Microbiology - Last 24 Hours (Table) 11/07/24 00:09 Nasal Screen MRSA/MSSA - Final Nasal Swab 11/05/24 22:39 Blood Culture - Preliminary Blood
[2024-11-08 16:11] LABS: Glucose,Whole Blood 74 mg/dL (70-110)
[2024-11-08 20:10] LABS: Glucose,Whole Blood 95 mg/dL (70-110)
[2024-11-09 05:57] LABS: Glucose,Whole Blood 83 mg/dL (70-110)
[2024-11-09] MEDS: VANCOMYCIN TROUGH DUE 1 EACH MISC MISCELLANE ONE (07:20)
[2024-11-09 07:42] LABS: Basophils # (A) 0.07 10*3/uL (0.00-0.10); Basophils % (A) 0.5 %; Eosinophils # (A) 0.01 10*3/uL (0.04-0.35); Eosinophils % (A) 0.1 %; HCT 25.5 % (39.6-50.0); HGB 8.4 g/dL (13.0-17.0); Lymphocytes # (A) 0.88 10*3/uL (0.90-5.00); Lymphocytes % (A) 6.3 %; MCH 27.5 pg (27.0-32.0); MCHC 32.9 g/dL (32.0-37.0); MCV 83.3 fL (80.0-97.0); Monocytes # (A) 0.85 10*3/uL (0.20-1.00); Monocytes % (A) 6.1 %; Neutrophils # (A) 11.04 10*3/uL (1.80-7.70); Neutrophils % (A) 79.2 %; Platelet Count 167 10*3/uL (140-440); RBC 3.06 10*6/uL (4.40-5.60); RDW 20.6 % (11.5-14.5); WBC 13.94 10*3/uL (4.50-10.00)
[2024-11-09 08:18] LABS: ALT 61 U/L (4-49); AST 151 U/L (17-59); African American GFR (CKD) 87 (>60 ml/min/1.73 sqM); Albumin 2.6 g/dL (3.5-5.0); Alkaline Phosphatase 510 U/L (38-126); Anion Gap 7 mmol/L; Blood Urea Nitrogen 16 mg/dL (9-20); Calcium 9.6 mg/dL (8.4-10.2); Carbon Dioxide 22 mmol/L (22-30); Chloride 101 mmol/L (98-107); Glucose 76 mg/dL (74-99); Magnesium 1.8 mg/dL (1.6-2.3); Non-African American GFR(CKD) 76 (>60 ml/min/1.73 sqM); Potassium 4.5 mmol/L (3.5-5.1); Sodium 130 mmol/L (137-145); Total Protein 4.8 g/dL (6.3-8.2)
[2024-11-09 11:27] LABS: Glucose,Whole Blood 109 mg/dL (70-110)
--- NOTE | 2024-11-09 11:32 | P.PN ---
Subjective Progress Note Date: 11/09/24 Subjective: Patient seen and examined at bedside. No acute events overnight. Denies any new complaints. Pertinent positives and negatives as discussed above, a complete review of systems was performed and all other systems are negative. Vitals Signs Reviewed. General: Nontoxic, no distress, appears at stated age Derm: Warm, dry Head: Atraumatic, normocephalic, symmetric Eyes: EOMI, no lid lag, anicteric sclera Mouth: No lip lesion, mucus membranes moist Cardiovascular: S1S2 reg, no murmur Lungs: CTA bilateral, no rhonchi, no rales, no accessory muscle use Abdominal: Soft, nontender to palpation, no guarding, no appreciable organomegaly Ext: No gross muscle atrophy, no edema, no contractures Neuro: CN II-XI grossly intact, no focal neuro deficits Psych: Alert, oriented, appropriate affect Data Reviewed Today: Pertinent Labs: WBC 13.94, hemoglobin 8.4, platelet 167, sodium 130, creatinine 0.97, bicarb 22, total bili 1.2, AST 151, ALT 61, ALP 510, magnesium 1.8, AFP within normal limits Imaging: No new imaging Assessment and Plan: Active: Febrile neutropenia Neutropenic sepsis Hodgkin's lymphoma on chemo Normocytic anemia, stable - MSSA screen negative, discontinue vancomycin - Okay to continue Zosyn 3.375 g IV every 8 hours - Blood cultures still negative growth to date - Oncology following, will gastrum discontinued Liver cirrhosis? Possible hepatocellular carcinoma Transaminitis - MRI with contrast pending Hyponatremia, euvolemic - Continue to monitor Resolved: Dehydration Lactic acidosis Hypomagnesemia Chronic: Recent CVA CAD Dyslipidemia Depression/anxiety GERD DVT ppx: Lovenox Code status: Full code Anticipated discharge place: Pending clinical course pending clinical course Anticipated discharge time: Objective - Vital Signs Vital signs: Vital Signs Temp 99.6 F 11/09/24 09:06 Pulse 106 H 11/09/24 09:06 Resp 18 11/09/24 09:06 BP 97/55 11/09/24 09:06 Pulse Ox 94 L 11/09/24 09:06 FiO2 Intake & Output 11/08/24 11/09/24 11/09/24 18:59 06:59 18:59 Intake Total 400 220 Output Total 200 250 Balance 200 -250 220 Weight 75 kg Intake: Intake, IV Titration 300 100 Amount Magnesium Sulfate-D5w Pmx 200 1 gm In Dextrose/Water 1 100ml.bag @ 100 mls/hr IVPB Q1H [facility] Rx#: [id number] Piperacillin-Tazobactam 3 100 100 .375 gm In Sodium Chloride 0.9% 100 ml @ 25 mls/hr IVPB Q8H [facility] Rx#: [id number] Oral 100 120 Output: Urine 200 250 Other: Voiding Method Bedside Commode Bedside Commode Bedside Commode Urinal Urinal Urinal Diaper Diaper Diaper External Catheter External Catheter # Voids 1 1 - Labs CBC & Chem 7: 11/09/24 07:12 11/09/24 07:12 Labs: Abnormal Lab Results - Last 24 Hours (Table) 11/09/24 11/09/24 Range/Units 07:12 07:12 WBC 13.94 H (4.50-10.00) 10*3/uL RBC 3.06 L (4.40-5.60) 10*6/uL Hgb 8.4 L (13.0-17.0) g/dL Hct 25.5 L (39.6-50.0) % Immature Gran # 1.09 H (0.00-0.04) 10*3/uL Neutrophils # 11.04 H (1.80-7.70) 10*3/uL Lymphocytes # 0.88 L (0.90-5.00) 10*3/uL Eosinophils # 0.01 L (0.04-0.35) 10*3/uL Sodium 130 L (137-145) mmol/L AST 151 H (17-59) U/L ALT 61 H (4-49) U/L Alkaline Phosphatase 510 H (38-126) U/L Total Protein 4.8 L (6.3-8.2) g/dL Albumin 2.6 L (3.5-5.0) g/dL Microbiology - Last 24 Hours (Table) 11/05/24 22:39 Blood Culture - Preliminary Blood 11/07/24 00:09 Nasal Screen MRSA/MSSA - Final Nasal Swab
[2024-11-09] MEDS ORDERED: VANCOMYCIN 1,500 MG in SODIUM CHLORIDE 0.9% 500 ML 500 ML IVPB SCH (14:00)
[2024-11-09 16:31] LABS: Glucose,Whole Blood 95 mg/dL (70-110)
[2024-11-09 20:05] LABS: Glucose,Whole Blood 116 mg/dL (70-110)
[2024-11-10 06:04] LABS: Glucose,Whole Blood 88 mg/dL (70-110)
[2024-11-10 07:33] LABS: HCT 24.8 % (39.6-50.0); HGB 8.4 g/dL (13.0-17.0); MCH 28.4 pg (27.0-32.0); MCHC 33.9 g/dL (32.0-37.0); MCV 83.8 fL (80.0-97.0); Platelet Count 138 10*3/uL (140-440); RBC 2.96 10*6/uL (4.40-5.60); RDW 20.6 % (11.5-14.5); WBC 10.55 10*3/uL (4.50-10.00)
[2024-11-10 07:35] LABS: ALT 66 U/L (4-49); AST 170 U/L (17-59); African American GFR (CKD) >90 (>60 ml/min/1.73 sqM); Albumin 2.7 g/dL (3.5-5.0); Alkaline Phosphatase 632 U/L (38-126); Anion Gap 8 mmol/L; Blood Urea Nitrogen 14 mg/dL (9-20); Calcium 9.3 mg/dL (8.4-10.2); Carbon Dioxide 23 mmol/L (22-30); Chloride 99 mmol/L (98-107); Glucose 82 mg/dL (74-99); Non-African American GFR(CKD) 78 (>60 ml/min/1.73 sqM); Potassium 4.3 mmol/L (3.5-5.1); Sodium 130 mmol/L (137-145); Total Protein 4.8 g/dL (6.3-8.2)
[2024-11-10 09:16] LABS: Lymphocytes # (M) 0.21 k/uL (1.0-4.8); Metamyelocytes # (M) 0.32 k/uL (0); Monocytes # (M) 0.74 k/uL (0-1.0); Myelocytes # (M) 0.11 k/uL (0); Neutrophils # (M) 9.28 k/uL (1.3-7.7); Neutrophils % (M) 87 %; Total Cells Counted 200
[2024-11-10 09:17] LABS: Anisocytosis (M) Present; Poikilocytosis (M) Present
[2024-11-10 11:46] LABS: Glucose,Whole Blood 99 mg/dL (70-110)
--- NOTE | 2024-11-10 13:25 | MR ---
EXAMINATION TYPE: MR liver wo/w con DATE OF EXAM: 11/10/2024 12:58 PM INDICATION: Patient age:Male; 78 years old; Reason for study: Elevated liver enzymes, possible malignancy; PHH. COMPARISON: Abdominal ultrasound 11/06/2024, CT chest 03/26/2024 TECHNIQUE: Multiplanar multi-sequence imaging was performed without and with IV contrast. The patie nt was given 7.5 ccs of Gadobutrol intravenously and dynamic imaging was performed. Post IV contrast subtraction images were also submitted for review. FINDINGS: Motion degraded examination. LOWER CHEST: Small bilateral pleural effusions with right greater than left and associated atelectasi s.Mild bilateral gynecomastia. Redemonstration of partially visualized enlarged posterior mediastinal mass measuring 10.2 x 5.6 cm. Previously measured 9.2 x 3.7 cm. ABDOMEN Liver: No overt surface nodularity of the liver. The liver is at the top of the normal size measuring 17.8 cm in CC dimension. Innumerable T1 hypointense/T2 hyperintense bilobar hepatic lesions. Largest within the right hepatic lobe measures up to 2.9 cm. Largest within the inferior left hepatic lobe m easures up to 6.9 cm. These lesions demonstrate restricted diffusion with delayed enhancement. No dis tinct fatty infiltration. Portal venous system appears patent. Gallbladder and Bile ducts: Gallbladder is surgically absent. No biliary ductal dilatation.. Pancreas: Unremarkable. Spleen: Mildly enlarged measuring 14.2 cm in CC dimension. Adrenal glands: Unremarkable. Kidneys: No hydronephrosis. Multiple bilateral thin-walled T2 hyperintense renal cysts. Largest withi n the left kidney measures up to 2.8 cm. Largest within the right kidney measures up to 2.3 cm. No fo llow-up recommended. Stomach and Bowel: Unremarkable as visualized. Peritoneum: No evidence of pneumoperitoneum. Small volume ascites within the abdomen. Enlarged left periaortic lymph nodes measuring up to 1.7 cm short axis. Vasculature: Unremarkable. No aortic aneurysm. Abdominal wall: Diffuse anasarca. Musculoskeletal: The osseous structures appear intact. Degenerative changes of the visualized thoraco lumbar spine most pronounced at L1-L2. There are a few scattered enhancing osseous foci with largest in the T11 or T1 body measured 1.5 cm. Paraspinal soft tissue enhancing lesions along the right aspec t of the L2 vertebral body and left aspect of the T11 vertebral body. IMPRESSION: 1. Innumerable bilobar hepatic lesions most consistent with metastasis. Largest is within the left h epatic lobe measuring up to 6.9 cm. Overall no overt cirrhotic appearance of the liver. 2. Enhancing vertebral osseous lesions and paravertebral SOFT tissue lesions favored to represent me tastasis. This can be further evaluated with nuclear medicine bone scan versus PET scan as clinically indicated. 3. Left periaortic mildly enlarged lymph nodes concerning for metastasis. This can be further evalua oleksandr with PET/CT. 4. Redemonstration of large posterior mediastinal mass which appears slightly larger from prior CT c hest 04/06/2024. This is concerning for malignancy/metastasis again. 5. Mild splenomegaly. 6. Small volume ascites. 7. Small bilateral pleural effusions with right greater than left. [facility], , 11/10/2024 1:22 PM
--- NOTE | 2024-11-10 14:54 | P.PN ---
Subjective Progress Note Date: 11/10/24 Hospital Course: Patient is a 78-year-old male with PMHx of CAD, Hodgkins Lymphoma, GERD, GI bleed, HLD, [place], and CVA/TIA presenting to the emergency department with general weakness. He says the patient has had weakness since last night and is no longer able to get up or walk on his own. He uses a walker at baseline. He has a port in R shoulder and last received chemotherapy around 1 week ago. He endorses some confusion, sore throat, and 25lb weight loss in past 12 months. Labs on admission were lactic acid 6.0 on admission, WBC 0.6, hgb 7.9, Na 134, BUN 34, Cr 1.25, AST 148, ALT 154. CXR shows mild pulmonary vascular congestion with no acute cardiopulmonary process. US of abdomen shows possible hepatic cirrhosis with some new cystic lesions, 2.9 cm right hepatic lobe lesion with some internal echogenicity that raises concern for possible hepatocelluar carcinoma versus other etiologies. Oncology consulted and started filgastim and recommended obtaining the MRI abdomen with contrast. MRI abdomen obtained and shows innumerable hepatic lesions most consistent with metastasis, largest within left hepatic lobe measuring 6.9 cm. No overt cirrhotic appearance of the liver vertebral osseous lesions and paravertebral soft tissue lesions favored to be metastasis, can be further evaluated with nuclear medicine bone scan versus PET scan. Left periaortic mildly enlarged lymph nodes concerning for metastasis. Read demonstration of large posterior mediastinal mass which appears slightly larger from prior CT chest on 04/06/2024. Mild splenomegaly small volume ascites and small bilateral pleural effusions with right greater than left. Subjective: Patient seen and examined at bedside. No acute events overnight. Pt has no complaints this morning and states his weakness is slowly improving. He denies chest pain, SOB, fevers, chills, nausea, vomiting. Pertinent positives and negatives as discussed above, a complete review of systems was performed and all other systems are negative. Vitals: Signs Reviewed Physical Exam: General: nontoxic, no distress, appears at stated age Derm: warm, dry, intact Head: atraumatic, normocephalic, symmetric Eyes: EOMI, anicteric sclera Mouth: no lip lesion, mucus membranes moist Cardiovascular: S1 S2 reg, no murmur, rubs, or gallops Lungs: CTA bilateral, no rhonchi, no rales, no accessory muscle use Abdominal: soft, non-tender to palpation, no appreciable organomegaly Extremities: no gross muscle atrophy, 1+ pitting edema bilaterally Neuro: Alert, Oriented only to self, CNII-XII grossly intact, gait normal Psych: well appearing, appropriate affect Data Received Today: Pertinent Labs: WBC 10.55, hemoglobin 8.4, platelets 138, sodium 130, BUN 14, creatinine 0.94, bicarb 23, total bili 1.5, AST 170, ALT 66, ALP 632, TSH 2.29 Imaging: MRI abdomen: Innumerable hepatic lesions most consistent with metastasis, largest within left hepatic lobe measuring 6.9 cm. No overt cirrhotic appearance of the liver vertebral osseous lesions and paravertebral soft tissue lesions favored to be metastasis, can be further evaluated with nuclear medicine bone scan versus PET scan. Left periaortic mildly enlarged lymph nodes concerning for metastasis. Read demonstration of large posterior mediastinal mass which appears slightly larger from prior CT chest on 04/06/2024. Mild splenomegaly small volume ascites and small bilateral pleural effusions with right greater than left. Assessment and Plan: Active: Febrile neutropenia Neutropenic sepsis Hodgkin's lymphoma on chemo Normocytic anemia, stable - Continue Zosyn 3.375 g IV every 8 hours until course is completed for 7 days - Blood cultures still negative growth to date - Oncology following, recs appreciated - TSH ordered, and found to be unremarkable Cirrhosis less likely Metastasis to liver Transaminitis - MRI abdomen with contrast shows signs of metastasis in the liver, and potentially in the vertebral loss osseous and paravertebral soft tissue. Mild splenomegaly, small volume ascites and small bilateral pleural effusions with right greater than left. - Oncology following, recs appreciated Hyponatremia, euvolemic - Continue to monitor - Urine studies ordered Resolved: Dehydration Lactic acidosis Hypomagnesemia Chronic: Recent CVA CAD Dyslipidemia Depression/anxiety GERD DVT ppx: Lovenox Code status: Full code Anticipated discharge place: Subacute rehab Anticipated discharge time: Pending clinical course Michaela Berger DO PGY-1 IM Dictation was produced using [employer] dictation software. please excuse any grammatical, word or spelling errors. I have seen and evaluated the patient today. Discussed with the resident and agree with the residents finding and plan as documented in the resident's note. Changes highlighted in blue font. Objective - Vital Signs Vital signs: Vital Signs Temp 99.5 F 11/10/24 13:20 Pulse 104 H 11/10/24 13:20 Resp 15 11/10/24 13:20 BP 114/72 11/10/24 13:20 Pulse Ox 94 L 11/10/24 13:20 FiO2 Intake & Output 11/09/24 11/10/24 11/10/24 18:59 06:59 18:59 Intake Total 508 225 Output Total 250 400 200 Balance 258 -400 25 Weight 78 kg Intake: IV 8 Invasive Line 1 8 Intake, IV Titration 100 Amount Piperacillin-Tazobactam 3 100 .375 gm In Sodium Chloride 0.9% 100 ml @ 25 mls/hr IVPB Q8H [facility] Rx#: [id number] Oral 400 225 Output: Urine 250 400 200 Other: Voiding Method Bedside Commode Bedside Commode Bedside Commode Urinal Urinal Urinal Diaper Diaper Diaper External Catheter External Catheter External Catheter # Voids 1 2 # Bowel Movements 1 - Labs CBC & Chem 7: 11/10/24 06:54 11/10/24 06:54 Labs: Abnormal Lab Results - Last 24 Hours (Table) 11/05/24 11/09/24 11/10/24 Range/Units 17:42 20:04 06:54 WBC 0.67 L* (4.50-10.00) 10*3/uL RBC 2.74 L (4.40-5.60) 10*6/uL Hgb 7.9 L D (13.0-17.0) g/dL Hct 23.1 L (39.6-50.0) % Plt Count (140-440) 10*3/uL Immature Gran # (0.00-0.04) 10*3/uL Neutrophils # (Manual) (1.3-7.7) k/uL Lymphocytes # (Manual) (1.0-4.8) k/uL Metamyelocytes # (Man) (0) k/uL Myelocytes # (Manual) (0) k/uL Nucleated RBCs (0-0) /100 WBC Sodium 130 L (137-145) mmol/L POC Glucose (mg/dL) 116 H (70-110) mg/dL Total Bilirubin 1.5 H (0.2-1.3) mg/dL AST 170 H (17-59) U/L ALT 66 H (4-49) U/L Alkaline Phosphatase 632 H (38-126) U/L Total Protein 4.8 L (6.3-8.2) g/dL Albumin 2.7 L (3.5-5.0) g/dL /11/28 Range/Units 06:54 WBC 10.55 H (4.50-10.00) 10*3/uL RBC 2.96 L (4.40-5.60) 10*6/uL Hgb 8.4 L (13.0-17.0) g/dL Hct 24.8 L (39.6-50.0) % Plt Count 138 L (140-440) 10*3/uL Immature Gran # 1.06 H (0.00-0.04) 10*3/uL Neutrophils # (Manual) 9.28 H (1.3-7.7) k/uL Lymphocytes # (Manual) 0.21 L (1.0-4.8) k/uL Metamyelocytes # (Man) 0.32 H (0) k/uL Myelocytes # (Manual) 0.11 H (0) k/uL Nucleated RBCs 1 H (0-0) /100 WBC Sodium (137-145) mmol/L POC Glucose (mg/dL) (70-110) mg/dL Total Bilirubin (0.2-1.3) mg/dL AST (17-59) U/L ALT (4-49) U/L Alkaline Phosphatase (38-126) U/L Total Protein (6.3-8.2) g/dL Albumin (3.5-5.0) g/dL
[2024-11-10 15:16] VITALS: BMI 24.0
[2024-11-10 16:25] LABS: Glucose,Whole Blood 95 mg/dL (70-110)
--- NOTE | 2024-11-10 17:40 | P.PN ---
Subjective Progress Note Date: 11/10/24 No acute events overnight. Liver MRI obtained this morning. Hgb stable at 8.4. WBC now normal s/p G-CSF. Pt febrile, continues on IV abx Objective - Vital Signs Vital signs: Vital Signs Temp 99.3 F 11/10/24 08:47 Pulse 103 H 11/10/24 08:47 Resp 24 11/10/24 08:47 BP 117/69 11/10/24 08:47 Pulse Ox 92 L 11/10/24 08:47 FiO2 Intake & Output 11/09/24 11/10/24 11/10/24 18:59 06:59 18:59 Intake Total 508 180 Output Total 250 400 200 Balance 258 -400 -20 Weight 78 kg Intake: IV 8 Invasive Line 1 8 Intake, IV Titration 100 Amount Piperacillin-Tazobactam 3 100 .375 gm In Sodium Chloride 0.9% 100 ml @ 25 mls/hr IVPB Q8H [facility] Rx#: [id number] Oral 400 180 Output: Urine 250 400 200 Other: Voiding Method Bedside Commode Bedside Commode Urinal Urinal Diaper Diaper External Catheter External Catheter # Voids 1 2 # Bowel Movements 1 - Constitutional General appearance: Present: average body habitus, no acute distress - EENT Eyes: Present: anicteric sclerae ENT: Present: hearing grossly normal - Respiratory Details: breathing is even and unlabored - Cardiovascular Details: skin warm and dry - Gastrointestinal General gastrointestinal: Present: soft. Absent: tenderness - Integumentary Integumentary: Absent: cyanotic - Musculoskeletal Musculoskeletal: Present: generalized weakness - Psychiatric Psychiatric: Present: A&O x's 3 - Labs CBC & Chem 7: 11/11/24 07:37 11/10/24 06:54 Labs: Abnormal Lab Results - Last 24 Hours (Table) 11/05/24 11/09/24 11/10/24 Range/Units 17:42 20:04 06:54 WBC 0.67 L* (4.50-10.00) 10*3/uL RBC 2.74 L (4.40-5.60) 10*6/uL Hgb 7.9 L D (13.0-17.0) g/dL Hct 23.1 L (39.6-50.0) % Plt Count (140-440) 10*3/uL Immature Gran # (0.00-0.04) 10*3/uL Neutrophils # (Manual) (1.3-7.7) k/uL Lymphocytes # (Manual) (1.0-4.8) k/uL Metamyelocytes # (Man) (0) k/uL Myelocytes # (Manual) (0) k/uL Nucleated RBCs (0-0) /100 WBC Sodium 130 L (137-145) mmol/L POC Glucose (mg/dL) 116 H (70-110) mg/dL Total Bilirubin 1.5 H (0.2-1.3) mg/dL AST 170 H (17-59) U/L ALT 66 H (4-49) U/L Alkaline Phosphatase 632 H (38-126) U/L Total Protein 4.8 L (6.3-8.2) g/dL Albumin 2.7 L (3.5-5.0) g/dL /11/28 Range/Units 06:54 WBC 10.55 H (4.50-10.00) 10*3/uL RBC 2.96 L (4.40-5.60) 10*6/uL Hgb 8.4 L (13.0-17.0) g/dL Hct 24.8 L (39.6-50.0) % Plt Count 138 L (140-440) 10*3/uL Immature Gran # 1.06 H (0.00-0.04) 10*3/uL Neutrophils # (Manual) 9.28 H (1.3-7.7) k/uL Lymphocytes # (Manual) 0.21 L (1.0-4.8) k/uL Metamyelocytes # (Man) 0.32 H (0) k/uL Myelocytes # (Manual) 0.11 H (0) k/uL Nucleated RBCs 1 H (0-0) /100 WBC Sodium (137-145) mmol/L POC Glucose (mg/dL) (70-110) mg/dL Total Bilirubin (0.2-1.3) mg/dL AST (17-59) U/L ALT (4-49) U/L Alkaline Phosphatase (38-126) U/L Total Protein (6.3-8.2) g/dL Albumin (3.5-5.0) g/dL Assessment and Plan (1) Abnormal liver diagnostic imaging Current Visit: Yes Status: Acute Code(s): R93.2 - ABNORMAL FINDINGS ON DX IMAGING OF LIVER AND BILIARY TRACT SNOMED Code(s): 309439688 (2) Dehydration Current Visit: Yes Status: Acute Code(s): E86.0 - DEHYDRATION SNOMED Code(s): 71338649 (3) Anemia Current Visit: No Status: Acute Code(s): D64.9 - ANEMIA, UNSPECIFIED SNOMED Code(s): 230329775 (4) Elevated LFTs Current Visit: Yes Status: Acute Priority: High Code(s): R79.89 - OTHER SPECIFIED ABNORMAL FINDINGS OF BLOOD CHEMISTRY SNOMED Code(s): 460972350 (5) Hodgkins lymphoma Current Visit: No Status: Acute Priority: High Code(s): C81.90 - HODGKIN LYMPHOMA, UNSPECIFIED, UNSPECIFIED SITE SNOMED Code(s): 324241151 Plan: Febrile Neutropenia: The patient did not have any fever at the time of presentation, but did spike a temperature of 101.3 on the evening of 11/06/2024. He does not have any obvious source of infection. However as he remained neutropenic, with total WBC 0.8- 0.9, he was started on G-CSF. Continues on broad-spectrum antibiotics. Blood culture negative Neutropenia now resolved. G-CSF d/c Anemia: Due to chemotherapy effect. Hemoglobin is stable in the 8 range. Continue to monitor. Transfuse to keep hemoglobin greater than 7. Abnormal liver imaging, transaminitis: The patient's ultrasound shows possible cirrhotic morphology. There are at least 2 liver lesions seen, 1 of which is felt to be likely a simple cyst while the other is felt to be potentially more suspicious for a mass lesion. The patient and his family deny any prior history of chronic liver disease, or risk factor for the same. Patient's prior liver imaging with CT and ultrasound, in 03/30 had shown at least some degree of hepatic steatosis. -The ultrasound results were discussed with the patient and his family. He was advised that at this time the finding of the hypoechoic lesions is nonspecific. Will obtain liver MRI to evaluate further -MRI liver resulted after todays visit, showing bilobular hepatic lesions most consistent with metastases. Largest is within the left hepatic lobe measuring up to 6.9 cm. Overall no overt cirrhotic appearance of the liver was noted. Enhancing vertebral osseous lesions and paravertebral soft tissue lesions. - Will need to obtain liver biopsy to r/o new primary vs known Hodgkins lymphoma. Pt is on aspirin and plavix, which will need to held for biopsy. We will schedule biopsy outpt next with IR dept
[2024-11-10 20:08] LABS: Glucose,Whole Blood 109 mg/dL (70-110)
[2024-11-11 05:37] LABS: Glucose,Whole Blood 88 mg/dL (70-110)
[2024-11-11 08:16] LABS: Basophils # (A) 0.04 10*3/uL (0.00-0.10); Basophils % (A) 0.5 %; Eosinophils # (A) 0.00 10*3/uL (0.04-0.35); Eosinophils % (A) 0.0 %; HCT 27.2 % (39.6-50.0); HGB 9.2 g/dL (13.0-17.0); Lymphocytes # (A) 0.69 10*3/uL (0.90-5.00); Lymphocytes % (A) 8.3 %; MCH 28.2 pg (27.0-32.0); MCHC 33.8 g/dL (32.0-37.0); MCV 83.4 fL (80.0-97.0); Monocytes # (A) 0.97 10*3/uL (0.20-1.00); Monocytes % (A) 11.7 %; Neutrophils # (A) 5.72 10*3/uL (1.80-7.70); Neutrophils % (A) 69.0 %; Platelet Count 119 10*3/uL (140-440); RBC 3.26 10*6/uL (4.40-5.60); RDW 20.8 % (11.5-14.5); WBC 8.29 10*3/uL (4.50-10.00)
[2024-11-11 08:39] LABS: ALT 75 U/L (4-49); AST 201 U/L (17-59); African American GFR (CKD) >90 (>60 ml/min/1.73 sqM); Albumin 2.9 g/dL (3.5-5.0); Alkaline Phosphatase 855 U/L (38-126); Anion Gap 10 mmol/L; Blood Urea Nitrogen 16 mg/dL (9-20); Calcium 9.7 mg/dL (8.4-10.2); Carbon Dioxide 24 mmol/L (22-30); Chloride 97 mmol/L (98-107); Glucose 76 mg/dL (74-99); Non-African American GFR(CKD) 78 (>60 ml/min/1.73 sqM); Potassium 4.5 mmol/L (3.5-5.1); Sodium 131 mmol/L (137-145); Total Protein 5.1 g/dL (6.3-8.2)
[2024-11-11 11:35] LABS: Glucose,Whole Blood 112 mg/dL (70-110)
--- NOTE | 2024-11-11 13:24 | P.DS ---
Providers Date of admission: 11/06/24 14:47 Expected date of discharge: 11/11/24 Attending physician: Cory Booth MD Consults: 11/05/24 20:02 Consult Physician Routine Consulting Provider: Ganesh Knight Consult Reason/Comments: oncological Do you want consulting provider notified?: Yes Primary care physician: Stated None Hospital Course: Discharge Diagnosis: Febrile neutropenia Neutropenic sepsis Hodgkin's lymphoma on chemo Normocytic anemia, stable Transaminitis Metastasis to liver Cirrhosis less likely Hyponatremia, euvolemic Dehydration - resolved Lactic acidosis - resolved Hypomagnesemia - resolved Recent CVA CAD Dyslipidemia Depression/anxiety GERD Hospital Course: Patient is a 78-year-old male with PMHx of CAD, Hodgkins Lymphoma, GERD, GI ble ed, HLD, [place], and CVA/TIA presenting to the emergency department with general weakness. He says the patient has had weakness since last night and is no longer able to get up or walk on his own. He uses a walker at baseline. He has a port in R shoulder and last received chemotherapy around 1 week ago. He endorses some confusion, sore throat, and 25lb weight loss in past 12 months. Labs on admission were lactic acid 6.0 on admission, WBC 0.6, hgb 7.9, Na 134, BUN 34, Cr 1.25, AST 148, ALT 154. In the ED, pt received fluids and repeat lactic acid stabilized. Pt was admitted to the medical inpatient team for further evaluation. Respiratory was panel negative. CXR shows mild pulmonary vascular congestion with no acute cardiopulmonary process. US of abdomen shows possible hepatic cirrhosis with some new cystic lesions, 2.9 cm right hepatic lobe lesion with some internal echogenicity that raises concern for possible hepatocelluar carcinoma versus other etiologies. Hepatitis panel nonreactive. oncology consulted and started filgrastim and recommended obtaining the MRI abdomen with contrast. Filgastim was later discontinued once absolute neutrophile count reached a safe range. MRI abdomen obtained and shows innumerable hepatic lesions most consisOent with metastasis, largest within left hepatic lobe measuring 6.9 cm. No overt cirrhotic appearance of the liver vertebral osseous lesions and paravertebral soft tissue lesions favored to be metastasis, can be further evaluated with nuclear medicine bone scan versus PET scan. Left periaortic mildly enlarged lymph nodes concerning for metastasis. Redemonstration of large posterior mediastinal mass which appears slightly larger from prior CT chest on 04/06/2024. Mild splenomegaly small volume ascites and small bilateral pleural effusions with right greater than left. Pt was informed of results. Oncology, would like to obtain a liver biopsy to rule out a primary cancer versus Hodgkin's lymphoma, however patient and family will make a decision regarding this at a later time. Pt also found to have euvolemic hyponatremia indicated by urine studies and likely SIADH or adrenal insufficiency and continue to monitor oral intake and output. On discharge patient is hemodynamically stable, WBC 8.29, hemoglobin 9.2. Patient to continue ciprofloxacin for 2 more days for total of 7 days of antibiotics. Patient also to continue MiraLAX and lidocaine viscous. [facility] Patient to follow- up with PCP in 1-2 days and oncology in 1 week. Patient seen and examined at bedside. Patient is stable and has no complaints this morning. Vital signs reviewed and stable. Physical examination: Vital signs reviewed General: no distress, appears at stated age, normal weight Derm: no unusual rashes/lesions, warm Head: atraumatic, normocephalic, symmetric Eyes: EOMI, anicteric sclera, pupils equal round reactive to light ENT: Nose and ears atraumatic Mouth: no lip lesion, mucus membranes moist Cardiovascular: S1S2 reg, no murmur, positive dorsalis pedis pulse bilateral, no edema Lungs: CTA bilateral, no rhonchi, no rales, no accessory muscle use Abdominal: soft, nontender to palpation, no guarding Ext: muscle strength 5 out of 5 in all 4 extremities grossly, no gross muscle atrophy Neuro: CN II-XI grossly intact, no gross focal neuro deficits Psych: Alert, oriented to person, and time Michaela Berger DO PGY-1 IM Dictation was produced using [employer] dictation software. please excuse any grammatical, word or spelling errors. I have seen and evaluated the patient today. Discussed with the resident and agree with the residents finding and plan as documented in the resident's note. Changes highlighted in blue font. Patient will not be discharged today as family is discussing about hospice care and discharge home with hospice tomorrow. Please treat this discharge summary as today's progress note. Patient Condition at Discharge: Stable Plan - Discharge Summary Discharge Rx Participant: No New Discharge Prescriptions: New Ciprofloxacin HCl [Cipro] 750 mg PO Q12H 2 Days #4 tab polyethylene glycoL 3350 [Miralax] 17 gm PO DAILY packet Lidocaine Viscous 2% [Xylocaine Viscous] 30 ml PO TID ml Continue ARIPiprazole [Abilify] 5 mg PO HS Magnesium Oxide [Mag-Ox] 400 mg PO BID #60 tab Pantoprazole [Protonix] 40 mg PO DAILY Ondansetron Odt [Zofran ODT] 8 mg PO Q8HR PRN PRN Reason: Nausea Aspirin 81 mg PO DAILY #30 tab Midodrine [ProAmatine] 5 mg PO TID Venlafaxine HCl [Effexor XR] 150 mg PO HS Atorvastatin [Lipitor] 40 mg PO HS #30 tab Clopidogrel [Plavix] 75 mg PO DAILY #21 tab Discharge Medication List ARIPiprazole [Abilify] 5 mg PO HS 03/12/24 [History] Venlafaxine HCl [Effexor XR] 150 mg PO HS 03/12/24 [History] Magnesium Oxide [Mag-Ox] 400 mg PO BID #60 tab 03/17/24 [Rx] Ondansetron Odt [Zofran ODT] 8 mg PO Q8HR PRN 09/11/24 [History] Pantoprazole [Protonix] 40 mg PO DAILY 09/11/24 [History] Aspirin 81 mg PO DAILY #30 tab 09/14/24 [Rx] Atorvastatin [Lipitor] 40 mg PO HS #30 tab 09/14/24 [Rx] Clopidogrel [Plavix] 75 mg PO DAILY #21 tab 09/14/24 [Rx] Midodrine [ProAmatine] 5 mg PO TID 11/06/24 [History] Ciprofloxacin HCl [Cipro] 750 mg PO Q12H 2 Days #4 tab 11/11/24 [Rx] Lidocaine Viscous 2% [Xylocaine Viscous] 30 ml PO TID ml 11/11/24 [Rx] polyethylene glycoL 3350 [Miralax] 17 gm PO DAILY packet 11/11/24 [Rx] Follow up Appointment(s)/Referral(s): Ganesh Knight [STAFF PHYSICIAN] - 1 Week Hospice,[facility] [REFERRING] - 1 Week Nonstaff,Physician [REFERRING] - 1-2 days Patient Instructions/Handouts: Neutropenia (DC) Activity/Diet/Wound Care/Special Instructions: Please see PCP and oncology. You will likely need liver biopsy outpatient. Discharge Disposition: TRANSFER TO SNF/ECF
[2024-11-11 16:19] LABS: Glucose,Whole Blood 103 mg/dL (70-110)
--- NOTE | 2024-11-11 18:07 | P.PN ---
Subjective Progress Note Date: 11/11/24 Principal diagnosis: weakness In f/u today pt has no acute c/o, no recent fevers, he is tolerating some oral intake, he is very weak. Objective - Vital Signs Vital signs: Vital Signs Temp 99.3 F 11/11/24 08:34 Pulse 106 H 11/11/24 15:34 Resp 15 11/11/24 15:34 BP 126/72 11/11/24 15:34 Pulse Ox 93 L 11/11/24 15:34 FiO2 Intake & Output 11/10/24 11/11/24 11/11/24 18:59 06:59 18:59 Intake Total 225 380 Output Total 550 820 100 Balance -325 -820 280 Weight 78 kg 79 kg Intake: Oral 225 380 Output: Urine 550 820 100 Other: Voiding Method Bedside Commode External Catheter External Catheter Urinal Diaper External Catheter # Bowel Movements 1 - Constitutional General appearance: Present: cooperative, no acute distress - EENT Eyes: Present: EOMI ENT: Present: hearing grossly normal - Respiratory Details: resp unlabored at rest - Integumentary Integumentary: Present: pale - Neurologic Neurologic: Present: CNII-XII intact (grossly ) - Musculoskeletal Musculoskeletal: Present: generalized weakness - Psychiatric Psychiatric: Present: A&O x's 3 (family reporting intermittent confusion), appropriate affect - Labs CBC & Chem 7: 11/11/24 07:37 11/11/24 07:37 Labs: Abnormal Lab Results - Last 24 Hours (Table) 11/11/24 11/11/24 11/11/24 Range/Units 07:37 07:37 11:33 RBC 3.26 L (4.40-5.60) 10*6/uL Hgb 9.2 L (13.0-17.0) g/dL Hct 27.2 L (39.6-50.0) % Plt Count 119 L (140-440) 10*3/uL Immature Gran # 0.87 H (0.00-0.04) 10*3/uL Lymphocytes # 0.69 L (0.90-5.00) 10*3/uL Eosinophils # 0.00 L (0.04-0.35) 10*3/uL Sodium 131 L (137-145) mmol/L Chloride 97 L (98-107) mmol/L POC Glucose (mg/dL) 112 H (70-110) mg/dL Total Bilirubin 2.0 H (0.2-1.3) mg/dL AST 201 H (17-59) U/L ALT 75 H (4-49) U/L Alkaline Phosphatase 855 H (38-126) U/L Total Protein 5.1 L (6.3-8.2) g/dL Albumin 2.9 L (3.5-5.0) g/dL Microbiology - Last 24 Hours (Table) 11/05/24 22:39 Blood Culture - Final Blood Assessment and Plan (1) Abnormal liver diagnostic imaging Current Visit: Yes Status: Acute Priority: High Code(s): R93.2 - ABNORMAL FINDINGS ON DX IMAGING OF LIVER AND BILIARY TRACT SNOMED Code(s): 079806910 (2) Antineoplastic chemotherapy induced pancytopenia Current Visit: Yes Status: Resolved Code(s): D61.810 - ANTINEOPLASTIC CHEMOTHERAPY INDUCED PANCYTOPENIA; T45.1X5A - ADVERSE EFFECT OF ANTINEOPLASTIC AND IMMUNOSUP DRUGS, INIT SNOMED Code(s): 896279328323012 (3) Weakness Current Visit: Yes Status: Acute Priority: High Code(s): R53.1 - WEAKNESS SNOMED Code(s): 91547846 (4) Hodgkins lymphoma Current Visit: Yes Status: Chronic Priority: High Code(s): C81.90 - HODGKIN LYMPHOMA, UNSPECIFIED, UNSPECIFIED SITE SNOMED Code(s): 262534275 Plan: Chemo induced pancytopenia,Febrile neutropenia -Pancytopenia has improved since admit. Hgb improved, plt count labile but in safe range. Pt has not needed a transfusion -GCSF given for neutropenia-resolved, GCSF discontinued -Pt treated with antibiotics, fever pattern abated. Abnormal liver imaging, transaminitis -US showed possible cirrhotic morphology. There are at least 2 liver lesions seen, 1 of which is felt to be likely a simple cyst while the other is felt to be potentially more suspicious for a mass lesion. The patient and his family deny any prior history of chronic liver disease, or risk factor for the same. Patient's prior liver imaging with CT and ultrasound, in 03/30 had shown at least some degree of hepatic steatosis. -Liver MRI to evaluate further showing bilobular hepatic lesions most consistent with metastases. Largest is within the left hepatic lobe measuring up to 6.9 cm. Overall no overt cirrhotic appearance of the liver was noted. Enhancing vertebral osseous lesions and paravertebral soft tissue lesions. - PET scan and liver biopsy were scheduledd outpt-PET on Thur and liver biopsy next week-to assess what is seen in MRI and to r/o new primary vs Hodgkins lymphoma. Family is struggling to decide what to do because of the findings on imaging and the pt is so very weak. They decided against PET and biopsy for now. They would like to f/u with Dr. De Guzman in the clinic after pt has had some time in rehab so, they can see if and how pt does. -Aspirin and plavix were held in anticipation of biopsy, will reorder. Hodgkin's disease -Pt had completed all but 1 day of treatment. -If above findings are due to refractory HD then other treatment options would be discussed, if pt wanted to pursue active treatment. As above, family would like to wait and see how he does with a few weeks off from appts and tests. They will be seen in clinic in about 2 weeks. Weakness -multifacotrial-disease, treatment, possible infection on admit -Rehab/PT/OT planned. Time with Patient: Greater than 30 (counseling and coordinating care)
[2024-11-11 20:12] LABS: Glucose,Whole Blood 100 mg/dL (70-110)
[2024-11-11 21:50] VITALS: RESP 17
[2024-11-12 06:18] LABS: Glucose,Whole Blood 98 mg/dL (70-110)
[2024-11-12 11:31] LABS: Glucose,Whole Blood 94 mg/dL (70-110)
--- NOTE | 2024-11-12 15:20 | P.DS ---
Providers Date of admission: 11/06/24 14:47 Expected date of discharge: 11/12/24 Attending physician: Cory Booth MD Consults: 11/05/24 20:02 Consult Physician Routine Consulting Provider: Ganesh Knight Consult Reason/Comments: oncological Do you want consulting provider notified?: Yes Primary care physician: Stated None Hospital Course: Discharge Diagnosis: Febrile neutropenia Neutropenic sepsis Hodgkin's lymphoma on chemo Normocytic anemia, stable Transaminitis Metastasis to liver Cirrhosis less likely Hyponatremia, euvolemic Dehydration - resolved Lactic acidosis - resolved Hypomagnesemia - resolved Recent CVA CAD Dyslipidemia Depression/anxiety GERD Hospital Course: Patient is a 78-year-old male with PMHx of CAD, Hodgkins Lymphoma, GERD, GI ble ed, HLD, PR, and CVA/TIA presenting to the emergency department with general weakness. He says the patient has had weakness since last night and is no longer able to get up or walk on his own. He uses a walker at baseline. He has a port in R shoulder and last received chemotherapy around 1 week ago. He endorses some confusion, sore throat, and 25lb weight loss in past 12 months. Labs on admission were lactic acid 6.0 on admission, WBC 0.6, hgb 7.9, Na 134, BUN 34, Cr 1.25, AST 148, ALT 154. In the ED, pt received fluids and repeat lactic acid stabilized. Pt was admitted to the medical inpatient team for further evaluation. Respiratory was panel negative. CXR shows mild pulmonary vascular congestion with no acute cardiopulmonary process. US of abdomen shows possible hepatic cirrhosis with some new cystic lesions, 2.9 cm right hepatic lobe lesion with some internal echogenicity that raises concern for possible hepatocelluar carcinoma versus other etiologies. Hepatitis panel nonreactive. oncology consulted and started filgrastim and recommended obtaining the MRI abdomen with contrast. Filgastim was later discontinued once absolute neutrophile count reached a safe range. MRI abdomen obtained and shows innumerable hepatic lesions most consistent with metastasis, largest within left hepatic lobe measuring 6.9 cm. No overt cirrhotic appearance of the liver vertebral osseous lesions and paravertebral soft tissue lesions favored to be metastasis, can be further evaluated with nuclear medicine bone scan versus PET scan. Left periaortic mildly enlarged lymph nodes concerning for metastasis. Redemonstration of large posterior mediastinal mass which appears slightly larger from prior CT chest on 04/06/2024. Mild splenomegaly small volume ascites and small bilateral pleural effusions with right greater than left. Pt was informed of results. Oncology, would like to obtain a liver biopsy to rule out a primary cancer versus Hodgkin's lymphoma, however patient and family will make a decision regarding this at a later time. Pt also found to have euvolemic hyponatremia indicated by urine studies and likely SIADH or adrenal insufficiency and continue to monitor oral intake and output. On discharge patient is hemodynamically stable, WBC 8.29, hemoglobin 9.2. Patient to continue ciprofloxacin for 1 more days for total of 7 days of antibiotics. Patient also to continue MiraLAX and lidocaine viscous. Pt will be discharged to care home facility. Patient to follow- up with PCP in 1-2 days and oncology in 1 week. Patient seen and examined at bedside. Pt is stable and has no new complaints this morning. Vital signs reviewed and stable. Physical examination: Vital signs reviewed General: non toxic, no distress, appears at stated age, normal weight Derm: no unusual rashes/lesions, warm Head: atraumatic, normocephalic, symmetric Eyes: EOMI, anicteric sclera, pupils equal round reactive to light ENT: Nose and ears atraumatic Mouth: no lip lesion, mucus membranes moist Cardiovascular: S1S2 reg, no murmur, 1+ pitting edema bilaterally Lungs: CTA bilateral, no rhonchi, no rales, no accessory muscle use Abdominal: soft, nontender to palpation, no guarding Ext: muscle strength 5 out of 5 in all 4 extremities grossly, no gross muscle atrophy Neuro: CN II-XI grossly intact, no gross focal neuro deficits Psych: Alert, oriented to person, and time but not place A total of greater than 30 minutes of time were spent preparing this complex discharge summary. Patient was discharged on 11/12/2024. Michaela Berger DO PGY-1 IM Dictation was produced using [employer] dictation software. Please excuse any grammatical, word or spelling errors. I have seen and evaluated the patient today. Discussed with the resident and agree with the residents finding and plan as documented in the resident's note. Changes highlighted in blue font. Patient Condition at Discharge: Stable Plan - Discharge Summary Discharge Rx Participant: No New Discharge Prescriptions: New Ciprofloxacin HCl [Cipro] 750 mg PO Q12H 2 Days #4 tab polyethylene glycoL 3350 [Miralax] 17 gm PO DAILY packet Lidocaine Viscous 2% [Xylocaine Viscous] 30 ml PO TID ml Continue ARIPiprazole [Abilify] 5 mg PO HS Magnesium Oxide [Mag-Ox] 400 mg PO BID #60 tab Pantoprazole [Protonix] 40 mg PO DAILY Ondansetron Odt [Zofran ODT] 8 mg PO Q8HR PRN PRN Reason: Nausea Aspirin 81 mg PO DAILY #30 tab Midodrine [ProAmatine] 5 mg PO TID Venlafaxine HCl [Effexor XR] 150 mg PO HS Atorvastatin [Lipitor] 40 mg PO HS #30 tab Clopidogrel [Plavix] 75 mg PO DAILY #21 tab Discharge Medication List ARIPiprazole [Abilify] 5 mg PO HS 03/12/24 [History] Venlafaxine HCl [Effexor XR] 150 mg PO HS 03/12/24 [History] Magnesium Oxide [Mag-Ox] 400 mg PO BID #60 tab 03/17/24 [Rx] Ondansetron Odt [Zofran ODT] 8 mg PO Q8HR PRN 09/11/24 [History] Pantoprazole [Protonix] 40 mg PO DAILY 09/11/24 [History] Aspirin 81 mg PO DAILY #30 tab 09/14/24 [Rx] Atorvastatin [Lipitor] 40 mg PO HS #30 tab 09/14/24 [Rx] Clopidogrel [Plavix] 75 mg PO DAILY #21 tab 09/14/24 [Rx] Midodrine [ProAmatine] 5 mg PO TID 11/06/24 [History] Ciprofloxacin HCl [Cipro] 750 mg PO Q12H 2 Days #4 tab 11/11/24 [Rx] Lidocaine Viscous 2% [Xylocaine Viscous] 30 ml PO TID ml 11/11/24 [Rx] polyethylene glycoL 3350 [Miralax] 17 gm PO DAILY packet 11/11/24 [Rx] Follow up Appointment(s)/Referral(s): Melodie De Guzman MD [STAFF PHYSICIAN] - 12/01/24 3:45 pm (This appt is at the [place] office ) Christine Golden, [NON-STAFF] - 1 Week Nonstaff,Physician [REFERRING] - 1-2 days Patient Instructions/Handouts: Neutropenia (DC) Activity/Diet/Wound Care/Special Instructions: Please see PCP and oncology. You will likely need liver biopsy outpatient. Discharge/Stand Alone Forms: Who Do I Call?, Adult Foster Fdc List, Assisted Living Facilities Discharge Disposition: TRANSFER TO SNF/ECF
[2024-11-12 15:21] VITALS: BP 114/71; PULSE 115; TEMP 98.2
[2024-11-12 16:43] LABS: Glucose,Whole Blood 109 mg/dL (70-110)
== END 2024-11-12 18:06 | DRG 871 ==
LOC: EC 17:25 → 5NMEDONC 20:03 → OBSVTOIN 11-06 14:47 → 3SCARD 11-06 20:59
PROVIDERS: ADMIT Student in an Organized Health Care Education/Training Program; ATTEND Student in an Organized Health Care Education/Training Program
DX: A41.9 Sepsis, unspecified organism (principal); D61.810 Antineoplastic chemotherapy induced pancytopenia; E87.20 Acidosis, unspecified; C78.7 Secondary malignant neoplasm of liver and intrahepatic bile duct; E22.2 Syndrome of inappropriate secretion of antidiuretic hormone; R18.8 Other ascites; C81.99 Hodgkin lymphoma, unspecified, extranodal and solid organ sites; F32.A Depression, unspecified; K76.0 Fatty (change of) liver, not elsewhere classified; E27.40 Unspecified adrenocortical insufficiency; E86.0 Dehydration; E78.5 Hyperlipidemia, unspecified; E83.42 Hypomagnesemia; R16.1 Splenomegaly, not elsewhere classified; M19.90 Unspecified osteoarthritis, unspecified site; F41.9 Anxiety disorder, unspecified; I25.10 Atherosclerotic heart disease of native coronary artery without angina pectoris; I25.2 Old myocardial infarction; J02.0 Streptococcal pharyngitis; K12.31 Oral mucositis (ulcerative) due to antineoplastic therapy; K21.9 Gastro-esophageal reflux disease without esophagitis; T45.1X5A Adverse effect of antineoplastic and immunosuppressive drugs, initial encounter; Z79.02 Long term (current) use of antithrombotics/antiplatelets; Z79.82 Long term (current) use of aspirin; Z79.899 Other long term (current) drug therapy; Z86.73 Personal history of transient ischemic attack (TIA), and cerebral infarction without residual deficits; Z87.891 Personal history of nicotine dependence; Z90.49 Acquired absence of other specified parts of digestive tract; Z95.5 Presence of coronary angioplasty implant and graft; Z87.19 Personal history of other diseases of the digestive system; Z71.3 Dietary counseling and surveillance
CPT/HCPCS: 36415; 71046; 74183; 76700; 80053; 80074; 80202; 81001; 82105; 82565; 83605; 83735; 83880; 83930; 83935; 84145; 84300; 84443; 85025; 85610; 85730; 86140; 87040; 87070; 87636; 87651; 93005; 96361; 96365; 99285